=== PATIENT | male | born 1950 | race Caucasian/White ===

== ENCOUNTER → 2017-07-29 06:41 | Outpatient (CLI) | payer MEDICARE, OTHER, SELFPAY ==
[2017-03-04 21:14] VITALS: BMI 35.1
[2017-03-04 23:38] VITALS: BP 151/76
[2017-07-29 08:16] LABS: AST(SGOT) 27 U/L (15-37); Alanine Aminotransfer ALT/SGPT 51 U/L (16-61); Albumin, Serum 3.9 g/dL (3.2-5.0); Alkaline Phosphatase 93 U/L (45-117); Bilirubin, Direct 0.16 mg/dL (0.00-0.30); Cholesterol 169 mg/dL (200); Globulin 3.1 g/dL (2.2-4.2); High Density Lipoprotein 44 mg/dL; Triglycerides 155 mg/dL; Very Low Density Lipoprotein 31 mg/dL (5-40)
== END ==
PROVIDERS: Nurse Practitioner Family; Family Provider Preventive Medicine Occupational Medicine; PCP Preventive Medicine Occupational Medicine; Visit Provider Internal Medicine Cardiovascular Disease
DX: E78.5 Hyperlipidemia, unspecified (principal); Z79.899 Other long term (current) drug therapy
CPT/HCPCS: 36415; 80061; 80076

== ENCOUNTER → 2017-08-13 08:22 | Outpatient (CLI) | payer MEDICARE, OTHER, SELFPAY ==
--- NOTE | 2017-08-13 09:00 | STE_ITS ---
Reason For Study: CAD Stress Results Protocol: Hugo Protocol Maximum Predicted HR: 154 bpm Target HR: 131 bpm% Max imum Predicted HR: 95 % DurationHeart Rate Stage (mm:ss) (bpm) BPCom ment BASELINE 55 140/80 2CC DEFINITY STAGE 1 3:00 11 3 162/70 STAGE2 3:00 13 7 200/60 STAGE 3 1:01 14 6 / 1 C C DEFINITY RECOVERY 64 118/78 1CC DEFINITY Stress Duration: 7:01 mm:ss Maximum Stress HR: 146 bpm Baseline Echocardiogram Findings The estimated ejection fraction is 65 %. Stress Echo Wall motion Data Resting WMIntermediate WMStress WM Resting Wall Motion Wall Motion Stress No regional wall motion No regional wall motion abnormalities noted. abnormalities noted. EKG Data Normal intervals are noted. The patient exercised according to the regular Hugo protocol for a total duration of 7:01. The maximum heart rate attained was 146 beats per minute. This was 94% of maximum predicted heart rate. The patient exercised into stage 3 of the Hugo protocol. During stress, there were no ST or T wave changes noted to suggest ischemia. No arrhythmias noted. No clinical angina was noted. Interpretation Summary The estimated ejection fraction is 65 %. Normal adequate treadmill echocardiogram. Negative for ischemia by EKG and echocardiographic anterior. No anginal symptoms noted. No arrhythmias noted. Hypertensive blood pressure response to exercise. Decreased sensitivity due to poor echo windows requiring Definity agent. Test terminated due to target heart rate achieved. Patient tolerated procedure well. No complications. Ordering Physician: Flaco Lopez Referring Physician: Flaco Lopez Performed By: Kylie Garner, YRIS, RVT
== END ==
PROVIDERS: Family Provider Preventive Medicine Occupational Medicine; PCP Preventive Medicine Occupational Medicine; Visit Provider Internal Medicine Cardiovascular Disease
DX: I25.10 Atherosclerotic heart disease of native coronary artery without angina pectoris (principal)
CPT/HCPCS: 93017; 93350; Q9957; A4216

== ENCOUNTER → 2018-05-18 07:59 | Outpatient (CLI) | payer MEDICARE, OTHER, SELFPAY ==
[2018-05-18 09:24] LABS: Microalbumin,Random Urine 37.4 mg/L (NO RANGE EST.); Microalbumin:Creatinine Ratio 16.5 mg/g CRE (<30 mg/g CRE)
[2018-05-18 09:34] LABS: ALB/GLOB Ratio 1.1 RATIO (0.9-2.4); AST(SGOT) 38 U/L (15-37); Alanine Aminotransfer ALT/SGPT 88 U/L (16-61); Albumin, Serum 3.6 g/dL (3.2-5.0); Alkaline Phosphatase 100 U/L (45-117); Anion Gap 4 (5-15); BUN 15 mg/dL (7-18); BUN/Creat Ratio 16.2 RATIO (10-20); Calcium,Total 8.4 mg/dL (8.5-10.1); Chloride 107 mmol/L (98-107); Creatinine, Serum 0.93 mg/dL (0.70-1.30); EST Glomerular Filtration Rate 87 mL/min (>60); Est Glom Filt Rate - Afr Amer 105 mL/min (>60); Globulin 3.2 g/dL (2.2-4.2); Glucose 232 mg/dL (74-106); PSA,Total - Annual Screen 1.19 ng/mL (0.00-4.00); Protein, Total 6.8 g/dL (6.4-8.2); Sodium Level 141 mmol/L (136-145)
[2018-05-18 10:52] LABS: Cholesterol 181 mg/dL (200); High Density Lipoprotein 35 mg/dL; T4 Total, Thyroxin 8.1 ug/dL (4.5-12.1); Thyroid Stim Hormone (TSH) 2.13 uIU/mL (0.358-3.74); Triglycerides 241 mg/dL; Very Low Density Lipoprotein 48 mg/dL (5-40)
--- OUTSIDE RECORDS SUMMARY | 2018-06-29 20:30 | XMS RPT_ITS ---
:1950 External Reference #:[id number] Author Organization OHIP Care Team Providers Name Role Phone Flaco Lopez Attending Unavailable Flaco Lopez Referring Unavailable Sheldon Talbert Primary Care Unavailable Flaco Lopez Attending Unavailable Flaco Lopez Referring Unavailable Sheldon Talbert Primary Care Unavailable Flaco Lopez Attending Unavailable Flaco Lopez Referring Unavailable Flaco Lopez Attending Unavailable DOCTOR, OUT OF TOWN Referring Unavailable Sheldon Talbert Primary Care Unavailable Sheldon Talbert Attending Unavailable Sheldon Talbert Referring Unavailable Sheldon Talbert Primary Care Unavailable Quita Foster Attending Unavailable Sheldon Talbert Referring Unavailable PROBLEMS PROBLEMS DATE TYPE CONDITION / CODE ATTENDING STATUS SOURCE 05/18/2018 Unknown Z12.5 - Encounter for Sheldon Talbert Nara Hawthorne screening for [facility] malignant neoplasm of Hospital prostate / Repository Z12.5(ICD-10) 05/18/2018 Unknown E11.9 - Type 2 GaliSheldon Active [place] diabetes mellitus [facility] without complications Hospital / E11.9(ICD-10) Repository 05/18/2018 Unknown I10 - Essential Gali Sheldon Active [place] (primary) [facility] hypertension / Hospital I10(ICD-10) Repository 10/22/2017 Unknown E78.5 - Flaco Lopez Active [place] Hyperlipidemia, [facility] unspecified / Hospital E78.5(ICD-10) Repository 10/22/2017 Unknown I25.10 - Flaco Lopez Atherosclerotic heart [facility] disease of [facility] coronary artery Repository without angina pectoris / I25.10(ICD-10) 07/30/2017 Unknown Z79.899 - Other long Flaco Lopez term (current) drug [facility] therapy / Hospital Z79.899(ICD-10) Repository PROCEDURES PROCEDURES No Procedure Records FoundRESULTS RESULTS CARDIOLOGY VISIT Observed: 05/18/2018 Status: F Source: [place] REPORT 3:02 PM [facility] REPOSITORY [facility] [address] [place] [address] OFFICE VISIT Date of Service: 05/18/18 MR#: [id number] Acct: [id number] Name: ALLYSON COLEY Rep #: [id number] : 1950 Provider: Quita Foster Age/Sex: 67/M Location: [facility] [place] Status: Signed HPI HPI Chief Complaint: Routine f/u Details: ALLYSON COLEY, is a 67 M who presents to the office today for a cardiovascular follow-up. He has a history of coronary artery disease with stenting to the proximal portion of the posterior lateral branch. He also has a history of hyperlipidemia and diabetes. From a cardiac standpoint, patient is doing well. He does not have any chest discomfort/heaviness/tightness. His exercise tolerance is stable for his age. He does not have any worsening symptoms of shortness of breath. He denies any PND. He does not have any orthopnea. He does not have any symptoms of congestive heart failure. He does not have any palpitations that he is aware of. He does not have any lightheadedness or dizziness. He does not have any near-syncope or syncope. He does not have any lower extremity edema. He does not have any symptoms of claudication. He does question why he is unable to lose weight. Although his blood sugars are not ideally controlled. He does complain of fatigue. 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 Accompanied by: None Is patient in pain?: No Allergies atorvastatin [From Lipitor] Adverse Reaction (Unknown, Verified 05/18/18 08:55) Myalgia, fatigue, joint pain pravastatin Adverse Reaction (Unknown, Verified 05/18/18 08:55) Myalgia cinnamon Adverse Reaction (Verified 05/18/18 08:55) throat swelling Medications Celecoxib [Celebrex] 200 mg PO DAILY 08/28/15 [History Confirmed 05/18/18] Nitroglycerin [Nitrostat] 0.4 mg SUBLINGUAL Q5M PRN #30 tab 08/30/15 [Rx Confirmed 05/18/18] Multivit-Min/FA/Lycopen/Lutein [Centrum Silver Tablet] 1 ea PO DAILY 04/29/16 [History Confirmed 05/18/18] Aspirin E.C. [Ecotrin] 81 mg PO DAILY@0800 05/01/16 [History Confirmed 05/18/18] acarbose 50 mg tablet 50 mg PO BID tab 05/18/18 [History Confirmed 05/18/18] clopidogrel 75 mg tablet 75 mg PO QDAY #90 tab 05/18/18 [Rx Confirmed 05/18/18] glimepiride 4 mg tablet 8 mg PO QAM tab 05/18/18 [History Confirmed 05/18/18] losartan 50 mg tablet 50 mg PO QDAY #90 tab 05/18/18 [Rx Confirmed 05/18/18] omega 3-pcd-atb-fish oil 1,000 mg (120 mg-180 mg) capsule cap PO BID cap 05/18/18 [History Confirmed 05/18/18] Ejection fraction %: 65 to 70 PFSH Medical History Atherosclerosis of coronary artery of [place] heart without angina pectoris (Chronic) Hyperlipidemia (Chronic) Obesity (Chronic) Type 2 diabetes mellitus without complications (Chronic) Surgical History History of coronary artery stent placement (Chronic 09/11/15) H/O arthroscopy of right knee (Chronic) History of carpal tunnel release (Chronic) History of toe surgery (Resolved) Family History Brother CAD (coronary artery disease) CABG Mother CAD (coronary artery disease) CABG Brother CAD (coronary artery disease) CABG Brother CAD (coronary artery disease) Father CAD (coronary artery disease) CABG Social History Smoking Status: Former smoker pack-years: 40 how long ago did patient quit smokin years alcohol intake: never caffeine: No ROS Const Const: Positive for fatigue; negative for weakness, fever(s) or headache(s) Eyes Eyes: Negative for blind spots, loss of peripheral vision or transient loss of vision ENT ENT: Negative for headache(s), dizziness, tinnitus or Nosebleed/epistaxis Cardio Chest Pain: No Palpitations: No Edema: None Muscle aches with walking: None Resp Respiratory: Negative for SOB with activity, SOB at rest, SOB orthopnea\SOB lying down or Cough GI GI: Negative nausea, vomiting, heartburn or vomiting blood/hematemesis : Negative for hematuria Musc Musc: Negative for muscle aches/ myalgia Neuro Neuro: Negative for weakness, headache(s), dizziness, near syncope, syncope, lightheadedness or orthostatic symptoms Evgeny Hematologic/Lymphatic: Negative for easy bleeding Endo Endo: Positive for fatigue Cardiology Exam Const Appearance: cooperative, no acute distress and well developed Orientation: alert, awake and oriented x3 Head Head: normocephalic and atraumatic Mouth: moist mucous membranes Eyes General: appearance normal, both eyes and all related structures Conjunctivae: conjunctivae normal Pupils: PERRL EOM: EOM intact bilaterally Neck Neck: normal visual inspection, no lymphadenopathy and no JVD Carotids: Negative bruit Neck Mass: Negative Neck mass Chest Chest inspection: normal inspection of the chest and symmetric chest movement Auscultation: Bilateral: Clear to Auscultation Cardio Palpation: normal PMI Rate: regular rate Rhythm: regular rhythm Heart sounds: S1 normal and S2 normal; negative rub, gallop or murmur GI GI: normal to inspection, soft, no hepatosplenomegaly and bowel sounds present; negative tender Neuro General: alert, awake, oriented x3, CN's II-XI intact bilaterally and moves all extremities Extremities Pulses: Normal: Right Posterior Tibial Pulse, Left Posterior Tibial Pulse, Right Radial Pulse, Left Radial Pulse Lower Extremity Edema: None: Bilateral Psych Psychological: normal affect Supplemental Info Stress echocardiogram in 2018 demonstrated The estimated ejection fraction is 65 %. Normal adequate treadmill echocardiogram. Negative for ischemia by EKG and echocardiographic anterior. No anginal symptoms noted. No arrhythmias noted. Hypertensive blood pressure response to exercise. Decreased sensitivity due to poor echo windows requiring Definity agent. Test terminated due to target heart rate achieved. Patient tolerated procedure well. No complications. Assessment AND Plan 1. Atherosclerosis of [place] coronary artery of [place] heart without angina pectoris I25.10 IRENA-PLB of RCA w/ 2.5 x 8 mm Synergy 09/11/2015 QSH-Zbeu-Goc RCA 0.89 Plan Stable, from a cardiac standpoint patient does not have any symptoms of angina. We recommend that they continue with current aggressive medical management and risk factor modification. 2. Pure hypercholesterolemia E78.00; E78.0 Plan Recent lipid profile demonstrates a total cholesterol 181, HDL 35, LDL 98. Patient will continue with current dose of statin therapy. 3. Essential hypertension I10 Plan Well-controlled on current medications. Will not make any adjustments. Orders Orders: Plan Detail Other Medications New: Refilled: Additional Comments Did encourage better control of his diabetes. Thank you for allowing us to participate in the patients plan of care, if you have any questions please do not hesitate to call. This note was generated using a voice recognition system and there may be incorrect words, spelling or punctuation that were not noted when reviewing the office note prior to saving. Follow Up 9 Months (PAULAN) Coding Level of Care Code Off vis,est,level 3 Diagnoses Atherosclerosis of [place] coronary artery of [place] heart without angina pectoris I25.10 Coronary Disease-Associated Artery/Lesion type: [place] artery Pure hypercholesterolemia E78.00; E78.0 Hyperlipidemia type: pure hypercholesterolemia Essential hypertension I10 Hypertension type: essential hypertension Coding Level of Care Code Off vis,est,level 3 Diagnoses Atherosclerosis of [place] coronary artery of [place] heart without angina pectoris I25.10 Coronary Disease-Associated Artery/Lesion type: [place] artery Pure hypercholesterolemia E78.00; E78.0 Hyperlipidemia type: pure hypercholesterolemia Essential hypertension I10 Hypertension type: essential hypertension 05/18/18 1502 <Electronically signed by Quita HADDDA> Date Quita HADDAD Cosigner Signature: Date (if applicable) CC: Sheldon Talbert DO MICROALB:CREAT Collected: 05/18/2018 Status: F Source: [facility] UR 8:05 AM [facility] REPOSITORY TYPE CODE TESTS RESULT OUT OF RANGE REFERENCE UNITS LAB L501.1200 NO RANGE EST. mg/dL Normal UR CREAT 227.00 LAB L502.0500 NO RANGE EST. mg/L Normal 37.4 MICROALBUMIN ,UR LAB L502.0600 <30 mg/g CRE mg/g CRE Normal 16.5 MALB:CREAT Performed By: #### L502.0250 #### [facility] [address] [place] [address]. [place], [place], [id number] COMPREHENSIVE METABOLIC Collected: 05/18/2018 Status: F Source: [facility] PROFIL 8:05 AM [facility] REPOSITORY Order Comment: QUITA FOSTER ADDED LIPID TSH T4 TYPE CODE TESTS RESULT OUT OF RANGE REFERENCE UNITS LAB L501.0100 74-106 mg/dL High GLU 232 Result Comment: Glucose result greater than or equal to 200 mg/dL suggests DIABETES MELLITUS per A.D.A. criteria. Please note revised GLUCOSE reference range effective 2017. LAB L501.1000 7-18 mg/dL Normal BUN 15 LAB L501.1100 0.70-1.30 mg/dL Normal CREAT,SERUM 0.93 Result Comment: The validity of the calculated GFR AND GFRAA in patients over 70 years has not been determined. Clinical correlation is essential. LAB L501.1110 >60 mL/min Normal EST GFR 87 Result Comment: Non- GFR Calc LAB L501.1115 >60 mL/min Normal EST GFR - AA 105 Result Comment: GFR Calc LAB L501.1300 10-20 RATIO Normal BUN/CRE 16.2 LAB L501.1500 6.4-8.2 g/dL T Normal PROT 6.8 LAB L501.1800 3.2-5.0 g/dL Normal ALB 3.6 LAB L501.1950 2.2-4.2 g/dL Normal GLOB 3.2 LAB L501.2000 0.9-2.4 RATIO Normal A/G 1.1 LAB L501.2200 8.5-10.1 mg/dL Low CA 8.4 LAB L501.4100 15-37 U/L High AST 38 LAB L501.4305 45-117 U/L Normal ALK P 100 LAB L501.4405 16-61 U/L High ALT 88 LAB L501.4600 0.20-1.00 mg/dL T Normal BILI 0.40 LAB L501.5300 136-145 mmol/L NA Normal 141 LAB L501.5600 3.5-5.1 mmol/L K Normal 4.0 LAB L501.5900 98-107 mmol/L CL Normal 107 LAB L501.6100 21.0-32.0 mmol/L Normal CO2 30.0 LAB L501.6200 5-15 Low GAP 4 Performed By: #### L500.4050, L501.9910, L500.4100, L501.9310, L501.9520 #### [facility] [address] [place], [address] PSA,TOTAL - ANNUAL Collected: 05/18/2018 Status: F Source: [place] SCREEN 8:05 AM [facility] REPOSITORY Order Comment: QUITA FOSTER ADDED LIPID TSH T4 TYPE CODE TESTS RESULT OUT OF RANGE REFERENCE UNITS LAB L501.9910 0.00-4.00 ng/mL Normal PSA,TOT 1.19 SCREEN Result Comment: This test was performed using the TPSA assay method for the [employer] chemistry system. Values obtained with different assay methods cannot be used interchangably. When changing PSA assays in the course of monitoring a patient, additional sequential testing should be carried out to confirm baseline values. Performed By: #### L500.4050, L501.9910, L500.4100, L501.9310, L501.9520 #### [facility] [address] [place], [address] LIPID PROFILE Collected: 05/18/2018 Status: F Source: [place] 8:05 AM [facility] REPOSITORY Order Comment: QUITA FOSTER ADDED LIPID TSH T4 TYPE CODE TESTS RESULT OUT OF RANGE REFERENCE UNITS LAB L501.4900 200 mg/dL Normal CHOL 181 Result Comment: <200 mg/dL Desirable 200-240 mg/dL Borderline >240 mg/dL High Risk LAB L501.5000 mg/dL High TRIG 241 Result Comment: The drugs N-Acetylcysteine and Metamizole may falsely depress this assay. Serum Triglycerides Reference Interval Normal <150 mg/dL Borderline high 150 - 199 mg/dL High 200 - 499 mg/dL Very High > or = 500 mg/dL LAB L501.6400 mg/dL Low HDL 35 Result Comment: The drugs N-Acetylcysteine and Metamizole may falsely depress this assay. Reference Range HDL <40 mg/dL Low HDL Cholesterol HDL >or= 60 mg/dL High HDL Cholesterol LAB L501.6500 0-130 mg/dL Normal LDL 98 LAB L501.6600 5-40 mg/dL High VLDL 48 Performed By: #### L500.4050, L501.9910, L500.4100, L501.9310, L501.9520 #### [facility] [address] [place], [address] T4 TOTAL, THYROXIN Collected: 05/18/2018 Status: F Source: [place] 8:05 AM [facility] REPOSITORY Order Comment: QUITA FOSTER ADDED LIPID TSH T4 TYPE CODE TESTS RESULT OUT OF RANGE REFERENCE UNITS LAB L501.9310 4.5-12.1 ug/dL T4 Normal THYROXIN 8.1 Performed By: #### L500.4050, L501.9910, L500.4100, L501.9310, L501.9520 #### [facility] [address] [place], [address] THYROID STIM HORMONE Collected: 05/18/2018 Status: F Source: [place] (TSH) 8:05 AM [facility] REPOSITORY Order Comment: QUITA ELIONNELL ADDED LIPID TSH T4 TYPE CODE TESTS RESULT OUT OF RANGE REFERENCE UNITS LAB L501.9520 0.358-3.74 uIU/mL Normal TSH 2.13 Performed By: #### L500.4050, L501.9910, L500.4100, L501.9310, L501.9520 #### [facility] [address] [place], [address] CARDIOLOGY VISIT Observed: 10/22/2017 Status: F Source: [place] REPORT 1:59 PM [facility] REPOSITORY [facility] [address] [place] [address] OFFICE VISIT Date of Service: 10/22/17 MR#: [id number] Acct: [id number] Name: ALLYSON COLEY Rep #: [id number] : 1950 Provider: Flaco Lopez MD Age/Sex: 67/M [place] [facility] Status: Signed HPI HPI Chief Complaint: Routine f/u Details: Mr. Coley is a very pleasant 67-year-old nondiabetic fairly active gentleman who rides his bike on a regular basis. The patient noted atypical nonexertional chest pain while sitting in his computer chair which precipitated an exercise imaging study The patient exercised for 10 minutes had no chest pain but had questionable inferior ischemia on the imaging component. Patient underwent left heart catheterization at [facility] in July 2015 which demonstrated nonobstructive disease of his left circumflex, LAD, and a questionable eccentric stenosis in the proximal portion of the posterior lateral branch. The patient underwent FFR evaluation at [facility] of his RCA which was found to be abnormal. Patient received a 2.5X8 Synergy drug-eluting stent of the proximal portion of the posterior lateral branch. The midportion of the RCA was FloWire and was found to be normal at 0.89. No additional stenting was done of the RCA. No FFR was done of the LAD lesion. Patient underwent a follow-up stress echocardiogram in 08/19/17 for coronary surveillance which was negative for inducible ischemia. Since her last visit the patient is no longer taking statins, and he is tolerating his Fish oil well. He continues to ride his bike without any difficulty whatsoever. He has no chest pain, angina, shortness of breath or dyspnea on exertion. In our office today his blood pressure is 120/62, and pulse is 64 and regular. He is on no beta blockers due to his baseline bradycardia. His physical exam is as below. His lipids as of 09/15/16 showed HDL of 51 and LDL of 30 While on Lipitor, but unfortunately was unable to take statins. 01/16/17 show an LDL of 101 and HDL of 49. His lipids as of 07/29/17 show an LDL of 94 and HDL of 44. Intake Vital Signs10/22/17 Height 5 ft 11 in 10/22/17 Weight: 252 lb 10/22/17 Body Mass Index (BMI) 35.1 10/22/17 Blood Pressure 120/62 10/22/17 Respiratory Rate 16 10/22/17 Pulse Rate 64 Intake Visit Reasons: 6 M FU Allergies atorvastatin [From Lipitor] Adverse Reaction (Unknown, Unverified 10/22/17 13:33) Myalgia, fatigue, joint pain pravastatin Adverse Reaction (Unknown, Unverified 10/22/17 13:33) Myalgia cinnamon Adverse Reaction (Verified 10/22/17 13:41) throat swelling Medications Celecoxib [Celebrex] 200 mg PO DAILY 08/28/15 [History Confirmed 10/21/17] Nitroglycerin [Nitrostat] 0.4 mg SUBLINGUAL Q5M PRN #30 tab 08/30/15 [Rx Confirmed 10/21/17] Multivit-Min/FA/Lycopen/Lutein [Centrum Silver Tablet] 1 ea PO DAILY 04/29/16 [History Confirmed 10/21/17] Aspirin E.C. [Ecotrin] 81 mg PO DAILY@0800 05/01/16 [History Confirmed 10/21/17] clopidogrel 75 mg tablet 75 mg PO QDAY #90 tab 06/10/17 [Rx Confirmed 10/21/17] losartan 50 mg tablet 50 mg PO QDAY 08/14/17 [History Confirmed 10/21/17] metformin 500 mg tablet 500 mg PO .qid tab 10/22/17 [History Confirmed 10/22/17] omega 5-fgq-zit-fish oil 1,000 mg (120 mg-180 mg) capsule cap PO 10/22/17 [History Confirmed 10/22/17] PFS Medical History Atherosclerosis of coronary artery of [place] heart without angina pectoris (Chronic) Hyperlipidemia (Chronic) Obesity (Chronic) Type 2 diabetes mellitus without complications (Chronic) Surgical History History of coronary artery stent placement (Chronic 09/11/15) H/O arthroscopy of right knee (Chronic) History of carpal tunnel release (Chronic) Family History Brother CAD (coronary artery disease) CABG Mother CAD (coronary artery disease) CABG Social History Smoking Status: Former smoker pack-years: 40 ROS Const Const: Positive for fatigue and other (Riding his bike w/o difficulty); negative for weakness, difficulty sleeping, frequent falls, headache(s) or excessive sweating Eyes Eyes: Negative for loss of peripheral vision, transient loss of vision, blurry vision or double vision ENT ENT: Negative for headache(s), dizziness, Nosebleed/epistaxis or balance problems Cardio Chest Pain: No Edema: None Muscle aches with walking: None Resp Respiratory: Negative for SOB with activity, SOB at rest, SOB orthopnea\SOB lying down or paroxysmal nocturnal dyspnea GI GI: Negative nausea or heartburn : Negative for hematuria Musc Musc: Negative for muscle aches/ myalgia, muscle weakness, joint pain or balance problems Skin Skin: Negative non-healing lesions, unusual bruising or rash Neuro Neuro: Negative for weakness, frequent falls, blurry vision, headache(s), dizziness, lightheadedness, orthostatic symptoms or double vision Evgeny Hematologic/Lymphatic: Negative for easy bruising Endo Endo: Positive for fatigue; negative for excessive sweating or increased thirst/drinking Psych Psych: Negative for anxiety or depression Allergy Allergy/Immunology: Negative for hives, Negative for rash Cardiology Exam Const Appearance: cooperative, healthy appearing and no acute distress Nutritional Appearance: well nourished Orientation: alert, oriented x3 and oriented to person Head Head: normal to inspection, atraumatic and normocephalic Nose: external nose normal Face and Sinus: face symmetric Mouth: oral mucosae normal Eyes General: appearance normal, both eyes and all related structures Eyelids: eyelids normal Conjunctivae: conjunctivae normal Pupils: PERRL and normal by confrontation EOM: EOM intact bilaterally Neck Neck: normal visual inspection and full ROM Carotids: normal carotid upstroke Chest Chest inspection: normal inspection of the chest Auscultation: Bilateral: Clear to Auscultation Cardio Palpation: normal PMI Rate: regular rate Rhythm: regular rhythm Heart sounds: S1 normal and S2 normal GI GI: normal to inspection, no hepatosplenomegaly and bowel sounds present Neuro General: alert, oriented x3, awake, CN's II-XI intact bilaterally and moves all extremities Skin Skin: no rashes or lesions noted Extremities Pulses: Normal: Right Femoral Pulse, Left Femoral Pulse, Right Dorsalis Pedis Pulse, Left Dorsalis Pedis Pulse, Right Posterior Tibial Pulse, Left Posterior Tibial Pulse, Right Radial Pulse, Left Radial Pulse Lower Extremity Edema: None: Bilateral Psych Psychological: normal affect Assessment AND Plan 1. Atherosclerosis of coronary artery of [place] heart without angina pectoris I25.10 IRENA-PLB of RCA w/ 2.5 x 8 mm Synergy 09/11/2015 XWD-Iwil-Ymw RCA 0.89 Plan 1. Coronary artery disease: No exertional anginal symptoms at this time. No indication for any additional testing. His blood pressure and heart rate are well-controlled. He continues to ride his bike without difficulty. Recommend for his remaining uncorrected lesions and continuing baby aspirin, Plavix, losartan. His most recent stress test was negative for inducible ischemia at a good workload. 2. Hyperlipidemia E78.5 Plan 2. Hyperlipidemia: Unfortunately the patient is unable to tolerate statins and has tried gemfibrozil in the past as well. He is not willing to proceed with Zetia at this time. His LDL and HDL cholesterol are essentially balance. Continue fish oil. 3. Return office in 6 months. This note was generated using a voice recognition system and there may be incorrect words, spelling or punctuation that were not noted when reviewing the office note prior to saving. Plan Detail Follow Up +6M (Lopez) Coding Level of Care Code Off vis,est,level 3 Diagnoses Atherosclerosis of coronary artery of [place] heart without angina pectoris I25.10 Hyperlipidemia E78.5 Coding Level of Care Code Off vis,est,level 3 Diagnoses Atherosclerosis of coronary artery of [place] heart without angina pectoris I25.10 Hyperlipidemia E78.5 10/22/17 1359 <Electronically signed by Flaco Lopez MD> Date Flaco Lopez MD Cosigner Signature: Date (if applicable) CC: Sheldon Talbert DO STRESS TEST ECHO W/O Observed: 08/13/2017 Status: F Source: [facility] CONTRAST 5:07 PM [facility] REPOSITORY [facility] Cardiovascular Services [address] [place] [id number] Stress Test Echo w/o Contrast MR#: [id number] Acct: [id number] Name: ALLYSON COLEY Rep #: [id number] : 1950 67 From: Flaco Lopez MD Primary Care: Sheldon Talbert DO Status: REG CLI Ordering Dr: Flaco Lopez MD Sex: M C Reason For Study: CAD Stress Results Protocol: Hugo Protocol Maximum Predicted HR: 154 bpm Target HR: 131 bpm% Max imum Predicted HR: 95 % DurationHeart Rate Stage (mm:ss) (bpm) BPCom ment BASELINE 55 140/80 2CC DEFINITY STAGE 1 3:00 11 3 162/70 STAGE2 3:00 13 7 200/60 STAGE 3 1:01 14 6 / 1 C C DEFINITY RECOVERY 64 118/78 1CC DEFINITY Stress Duration: 7:01 mm:ss Maximum Stress HR: 146 bpm Baseline Echocardiogram Findings The estimated ejection fraction is 65 %. Stress Echo Wall motion Data Resting WMIntermediate WMStress WM Resting Wall Motion Wall Motion Stress No regional wall motion No regional wall motion abnormalities noted. abnormalities noted. EKG Data Normal intervals are noted. The patient exercised according to the regular Hugo protocol for a total duration of 7:01. The maximum heart rate attained was 146 beats per minute. This was 94% of maximum predicted heart rate. The patient exercised into stage 3 of the Hugo protocol. During stress, there were no ST or T wave changes noted to suggest ischemia. No arrhythmias noted. No clinical angina was noted. Interpretation Summary The estimated ejection fraction is 65 %. Normal adequate treadmill echocardiogram. Negative for ischemia by EKG and echocardiographic anterior. No anginal symptoms noted. No arrhythmias noted. Hypertensive blood pressure response to exercise. Decreased sensitivity due to poor echo windows requiring Definity agent. Test terminated due to target heart rate achieved. Patient tolerated procedure well. No complications. Ordering Physician: Flaco Lopez Referring Physician: Flaco Lopez Performed By: Kylie Garner, YRIS, RVT 08/13/171706 Date Flaco Lopez MD CC: Flaco Lopez MD; Sheldon Talbert Date Dictated: 08/13/17 0829 Date Transcribed: 08/13/171706 X Ray Consultant: Signed LIVER PROFILE Collected: 07/29/2017 Status: F Source: [place] 6:48 AM [facility] REPOSITORY Order Comment: Order Date: 01/22/17 Order Info: 0788-1 - *Hepatic Function Panel Order Info: 36699-0 - *Lipid Profile CC PCP Comments: 12 hours fasting, may have water. TYPE CODE TESTS RESULT OUT OF RANGE REFERENCE UNITS LAB L501.1500 6.4-8.2 g/dL Normal T PROT 7.0 LAB L501.1800 3.2-5.0 g/dL Normal ALB 3.9 LAB L501.1950 2.2-4.2 g/dL Normal GLOB 3.1 LAB L501.4100 15-37 U/L Normal AST 27 LAB L501.4305 45-117 U/L Normal ALK P 93 LAB L501.4405 16-61 U/L Normal ALT 51 Result Comment: Please note revised ALT reference range effective 2017. LAB L501.4600 0.20-1.00 mg/dL Normal T BILI 0.50 LAB L501.4700 0.00-0.30 mg/dL Normal D BILI 0.16 Performed By: #### L500.3400 #### [facility] [address] [place], [place], [address] LIPID PROFILE Collected: 07/29/2017 Status: F Source: [place] 6:48 AM [facility] REPOSITORY Order Comment: Order Date: 01/22/17 Order Info: 0788-1 - *Hepatic Function Panel Order Info: 72027-7 - *Lipid Profile CC PCP Comments: 12 hours fasting, may have water. TYPE CODE TESTS RESULT OUT OF RANGE REFERENCE UNITS LAB L501.4900 200 mg/dL Normal CHOL 169 Result Comment: <200 mg/dL Desirable 200-240 mg/dL Borderline >240 mg/dL High Risk LAB L501.5000 mg/dL Normal TRIG 155 Result Comment: The drugs N-Acetylcysteine and Metamizole may falsely depress this assay. Serum Triglycerides Reference Interval Normal <150 mg/dL Borderline high 150 - 199 mg/dL High 200 - 499 mg/dL Very High > or = 500 mg/dL LAB L501.6400 mg/dL Normal HDL 44 Result Comment: The drugs N-Acetylcysteine and Metamizole may falsely depress this assay. Reference Range HDL <40 mg/dL Low HDL Cholesterol HDL >or= 60 mg/dL High HDL Cholesterol LAB L501.6500 0-130 mg/dL Normal LDL 94 LAB L501.6600 5-40 mg/dL Normal VLDL 31 Performed By: #### L500.4100 #### [facility] [address] [place], [place], [address] ALLERGIES ALLERGIES DATE TYPE / CODE NAME / CODE REACTION SEVERITY SOURCE 05/18/2018 Drug pravastatin/ myalgia Unknown [facility] Allergy/4160 [id number]( Hospital 99038(SNOMED XNORM) Repository CT) 05/18/2018 Drug atorvastatin Myalgia, Unknown [facility] Allergy/4160 /[id number]( fatigue, joint Hospital 63426(SNOMED RXNORM) pain Repository CT) 05/18/2018 Drug cinnamon/F00 throat swelling Unknown [facility] Allergy/4160 [id number](RX Hospital 91034(SNOMED RM) Repository CT) ENCOUNTERS ENCOUNTERS ADMIT/DISCHARGE ACCOUNT ADMITTING ENCOUNTER LOCATION SOURCE NUMBER CLASS 05/18/2018/ [id number] Ambulatory BMSBuilding:B [place] 8 2 [facility] Repository 05/18/2018 [id number] Ambulatory [facility] ing:LAB Repository 10/22/2017/ [id number] Ambulatory BMSBuilding:B [facility] 8 3 [facility] Repository 08/13/2017 [id number] [place] [facility] ing:[facility] Repository 08/13/2017 [id number] Ambulatory BMSBuilding:W [facility] Repository 07/29/2017 [id number] Ambulatory [place] [facility] ing:LAB Repository PAYERS PAYERS ENCOUNTER GUARANTOR PAYER SUBSCRIBER SOURCE 05/18/2018 ALL[place]ON L Primary ALLYSON L [place] [id number] S Insurance:MEDICARE VIRGILIDOB: [facility] WALNUT PART A [facility] [id number] Repository [id number]: [id number] [phone] () Date:2018-05-06 05/18/2018 Secondary [place] L [place] Insurance:AARPPolicy VIRGILIDOB: [facility] Number: [id number] Hospital [id number] Repository Date:6739-16-98GJ [address], [place] [address]EO: 05/18/2018 Tertiary NOT GIVENUNK [place] Insurance:SELF PAY [facility] Number: Effective Repository Date:2018-05-18 05/18/2018 ALLYSON L Primary ALLYSON L [place] [id number] S Insurance:MEDICARE VIRGILIDOB: [facility] WALNUT PART A [facility] [id number] Number: Repository [id number]: 330 [id number] [phone] (HP) Date:2018-05-18 05/18/2018 Secondary ALLYSON L [place] Insurance:AARPPolicy VIRGILIDOB: Community Number: [id number] Hospital [id number] Repository Date:4849-79-25YS [address], [place] [address]FQ: 05/18/2018 Tertiary NOT GIVENUNK [facility] Insurance:SELF PAY [facility] Effective Repository Date:2018-05-18 10/22/2017 ALLYSON L Primary ALLYSON L [facility] [id number] S Insurance:MEDICARE VIRGILIDOB: Community [employer]AL[place]UT PART A [id number] Number: Repository [place] [address]Jim: [id number] Date:2017-06-02 () 10/22/2017 Secondary ALLYSON L [place] Insurance:AARPPolicy VIRGILIDOB: Community Number: [id number] Hospital [id number] Repository Date:6303-33-16LR [address], [place] [address]GY: 10/22/2017 Tertiary NOT GIVENUNK [place] Insurance:SELF PAY [facility] Hospital Number: Effective Repository Date:2017-06-02 08/13/2017 ALLYSON L Primary ALLYSON L [place] [id number] S Insurance:MEDICARE VIRGILIDOB: Community [place]AL[place]UT PART A [facility] [id number] [place] Number: Repository [id number]: 330 [id number] [phone] () Date:2017-07-20 08/13/2017 Secondary ALLYSON L [place] Insurance:AARPPolicy VIRGILIDOB: Community Number: [id number] Hospital [id number] Repository Date:5511-98-65HG [address], [place] [address]KY: 08/13/2017 Tertiary NOT GIVENUNK [place] Insurance:SELF PAY [facility] Number: Effective Repository Date:2017-07-20 08/13/2017 ALLYSON L Primary ALLYSON L [place] [id number] S Insurance:MEDICARE VIRGILIDOB: Community WAL[place]UT PART A [facility] [id number] [place] Number: Repository [id number]: 330 [id number] [phone] () Date:2017-07-20 08/13/2017 Secondary ALLYSON L [place] Insurance:AARPPolicy VIRGILIDOB: Community Number: [id number] Hospital [id number] Repository Date:8667-38-68BU [facility] [address], [place] [address]BD: 08/13/2017 Tertiary NOT GIVENUNK [place] Insurance:SELF PAY [facility] Hospital Number: Effective Repository Date:2017-08-13 07/29/2017 ALLYSON L Primary ALLYSON L [place] [id number] S Insurance:MEDICARE VIRGILIDOB: Community WALNUT PART A [facility] [id number] [place] Number: Repository [id number]: 330 [id number] [phone] () Date:2017-07-29 07/29/2017 Secondary ALLYSON L [place] Insurance:AARPPolicy VIRGILIDOB: Community Number: [id number] Hospital [id number] Repository Date:0049-85-27IC [facility] [place], [place] [address]QD: 07/29/2017 Tertiary NOT GIVENUNK [place] Insurance:SELF PAY [facility] Hospital Number: Effective Repository Date:2017-07-29
== END ==
PROVIDERS: Family Provider Preventive Medicine Occupational Medicine; PCP Preventive Medicine Occupational Medicine; Referring Provider Preventive Medicine Occupational Medicine; Visit Provider Preventive Medicine Occupational Medicine
DX: I10 Essential (primary) hypertension (principal); Z12.5 Encounter for screening for malignant neoplasm of prostate; E11.9 Type 2 diabetes mellitus without complications
CPT/HCPCS: 36415; 80053; 80061; 82043; 82570; 84153; 84436; 84443; G0103

== ENCOUNTER → 2019-02-23 | Outpatient (CLI) | payer MEDICARE, OTHER, SELFPAY ==
[2019-02-03 13:54] VITALS: BMI 33.9
--- NOTE | 2019-02-23 12:01 | STEWCON_ITS ---
Reason For Study: CAD Stress Results Protocol: Hugo Protocol Maximum Predicted HR: 153 bpm Target HR: 130 bpm % Maximum Predicted HR: 88 % DurationHeart Rate Stage (mm:ss) (bpm) BP Comment Baseline 48 138/70No Chest Pain; Diluted Definity 3 ML Given Hugo Protocol Stage I 3:00 98 174/70No Chest Pain Hugo Protocol Stage II 3:00 117 198/64No Chest Pain Hugo Protocol Stage III 3:00 134 196/72No Chest Pain; Mild Dyspnea; Fatigue Recovery 63 140/68No Chest Pain Stress Duration: 9:00 mm:ss Maximum Stress HR: 134 bpm METS: 10 Baseline Echocardiogram Findings The estimated ejection fraction is 65 %. Stress Echo Wall motion Data Resting WM Intermediate WM Stress WM Resting Wall Motion Wall Motion Stress No regional wall motion No regional wall motion abnormalities noted. abnormalities noted. EKG Data The baseline ECG displays normal sinus rhythm. The patient exercised according to the regular Hugo protocol for a total duration of 9:00. The maximum heart rate attained was 136 beats per minute. This was 88% of maximum predicted heart rate. The patient exercised into stage 4 of the Hugo protocol. During stress, there were no ST or T wave changes noted to suggest ischemia. No clinical angina was noted. No arrhythmias noted. Interpretation Summary The estimated ejection fraction is 65 %. Normal, adequate, treadmill echocardiogram. Negative for ischemia by EKG and echocardiographic criteria. No anginal symptoms noted. No arrhythmias noted. Test terminated due to fatigue. Final LVEF is 75%. Decreased sensitivity due to poor echo windows requiring Definity agent. No complications. The study was technically difficult. Contrast injection was performed. Ordering Physician: Flaco Lopez MD Referring Physician: MD Sheldon Talbert Performed By: Carrie Kyle, YRIS, RVT
== END | disposition home or self-care (01) ==
LOC: CVS 11:59
PROVIDERS: Family Provider Preventive Medicine Occupational Medicine; PCP Preventive Medicine Occupational Medicine; Referring Provider Internal Medicine Cardiovascular Disease; Visit Provider Internal Medicine Cardiovascular Disease
DX: I25.10 Atherosclerotic heart disease of native coronary artery without angina pectoris (principal); Z95.5 Presence of coronary angioplasty implant and graft; E78.5 Hyperlipidemia, unspecified
CPT/HCPCS: 93017; 93350; Q9957; A4216; C8928

== ENCOUNTER → 2019-08-06 07:10 | Outpatient (CLI) | payer MEDICARE, OTHER, SELFPAY ==
[2019-08-01 15:29] VITALS: BMI 34.4
[2019-08-06 09:36] LABS: AST(SGOT) 18 U/L (15-37); Alanine Aminotransfer ALT/SGPT 35 U/L (16-61); Albumin, Serum 3.9 g/dL (3.2-5.0); Alkaline Phosphatase 72 U/L (45-117); Bilirubin, Direct 0.14 mg/dL (0.00-0.30); Cholesterol 188 mg/dL (200); Globulin 3.1 g/dL (2.2-4.2); High Density Lipoprotein 48 mg/dL; Triglycerides 130 mg/dL; Very Low Density Lipoprotein 26 mg/dL (5-40)
== END ==
PROVIDERS: PCP Preventive Medicine Occupational Medicine; Referring Provider Internal Medicine Cardiovascular Disease; Visit Provider Internal Medicine Cardiovascular Disease
DX: I25.10 Atherosclerotic heart disease of native coronary artery without angina pectoris (principal); E78.5 Hyperlipidemia, unspecified
CPT/HCPCS: 36415; 80061; 80076

== ENCOUNTER → 2019-11-26 07:23 | Outpatient (CLI) | payer MEDICARE, OTHER, SELFPAY ==
[2019-08-01 15:29] VITALS: BMI 34.4
[2019-11-26 08:18] LABS: Anion Gap 5 (5-15); BUN 19 mg/dL (7-18); BUN/Creat Ratio 19.4 RATIO (10-20); Calcium,Total 8.7 mg/dL (8.5-10.1); Chloride 106 mmol/L (98-107); Creatinine, Serum 0.98 mg/dL (0.70-1.30); EST Glomerular Filtration Rate 81 mL/min (>60); Est Glom Filt Rate - Afr Amer 98 mL/min (>60); Glucose 176 mg/dL (74-106); PSA,Total - Annual Screen 1.75 ng/mL (0.00-4.00); Potassium 4.1 mmol/L (3.5-5.1); Sodium Level 140 mmol/L (136-145)
[2019-11-26 08:28] LABS: Microalbumin,Random Urine < 5.0 mg/L (NO RANGE EST.)
[2019-11-26 08:29] LABS: Hemoglobin A1c 8.7 % (3.8-5.6)
== END ==
PROVIDERS: PCP Preventive Medicine Occupational Medicine; Referring Provider Preventive Medicine Occupational Medicine; Visit Provider Preventive Medicine Occupational Medicine
DX: E11.9 Type 2 diabetes mellitus without complications (principal); Z12.5 Encounter for screening for malignant neoplasm of prostate
CPT/HCPCS: 36415; 80048; 82043; 83036; 84153; G0103

== ENCOUNTER 2020-08-28 10:32 | Outpatient (RCR) | payer MEDICARE, OTHER, SELFPAY ==
[2020-02-17 09:35] VITALS: BMI 33.9
[2020-08-27 14:14] VITALS: BMI 34.8
[2020-08-28] MEDS: COVID-19 VACC, MRNA(PFIZER)/PF 30 MCG/0.3 ML SYRINGE IM (17:11)
[2020-09-18] MEDS: COVID-19 VACC, MRNA(PFIZER)/PF 30 MCG/0.3 ML SYRINGE IM (16:45)
== END 2020-11-27 23:59 ==
LOC: IMMUN 10:32
PROVIDERS: PCP Preventive Medicine Occupational Medicine; Referring Provider Family Medicine; Visit Provider Family Medicine
DX: Z23 Encounter for immunization (principal)
CPT/HCPCS: 0001A; 0002A; 91300

== ENCOUNTER → 2021-01-14 05:51 | Outpatient (CLI) | payer MEDICARE, OTHER, SELFPAY ==
[2020-08-27 14:14] VITALS: BMI 34.8
--- NOTE | 2021-01-14 19:34 | STRESSREP ---
Stress Test Report Exercise myocardial perfusion stress test. 70-year-old man with a history of previous coronary artery disease. Stress protocol: Resting EKG demonstrates sinus bradycardia with a rate of 44 bpm normal intervals are noted resting blood pressures 144/78 mmHg. The patient exercised according to regular Hugo protocol for a total duration of 6 minutes. The maximum heart rate attained was 127 bpm which was 84% of maximum predicted heart rate the maximum workload was seven metabolic equivalents. At rest there were no ST or T wave changes noted to suggest ischemia and at peak exercise upsloping ST changes were noted with did not meet the criteria for ischemia. No clinical angina was noted the test was terminated due to the target heart rate being achieved. Myocardial perfusion protocol. 14.2 mCi of technetium 99m sestamibi was injected at rest. The patient exercised according to regular Hugo protocol. At peak exercise 44.7 mCi of technetium 99m sestamibi was injected stress images were obtained stress and rest images were reconstructed and compared in the short axis vertical long and horizontal long axis. Gated images were also obtained. Perfusion SPECT analysis: Review of the stress images demonstrate normal uptake of tracer noted in the septum anterior wall and apex. There is a medium size defect noted involving the inferolateral wall noted on the stress images. The resting images demonstrate near complete uptake of tracer in all areas of the myocardium. The above is suggestive of a medium sized inferolateral perfusion defect suggestive of ischemia. Gated SPECT analysis: The gated ejection fraction is 56%. Conclusion: Abnormal exercise myocardial perfusion stress test with evidence of inferolateral ischemia at a moderate workload. Preserved ejection fraction.
== END ==
PROVIDERS: PCP Preventive Medicine Occupational Medicine; Referring Provider Physician Assistant Medical; Visit Provider Physician Assistant Medical
DX: I25.10 Atherosclerotic heart disease of native coronary artery without angina pectoris (principal)
CPT/HCPCS: 78452; 93017; A9500; A4216

== ENCOUNTER → 2021-01-17 15:21 | Outpatient (CLI) | payer MEDICARE, OTHER, SELFPAY ==
[2021-01-17 14:10] VITALS: BMI 47.7
--- NOTE | 2021-01-17 15:25 | RAD_ITS ---
STUDY: X-RAY CHEST REASON FOR EXAM: Male, 70 years old. Chest pain. TECHNIQUE: Single AP portable view of the chest. COMPARISON: 08/28/2015 FINDINGS: The lungs are clear and expanded. There is no demonstrated pleural abnormality. Normal size heart. Normal mediastinum and dylan. Normal visualized pulmonary arteries. Normal visualized aortic arch and descending thoracic aorta. There are diffuse degenerative changes of the visualized thoracic spine. There is degenerative osteoarthritis of the bilateral shoulders. There is no demonstrated abnormality of the visualized soft tissue structures of the upper abdomen. RAD/Chest PA and Lateral IMPRESSION: Degenerative changes, as described above. No demonstrated acute cardiopulmonary process. Electronically Signed: Jere Cabral DO at 21:15 EDT Tel [phone], Service support ,
[2021-01-17 17:11] LABS: Absolute Lymphocyte Count 1.05 X10^3/uL (0.83-4.51); Basophil# 0.02 X10^3/uL; Basophil% 0.3 % (0-1); Eosinophil# 0.15 X10^3/uL; Eosinophils% 2.6 % (0-5); Hematocrit 45.6 % (40-54); Hemoglobin 15.5 g/dL (13.0-16.5); Lymphocyte # 1.05 X10^3/ul (0.83-4.51); Mean Corpuscular Hgb 30.2 pg (27.0-32.0); Mean Corpuscular Volume 88.7 fL (80-94); Mean Platelet Vol. 9.8 fl (6.2-12.0); Monocyte# 0.47 X10^3/uL; Monocyte% 8.1 % (0-10); NRBC Flagged by Analyzer 0 % (0-5); Neutrophil # 4.04 X10^3/uL (2.7-7.7); Neutrophil % 69.5 % (47-70); Platelet Count 188 K/mm3 (150-450); RBC Distribution Width CV 11.8 % (11.6-14.6); RBC Distribution Width SD 37.7 fl (35.1-43.9); Red Blood Count 5.14 M/mm3 (4.6-6.2); White Blood Count 5.8 K/mm3 (4.4-11.0)
[2021-01-17 17:30] LABS: Prothrombin Time (Protime)PT. 12.6 SECONDS (11.7-14.9)
[2021-01-17 17:45] LABS: Anion Gap 9 (5-15); BUN 20 mg/dL (7-18); BUN/Creat Ratio 22.4 RATIO (10-20); Calcium,Total 8.8 mg/dL (8.5-10.1); Chloride 101 mmol/L (98-107); Creatinine, Serum 0.89 mg/dL (0.70-1.30); EST Glomerular Filtration Rate 90 mL/min (>60); Est Glom Filt Rate - Afr Amer 108 mL/min (>60); Glucose 256 mg/dL (74-106); Potassium 4.2 mmol/L (3.5-5.1); Sodium Level 136 mmol/L (136-145)
== END ==
PROVIDERS: PCP Preventive Medicine Occupational Medicine; Referring Provider Physician Assistant Medical; Visit Provider Physician Assistant Medical
DX: I25.10 Atherosclerotic heart disease of native coronary artery without angina pectoris (principal); E78.00 Pure hypercholesterolemia, unspecified; R94.39 Abnormal result of other cardiovascular function study
CPT/HCPCS: 36415; 71046; 80048; 85025; 85610

== ENCOUNTER 2021-02-06 06:13 | Day surgery (SDC) | payer MEDICARE, OTHER, SELFPAY ==
[2021-01-17 14:10] VITALS: BMI 47.7
[2021-02-05 08:42] VITALS: BMI 47.2
[2021-02-06 07:40] VITALS: BMI 35.9
--- NOTE | 2021-02-06 08:36 | CL.D_ITS ---
Patient Name: ALLYSON COLEY Study Date: 02/06/2021 Performing: Cruzito Torres MD Ht: 70 inches 177.8 cm : 1950 Wt: 249.12 lbs 113 kg Age: 70 Gender: male BSA: 2.29 PROCEDURE(S) PERFORMED MP28-TPD/COR/LV CLINICAL PROFILE AND INDICATIONS Indications: Suspected CAD Heart Failure: None Stress/Imaging Date: 01/14/21ress Test with SPECT MPI: Positive Intermediate Risk CAD Presentations: Stable angina. CONCLUSIONS Severe triple-vessel disease with depressed left ventricular systolic function RECOMMENDATIONS Surgery consult for coronary revascularization DESCRIPTION OF PROCEDURE The patient arrived to the procedure lab. The risks and benefits of the procedure as well as a full d escription of our services here and current unavailability of surgical backup were fully explained to the patient and/or their significant other prior to the catheterization. The Timeout was completed, verifying the correct patient and procedure. The patient's procedural site was prepped and draped in the usual fashion. Local anesthetic was given subcutaneously to right radial region with Lidocaine 2% . Using a modified Seldinger technique, arterial access was obtained via the right radial artery, a 6 Fr sheath was inserted. Right Coronary Artery selective angiography was then performed in single vie w using a 5 Fr. 4.0 [place] catheter. Right Coronary Artery selective angiography was then performed in multiple views using a 5 Fr. JR 5 catheter. Left Coronary Artery selective angiography was performed in multiple views using a 5 Fr. JL3.5 catheter. Left Ventriculography was performed in CRAMER projection using a 5 Fr. Pigtail catheter. LV to AO pullback pressures were then recorded.The art erial sheath was pulled and a TR Band was applied for hemostasis - 10CC AIR CORONARY ANGIOGRAPHY DOMINANCE: Right Dominant LEFT HEART ASSESSMENT Left Ventricular Ejection Fraction: by LV Gram 40 % Inferior Mid Hypokinesis - Severe Depressed Left Ventricular systolic function LEFT MAIN: Angiographically normal LEFT ANTERIOR DESCENDING ARTERY: Diffusely diseased vessel with mid LAD demonstrating approximately 8 0% stenosis and diffuse distal disease CIRCUMFLEX ARTERY: PROX CIRC: Proximal circumflex artery with 80% stenosis and first obtuse marginal branch which is dif fusely diseased RIGHT CORONARY ARTERY: Previously stented right coronary artery with mild to moderate diffuse proxima l and mid disease and distal 80% stenosis and left to right collaterals of the posterolateral branch. COLLATERAL FLOW: Collateral flow from Left to Right COMPLICATIONS No Complications PROCEDURE MEDICATIONS Fentanyl 50 mcg IV Versed 1 mg IV Oxygen: 2 L/min via nasal cannula Heparin given IA 02/06/2021 08:09:38 SUMMARY OF HEMODYNAMIC DATA Time AIR REST ECG 07:04:57 AO 132/70 (94) SA 08:11:24 LV 131/16, 20 08:25:09 LV 133/16, 20 08:25:15 LV 120/19, 24 08:25:52 LV 121/17, 21 08:25:58 LVp 128/16, 23 08:26:03 AOp 128/64 (90) 08:26:09 Signed By Cruzito Torres MD On 02/06/2021 08:35:57 Cruzito Torres MD
== END 2021-02-06 10:20 | disposition home or self-care (01) ==
PROVIDERS: PCP Preventive Medicine Occupational Medicine; Referring Provider Internal Medicine Cardiovascular Disease; Visit Provider Internal Medicine Cardiovascular Disease
DX: I25.10 Atherosclerotic heart disease of native coronary artery without angina pectoris (principal); E78.5 Hyperlipidemia, unspecified; E11.9 Type 2 diabetes mellitus without complications; E66.9 Obesity, unspecified; Z68.42 Body mass index [BMI] 45.0-49.9, adult; E78.00 Pure hypercholesterolemia, unspecified; Z95.5 Presence of coronary angioplasty implant and graft; Z79.82 Long term (current) use of aspirin; Z79.84 Long term (current) use of oral hypoglycemic drugs; Z79.899 Other long term (current) drug therapy; Z87.891 Personal history of nicotine dependence
CPT/HCPCS: 93458; 99152; 99153; J7040; Q9967; C1769; C1894

== ENCOUNTER → 2021-02-08 08:47 | Outpatient (CLI) | payer MEDICARE, OTHER, SELFPAY ==
--- NOTE | 2021-02-08 08:48 | ECHOD_ITS ---
Reason For Study: CAD Procedure This was a 2D Doppler, Color Flow transthoracic echocardiogram. Exam performed in department. Left Ventricle Normal LV size. Left ventricular systolic function is normal. The estimated ejection fraction is 60 %. Stage 1 diastolic dysfunction. No regional wall motion abnormalities noted. Right Ventricle Normal RV size. Normal systolic function. Atria Normal left atrium. Normal right atrium. Mitral Valve Normal mitral valve. Tricuspid Valve Normal tricuspid valve. Aortic Valve Normal aortic valve. Pulmonic Valve Normal pulmonic valve. Great Vessels Normal aortic root. The pulmonary artery is normal size. Normal inferior vena cava. Pericardium/Pleural No pericardial effusion. MMode/2D Measurements & Calculations LVIDd: 5.4 cm IVSd: 1.2 cm Ao root diam: 3.1 cm LVIDs: 3.4 cm LVPWd: 1.0 cm RVDd: 3.3 cm FS: 36.7 % LAV(MOD-bp): 60.1 ml LVAd ap4: 35.3 cm2 SV(MOD-sp4): 85.2 ml LAV(MOD-bp) Indexed: 26.4 ml/m2 LVLd ap4: 7.6 cm LAV(MOD-sp2): 53.6 ml EDV(MOD-sp4): 135.4 ml LAV(MOD-sp4): 55.1 ml EDV(sp4-el): 139.9 ml LVAs ap4: 19.5 cm2 LVLs ap4: 6.7 cm ESV(MOD-sp4): 50.1 ml ESV(sp4-el): 48.0 ml EF(MOD-sp4): 63.0 % EF(sp4-el): 65.7 % SV(sp4-el): 91.9 ml LA A4 area: 20.5 cm2 LA dimension(2D): 3.5 cm RA A4 area: 15.7 cm2 Doppler Measurements & Calculations MV E max roque: 83.7 cm/sec Lat Peak E' Roque: 8.0 cm/sec Med Peak E' Roque: 6.3 cm/sec MV A max roque: 90.0 cm/sec E/E' lat: 10.5 E/E' med: 13.2 MV E/A: 0.93 Ao V2 max: 126.6 cm/sec LV V1 max: 113.5 cm/sec PA V2 max: 108.6 cm/sec Ao max P.4 mmHg LV V1 max P.1 mmHg ECHO/Echo Complete Interpretation Summary Normal LV size. Left ventricular systolic function is normal. The estimated ejection fraction is 60 %. Stage 1 diastolic dysfunction. Ordering Physician: Cruzito Torres Referring Physician: Sheldon Talbert Performed By: Linda Gutierrez, YRIS
== END ==
PROVIDERS: PCP Preventive Medicine Occupational Medicine; Referring Provider Internal Medicine Cardiovascular Disease; Visit Provider Internal Medicine Cardiovascular Disease
DX: I25.10 Atherosclerotic heart disease of native coronary artery without angina pectoris (principal); R94.39 Abnormal result of other cardiovascular function study; E66.9 Obesity, unspecified; E78.00 Pure hypercholesterolemia, unspecified; Z95.5 Presence of coronary angioplasty implant and graft
CPT/HCPCS: 93306

== ENCOUNTER → 2021-02-20 09:37 | Outpatient (CLI) | payer MEDICARE, OTHER, SELFPAY ==
--- NOTE | 2021-02-20 09:41 | CDU_ITS ---
Reason For Study: Bruit, Preop for CABG Rt. Velocities/BP Lt. Velocities/BP Prox CCA 141/17 cm/sec. Prox CCA 149/16 cm/sec. Mid CCA 128/15 cm/sec. Mid CCA 113/21 cm/sec. Dist CCA 93/13 cm/sec. Dist CCA 101/19 cm/sec. Prox ICA 82/12 cm/sec. Prox ICA 84/18 cm/sec. Mid ICA 83/17 cm/sec. Mid ICA 94/23 cm/sec. Dist ICA 77/22 cm/sec. Dist ICA 88/23 cm/sec. Rt. ICA/CCA = 0.6. Lt. ICA/CCA = 0.8. Prox ECA 204/9 cm/sec. Prox ECA 136/7 cm/sec. Rt. Vert. 45/11 cm/sec. Lt. Vert. 78/17 cm/sec. Right Extracranial There is homogeneous, smooth atherosclerotic plaque noted in the right common carotid artery. There is heterogeneous, irregular atherosclerotic plaque noted in the right internal carotid artery. There is heterogeneous, irregular atherosclerotic plaque noted in the right external carotid artery. Antegrade flow is noted in the right vertebral artery. Left Extracranial There is intimal thickening but no significant atherosclerotic plaque noted in the left common carotid artery. There is heterogeneous, irregular atherosclerotic plaque noted in the left internal carotid artery. There is intimal thickening but no significant atherosclerotic plaque noted in the left external carotid artery. Antegrade flow is noted in the left vertebral artery. Procedure Carotid Duplex 33945. This is a Carotid Duplex examination using B-mode, color flow and specral Doppler. Exam performed in department. VL/Carotid Duplex Ultrasound Interpretation Summary Mild (<50%) stenosis right extracranial internal carotid. Mild (<50%) stenosis left extracranial internal carotid. Flow within the vertebral arteries is antegrade bilaterally. Elevated velocities in the right external carotid artery suggest stenosis >50%. Ordering Physician: Jair Garner Referring Physician: Sheldon Talbert Performed By: Carrie Kyle, YRIS, RVT
== END ==
PROVIDERS: PCP Preventive Medicine Occupational Medicine
DX: R09.89 Other specified symptoms and signs involving the circulatory and respiratory systems (principal); R42 Dizziness and giddiness
CPT/HCPCS: 93880

== ENCOUNTER → 2021-04-11 08:51 | Outpatient (CLI) | payer MEDICARE, OTHER, SELFPAY ==
--- NOTE | 2021-04-11 08:57 | PCM.CR.ITP ---
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, HTN, HLD, DM Type II Personal Learning Style:: Audio/Visual, Written Barriers to Learning: Vision Impairment Stage of change r/t lifestyle modifications:: Action Gave educational material for:: Treating Heart Disease, Emotions & Heart Disease, Stress Management & Relaxation, Sleep Disorders & Heart Disease, How The Heart Works, What it means to have Heart Disease, How Coronary Artery Disease is Diagnosed, Heart Procedures, What Heart Medications Do, Risk Factors & Modifications, Living an Active Life, Nutrition - Education/Goals Individual Counseling: Initial Assessment: Abnormal Cholesterol Levels, High Blood Pressure, Overweight/Obesity, Diabetes, A. Fasting Blood Sugar >100 - 256, A1c 8.7% 01/17/2021, Hypertension Cardiac Rehabilitation Goals: 1. Maintain the individual as the primary focus of care. 2. To improve the patient's quality of life. 3. Identification of cardiac risk factors and provide cardiac risk factor management. 4. Enhance the psychosocial status of the patient. 5. Reconditioning enough to allow the patient to resume customary activities. 6. Control symptoms of cardiac disease Personal Goals: Initial Assessment: Participate in home exercise program, Get back to work, or to resume activities faster, Improve knowledge of cardiac disease, Improve muscle strength and endurance, Improve diet and eating habits (eat healthier), Control risk factors (learn risk factor modification) Scale for measuring improvement of personal goals: Enter appropriate number in Comments. 2 = Unchanged. 3 = Slightly Better. 4 = Moderate Improvement. 5 = Met my Goal - Diagnosis & Disease Process Outcomes/Goals: Pt IDs own risk factors & lifestyle modifications by Session 10, Verbalizes symptoms of angina & response by session 3., Pt independently manages Plan/Interventions: Assist Pt to ID & engage in lifestyle modification to reduce CVD risk, Instruct on individual risk factors, Review symptoms of angina & emergency actions, Review secondary diagnosis & identify educational needs. - Safety Referral to Physical Therapy: No Referral to [facility] Case Management: No Fall Risk Assessed:: Yes Assistive Devices:: None Exercise - Initial Assessment - Visit Date of Eval: 04/11/21 Session #:: 0 - pre-cardiac rehab evaluation Mets: Pre-: >7 METS for 30 minutes by discharge - Physician Prescribed Exercise Modalities: Treadmill, Rower, Airdyne, NuStep Frequency: 3x/week for 12 weeks [36 sessions] Intensity: 60-80% of age predicted maximum heart rate reserve Current METSs:: 3.0 Target Heart Rate:: 98-128 Resting Blood Pressure: 132/70 EKG Type: Sinus bradycardia Current Physical Activity or Exercising minutes: 30 - Outcomes & Goals Goals:: Verbalizes understanding of THR, RPE & goal METS by session 6, Documents in home exercise log/reports 30 min aerobic 5 day/wk by DC, Demonstrates accurate pulse taking by DC - Intervention & Plan Exercise Program Goals: Instruct on personal THR & RPE, Instruct on MET level & personal MET goal, Show patient to take own pulse /validate performance until accurate, Instruct on home exercise - Physical Activity Home Exercise Physical Activity - Home Exercise: Safe Exercise, Warm-up, Self-monitoring, Cool-Down, Home Exercise > 30 min Daily, Sitting Time <3 hours/daily - Outcomes & Goals Outcomes/Goals: Demonstrates correct Warm-up/exercise Cool-Down (S3) if = 2.5 METs, Verbalizes symptoms of exercise intolerance by Session 3 (S3), Demonstrate safe equipment use (S3) & follows exercise prescrition (6) - Intervention & Plan Plan/Intervention: Instruct warm-up & cool-down if exercising at > 2 METs, Instruct on symptoms of exercise intolerance & actions to take, Instruct & monitor on saf, Assess intial functional capacity & safety risk Nutrition - Initial Assessment - Program Goals Nutrition Program Goals: LDL <100 optimal. 100 - 129 Near optimal. 130 - 159 Borderline High. 160 - 189 High. Total Cholesterol <200 desirable. 200 - 239 Borderline High. >/= 240 High. HDL < 40 Low >/=60 High. Triglycerides <150 desirable. <199 optimal. VlDL 5 - 40. HgbA1C <7%. BMI <25 Patient has diagnosis of Hyperlipidemia (ICD E78)?: Yes - Visit Date of Assessment:: 04/11/21 Session #:: 0 - Pre-cardiac rehab evaluation - Cholesterol/Lipids Triglycerides (mg/dL): 130 Total Cholesterol (mg/dL): 188 LDL Cholesterol (mg/dL): 114 HDL Cholesterol (mg/dL): 48 Determine presence & major risk factors that modify LDL goal: Cigarette smoking, Hypertension or hypertensive medication, Family history of premature CHD in Male < 55 years: female <65 yearsFa, Age men > 45 years; women >/= 55 years Outcomes/Goals: Pt IDs own risk factors & lifestyle modifications by Session 10, Verbalizes symptoms of angina & response by session 3., Pt independently manages Intervention/Plan: Instruct on personal lipid levels & lipid goals/NCEP guidelines, Instruct on cholesterol Referral to dietitian:: Yes - Medical Nutrition THerapy - Diabetes (Other Core Measures) Diabetes Type: Diagnosis Type II ICD-10 E11 Fasting blood glucose:: 256 - 01/17/2021 Hgb A1C (4.2 - 6.3): 8.7 Insulin dependent injection/pump?: Yes Non-Insulin Dependent?: Yes Do you monitor your blood sugar at home?: Yes Referral to Diabetic Clinic:: Yes Outcomes/Goals:: Able to state symptoms of, Able to state, Able to state Intervention/Plan:: Instruct on, Refer to, Instruct on - Weight Mgt (Other Care) Not Applicable: No Height: 5 ft 10 in Weight:: 243 lb BMI: 34.8 Diagnosis Overweight/Obesity BMI> 30% ICD-10 E66: Yes Diagnosis High BMI/Morbid Obesity BMI> 35% ICD-10 Z68: No Outcomes/Goals: Pt sets, maintains & shows weight loss goal & trend during rehab Intervention/Plan: Instruct on ideal BMI & set weight loss goal w/patient, Assist pt to ID & incorporate diet changes for weight loss by S9, Refer to Structured Weight Loss program as appropriate, Encourage goal of using 250-300dcal per session for weight loss - Healthy Eating Habits Will attend diet classes:: Yes Outcomes/Goals:: Consume diet rich in vegs,fruits,whole grain/high fiber,fish,lean meat, Limit sat/trans fats,cholesterol & added salts & sugars Intervention/Plan:: Assess current eating habits - Education Gave educational materials for:: Signs & symptoms of hypoglycemia, Signs & symptoms of hyperglycemia, Relate diabetes to coronary artery disease, Healthy eating Nutrition - 30-Day Assessment Nutrition - 60-Day Assessment Nutrition - 90-Day Assessment Nutrition - Final Assessment Medical - Initial Assessment - Visit Date of Eval: 04/11/21 Session #:: 0 - Pre-cardiac rehab evaluation - Medication Compliance Preventative Medication(s):: Aspirin, Clopidogrel/P2Y12 inhibit, Statin/lipid, Beta mustapha H/O mental health issues: depression, anxiety, or addiction?: No Doesn?t believe in the benefits of treatment?: No Believes medications are unnecessary or harmful?: No Has a concern about medication side effects?: No Expresses concern over the cost of medications?: No Outcomes/Goals: Verbalizes medications,desired effect & common side effects @ DC, Pt self-reports following medication regimen, Keeps card in wallet w/medications listed by DC Interventions/plans: Instruct on medication effects & side effects, Review medication list w/patient every two weeks, Instruct importance of taking meds as ordered & assist problem solving - Tobacco Use Tobacco Use: Non-smoker Do you use smokeless tobacco?: No - Hypertension Hypertension Diagnosis:: Hypertension ICD-10 I10 Resting Blood Pressure:: 132/70 [place] [employer] Hypertension Guidelines: [place] [employer] Hypertension Guidelines. Normal BP Less than 120/80. Elevated BP 120/80. Hypertension Stage 1: BP 130-139/80-89. Hypertesnion Stage 2: BP 140 or higher/90 or higher. Hypertension Crisis: BP higher than 180/120 Outcomes/Goals: Able to verbalize/achieve optimal blood pressure <130/80, Incorporates diet changes & exercise for blood pressure control by DC Interventions/plan: Instruct on optimal blood pressure, hypertension & medications, Instruct on effects of sodium, alcohol, stress, exercise &hypertension - Tobacco Cessation Referral Smoking Cessation Referral:: No Individual Education/Counseling:: No Education Schedule Given:: Yes Medical- 30-Day Assessment Medical- 60-Day Assessment Medical- 90-Day Assessment Medical - Final Assessment Psychosocial - Initial Assess - VIsit Date of Eval: 04/11/21 Session #:: 0 - Pre-cardiac rehab evaluation Not Applicable: Yes History of previous Mental disease:: No - Psychosocial Test Tool Used:: Ferrans Xsilon QOL Cardiac, PHQ-9 Questionnaire phq-9 Severity: Severity. 1-4 Minimal Depression. 5-9 Mild Depression. 10-14 Moderate Depression. 15-19 Moderately Sever Depression. 20-27 Severe Depression. Rule: - Referral to Behavioral Health PS - Interventions: Yes Attend Stress Management Classes, No Referral to Behavioral Health if PHQ-9 score >9:, No Referral to [facility], No Referral to Physician if PHQ-9 if score is 5-9: - Outcomes/Goals: See list Psychosocial Outcomes/Goals:: ID's personal stressors & 2 strategies to manage stress by discharge - Intervention/Plan: See List Interventions/Plan:: Assess stressors,coping strategies & signs of derpression on admission, Instruct/assist pt to develop coping & personal stress Mgt strategies, Instruct patient to recognize signs & symptoms of depression, Instruct patient to recog Psychosocial - 30-Day Assess Psychosocial - 60-Day Assess Psychosocial - 90-Day Assess Psychosocial - Final Assessmen Patient Health Questionnaire Initial Assessment 1. Little interest or pleasure in doing things: Not at all 2. Feeling down, depressed, or hopeless: Not at all 3. Trouble falling or staying asleep, or sleeping too much: Several days 4. Feeling tired or having little energy: Not at all 5. Poor appetite or overeating: Not at all 6. Feeling bad about yourself -- or that you are a failure or have let yourself or your family down: Not at all 8. Moving or speaking so slowly that other people could have noticed. Or the opposite - being so fidgety or restless that you have been moving around a lot more than usual: Not at all 9. Thoughts that you would be better off , or of hurting yourself in some way: Not at all How difficult have these problems made it for you to do your work, take care of things at home, or get along with other people?: Somewhat difficult Total Score: 1 KINDRA-Q SV Test - Statements CAD is a disease of the arteries in the heart: False Examples of risk factors for heart disease: True Angina is chest pain or discomfort: True The benefits of resistance training include: True Eating more meat and dairy products: False Anti-platelet medications such as aspirin are important: True The only effective way to manage stress: False An exercise warm-up slowly increases heart rate: True Prepared, processed foods usually have high sodium: True Depression is common after a heart attack: False The statin medications lower cholesterol: True To control blood pressure, lower the amount of sodium: True If someone gets chest discomfort during walking: False Transfats are partially hydrogenated vegetable oils: False Sleep apnea that is not treated increases the risk: True To control cholesterol, one should become a vegetarian: False Someone knows if he/she is exercising at the right level: True Diabetes cannot be prevented with exercise & health eating: False Stress is a large risk for heart attack: True A diet that can help lower blood pressure is rich in: True - Total Score Total Correct Responses: 17 Self-Efficacy Initial Assessment We would like to know how confident you are in doing certain activities. Please select your confidence level for:: Select your confidence level for the following using the scale 1-10 where 1 is not at all confident and 10 is totally confident. Your score is the average of all 6 responses. Fatigue: How confident are you that you can keep the fatigue caused by your disease from interfering with the things you want to do? Select Number: 10 Physical Discomfort or Pain: How confident are you that you can keep the physical discomfort or pain of your disease from interfering with the things you want to do? Select Number: 10 Emotional Distress: How confident are you that you can keep the emotional distress caused by your disease from interfering with the things you want to do? Select Number: 10 Other Symptoms or Health Problems: How confident are you that you can keep other symptoms or health problems from interfering with the things you want to do? Select Number: 10 Different Tasks and Activities: How confident are you that you can do the different tasks and activities needed to manage your health condition so as to reduce your need to see a doctor? Select Number: 10 Medication: How confident are you that you can do things other than just taking medication to reduce how much your illness affects your everyday life? Select Number: 10 Total Score:: 10 Nutrition Survey - Nutrition Survey Initial Have you lost >10 lbs over the past 2 months without trying?: Yes Are you following a special diet at home for diabetes, low fat, or low salt?: Yes Are you interested in meeting with a dietitian for help understanding your diet?: Yes Do you eat less than 3 meals a day?: No Do you eat fatty meats (rosa, sausage, ribs, etc), fried foods, desserts, large amounts of salad dressings, margarine, butter, or cheese most days?: No Do you have food allergies? [Enter types in comment field]: No Do you eat in restaurants more than 3 times a week?: No Do you season food with salt, seasoning salt, or garlic salt?: No Do you used canned, boxed, frozen meals, or soups, seasoning packets?: Yes Total Score:: 4
--- NOTE | 2021-04-11 08:58 | CR.HP_ITS ---
CR - History & Physical - General Arrival date:: 04/11/21 Arrival time:: 08:58 Date of Referral:: 03/28/21 Date of CR Evaluation:: 04/11/21 Referring Physician: DR. CRUZITO PAZ Primary Diagnosis: S/P CABG - History of Present Cardiac Event Onset Date: Enter Onset Date of cardiac illnesses in Comment field below Coronary Artery Bypass Graft:: Yes - 03/05/2021 PTCA or coronary stenting:: Yes - 09/11/2015 Type of Symptoms:: Routine testing due tp previous cardiac history caught the problem. Interventions with present event:: Sent ot [facility] for recommended CABG Were there any complications?: none - Sleep Disorder Evaluation Hx of Sleep Apnea: Yes Do you snore loudly (louder than talking or can be heard through closed doors)?: Yes - Wears CPAP at night Do you often feel tired/ fatigued/ sleepy during daytime?: No Has anyone observed you stop breathing during sleep?: Yes History of Hypertension (for STOP score): Yes STOP Results: Positive - Medications Home Medications: Ambulatory Orders Medication Instructions Recorded nitroglycerin 0.4 mg SUBLINGUAL Q5M PRN #30 tab 08/30/15 djtwmnom-hlm-SA-lycopen-lutein 1 ea PO DAILY 04/29/16 aspirin 81 mg PO DAILY@0800 05/01/16 omega 6-ume-sso-fish oil 1,000 mg 1 cap PO BID cap 05/18/18 (120 mg-180 mg) capsule clopidogrel 75 mg tablet 75 mg PO DAILY 03/27/21 insulin glargine 100 unit/mL (3 20 unit SUBCUT QAM 03/27/21 mL) subcutaneous pen insulin lispro 100 unit/mL 5 unit SUBCUT TID 03/27/21 subcutaneous pen metoprolol succinate 25 mg 25 mg PO DAILY 03/27/21 tablet,extended release 24 hr atorvastatin 10 mg tablet 10 mg PO DAILY #90 tab 03/28/21 celecoxib 200 mg capsule 200 mg PO DAILY 03/28/21 losartan 25 mg tablet 25 mg PO DAILY #90 tab 03/28/21 - Allergies Allergies/Adverse Reactions: Allergies atorvastatin [From Lipitor] Adverse Reaction (Unknown, Verified 03/28/21 13:33) Myalgia, fatigue, joint pain pravastatin Adverse Reaction (Unknown, Verified 03/28/21 13:33) Myalgia cinnamon Adverse Reaction (Verified 03/28/21 13:33) throat swelling Advanced Directives - Advanced Directives Power of Frame Sample And Pattern Supervisor: No Living Will: No Advance Directives Information Provided: Yes Advance Directives on File: No DNR Order?:: No - MOLST See MOLST form: No Past Medical History - Covid-19 Screening Fever: No Unexplained muscle aches: No Current respiratory symptoms: No Upper respiratory infections symptoms: No Gastro-intestinal symptoms: No Ajo-Znni-Pehaqe symptoms: No Has tested positive for COVID-19 in last 30 days: No Date of testin08/28/20 - Had both Pfizer Covid-10 vaccines Had contact w/person w/symptoms or Covid-19 (+) last 14 days: No Has High Risk Exposures ID'd by Health dept/Inf Control team: No 65 years or older:: Yes Lives in Assisted Living facility:: No Has a chronic lung disease or moderate to severe asthma:: No Has a serious heart condition:: Yes Immunocompromised:: No Severely obese (Body Mass Index of 40 or higher):: No Diabetic:: Yes Has chronic kidney disease undergoing dialysis:: No Has liver disease:: No - Past Medical Illness Medical History: Past Medical History (Last Updated 04/11/21 @ 09:21 by Vj Atwood, GLASS MAKER, DOPER, BS) Atherosclerosis of coronary artery of lummi heart without angina pectoris I25.10 Hyperlipidemia E78.5 Obesity E66.9 Obstructive sleep apnea of adult G47.33 Type 2 diabetes mellitus without complications E11.9 - Past Surgical History Surgical History: Past Surgical History (Last Reviewed 03/28/21 @ 14:[address] Cruzito Paz MD) H/O arthroscopy of right knee Z98.890 H/O coronary artery bypass surgery Onset Date: 03/05/21 Z95.1 CABG x 3: KIM-LAD, Sequential SVG-Ramus and OM1 03/05/21 History of carpal tunnel release Z98.890 bilateral x 2 History of coronary artery stent placement Onset Date: 09/11/15 Z95.5 [id number] w/ 2.5 x 8 mm Synergy 09/11/2015 History of left heart catheterization Onset Date: 02/06/21 Z98.890 History of toe surgery Z98.890 fusion of right great toe Surgical History: no surgical history, - - Bilateral knees, carpal tunnel release, great toe right foot fused, - Family History Summary Family History: Family History (Last Reviewed 03/28/21 @ 14:[address] Cruzito Paz MD) Brother CAD (coronary artery disease) CABG Mother CAD (coronary artery disease) CABG Brother CAD (coronary artery disease) CABG Brother CAD (coronary artery disease) Father CAD (coronary artery disease) CABG Social History - Smoking History Smoking Status: Former smoker Years Smokin Packs Smoked per Day: 2 Hx Smoking Cessation Date: 12/06/88 Hx Tobacco Use: Yes Hx Smoking Exposure: Yes - Alcohol Use Alcohol Usage: No - Substance Abuse Hx Substance Use: No - Occupation Occupation (List type of work in comments):: Employed - retired but went back to work, Retired Hours worked per day:: 8 - Hobbies, Recreation, Social Activities Hobbies: Walking, Exercise - riding bicylce, Other - clmbing steps of 2-story house regularly throughout the day Recreational Activities: I am able to engage in a few activities Social Environment - Status Marital Status: - Current Living Arrangements Living Environment:: Spouse - Children How many children do you have?: 2 Do any of your children live nearby?: Yes - Safety Do you feel safe in your surroundings?: Yes - Assistance Do you need any assistance at home?: No Review of Systems - Review of Systems Hints: Right click = Denies (Slash). Left click = Reports ([place]) Review of Present Symptoms: Reports: Shortness of Breath with Exertion - depends on the activity, Appetite - Normal, Appetite - Special Diet - Diabetic, cardiac diet. and I would like to see a dietitian ., Sleep - Normal. Denies: Shortness of Breath at Rest, Operative Discomfort, Angina, Dizziness/Lightheadedness, Fatigue, Heart Arrhythmia/Irregularities, Sexual Changes - Pain Is Patient Pain Free?: Yes Pain Location: none Pain Level: 0/10 Risk Factor Assessment - Chief Complaint Chief Complaint: Patient is a 70 yr old male who previously did our CR program in 2016 following his stent placement. The patient is now referred to cardiac rehab following a recent CABG done at [facility] on 03/05/2021. 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 - Vital Signs Temperature: 97.8 F Respiratory Rate: 16 Pulse Ox: 96 Blood Pressure: 132/70 - Pulse Pulse Rate: 56 Pulse Rhythm: Regular - Hypertension Blood Pressure Sitting - Left Arm: 132/70 - Blood Cholesterol/Lipids Total Cholesterol (mg/dL) Goal = less than 200 mg/dL: 188 HDL Cholesterol (mg/dL) Goal = less than 40 mg/dL: 48 LDL Cholesterol (mg/dL) Goal = less than 70 mg/dL: 114 Triglycerides (mg/dL) Goal = less than 150 mg/dL: 130 - Diabetes Diabetic History: Type II, Medication Dependent, Insulin Dependent - Obesity Height: 5 ft 10 in Weight:: 243 lb Weight in Pounds: 243.0 lbs Weight Source: Standing Scale Body Mass Index (BMI): 34.8 Nutritional Referral for Obesity: Yes - Family History Family History: Family History (Last Reviewed 03/28/21 @ 14:[address] Cruzito Paz MD) Brother CAD (coronary artery disease) Mother CAD (coronary artery disease) Brother CAD (coronary artery disease) Brother CAD (coronary artery disease) Father CAD (coronary artery disease) Motivation - Motivation to Participate On a scale of 1 to 10, how prepared are you to commit to attending program?: 10 What do you see as barriers to successfully being able to complete the program?: not at this time What do you see as the benefits of succesfully completing the program? In other words, what do you hope to get out of participating in the program?: stronger, healthier, get back to work Are there issues you are dealing with that will interfere with completing the program?: not at this time Do you have a spouse or signficant other, family or friends who will help support you to complete the program?: Yes
[2021-04-11 09:14] VITALS: BP 132/70; PULSE 56; RESP 16; TEMP 36.6; O2SAT 96; BMI 34.8
[2021-04-11 09:29] VITALS: BP 132/70; BMI 34.8
== END ==
PROVIDERS: PCP Preventive Medicine Occupational Medicine; Referring Provider Internal Medicine Cardiovascular Disease; Visit Provider Internal Medicine Cardiovascular Disease
DX: I25.10 Atherosclerotic heart disease of native coronary artery without angina pectoris (principal); E11.9 Type 2 diabetes mellitus without complications; E78.5 Hyperlipidemia, unspecified; E66.9 Obesity, unspecified; Z68.34 Body mass index [BMI] 34.0-34.9, adult; E78.00 Pure hypercholesterolemia, unspecified; G47.33 Obstructive sleep apnea (adult) (pediatric); Z95.1 Presence of aortocoronary bypass graft; Z95.5 Presence of coronary angioplasty implant and graft; Z79.4 Long term (current) use of insulin; Z79.82 Long term (current) use of aspirin; Z79.02 Long term (current) use of antithrombotics/antiplatelets; Z79.899 Other long term (current) drug therapy; Z87.891 Personal history of nicotine dependence

== ENCOUNTER 2021-04-19 08:00 | Outpatient (RCR) | payer MEDICARE, OTHER, SELFPAY ==
[2021-04-11 09:29] VITALS: BMI 34.8
== END 2021-04-21 23:59 ==
LOC: CR 08:00
PROVIDERS: PCP Preventive Medicine Occupational Medicine; Referring Provider Internal Medicine Cardiovascular Disease; Visit Provider Internal Medicine Cardiovascular Disease
DX: I25.10 Atherosclerotic heart disease of native coronary artery without angina pectoris (principal); E78.00 Pure hypercholesterolemia, unspecified; E66.9 Obesity, unspecified; Z95.1 Presence of aortocoronary bypass graft; Z95.5 Presence of coronary angioplasty implant and graft
CPT/HCPCS: 93798

== ENCOUNTER 2021-05-01 09:00 | Outpatient (RCR) | payer MEDICARE, OTHER, SELFPAY ==
[2021-04-11 09:29] VITALS: BMI 34.8
== END 2021-05-21 23:59 ==
LOC: DC 09:00
PROVIDERS: PCP Preventive Medicine Occupational Medicine; Visit Provider Internal Medicine Cardiovascular Disease
DX: E11.9 Type 2 diabetes mellitus without complications (principal); E78.5 Hyperlipidemia, unspecified; I25.10 Atherosclerotic heart disease of native coronary artery without angina pectoris; E66.9 Obesity, unspecified
CPT/HCPCS: 97802; G0108

== ENCOUNTER 2021-05-20 08:00 | Outpatient (RCR) | payer MEDICARE, OTHER, SELFPAY ==
[2021-04-11 09:29] VITALS: BMI 34.8
--- NOTE | 2021-05-10 07:02 | PCM.CR.ITP ---
Diagnosis Nutrition - Initial Assessment Nutrition - 30-Day Assessment Nutrition - 60-Day Assessment Nutrition - 90-Day Assessment Nutrition - Final Assessment Medical - Initial Assessment Medical- 30-Day Assessment Medical- 60-Day Assessment Medical- 90-Day Assessment Medical - Final Assessment Psychosocial - Initial Assess Psychosocial - 30-Day Assess Psychosocial - 60-Day Assess Psychosocial - 90-Day Assess Psychosocial - Final Assessmen Nutrition Survey
--- NOTE | 2021-05-10 14:31 | PCM.CR.ITP ---
Diagnosis Exercise - 30-day Assessment - Visit Date of Eval: 05/10/21 Session #:: 12 - Physician Prescribed Exercise Modalities: Treadmill, Airdyne, NuStep Frequency: 3x/week for 12 weeks [36 sessions] Intensity: 60-80% of age predicted maximum heart rate reserve Current METSs:: 6.0 increase from 3.0 Target Heart Rate:: 98-128 Current RPE:: 13 Maximum Excercise HR:: 131 Resting Blood Pressure: 114/52 Maximum Exercise Blood Pressure: 152/74 EKG Type: Sinus rhythm to sinus tach with rare PVC - Outcomes & Goals Goals:: Verbalizes understanding of THR, RPE & goal METS by session 6, Documents in home exercise log/reports 30 min aerobic 5 day/wk by DC, Demonstrates accurate pulse taking by DC - Intervention & Plan Exercise Program Goals: Instruct on personal THR & RPE, Instruct on MET level & personal MET goal, Show patient to take own pulse /validate performance until accurate, Instruct on home exercise - 30-day Reassessments 30 day Reassessments:: Progressing - Physical Activity Home Exercise Physical Activity - Home Exercise: Safe Exercise, Warm-up, Self-monitoring, Cool-Down, Home Exercise > 30 min Daily, Sitting Time <3 hours/daily - Outcomes & Goals Outcomes/Goals: Demonstrates correct Warm-up/exercise Cool-Down (S3) if = 2.5 METs, Verbalizes symptoms of exercise intolerance by Session 3 (S3), Demonstrate safe equipment use (S3) & follows exercise prescrition (6) - Intervention & Plan Plan/Intervention: Instruct warm-up & cool-down if exercising at > 2 METs, Instruct on symptoms of exercise intolerance & actions to take, Instruct & monitor on saf, Assess intial functional capacity & safety risk - 30-day Reassessments 30 day Reassessments:: Progressing Nutrition - Initial Assessment Nutrition - 30-Day Assessment - Program Goals Nutrition Program Goals: LDL <100 optimal. 100 - 129 Near optimal. 130 - 159 Borderline High. 160 - 189 High. Total Cholesterol <200 desirable. 200 - 239 Borderline High. >/= 240 High. HDL < 40 Low >/=60 High. Triglycerides <150 desirable. <199 optimal. VlDL 5 - 40. HgbA1C <7%. BMI <25 Patient has diagnosis of Hyperlipidemia (ICD E78)?: Yes - Visit Date of Assessment:: 11/19/21 Session #:: 12 - Cholesterol/Lipids Triglycerides (mg/dL): 130 Total Cholesterol (mg/dL): 188 LDL Cholesterol (mg/dL): 114 HDL Cholesterol (mg/dL): 48 Determine presence & major risk factors that modify LDL goal: Hypertension or hypertensive medication, Family history of premature CHD in Male < 55 years: female <65 yearsFa, Age men > 45 years; women >/= 55 years Outcomes/Goals: Pt IDs own risk factors & lifestyle modifications by Session 10, Verbalizes symptoms of angina & response by session 3., Pt independently manages Intervention/Plan: Instruct on personal lipid levels & lipid goals/NCEP guidelines, Instruct on cholesterol Referral to dietitian:: Yes - Medical Nutrition Therapy 30-day Reassessments:: Progressing - Diabetes (Other Core Measures) Diabetes Type: Diagnosis Type II ICD-10 E11 Fasting blood glucose:: 92 - Ranges 92-123 Hgb A1C (4.2 -6.3): 8.7 Insulin dependent injection/pump?: Yes Non-Insulin Dependent?: Yes Do you monitor your blood sugar at home?: Yes Referral to Diabetic Clinic:: Yes - [facility] Outcomes/Goals:: Able to state symptoms of, Able to state, Able to state Intervention/Plan:: Instruct on, Refer to, Instruct on 30-day Reassessments:: Progressing - Weight Mgt (Other Care) Not Applicable: Yes Height: 5 ft 10 in Weight:: 246 lb 8 oz BMI: 35.4 Diagnosis Overweight/Obesity BMI> 30% ICD-10 E66: Yes Diagnosis High BMI/Morbid Obesity BMI> 35% ICD-10 Z68: Yes Outcomes/Goals: Pt sets, maintains & shows weight loss goal & trend during rehab Intervention/Plan: Instruct on ideal BMI & set weight loss goal w/patient, Assist pt to ID & incorporate diet changes for weight loss by S9, Refer to Structured Weight Loss program as appropriate, Encourage goal of using 250-300dcal per session for weight loss 30 day Reassessments:: Progressing - Healthy Eating Habits Will attend diet classes:: Yes Outcomes/Goals:: Consume diet rich in vegs,fruits,whole grain/high fiber,fish,lean meat, Limit sat/trans fats,cholesterol & added salts & sugars Intervention/Plan:: Assess current eating habits 30-day Reassessments:: Progressing - Education Gave educational materials for:: Signs & symptoms of hypoglycemia, Signs & symptoms of hyperglycemia, Relate diabetes to coronary artery disease, Healthy eating Nutrition - 60-Day Assessment Nutrition - 90-Day Assessment Nutrition - Final Assessment Medical - Initial Assessment Medical- 30-Day Assessment - Visit Date of Eval: 05/10/21 Session #:: 12 - Medication Compliance Preventative Medication(s):: Aspirin, Clopidogrel/P2Y12 inhibit, Statin/lipid, Beta mustapha H/O mental health issues: depression, anxiety, or addiction?: No Doesn?t believe in the benefits of treatment?: No Believes medications are unnecessary or harmful?: No Has a concern about medication side effects?: No Expresses concern over the cost of medications?: No Outcomes/Goals: Verbalizes medications,desired effect & common side effects @ DC, Pt self-reports following medication regimen, Keeps card in wallet w/medications listed by DC Interventions/plans: Instruct on medication effects & side effects, Review medication list w/patient every two weeks, Instruct importance of taking meds as ordered & assist problem solving 30-day Reassessments:: Progressing - Tobacco Use Tobacco Use: Non-smoker - Hypertension Hypertension Diagnosis:: Hypertension ICD-10 I10 Resting Blood Pressure:: 114/52 [place] [employer] Hypertension Guidelines: [place] [employer] Hypertension Guidelines. Normal BP Less than 120/80. Elevated BP 120/80. Hypertension Stage 1: BP 130-139/80-89. Hypertesnion Stage 2: BP 140 or higher/90 or higher. Hypertension Crisis: BP higher than 180/120 Peak Exercise Blood Pressure:: 152/74 Outcomes/Goals: Able to verbalize/achieve optimal blood pressure <130/80, Incorporates diet changes & exercise for blood pressure control by DC Interventions/plan: Instruct on optimal blood pressure, hypertension & medications, Instruct on effects of sodium, alcohol, stress, exercise &hypertension 30 day Reassessments:: Progressing - Tobacco Cessation Referral Smoking Cessation Referral:: No Individual Education/Counseling:: No Education Schedule Given:: Yes Medical- 60-Day Assessment Medical- 90-Day Assessment Medical - Final Assessment Psychosocial - Initial Assess Psychosocial - 30-Day Assess - VIsit Date of Eval: 05/10/21 Session #:: 12 Not Applicable: Yes History of previous Mental disease:: No - Psychosocial Test Tool Used:: PHQ-9 Questionnaire phq-9 Severity: Severity. 1-4 Minimal Depression. 5-9 Mild Depression. 10-14 Moderate Depression. 15-19 Moderately Sever Depression. 20-27 Severe Depression. Rule: - Referral to Behavioral Health PS - Interventions: Yes Attend Stress Management Classes, No Referral to Behavioral Health if PHQ-9 score >9:, No Referral to [facility], No Referral to Physician if PHQ-9 if score is 5-9: - Outcomes/Goals: See list Psychosocial Outcomes/Goals:: ID's personal stressors & 2 strategies to manage stress by discharge - Intervention/Plan: See List Interventions/Plan:: Assess stressors,coping strategies & signs of derpression on admission, Instruct/assist pt to develop coping & personal stress Mgt strategies, Instruct patient to recognize signs & symptoms of depression, Instruct patient to recog - 30-day Reassessments: 30 day Reassessments:: Progressing Psychosocial - 60-Day Assess Psychosocial - 90-Day Assess Psychosocial - Final Assessmen Patient Health Questionnaire 30-Day Re-eval Assessment 1. Little interest or pleasure in doing things: Not at all 2. Feeling down, depressed, or hopeless: Not at all 3. Trouble falling or staying asleep, or sleeping too much: Not at all 4. Feeling tired or having little energy: Not at all 5. Poor appetite or overeating: Not at all 6. Feeling bad about yourself -- or that you are a failure or have let yourself or your family down: Not at all 7. Trouble concentrating on things, such as reading the newspaper or watching television: Not at all 8. Moving or speaking so slowly that other people could have noticed. Or the opposite - being so fidgety or restless that you have been moving around a lot more than usual: Not at all 9. Thoughts that you would be better off , or of hurting yourself in some way: Not at all How difficult have these problems made it for you to do your work, take care of things at home, or get along with other people?: Not difficult at all Total Score: 0 Self-Efficacy 30-Day Re-eval Assessment We would like to know how confident you are in doing certain activities. Please select your confidence level for:: Select your confidence level for the following using the scale 1-10 where 1 is not at all confident and 10 is totally confident. Your score is the average of all 6 responses. Fatigue: How confident are you that you can keep the fatigue caused by your disease from interfering with the things you want to do? Select Number: 10 Physical Discomfort or Pain: How confident are you that you can keep the physical discomfort or pain of your disease from interfering with the things you want to do? Select Number: 10 Emotional Distress: How confident are you that you can keep the emotional distress caused by your disease from interfering with the things you want to do? Select Number: 10 Other Symptoms or Health Problems: How confident are you that you can keep other symptoms or health problems from interfering with the things you want to do? Select Number: 10 Different Tasks and Activities: How confident are you that you can do the different tasks and activities needed to manage your health condition so as to reduce your need to see a doctor? Select Number: 10 Medication: How confident are you that you can do things other than just taking medication to reduce how much your illness affects your everyday life? Select Number: 10 Total Score:: 10 Nutrition Survey
[2021-05-10 14:39] VITALS: BP 114/52; BP 152/74; BMI 35.4
== END 2021-05-21 23:59 ==
LOC: CR 08:00
PROVIDERS: PCP Preventive Medicine Occupational Medicine; Referring Provider Internal Medicine Cardiovascular Disease; Visit Provider Internal Medicine Cardiovascular Disease
DX: I25.10 Atherosclerotic heart disease of native coronary artery without angina pectoris (principal); E78.00 Pure hypercholesterolemia, unspecified; E66.9 Obesity, unspecified; Z95.1 Presence of aortocoronary bypass graft; Z95.5 Presence of coronary angioplasty implant and graft; E11.9 Type 2 diabetes mellitus without complications; E78.5 Hyperlipidemia, unspecified
CPT/HCPCS: 93798; 97802; G0108

== ENCOUNTER 2021-05-30 09:00 | Outpatient (RCR) | payer MEDICARE, OTHER, SELFPAY ==
[2021-05-10 14:39] VITALS: BMI 35.4
== END 2021-06-21 23:59 ==
LOC: DC 09:00
PROVIDERS: PCP Preventive Medicine Occupational Medicine; Visit Provider Internal Medicine Cardiovascular Disease
DX: E11.9 Type 2 diabetes mellitus without complications (principal); E78.5 Hyperlipidemia, unspecified; I25.10 Atherosclerotic heart disease of native coronary artery without angina pectoris; E66.9 Obesity, unspecified
CPT/HCPCS: 93798; 97803; G0108

== ENCOUNTER 2021-06-17 08:00 | Outpatient (RCR) | payer MEDICARE, OTHER, SELFPAY ==
[2021-05-10 14:39] VITALS: BMI 35.4
[2021-05-22 00:36] VITALS: BP 114/52; BP 152/74
--- NOTE | 2021-06-07 06:51 | PCM.CR.ITP ---
Diagnosis Exercise - 60-day Assessment - Visit Date of Eval: 06/07/21 Session #:: 23 Comments:: Patient has been released to return to work but has not been given a date of return by his employer. - Physician Prescribed Exercise Modalities: Treadmill, Rower, Airdyne, NuStep Frequency: 3x/week for 12 weeks [36 sessions] Intensity: 60-80% of age predicted maximum heart rate reserve Current METSs:: 6.5 Target Heart Rate:: 98-128 Current RPE:: 13 Maximum Excercise HR:: 119 Resting Blood Pressure: 118/52 Maximum Exercise Blood Pressure: 150/62 EKG Type: NSR to sinus tach w/slight T wave inversion, rare PAC and PVC Current Physical Activity or Exercising minutes: 39:28 - Outcomes & Goals Goals:: Verbalizes understanding of THR, RPE & goal METS by session 6, Documents in home exercise log/reports 30 min aerobic 5 day/wk by DC, Demonstrates accurate pulse taking by DC - Intervention & Plan Exercise Program Goals: Instruct on personal THR & RPE, Instruct on MET level & personal MET goal, Show patient to take own pulse /validate performance until accurate, Instruct on home exercise - 30-day Reassessments 30 day Reassessments:: Progressing - Physical Activity Home Exercise Physical Activity - Home Exercise: Safe Exercise, Warm-up, Self-monitoring, Cool-Down, Home Exercise > 30 min Daily, Sitting Time <3 hours/daily - Outcomes & Goals Outcomes/Goals: Demonstrates correct Warm-up/exercise Cool-Down (S3) if = 2.5 METs, Verbalizes symptoms of exercise intolerance by Session 3 (S3), Demonstrate safe equipment use (S3) & follows exercise prescrition (6) - Intervention & Plan Plan/Intervention: Instruct warm-up & cool-down if exercising at > 2 METs, Instruct on symptoms of exercise intolerance & actions to take, Instruct & monitor on saf, Assess intial functional capacity & safety risk - 30-day Reassessments 30 day Reassessments:: Progressing Nutrition - Initial Assessment Nutrition - 30-Day Assessment Nutrition - 60-Day Assessment - Program Goals Nutrition Program Goals: LDL <100 optimal. 100 - 129 Near optimal. 130 - 159 Borderline High. 160 - 189 High. Total Cholesterol <200 desirable. 200 - 239 Borderline High. >/= 240 High. HDL < 40 Low >/=60 High. Triglycerides <150 desirable. <199 optimal. VlDL 5 - 40. HgbA1C <7%. BMI <25 Patient has diagnosis of Hyperlipidemia (ICD E78)?: Yes - Visit Date of Assessment:: 06/07/21 Session #:: 23 - Cholesterol/Lipids Triglycerides (mg/dL): 130 Total Cholesterol (mg/dL): 188 LDL Cholesterol (mg/dL): 114 HDL Cholesterol (mg/dL): 48 Determine presence & major risk factors that modify LDL goal: Hypertension or hypertensive medication, Family history of premature CHD in Male < 55 years: female <65 yearsFa, Age men > 45 years; women >/= 55 years Outcomes/Goals: Pt IDs own risk factors & lifestyle modifications by Session 10, Verbalizes symptoms of angina & response by session 3., Pt independently manages Intervention/Plan: Instruct on personal lipid levels & lipid goals/NCEP guidelines, Instruct on cholesterol Referral to dietitian:: Yes 30-day Reassessments:: Met - Diabetes (Other Core Measures) Diabetes Type: Diagnosis Type II ICD-10 E11 Fasting blood glucose:: 124 - FSBS Range 74-131 Insulin dependent injection/pump?: Yes Non-Insulin Dependent?: Yes Do you monitor your blood sugar at home?: Yes Referral to Diabetic Clinic:: Yes Outcomes/Goals:: Able to state symptoms of, Able to state, Able to state Intervention/Plan:: Instruct on, Instruct on 30-day Reassessments:: Met - Patient manages his BS well. - Weight Mgt (Other Care) Not Applicable: No Height: 5 ft 10 in Weight:: 253 lb BMI: 36.3 Diagnosis Overweight/Obesity BMI> 30% ICD-10 E66: Yes Diagnosis High BMI/Morbid Obesity BMI> 35% ICD-10 Z68: Yes Outcomes/Goals: Pt sets, maintains & shows weight loss goal & trend during rehab Intervention/Plan: Instruct on ideal BMI & set weight loss goal w/patient, Assist pt to ID & incorporate diet changes for weight loss by S9, Encourage goal of using 250-300dcal per session for weight loss 30 day Reassessments:: Not Met - Patient's weight has remained unchanged - Healthy Eating Habits Will attend diet classes:: Yes Outcomes/Goals:: Consume diet rich in vegs,fruits,whole grain/high fiber,fish,lean meat, Limit sat/trans fats,cholesterol & added salts & sugars Intervention/Plan:: Assess current eating habits 30-day Reassessments:: Progressing - Education Gave educational materials for:: Signs & symptoms of hypoglycemia, Signs & symptoms of hyperglycemia, Relate diabetes to coronary artery disease, Healthy eating Nutrition - 90-Day Assessment Nutrition - Final Assessment Medical - Initial Assessment Medical- 30-Day Assessment Medical- 60-Day Assessment - Visit Date of Eval: 06/07/21 Session #:: 23 - Medication Compliance Preventative Medication(s):: Aspirin, Clopidogrel/P2Y12 inhibit, Statin/lipid, Beta mustapha H/O mental health issues: depression, anxiety, or addiction?: No Doesn?t believe in the benefits of treatment?: No Believes medications are unnecessary or harmful?: No Has a concern about medication side effects?: No Expresses concern over the cost of medications?: No Outcomes/Goals: Verbalizes medications,desired effect & common side effects @ DC, Pt self-reports following medication regimen, Keeps card in wallet w/medications listed by DC Interventions/plans: Instruct on medication effects & side effects, Review medication list w/patient every two weeks, Instruct importance of taking meds as ordered & assist problem solving 30-day Reassessments:: Met - Tobacco Use Tobacco Use: Non-smoker - Hypertension Hypertension Diagnosis:: Hypertension ICD-10 I10 Resting Blood Pressure:: 118/52 [place] [employer] Hypertension Guidelines: [place] [employer] Hypertension Guidelines. Normal BP Less than 120/80. Elevated BP 120/80. Hypertension Stage 1: BP 130-139/80-89. Hypertesnion Stage 2: BP 140 or higher/90 or higher. Hypertension Crisis: BP higher than 180/120 Peak Exercise Blood Pressure:: 150/62 Outcomes/Goals: Able to verbalize/achieve optimal blood pressure <130/80, Incorporates diet changes & exercise for blood pressure control by DC Interventions/plan: Instruct on optimal blood pressure, hypertension & medications, Instruct on effects of sodium, alcohol, stress, exercise &hypertension 30 day Reassessments:: Progressing - Tobacco Cessation Referral Smoking Cessation Referral:: No Individual Education/Counseling:: No Education Schedule Given:: No Medical- 90-Day Assessment Medical - Final Assessment Psychosocial - Initial Assess Psychosocial - 30-Day Assess Psychosocial - 60-Day Assess - VIsit Date of Eval: 06/07/21 Session #:: 23 Not Applicable: Yes History of previous Mental disease:: No - Psychosocial Test Tool Used:: PHQ-9 Questionnaire phq-9 Severity: Severity. 1-4 Minimal Depression. 5-9 Mild Depression. 10-14 Moderate Depression. 15-19 Moderately Sever Depression. 20-27 Severe Depression. Rule: - Referral to Behavioral Health PS - Interventions: Yes Attend Stress Management Classes, No Referral to Behavioral Health if PHQ-9 score >9:, No Referral to [facility], No Referral to Physician if PHQ-9 if score is 5-9: - Outcomes/Goals: See list Psychosocial Outcomes/Goals:: ID's personal stressors & 2 strategies to manage stress by discharge - Intervention/Plan: See List Interventions/Plan:: Assess stressors,coping strategies & signs of derpression on admission, Instruct/assist pt to develop coping & personal stress Mgt strategies, Instruct patient to recognize signs & symptoms of depression, Instruct patient to recog - 30-day Reassessments: 30 day Reassessments:: Progressing Psychosocial - 90-Day Assess Psychosocial - Final Assessmen Patient Health Questionnaire 60-Day Re-eval Assessment 1. Little interest or pleasure in doing things: Not at all 2. Feeling down, depressed, or hopeless: Not at all 3. Trouble falling or staying asleep, or sleeping too much: Not at all 4. Feeling tired or having little energy: Not at all 5. Poor appetite or overeating: Not at all 6. Feeling bad about yourself -- or that you are a failure or have let yourself or your family down: Not at all 7. Trouble concentrating on things, such as reading the newspaper or watching television: Not at all 8. Moving or speaking so slowly that other people could have noticed. Or the opposite - being so fidgety or restless that you have been moving around a lot more than usual: Not at all 9. Thoughts that you would be better off , or of hurting yourself in some way: Not at all Total Score: 0 Self-Efficacy 60-Day Re-eval Assessment We would like to know how confident you are in doing certain activities. Please select your confidence level for:: Select your confidence level for the following using the scale 1-10 where 1 is not at all confident and 10 is totally confident. Your score is the average of all 6 responses. Fatigue: How confident are you that you can keep the fatigue caused by your disease from interfering with the things you want to do? Select Number: 10 Physical Discomfort or Pain: How confident are you that you can keep the physical discomfort or pain of your disease from interfering with the things you want to do? Select Number: 10 Emotional Distress: How confident are you that you can keep the emotional distress caused by your disease from interfering with the things you want to do? Select Number: 10 Other Symptoms or Health Problems: How confident are you that you can keep other symptoms or health problems from interfering with the things you want to do? Select Number: 10 Different Tasks and Activities: How confident are you that you can do the different tasks and activities needed to manage your health condition so as to reduce your need to see a doctor? Select Number: 10 Medication: How confident are you that you can do things other than just taking medication to reduce how much your illness affects your everyday life? Select Number: 10 Total Score:: 10 Nutrition Survey
[2021-06-07 07:00] VITALS: BP 118/52; BP 150/62; BMI 36.3
== END 2021-06-21 23:59 ==
LOC: CR 08:00
PROVIDERS: PCP Preventive Medicine Occupational Medicine; Referring Provider Internal Medicine Cardiovascular Disease; Visit Provider Internal Medicine Cardiovascular Disease
DX: I25.10 Atherosclerotic heart disease of native coronary artery without angina pectoris (principal); E78.00 Pure hypercholesterolemia, unspecified; E66.9 Obesity, unspecified; Z95.1 Presence of aortocoronary bypass graft; Z95.5 Presence of coronary angioplasty implant and graft; E11.9 Type 2 diabetes mellitus without complications; E78.5 Hyperlipidemia, unspecified
CPT/HCPCS: 93798; 97803; G0108

== ENCOUNTER 2021-06-29 06:57 | Outpatient (CLI) | payer MEDICARE, OTHER, SELFPAY ==
[2021-06-07 07:00] VITALS: BMI 36.3
[2021-06-29 07:34] LABS: AST(SGOT) 32 U/L (15-37); Alanine Aminotransfer ALT/SGPT 53 U/L (16-61); Albumin, Serum 3.6 g/dL (3.2-5.0); Alkaline Phosphatase 68 U/L (45-117); Anion Gap 4 (5-15); BUN 24 mg/dL (7-18); BUN/Creat Ratio 27.1 RATIO (10-20); Bilirubin, Direct 0.15 mg/dL (0.00-0.30); Calcium,Total 8.5 mg/dL (8.5-10.1); Chloride 106 mmol/L (98-107); Cholesterol 114 mg/dL (200); Creatinine, Serum 0.88 mg/dL (0.70-1.30); EST Glomerular Filtration Rate 91 mL/min (>60); Est Glom Filt Rate - Afr Amer 110 mL/min (>60); Globulin 3.2 g/dL (2.2-4.2); Glucose 137 mg/dL (74-106); High Density Lipoprotein 45 mg/dL; Potassium 3.9 mmol/L (3.5-5.1); Protein, Total 6.8 g/dL (6.4-8.2); Sodium Level 140 mmol/L (136-145); Triglycerides 105 mg/dL; Very Low Density Lipoprotein 21 mg/dL (5-40)
[2021-06-29 08:28] LABS: Hemoglobin A1c 6.6 % (3.8-5.6)
== END 2021-06-29 23:59 | disposition short-term general hospital (02) ==
LOC: LAB 06:59
PROVIDERS: PCP Preventive Medicine Occupational Medicine; Referring Provider Internal Medicine Cardiovascular Disease; Visit Provider Internal Medicine Cardiovascular Disease
DX: E11.65 Type 2 diabetes mellitus with hyperglycemia (principal); Z79.4 Long term (current) use of insulin
CPT/HCPCS: 36415; 80048; 80061; 80076; 83036

== ENCOUNTER → 2022-01-08 | Outpatient (CLI) | payer MEDICARE, OTHER, SELFPAY ==
[2021-06-07 07:00] VITALS: BMI 36.3
[2022-01-08 07:56] LABS: AST(SGOT) 35 U/L (15-37); Alanine Aminotransfer ALT/SGPT 53 U/L (16-61); Albumin, Serum 3.6 g/dL (3.2-5.0); Alkaline Phosphatase 67 U/L (45-117); Bilirubin, Direct 0.18 mg/dL (0.00-0.30); Cholesterol 126 mg/dL (200); Globulin 3.1 g/dL (2.2-4.2); High Density Lipoprotein 44 mg/dL; Protein, Total 6.7 g/dL (6.4-8.2); Triglycerides 111 mg/dL; Very Low Density Lipoprotein 22 mg/dL (5-40)
== END | disposition home or self-care (01) ==
PROVIDERS: PCP Preventive Medicine Occupational Medicine; Referring Provider Physician Assistant Medical; Visit Provider Physician Assistant Medical
DX: E78.00 Pure hypercholesterolemia, unspecified (principal)
CPT/HCPCS: 36415; 80061; 80076

== ENCOUNTER → 2022-07-12 | Outpatient (CLI) | payer MEDICARE, OTHER, SELFPAY ==
[2021-06-07 07:00] VITALS: BMI 36.3
[2022-07-12 08:02] LABS: AST(SGOT) 25 U/L (15-37); Alanine Aminotransfer ALT/SGPT 44 U/L (16-61); Albumin, Serum 3.5 g/dL (3.2-5.0); Alkaline Phosphatase 64 U/L (45-117); Bilirubin, Direct 0.15 mg/dL (0.00-0.30); Cholesterol 135 mg/dL (200); Globulin 3.4 g/dL (2.2-4.2); High Density Lipoprotein 42 mg/dL; Protein, Total 6.9 g/dL (6.4-8.2); Triglycerides 115 mg/dL; Very Low Density Lipoprotein 23 mg/dL (5-40)
== END | disposition home or self-care (01) ==
LOC: LAB 06:57
PROVIDERS: PCP Preventive Medicine Occupational Medicine; Referring Provider Physician Assistant Medical; Visit Provider Physician Assistant Medical
DX: E78.00 Pure hypercholesterolemia, unspecified (principal)
CPT/HCPCS: 36415; 80061; 80076

== ENCOUNTER → 2022-08-14 | Outpatient (CLI) | payer MEDICARE, OTHER, SELFPAY ==
[2021-06-07 07:00] VITALS: BMI 36.3
[2022-08-14 13:35] LABS: Microalbumin:Creatinine Ratio 8.6 mg/g CRE (<30 mg/g CRE)
[2022-08-14 13:56] LABS: Vitamin D,25 Hydroxy 40.9 ng/mL
[2022-08-14 14:08] LABS: ALB/GLOB Ratio 1.1 RATIO (0.9-2.4); AST(SGOT) 21 U/L (15-37); Alanine Aminotransfer ALT/SGPT 37 U/L (16-61); Albumin, Serum 3.7 g/dL (3.2-5.0); Alkaline Phosphatase 76 U/L (45-117); Anion Gap 4 (5-15); BUN 24 mg/dL (7-18); BUN/Creat Ratio 21.4 RATIO (10-20); Chloride 106 mmol/L (98-107); Creatinine, Serum 1.12 mg/dL (0.70-1.30); EST Glomerular Filtration Rate 69 mL/min (>60); Est Glom Filt Rate - Afr Amer 83 mL/min (>60); Globulin 3.3 g/dL (2.2-4.2); Glucose 166 mg/dL (74-106); Potassium 4.5 mmol/L (3.5-5.1); Sodium Level 140 mmol/L (136-145); Thyroid Stim Hormone (TSH) 1.19 uIU/mL (0.358-3.74)
== END | disposition home or self-care (01) ==
LOC: LAB 12:33
PROVIDERS: PCP Preventive Medicine Occupational Medicine; Referring Provider Nurse Practitioner Family; Visit Provider Nurse Practitioner Family
DX: E11.9 Type 2 diabetes mellitus without complications (principal); E55.9 Vitamin D deficiency, unspecified
CPT/HCPCS: 36415; 80053; 82043; 82306; 82570; 84443

== ENCOUNTER → 2023-08-13 | Outpatient (CLI) | payer MEDICARE, OTHER, SELFPAY ==
[2021-06-07 07:00] VITALS: BMI 36.3
[2023-08-13 10:18] LABS: Vitamin D,25 Hydroxy 48.4 ng/mL
[2023-08-13 10:23] LABS: ALB/GLOB Ratio 1.1 RATIO (0.9-2.4); AST(SGOT) 33 U/L (15-37); Alanine Aminotransfer ALT/SGPT 47 U/L (16-61); Albumin, Serum 3.6 g/dL (3.2-5.0); Alkaline Phosphatase 70 U/L (45-117); Anion Gap 3 (5-15); BUN 23 mg/dL (7-18); Chloride 109 mmol/L (98-107); Creatinine, Serum 0.96 mg/dL (0.70-1.30); EST Glomerular Filtration Rate 82 mL/min (>60); Est Glom Filt Rate - Afr Amer 99 mL/min (>60); Globulin 3.3 g/dL (2.2-4.2); Glucose 146 mg/dL (74-106); Potassium 4.2 mmol/L (3.5-5.1); Protein, Total 6.9 g/dL (6.4-8.2); Sodium Level 140 mmol/L (136-145); Thyroid Stim Hormone (TSH) 1.68 uIU/mL (0.358-3.74)
[2023-08-13 10:41] LABS: AST(SGOT) 35 U/L (15-37); Alanine Aminotransfer ALT/SGPT 46 U/L (16-61); Albumin, Serum 3.7 g/dL (3.2-5.0); Alkaline Phosphatase 68 U/L (45-117); Bilirubin, Direct 0.15 mg/dL (0.00-0.30); Cholesterol 169 mg/dL (200); Globulin 3.2 g/dL (2.2-4.2); High Density Lipoprotein 42 mg/dL; Protein, Total 6.9 g/dL (6.4-8.2); Triglycerides 78 mg/dL; Very Low Density Lipoprotein 16 mg/dL (5-40)
[2023-08-13 11:44] LABS: Microalbumin,Random Urine 6.9 mg/L (NO RANGE EST.); Microalbumin:Creatinine Ratio 4.8 mg/g CRE (<30 mg/g CRE)
== END | disposition home or self-care (01) ==
LOC: LAB 08:37
PROVIDERS: PCP Preventive Medicine Occupational Medicine; Referring Provider Physician Assistant Medical; Visit Provider Nurse Practitioner Family
DX: E11.9 Type 2 diabetes mellitus without complications (principal); Z79.4 Long term (current) use of insulin; E55.9 Vitamin D deficiency, unspecified; E78.00 Pure hypercholesterolemia, unspecified
CPT/HCPCS: 36415; 80053; 80061; 80076; 82043; 82306; 82570; 84443

== ENCOUNTER 2023-10-18 19:35 | Emergency (ER) | payer MEDICARE, OTHER, SELFPAY ==
[2021-06-07 07:00] VITALS: BMI 36.3
[2023-10-18 19:36] VITALS: BP 161/68; PULSE 73; RESP 18; TEMP 36.6; O2SAT 95; BMI 38.2
--- NOTE | 2023-10-18 19:47 | EKG12_ITS ---
Test Reason : DIZZY Blood Pressure : / mmHG Vent. Rate : 064 BPM Atrial Rate : 064 BPM P-R Int : 148 ms QRS Dur : 096 ms QT Int : 418 ms P-R-T Axes : 040 000 060 degrees QTc Int : 431 ms Normal sinus rhythm Inferior infarct , age undetermined Abnormal ECG Confirmed by BRANDI BLACK, YARIEL ([id number]), scientific publications editor IRMA FERNÁNDEZ ([id number]) on 10/19/2023 9:46:13 AM Referred By: Confirmed By:YARIEL PAZ MD
--- NOTE | 2023-10-18 19:47 | CT_ITS ---
STUDY: CT BRAIN WITHOUT CONTRAST REASON FOR EXAM: Male, 73 years old. DIZZY Individualized dose optimization techniques were used for this CT. TECHNIQUE: Transaxial CT imaging of the brain was performed without administration of intravenous contrast material. COMPARISON: None FINDINGS: There are calcifications noted in the distal vertebral arteries. There are calcifications noted in the cavernous carotid arteries. This is consistent for atherosclerotic disease. Normal calvarium. Normal soft tissues. Normal size ventricles and extra-axial spaces for the patient''s age. Normal white matter tracts of the cerebral hemispheres. Normal basal ganglia and thalami. Normal brainstem. There is mild cerebellar atrophy. There is no intracranial hemorrhage. There are no findings of an acute ischemic infarction. Normal visualized paranasal sinuses. ASPECTS Score for Acute Strokes: 03/31 CT/Brain/Head without Contrast IMPRESSION: There are no acute findings. Electronically Signed: Amadeo Temple MD at 21:02 EDT ,
--- NOTE | 2023-10-18 19:52 | EDS_ITS ---
HPI History of Present Illness Chief Complaint: Dizziness Detail of Chief Complaint: Patient complaint of digit Informant: patient and spouse/S.O. Onset/Context/Timing Onset: Today and Hours (3 to 4 hours prior to presentation) Context: Sudden Onset Timing: Continuous Quality: Describes a woozy sensation in the middle of his forehead lightheadedness Location: Middle of forehead Current Severity: Mild Maximum Severity: Mild Worsened by: Nothing Relieved by: Nothing Associated Symptoms Associated Symptoms: No other symptoms and detailed in the HPI Narrative Narrative: Patient is a 73-year-old male with history of hypertension, type 2 diabetes, coronary disease status post triple bypass surgery and stent placement as well as hyperlipidemia and obesity. He had recent eyelid surgery due to ptosis. This affected his vision. Patient states he was lying when he felt lightheaded/woozy. He describes it as a swirling sensation woozy sensation in his forehead. He denied double vision, blurred vision change in vision. He denies linn ears decreased hearing. He denies trouble with speech or swallowing. Denies slurring of his words or pro blems saying why he thinks. He denies chest pain, dyspnea or dyspnea on exertion. He denies nausea, vomiting or diarrhea. He denies abdominal pain. He denies headache. He denies neck pain or neck stiffness. He denies paresthesia, anesthesia or motor weakness upper or lower extremity. He denies decreased or increased urine output. Prior similar symptoms: No Recent Illness/Hospitalization: No [facility] Medical History Atherosclerosis of coronary artery of [place] without angina pectoris Hyperlipidemia Obesity Obstructive sleep apnea of adult Type 2 diabetes mellitus without complications Home Medications mfymflii-mon-zceiu acid 0.4 mg-lycopene 300 mcg-lutein 250 mcg tablet 1 ea PO DAILY 04/29/16 [History Last Taken Unknown] aspirin 81 mg tablet,delayed release 81 mg PO DAILY@0800 05/01/16 [History Last Taken 02/06/21] celecoxib 200 mg capsule 200 mg PO DAILY 03/28/21 [History Last Taken Unknown] 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 meter,continuous (Dexcom G6 Director Of Conservation) #1 ea 02/13/22 [Rx Last Taken Unknown] 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 sensor (Dexcom G6 Sensor device) #9 ea 08/25/22 [Rx Last Taken Unknown] 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 transmitter (Dexcom G6 Transmitter device) #1 ea 02/13/22 [Rx Last Taken Unknown] losartan 25 mg tablet 25 mg PO DAILY #90 tabs 01/26/23 [Rx Last Taken Unknown] clopidogrel 75 mg tablet (Plavix) 75 mg PO DAILY #90 tabs 04/13/23 [Rx Last Taken Unknown] insulin glargine 100 unit-lixisenatide 33 mcg/mL subcutaneous pen (Soliqua 100/33) 20 unit (0.2 mL) subcut QAM #6 mL 04/16/23 [Rx Last Taken Unknown] ezetimibe 10 mg tablet 10 mg PO DAILY #90 tabs 05/25/23 [Rx Last Taken Unknown] metoprolol succinate 25 mg tablet,extended release 24 hr See Rx Instructions .Route .COMPLEX #90 tabs 06/29/23 [Rx Last Taken Unknown] insulin lispro 100 unit/mL subcutaneous pen (Humalog KwikPen (U-100) Insulin) 18 unit (0.18 mL) subcut TID #48.6 mL 08/13/23 [Rx Last Taken Unknown] Allergy/AdvReac Type Severity Reaction Status Date / Time pravastatin AdvReac Unknown Myalgia Verified 10/18/23 19:38 cinnamon AdvReac throat Verified 10/18/23 19:38 swelling Family History Brother CAD (coronary artery disease) CABG Mother CAD (coronary artery disease) CABG Brother CAD (coronary artery disease) CABG Brother CAD (coronary artery disease) Father CAD (coronary artery disease) CABG Surgical History H/O arthroscopy of right knee H/O coronary artery bypass surgery (03/05/21) History of carpal tunnel release History of coronary artery stent placement (09/11/15) History of left heart catheterization (02/06/21) History of toe surgery Social History (Updated 10/18/23 @ 19:[address] Abel Murillo MD) household members: spouse Smoking Status: Former smoker pack-years: 40 Tobacco: How many years used: 20 how long ago did patient quit smokin years alcohol intake: never caffeine: No ROS ROS ED Constitutional Constitutional ED: Denies chills, fever(s) or subjective Eyes Eyes: Denies blurry vision, change in vision or diplopia ENT ENT ED: Denies ear pain or sore throat Cardiovascular Cardiovascular: Denies chest pain or palpitations Respiratory/Chest Respiratory/Chest: Denies cough, dyspnea or dyspnea on exertion Gastrointestinal Gastrointestinal: Denies abdominal pain, diarrhea, nausea or vomiting Musculoskeletal Musculoskeletal: Denies arthralgias or myalgias Integumentary Denies rash Neurologic Neurologic: Denies headache(s), paresthesias or weakness Endocrine Endocrinology: Denies polydipsia or polyuria Hematologic/Lymphatic Hematologic/Lymphatic: Reports systems reviewed and no addt'l complaints, except as documented EXAM Physical Exam Const Vital Signs: 10/18/23 19:36 10/18/23 20:00 10/18/23 20:00 Temperature 97.9 F Temperature Source Temporal Pulse Rate 73 Pulse Rate [Lying] 69 Pulse Rate [Sitting (for 1 minute prior to obtaining)] 67 Pulse Rate [Standing (for 1 minute prior to obtaining)] 71 Respiratory Rate 18 Respiratory Effort Normal Non-Labored Respiratory Pattern Normal Blood Pressure 161/68 H Blood Pressure [Lying] 133/57 H Blood Pressure [Sitting (for 1 minute prior to obtaining)] 145/67 H Blood Pressure [Standing (for 1 minute prior to obtaining)] 151/76 H Blood Pressure Mean 99 Blood Pressure Mean [Lying] 82 Blood Pressure Mean [Sitting (for 1 minute prior to obtaining)] 93 Blood Pressure Mean [Standing (for 1 minute prior to obtaining)] 101 Pulse Ox 95 Oxygen Delivery Method Room Air Positive well nourished, well developed and obese Constitutional Narrative: Vital signs remarkable for mild elevation of blood pressure. This is insignificant. General Appearance ED: well developed and NAD; Negative for cyanotic, diaphoretic or pallor Nutritional Appearance: obese HEENT Reports moist mucous membranes HEENT Narrative: Uvula is midline. There is no deviation tongue with protrusion. Eyes PERRL and EOMs intact bilaterally Eyes Narrative: There is no nystagmus. There is no visual field cut. General Eye ED: Negative for pale conjunctiva or scleral icterus Neck no lymphadenopathy, supple and no JVD Resp normal respiratory effort and clear to auscultation bilaterally Cardio regular rate, regular rhythm, S1 normal heart sound, S2 normal heart sound and no murmurs GI normal to inspection, nondistended, normoactive bowel sounds, non-tender and non-distended; Negative for hepatosplenomegaly Back/Spine no CVA tenderness Extremity Extremity Narrative: Patient has thickened toenails which she attributes to prior injury. He states he has broken every toe in his right and left foot. He denies symptoms of claudication. Does have stigmata of peripheral arterial disease with thickened toenails and absence of hair on his toes DP pulses 1+ and symmetric. Neuro oriented x3, CN's II-XII intact bilaterally and no sensory deficits noted Neuro Narrative: There is no dysmetria. Romberg with eyes open and close is normal. The eye askew test is negative. The head test was negative. Ejyu-wn-blre was performed adequately. Sensorium / Orientation: alert Motor Exam: strength 5/5 throughout Psych mental status grossly normal Skin no rashes or lesions noted, no wounds and skin turgor normal General Skin Exam: Negative for jaundice or pallor MDM MDM MDM Narrative Medical decision making narrative: Since patient describes orthostatic symptoms will obtain orthostatic vitals. This may represent autonomic dysfunction due to his diabetes. This may represent an inner ear process. This could represent an atypical neurologic event. To evaluate patient orthostatic vitals were obtained. Appropriate blood work to assess white count, rule out anemia, determine renal function, glucose anion gap and electrolytes. CAT scan to assess for any intracranial process. EKG and monitor to detect dysrhythmia. Lab Data Attestation: I reviewed the patient's lab results. Lab results narrative: CBC is normal. Comprehensive metabolic panel reveals elevated BUN/creatinine of 26 and 1.5. This is an acute abnormality. Most recent BUN/creatinine was F ebruary 2023. Labs: Laboratory Results - last 24 hr 10/18/23 19:55 WBC 6.7 RBC 4.95 Hgb 14.9 Hct 43.3 MCV 87.5 MCH 30.1 MCHC 34.4 RDW Std Deviation 39.1 RDW Coeff of Donna 12.3 Plt Count 190 MPV 8.8 Immature Gran % (Auto) 0.400 Neut % (Auto) 64.1 Lymph % (Auto) 23.6 Garfield % (Auto) 8.8 Eos % (Auto) 2.8 Baso % (Auto) 0.3 Absolute Neuts (auto) 4.3 Absolute Lymphs (auto) 1.58 Nucleated RBC % 0 Sodium 140 Potassium 3.7 Chloride 109 H Carbon Dioxide 25.0 Anion Gap 6 BUN 26 H Creatinine 1.50 H Estim Creat Clear Calc 59.78 Est GFR (MDRD) Af Amer 59 L Est GFR (MDRD) Non-Af 49 L BUN/Creatinine Ratio 17.3 Glucose 76 Calcium 9.0 Total Bilirubin 0.50 AST 49 H ALT 54 Alkaline Phosphatase 68 Total Protein 6.8 Albumin 3.7 Globulin 3.1 Albumin/Globulin Ratio 1.2 Radiography Diagnostic Testing: Clinical Impression(s) from Imaging Studies Brain CT 10/18/23 19:47 IMPRESSION: There are no acute findings. Electronically Signed: Amadeo Temple MD at 21:02 EDT , CT of the head without contrast reveals no intracranial bleed. There is a hypodense lesion right frontal region. There is atrophy noted. There is no evidence of mass effect or vasogenic edema. Awaiting formal read by radiologist. EKG Initial EKG: Attestation: I personally reviewed and interpreted this EKG as follows: Interpretation: Sinus Rhythm (Rate is 64. ME interval is 148 ms. Cures duration 96 ms. QT duration 118 ms. [place] is normal. There is no evidence of acute ischemic changes.) Treatment and Re-Evaluation :: Awaiting read from radiologist, 2104. Patient gait was observed. He does not have a foot drop. It is not broad-based. Patient able to walk on heels and toes. Tandem gait is normal as well. Patient presently has no symptoms. Discharge Plan Triage Chief Complaint: Dizziness ED Provider: Abel Murillo Dx/Rx/DC Orders Clinical Impression: Dizziness, nonspecific, Type 2 diabetes mellitus without complications, Hypertension, Obesity, Hyperlipidemia, Atherosclerosis of coronary artery of [place] without angina pectoris Instructions: ED Dizziness, Uncertain Cause Prescriptions: No Action (DME) Dexcom G6 Director Of Conservation Misc See Rx Instructions .Route Qty: 1 0RF Rx Instructions: As directed (DME) Dexcom G6 Sensor Device See Rx Instructions .Route Qty: 9 1RF Rx Instructions: 1 sensor q 10 days (DME) Dexcom G6 Transmitter Device See Rx Instructions .Route Qty: 1 1RF Rx Instructions: 1 q 90 days Soliqua 100/33 100 unit-33 mcg/mL insulin pen 20 unit subcut QAM Qty: 6 5RF insulin lispro [Humalog KwikPen Insulin] 100 unit/mL insulin pen 18 unit subcut TID Qty: 48.6 1RF celecoxib 200 mg capsule 200 mg PO DAILY Patient Comments: ARTHRITIS WAS TOLD TO STOP FOR SURGERY hwukfsum-och-GD-lycopen-lutein 1 EACH tablet 1 ea PO DAILY aspirin 81 MG tablet 81 mg PO DAILY@0800 Patient Comments: DR CARSON WANTS TO CONTINUE, DR PEREZ AWARE losartan 25 mg tablet 25 mg PO DAILY Qty: 90 3RF clopidogrel [Plavix] 75 mg tablet 75 mg PO DAILY Qty: 90 3RF ezetimibe 10 mg tablet 10 mg PO DAILY Qty: 90 3RF metoprolol succinate 25 mg tablet extended release 24 hr See Rx Instructions .ROUTE .COMPLEX Qty: 90 3RF Dose Instruction: TAKE 1 TABLET BY MOUTH DAILY Rx Instructions: TAKE 1 TABLET BY MOUTH DAILY Primary Care Provider: Sheldon Talbert Referrals: Sheldon Talbert DO [Primary Care Provider] - 3-5 Days Disposition Disposition: Home, Self Care
[2023-10-18 19:58] LABS: Absolute Lymphocyte Count 1.58 X10^3/uL (0.83-4.51); Absolute Neutrophil Count 4.3 X10^3/uL (2.0-7.7); Basophil# 0.02 X10^3/uL; Basophil% 0.3 % (0-1); Eosinophil# 0.19 X10^3/uL; Eosinophils% 2.8 % (0-5); Hematocrit 43.3 % (40-54); Hemoglobin 14.9 g/dL (13.0-16.5); Lymphocyte # 1.58 X10^3/ul (0.83-4.51); Lymphocyte % 23.6 % (19-41); Mean Corp Hgb Conc 34.4 g/dL (32-36); Mean Corpuscular Hgb 30.1 pg (27.0-32.0); Mean Corpuscular Volume 87.5 fL (80-94); Mean Platelet Vol. 8.8 fl (6.2-12.0); Monocyte# 0.59 X10^3/uL; Monocyte% 8.8 % (0-10); NRBC Flagged by Analyzer 0 % (0-5); Neutrophil # 4.29 X10^3/uL (2.7-7.7); Neutrophil % 64.1 % (47-70); Platelet Count 190 K/mm3 (150-450); RBC Distribution Width CV 12.3 % (11.6-14.6); RBC Distribution Width SD 39.1 fl (35.1-43.9); Red Blood Count 4.95 M/mm3 (4.6-6.2); White Blood Count 6.7 K/mm3 (4.4-11.0)
[2023-10-18 20:00] VITALS: BP 133/57; BP 145/67; BP 151/76; PULSE 67; PULSE 69; PULSE 71
[2023-10-18 20:28] LABS: ALB/GLOB Ratio 1.2 RATIO (0.9-2.4); AST(SGOT) 49 U/L (15-37); Alanine Aminotransfer ALT/SGPT 54 U/L (16-61); Albumin, Serum 3.7 g/dL (3.2-5.0); Alkaline Phosphatase 68 U/L (45-117); Anion Gap 6 (5-15); BUN 26 mg/dL (7-18); BUN/Creat Ratio 17.3 RATIO (10-20); Chloride 109 mmol/L (98-107); EST Glomerular Filtration Rate 49 mL/min (>60); Est Glom Filt Rate - Afr Amer 59 mL/min (>60); Estimated Creatinine Clearance 59.78 ml/min; Globulin 3.1 g/dL (2.2-4.2); Glucose 76 mg/dL (74-106); Potassium 3.7 mmol/L (3.5-5.1); Protein, Total 6.8 g/dL (6.4-8.2); Sodium Level 140 mmol/L (136-145)
[2023-10-18 21:11] VITALS: BP 125/58; PULSE 68; RESP 16; TEMP 36.4; O2SAT 98
== END 2023-10-18 21:20 | disposition home or self-care (01) ==
PROVIDERS: Emergency Provider Emergency Medicine; PCP Preventive Medicine Occupational Medicine; Visit Provider Emergency Medicine
DX: R42 Dizziness and giddiness (principal); E11.9 Type 2 diabetes mellitus without complications; Z79.4 Long term (current) use of insulin; E78.5 Hyperlipidemia, unspecified; I10 Essential (primary) hypertension; I25.10 Atherosclerotic heart disease of native coronary artery without angina pectoris; E66.9 Obesity, unspecified; Z87.891 Personal history of nicotine dependence; Z79.82 Long term (current) use of aspirin; Z79.899 Other long term (current) drug therapy; Z79.02 Long term (current) use of antithrombotics/antiplatelets; Z95.5 Presence of coronary angioplasty implant and graft
CPT/HCPCS: 70450; 80053; 85025; 93005; 99284; A4216

== ENCOUNTER → 2023-12-17 | Outpatient (CLI) | payer MEDICARE, OTHER, SELFPAY ==
[2021-06-07 07:00] VITALS: BMI 36.3
--- NOTE | 2023-12-17 17:04 | STRESSREP_ITS ---
Stress Test Report Exercise myocardial perfusion stress test. 73-year-old male with a history of coronary disease Stress protocol: Resting EKG demonstrates normal sinus rhythm with a rate of 60 bpm resting blood pressure is 122/78 mmHg. The patient exercised according to the regular Hugo protocol for a total duration of 6 minutes attaining a maximum heart rate of 121 bpm which was 81% of maximum predicted heart rate; the maximum workload was 7 metabolic equivalents. At rest there were no ST or T wave changes noted to suggest ischemia and at peak exercise upsloping ST changes only were noted which did not meet the criteria for ischemia. No clinical angina was noted the test was terminated due to the target heart rate being achieved/fatigue. The peak blood pressure was 174/64 mmHg. Rate-pressure product was 19,900. Myocardial perfusion protocol. 14.6 mCi of technetium 99m sestamibi was injected at rest. The patient exercised according to regular Hugo protocol for total duration of 6 minutes and at peak exercise 44.8 mCi of technetium 99m sestamibi was injected stress images were obtained stress and rest images were reconstructed in comparing the short axis vertical long and horizontal long axis. Gated images were also obtained. Perfusion SPECT analysis: Review of the stress images demonstrate normal uptake of tracer noted in all a reas of the myocardium. There is however a medium size zone noted in the basal to mid inferior wall with reduced perfusion on the stress images with improvement on the resting images suggesting a mild amount of basal to mid inferior ischemia. The rest of the plaza appear to be well-perfused. Gated SPECT analysis: The gated ejection fraction is 61%. Conclusion: Abnormal exercise myocardial perfusion stress test at a moderate workload with basal to mid inferior ischemia Preserved ejection fraction.
== END | disposition home or self-care (01) ==
LOC: CVS 06:02
PROVIDERS: PCP Preventive Medicine Occupational Medicine; Referring Provider Physician Assistant Medical; Visit Provider Physician Assistant Medical
DX: I25.10 Atherosclerotic heart disease of native coronary artery without angina pectoris (principal); Z95.5 Presence of coronary angioplasty implant and graft; Z95.1 Presence of aortocoronary bypass graft
CPT/HCPCS: 78452; 93017; A9500

== ENCOUNTER 2023-12-25 06:28 | Day surgery (SDC) | payer MEDICARE, OTHER, SELFPAY ==
[2021-06-07 07:00] VITALS: BMI 36.3
--- NOTE | 2023-12-22 13:13 | RAD_ITS ---
STUDY: X-RAY CHEST REASON FOR EXAM: Male, 73 years old. Abnormal stress test. TECHNIQUE: Frontal and lateral views of the chest. COMPARISON: January 17, 2021 FINDINGS: Stable hyperinflation with scattered healed parenchymal granulomatous calcifications. There is no demonstrated pleural abnormality. Cardiomegaly with sternotomy wires unchanged. Normal mediastinum and dylan. Normal visualized pulmonary arteries. Aortic tortuosity unchanged. Thoracic osteopenia with mild diffuse thoracic spondylosis unchanged. Normal visualized ribs, clavicles, and shoulders. No abnormality of the visualized soft tissue structures of the upper abdomen. RAD/Chest PA and Lateral IMPRESSION: Stable chest with no acute or emergent finding. Electronically Signed: Brendon Durant MD at 13:33 EDT ,
[2023-12-22 13:51] LABS: Absolute Lymphocyte Count 1.78 X10^3/uL (0.83-4.51); Absolute Neutrophil Count 4.4 X10^3/uL (2.0-7.7); Basophil# 0.05 X10^3/uL; Basophil% 0.7 % (0-1); Eosinophils% 2.8 % (0-5); Hematocrit 45.4 % (40-54); Hemoglobin 15.2 g/dL (13.0-16.5); Lymphocyte # 1.78 X10^3/ul (0.83-4.51); Lymphocyte % 24.9 % (19-41); Mean Corp Hgb Conc 33.5 g/dL (32-36); Mean Corpuscular Hgb 29.7 pg (27.0-32.0); Mean Corpuscular Volume 88.8 fL (80-94); Mean Platelet Vol. 9.3 fl (6.2-12.0); Monocyte# 0.65 X10^3/uL; Monocyte% 9.1 % (0-10); NRBC Flagged by Analyzer 0 % (0-5); Neutrophil # 4.42 X10^3/uL (2.7-7.7); Neutrophil % 61.9 % (47-70); Platelet Count 195 K/mm3 (150-450); RBC Distribution Width CV 12.5 % (11.6-14.6); RBC Distribution Width SD 41.1 fl (35.1-43.9); Red Blood Count 5.11 M/mm3 (4.6-6.2); White Blood Count 7.1 K/mm3 (4.4-11.0)
[2023-12-22 14:02] LABS: Prothrombin Time (Protime)PT. 13.4 SECONDS (11.7-14.9)
[2023-12-22 14:03] LABS: Partial Thromboplast Time 35.2 Seconds (24.1-36.2)
[2023-12-22 14:23] LABS: AST(SGOT) 33 U/L (15-37); Alanine Aminotransfer ALT/SGPT 50 U/L (16-61); Albumin, Serum 3.5 g/dL (3.2-5.0); Alkaline Phosphatase 79 U/L (45-117); Anion Gap 5 (5-15); BUN 23 mg/dL (7-18); BUN/Creat Ratio 23.3 RATIO (10-20); Bilirubin, Direct 0.13 mg/dL (0.00-0.30); Chloride 106 mmol/L (98-107); Cholesterol 148 mg/dL (200); Creatinine, Serum 0.99 mg/dL (0.70-1.30); EST Glomerular Filtration Rate 79 mL/min (>60); Est Glom Filt Rate - Afr Amer 96 mL/min (>60); Globulin 3.3 g/dL (2.2-4.2); Glucose 62 mg/dL (74-106); High Density Lipoprotein 42 mg/dL; Potassium 4.2 mmol/L (3.5-5.1); Protein, Total 6.8 g/dL (6.4-8.2); Sodium Level 141 mmol/L (136-145); Triglycerides 187 mg/dL; Very Low Density Lipoprotein 37 mg/dL (5-40)
[2023-12-23 08:51] VITALS: BMI 38.6
--- NOTE | 2023-12-23 15:35 | HP.PCM_ITS ---
History and Physical Date of Admission: 12/25/23 Fantasma Harrington is a 73 year old gentleman that presents here today for a diagnostic heart catheterization. 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 Heart cath demonstrated Severe triple-vessel disease with depressed left ventricular systolic function. He underwent coronary bypass graft surgery with a left internal mammary artery to the left anterior descending artery and a sequential saphenous vein graft to the ramus intermedius and obtuse marginal vessel. 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 Stress test was done and 12/17/2023, this demonstrated abnormal exercise myocardial perfusion stress test at a moderate workload with basal to mid inferior ischemia. Because of this he is undergoing his diagnostic heart catheterization. From a cardiac standpoint, patient is doing well. He does not have any chest discomfort/heaviness/tightness. His exercise tolerance is stable for his age. He does not have any worsening symptoms of shortness of breath. He denies any PND. He does not have any orthopnea. He does not have any symptoms of congestive heart failure. He does not have any palpitations that he is aware of. He does not have any lightheadedness or dizziness. He does not have any near-syncope or syncope. He does not have any lower extremity edema. He does not have any symptoms of claudication. Allergies pravastatin Adverse Reaction (Unknown, Verified 08/06/23 15:21) Myalgia cinnamon Adverse Reaction (Verified 08/06/23 15:21) throat swelling [facility] Medical History Atherosclerosis of coronary artery of [place] heart without angina pectoris Hyperlipidemia Obesity Obstructive sleep apnea of adult Type 2 diabetes mellitus without complications Surgical History H/O arthroscopy of right knee H/O coronary artery bypass surgery (03/05/21) History of carpal tunnel release History of coronary artery stent placement (09/11/15) History of left heart catheterization (02/06/21) History of toe surgery Family History Brother CAD (coronary artery disease) CABG Mother CAD (coronary artery disease) CABG Brother CAD (coronary artery disease) CABG Brother CAD (coronary artery disease) Father CAD (coronary artery disease) CABG Social History Smoking Status: Former smoker pack-years: 40 Tobacco: How many years used: 20 how long ago did patient quit smokin years alcohol intake: never caffeine: No ROS Const Const: Negative for fatigue, weakness, headache(s), frequent falls, difficulty sleeping or excessive sweating Eyes Eyes: Negative for loss of peripheral vision, transient loss of vision, blurry vision, double vision or tunnel vision ENT ENT: Negative for headache(s), dizziness, Nosebleed/epistaxis or balance problems Cardio Chest Pain: No Palpitations: No Edema: None Muscle aches with walking: None Resp Respiratory: Negative for SOB with activity, SOB at rest, SOB orthopnea\SOB lying down, Cough or paroxysmal nocturnal dyspnea GI GI: Negative nausea, vomiting or heartburn : Negative for hematuria Musc Musc: Negative for muscle aches/ myalgia, muscle weakness, joint pain or balance problems Skin Skin: Negative non-healing lesions, rash or unusual bruising Neuro Neuro: Negative for dizziness, lightheadedness, near syncope, syncope, orthostatic symptoms, frequent falls, headache(s), weakness, confusion, memory loss, blurry vision, double vision, vertigo or lack of coordination Evgeny Hematologic/Lymphatic: Negative for easy bleeding or easy bruising Endo Endo: Negative for fatigue, excessive sweating, flushing or increased thirst/drinking Psych Psych: Negative for anxiety or depression Allergy Allergy/Immunology: Negative for hives and Negative for rash Cardiology Exam Const Appearance: cooperative, healthy appearing, comfortable, no acute distress and well developed Orientation: alert, awake and oriented x3 Head Head: normal to inspection Ears: hearing grossly normal bilaterally Nose: external nose normal Face and Sinus: face symmetric Mouth: oral mucosae normal, lip normal and moist mucous membranes Eyes General: appearance normal, both eyes and all related structures Eyelids: eyelids normal Conjunctivae: conjunctivae normal Pupils: PERRL EOM: EOM intact bilaterally Neck Neck: normal visual inspection and trachea midline; Negative no JVD Carotids: Negative bruit Chest Chest inspection: normal inspection of the chest Auscultation: Bilateral: Clear to Auscultation Cardio Palpation: normal PMI Rate: regular rate Rhythm: regular rhythm Heart sounds: S1 normal and S2 normal; Negative rub, gallop or murmur GI GI: soft, no hepatosplenomegaly and bowel sounds present Neuro General: patient alert, patient awake, patient oriented x3 and CN's II-XI intact bilaterally Extremities Pulses: Normal: Right Posterior Tibial Pulse, Left Posterior Tibial Pulse, Right Radial Pulse and Left Radial Pulse Lower Extremity Edema: None: Bilateral Psych Psychological: normal affect Supplemental Info Supplemental Information Cardiac cath 2020: Severe triple-vessel disease with depressed left ventricular systolic function RECOMMENDATIONS Surgery consult for coronary revascularization CORONARY ANGIOGRAPHY DOMINANCE: Right Dominant LEFT HEART ASSESSMENT Left Ventricular Ejection Fraction: by LV Gram 40 % Inferior Mid Hypokinesis - Severe Depressed Left Ventricular systolic function LEFT MAIN: Angiographically normal LEFT ANTERIOR DESCENDING ARTERY: Diffusely diseased vessel with mid LAD demonstrating approximately 80% stenosis and diffuse distal disease CIRCUMFLEX ARTERY: PROX CIRC: Proximal circumflex artery with 80% stenosis and first obtuse marginal branch which is diffusely diseased RIGHT CORONARY ARTERY: Previously stented right coronary artery with mild to moderate diffuse proximal and mid disease and distal 80% stenosis and left to right collaterals of the posterolateral branch. COLLATERAL FLOW: Collateral flow from Left to Right Assessment & Plan Assessment/Plan (1) Abnormal stress test: (2) H/O coronary artery bypass surgery: (3) History of coronary artery stent placement: (4) Hypertension: QUALIFIERS: Hypertension type: unspecified Qualified Code(s): I10 - Essential (primary) hypertension (5) Hyperlipidemia: QUALIFIERS: Hyperlipidemia type: pure hypercholesterolemia Qualified Code(s): E78.00 - Pure hypercholesterolemia, unspecified; E78.0 - Pure hypercholesterolemia PLAN: Plan Patient will undergo a diagnostic heart catheterization for his abnormal stress test. Follow-up will be based upon findings.
--- NOTE | 2023-12-25 10:55 | CL.D_ITS ---
Patient Name: ALLYSON COLEY Study Date: 12/25/2023 Performing: Cruzito Torres MD Ht: 70.86 inches 180 cm : 1950 Wt: 276 lbs 125.19 kg Age: 73 Gender: male BSA: 2.41 PROCEDURE(S) PERFORMED [id number])LHC/COR/CABG CLINICAL PROFILE AND INDICATIONS Indications: Suspected CAD Heart Failure: None Stress/Imaging Date: 12/17/23Stress Test with SPECT MPI: Positive Low Risk CAD Presentations: Symptom unlikely to be ischemic. CONCLUSIONS Coronary artery disease with [place] vessels with significant occlusion and bypass vessels with KIM to LAD patent and sequential saphenous vein graft to ramus intermedius as well as obtuse marginal branch patent. [place] disease noted of the proximal circumflex and diffuse right coronary arteries present. RECOMMENDATIONS Medical therapy DESCRIPTION OF PROCEDURE The patient arrived to the procedure lab. The risks and benefits of the procedure as well as a full description of our services here and current unavailability of surgical backup were fully explained to the patient and/or their significant other prior to the catheterization. The Timeout was completed, verifying the correct patient and procedure. The patient's procedural site was prepped and draped in the usual fashion. Local anesthetic was given subcutaneously to left radial region with Lidocaine 2%. Using a modified Seldinger technique, arterial access was obtained via the left radial artery, a 6Fr sheath was inserted. Left internal mammary artery graft to the LAD selective angiography was performed in multiple views using a 5 Fr. IM catheter. Left Coronary Artery selective angiography was performed in multiple views using a 5 Fr. JL4 catheter. Right Coronary Artery selective angiography was then performed in multiple views using a 5 Fr. 3DRC ([place]) catheter. Ascending (root) aorta selective angiography was then performed in single view with 5fr pigtail. Ascending (root) aorta selective angiography was then performed in single view with 5fr pigtail. Saphenous Vein graft sequentil to the OM 1 and Ramus selective angiography was performed in multiple views using a 5 Fr. AR MOD catheter.The arterial sheath was pulled and a TR Band was applied for hemostasis w/ 11ml air CORONARY ANGIOGRAPHY DOMINANCE: Co- Dominant LEFT HEART ASSESSMENT Left Ventricular Ejection Fraction: by Echo 55 % Normal LV wall motion Normal Left Ventricular systolic function LEFT MAIN: Angiographically normal LEFT ANTERIOR DESCENDING ARTERY: Left anterior descending artery is medium size vessel which is totally occluded in the midportion. It gives off a first diagonal branch which further branch with 70% long stenosis. CIRCUMFLEX ARTERY: Medium size codominant vessel with a proximal 80% stenotic lesion and a first obtuse marginal branch which appears to be occluded proximally. Left to right distal collaterals were seen of the right coronary artery RAMUS: High-grade proximal disease RIGHT CORONARY ARTERY: Codominant vessel. It gave off and prominent acute marginal branch the rest of the vessel appears to be moderately diseased the posterior descending artery appeared to be totally occluded. GRAFTS: KIM graft to the Mid LAD is patent Sequential graft to the Obtuse marginal branch as well as the ramus intermedius is noted to be patent with good flow. COMPLICATIONS No Complications PROCEDURE MEDICATIONS Versed 1 mg IV Fentanyl 50 mcg IV Oxygen: 2 L/min via nasal cannula Oxygen: 4 L/min via nasal cannula Heparin given IA 12/25/2023 09:30:08 Verapamil 2.5mg, Ntg 100mcgs, 3000 units of Heparin given IA 12/25/2023 09:30:08 SUMMARY OF HEMODYNAMIC DATA Time AIR REST ECG 07:07:36 AO 122/65 (86) SA 09:33:33 AIR REST 10:54:37 Signed By Cruzito Torres MD On 12/25/2023 10:55:00 Cruzito Torres MD
== END 2023-12-25 12:00 | disposition home or self-care (01) ==
PROVIDERS: Physician Assistant Medical; PCP Preventive Medicine Occupational Medicine; Referring Provider Internal Medicine Cardiovascular Disease; Visit Provider Internal Medicine Cardiovascular Disease
DX: I25.10 Atherosclerotic heart disease of native coronary artery without angina pectoris (principal); E11.9 Type 2 diabetes mellitus without complications; R94.39 Abnormal result of other cardiovascular function study; I10 Essential (primary) hypertension; Z87.891 Personal history of nicotine dependence; E78.00 Pure hypercholesterolemia, unspecified; Z95.5 Presence of coronary angioplasty implant and graft; Z79.02 Long term (current) use of antithrombotics/antiplatelets; Z79.82 Long term (current) use of aspirin
CPT/HCPCS: 36415; 71046; 80048; 80061; 80076; 85025; 85610; 85730; 93455; 99152; 99153; C1894; J7040; Q9967; C1769

== ENCOUNTER → 2024-02-16 | Outpatient (CLI) | payer MEDICARE, OTHER, SELFPAY ==
[2021-06-07 07:00] VITALS: BMI 36.3
[2024-02-16 16:19] LABS: Microalbumin,Random Urine 5.4 mg/L (NO RANGE EST.); Microalbumin:Creatinine Ratio 4.1 mg/g CRE (<30 mg/g CRE)
== END | disposition home or self-care (01) ==
LOC: LAB 14:48
PROVIDERS: PCP Preventive Medicine Occupational Medicine; Referring Provider Preventive Medicine Occupational Medicine; Visit Provider Preventive Medicine Occupational Medicine
DX: E11.9 Type 2 diabetes mellitus without complications (principal); Z12.5 Encounter for screening for malignant neoplasm of prostate
CPT/HCPCS: 36415; 82043; 82570; 84153; G0103

== ENCOUNTER → 2024-10-08 | Outpatient (CLI) | payer MEDICARE, OTHER, SELFPAY ==
[2021-06-07 07:00] VITALS: BMI 36.3
[2024-10-08 12:25] LABS: Cholesterol 128 mg/dL (<=200); High Density Lipoprotein 32 mg/dL; Low Density Lipoprotein Calc. 71 mg/dL; Triglycerides 126 mg/dL; Very Low Density Lipoprotein 25 mg/dL (5-40); cholesterol:hdl ratio screen 3.98
[2024-10-08 13:23] LABS: AST(SGOT) 36 U/L (<=37); Alanine Aminotransfer ALT/SGPT 37 U/L (<=46); Albumin, Serum 4.2 g/dL (3.4-4.8); Alkaline Phosphatase 73 U/L (40-129); Bilirubin, Direct 0.14 mg/dL (0.00-0.30); Globulin 2.5 g/dL (2.2-4.2); Protein, Total 6.7 g/dL (5.9-8.4); Total Bilirubin 0.44 mg/dL (0.00-1.30)
== END | disposition home or self-care (01) ==
LOC: LAB 07:54
PROVIDERS: PCP Preventive Medicine Occupational Medicine; Referring Provider Student in an Organized Health Care Education/Training Program; Visit Provider Student in an Organized Health Care Education/Training Program
DX: E78.00 Pure hypercholesterolemia, unspecified (principal)
CPT/HCPCS: 36415; 80061; 80076

== ENCOUNTER → 2025-01-16 | Outpatient (CLI) | payer MEDICARE, OTHER, SELFPAY ==
[2021-06-07 07:00] VITALS: BMI 36.3
[2025-01-16 15:20] LABS: Hematocrit 43.5 % (40-54); Hemoglobin 15.4 g/dL (13.0-16.5); Immature Granulocytes Count 0.020 X10^3/uL (0.0-0.0); Mean Corp Hgb Conc 35.4 g/dL (32-36); Mean Corpuscular Volume 90.4 fL (80-94); Mean Platelet Vol. 9.6 fl (6.2-12.0); NRBC Flagged by Analyzer 0 % (0-5); Platelet Count 182 K/mm3 (150-450); RBC Distribution Width CV 12.5 % (11.6-14.6); RBC Distribution Width SD 41.2 fl (35.1-43.9); Red Blood Count 4.81 M/mm3 (4.6-6.2); White Blood Count 6.7 K/mm3 (4.4-11.0)
[2025-01-16 15:45] LABS: AST(SGOT) 32 U/L (<=37); Alanine Aminotransfer ALT/SGPT 32 U/L (<=46); Albumin, Serum 4.3 g/dL (3.4-4.8); Alkaline Phosphatase 74 U/L (40-129); Anion Gap 10 (5-15); BUN 23 mg/dL (4-19); BUN/Creat Ratio 25.9 RATIO (10-20); Calcium,Total 9.2 mg/dL (7.6-11.0); Carbon Dioxide 27.5 mmol/L (21.0-32.0); Chloride 104 mmol/L (98-108); Globulin 2.4 g/dL (2.2-4.2); Glucose 98 mg/dL (70-99); Potassium 4.3 mmol/L (3.3-5.1)
== END | disposition home or self-care (01) ==
LOC: BIMLAB 13:18
PROVIDERS: PCP Internal Medicine; Referring Provider Internal Medicine; Visit Provider Internal Medicine
DX: E78.00 Pure hypercholesterolemia, unspecified (principal); E11.9 Type 2 diabetes mellitus without complications; Z79.4 Long term (current) use of insulin; I10 Essential (primary) hypertension
CPT/HCPCS: 36415; 80053; 85025

== ENCOUNTER → 2025-03-11 | Outpatient (CLI) | payer MEDICARE, OTHER, SELFPAY ==
[2021-06-07 07:00] VITALS: BMI 36.3
--- OUTSIDE RECORDS SUMMARY | 2025-03-11 06:59 | XMS RPT_ITS | CCD ---
Author Organization [facility] Care Team Providers Care Hand Straightener Name Role Phone Alexander Rollins DO Primary Care Provider [phone] Dr. Alexander Rollins Primary Care Provider Dr. Alexander Rollins Referring Provider [phone] CATIE Moran Attending Provider AILIN Mai Attending Provider Dr. Alexander Rollins Primary Care Provider Dr. Alexander Rollins Referring Provider [phone] AILIN Mai Attending Provider Dr. Cruzito Torres Attending Provider Dr. Alexander Rollins Primary Care Provider Dr. Alexander Rollins Referring Provider [phone] CATIE Moran Attending Provider AILIN Mai Attending Provider Dr. Alexander Rollins DO Primary Care Provider [phone] Dr. Alexander Rollins DO Referring Provider Fawad Whittington Attending Provider [phone] Fawad Whittington Referring Provider [phone] Marcelina Bennett Attending Provider Rory BLACK, Dr. Valentine Attending Provider [phone] Dr. Meme Valadez MD Primary Care Provider Dr. Meme Valadez MD Referring Provider [phone] Dr. Alexander Rollins DO Primary Care Provider [phone] Fawad Whittington Attending Provider [phone] Dr. Alexander Rollins DO Referring Provider Alexander Rollins Primary Care Unavailable Alexander Rollins Attending Unavailable Alexander Rollins Referring Unavailable Fawad Gallardo Attending Unavailable Alexander Rollins Primary Care Unavailable Fawad Gallardo Referring Unavailable Alexander Rollins Referring Unavailable Alexander Rollins Primary Care Unavailable Marcelina Mai Attending Unavailable Oledarryl, Efewongbe Attending Unavailable Alexander Rollins Referring Unavailable Alexander Rollins Primary Care Unavailable Marcelina Mai Attending Unavailable Alexander Rollins Primary Care Unavailable Alexander Rollins Referring Unavailable Alexandre Rollins Primary Care Unavailable Alexander Rollins Referring Unavailable Marcelina Mai Attending Unavailable Fawad Gallardo Attending Unavailable Alexander Rollins Primary Care Unavailable Alexander Rollins Referring Unavailable Oleghe, Efewongbe Primary Care Unavailable Oleghe Efewongbe Attending Unavailable Oleshylae, Efewongbe Referring Unavailable Allergies Allergy Classification Reported Allergen(s) Allergy Type Date of Onset Reaction(s) Facility (1 source) atorvastatin Drug Allergy 1 [facility] (7 sources) Cinnamon Preparation Drug Allergy 1 throat swelling [facility] (7 sources) Pravastatin Drug Allergy 1 Myalgia [facility] (1 source) Cinnamon Preparation Drug Allergy 5 [facility] (1 source) Pravastatin Drug Allergy 5 [facility] Medications Current Medications Medication Drug Class(es) Dates Sig (Normalized) Sig (Original) acetaminophen 500 mg oral tablet (1 source) Start: 03-05-2021 take 1000 mg by mouth every eight hours, then take 4000 mg by mouth every twenty-four hours 1,000 mg, Oral, EVERY 8 HOURS, First dose on Thu03/05/21 at 1200 Maximum dose of acetaminophen is 4000 mg from all sources in 24 hours. Post-op aspirin 81 mg delayed release oral tablet (9 sources) Platelet Aggregation Inhibitor, Nonsteroidal Anti-inflammatory Drug Start: 03-06-2021 End: 03-07-2021 aspirin EC tablet 325 mg Start: 05-01-2016 take 1 tablet by thom th once daily Aspirin 81 MG tablet Active 81 mg PO DAILY@0800 May 01, 2016 1:00am blood glucose monitor kit an d supplies (2 sources) Start: 03-09-2021 blood glucose monitor kit and supplies Indications: Type 2 diabetes mellitus with hyperglycemia, with long-term current use of insulin (HCC) 1 kit by Other route daily Per Patients insurance 1 kit 0 03/09/2021 Active Start: 03-09-2021 End: 03-09-2021 blood glucose monitor kit an d supplies 1 kit by Other route daily Per Patients insurance 1 kit 0 03/09/2021 03/09/2021 Discontinued (REORDER) Blood-Glucose Meter,Continuo us (Dexcom G6 Chairlift Operator) misc (3 sources) Start: 02-13-2022 Blood-Glucose Meter,Continuous (Dexcom G6 Chairlift Operator) misc Active 0 .Route February 13, 2022 12:00am As directed Start: 02-13-2022 Blood-Glucose Meter,Continuous (Dexcom G6 Chairlift Operator) misc Active 0 .Route February 12, 2022 11:00pm As directed Blood-Glucose Sensor (Dexcom G7 Sensor) device (2 sources) Start: 12-17-2023 Blood-Glucose Sensor (Dexcom G7 Sensor) device Active 0 .Route December 17, 2023 12:00am As directed Blood-Glucose,Recei leda,Cont (D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) misc (2 sources) Start: 12-17-2023 Blood-Glucose,Recei leda,Cont (D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) misc Active 0 .Route December 17, 2023 12:00am As directed calcium gluconate 2,000 mg in dextrose 5 % 100 mL IVPB (1 source) Start: 03-05-2021 2,000 mg, IntraVENous, at 50 mL/hr, Administer over 120 Minutes, PRN, iCa less than 4.3, Starting on Thu03/05/21 at 1143 [address] central line. Infuse over 2 hours, Repeat serum ionized calcium 2 hours [address] infusion completed. Place order for recheck under surgeon Post-op celecoxib 200 mg oral capsule (14 sources) Nonsteroidal Anti-inflammatory Drug Start: 08-28-2015 End: 01-16-2025 take 1 capsule by mouth at bedtime as needed for pain Celecoxib 200 mg capsule Active 200 mg PO AT BEDTIME as needed for pain 90 January 16, 2025 1:33pm take 1 capsule by mouth twice da blanche celecoxib (CELEBREX) 200 MG capsule Take 200 mg by mouth 2 times daily 0 Active docosahexaenoic acid 120 mg / eicosapentaenoic acid 180 mg oral capsule (1 source) [place] 3 1000 MG CAPS Take by mouth daily 0 Active docusate sodium 50 mg / sennosides, intermediate 8.6 mg oral tablet (1 source) Start: 1 take 2 tablets by mouth once daily 2 tablet, Oral, NIGHTLY, First dose on Thu03/05/21 at 2100, Post-op 0.4 ml enoxaparin sodium 100 mg/ml prefilled syringe (1 source) Low Molecular Weight Heparin Start: enoxaparin (LOVENOX) injection 40 mg furosemide 40 mg oral tablet (4 sources) Loop Diuretic Start: End: take 1 tablet by mouth once daily furosemide (LASIX) 40 MG tablet Take 1 tablet by mouth daily for 5 days 5 tablet 0 03/09/2021 03/14/2021 Active Start: 03-08-2021 furosemide (LA SIX) tablet 80 mg Start: 03-07-2021 End: 03-08-2021 furosemide (LASIX) injection 20 mg Start: 03-06-2021 End: 03-07-2021 furosemide (LASIX) injection 40 mg glucagon (rdna) 1 mg injection (1 source) Antihypoglycemic Agent Start: 03-05-2021 take 1 mL intravenously every hour 1 mg, IntraMUSCular, PRN, Low blood sugar, Blood glucose less than 70 mg/dL and patient NOT ALERT or NPO and does not have IV access., Starting on Thu03/05/21 at 1143 After administration, attempt intravenous access and start D5W at 100 mL/hr. Repeat blood glucose in 15 minutes x2 and notify provider. 150 ml glucose 50 mg/ml injection (3 sources) Start: 03-05-2021 15 g, Oral, PRN, Low blood sugar, Starting on Thu03/05/21 at 1143 If blood glucose less than 50 mg/dL and patient ALERT and TOLERATING PO, give 2 tubes glucose gel. If blood glucose less than 70 mg/dL and patient ALERT and TOLERATING PO, give 1 tube glucose gel. Repeat blood glucose in 15 minutes. If blood glucose is less than 70 mg/dL, repeat treatment and recheck blood glucose in 15 minutes x2 and notify provider. Post-op Start: 03-05-2021 12.5 g, IntraV ENous, PRN, Low blood sugar, Blood glucose less than 70 mg/dL and patient NOT ALERT or NPO., Starting on Thu03/05/21 at 1143 If patient does not respond within 5 minutes, (5 sources) Start: 02-13-2022 End: 12-17-2023 Blood-Glucose Sensor (Dexcom G6 Sensor) device Discontinued 0 .Route 9 February 13, 2022 12:00am December 17, 2023 9:42am Type 2 diabetes mellitus without complication Type 2 diabetes mellitus without complications 1 sensor q 10 days Start: 02-13-2022 Blood-Glucose Sensor (Dexcom G6 Sensor) device Active 0 .Route February 13, 2022 12:00am 1 sensor q 10 days Start: 02-13-2022 Blood-Glucose Sensor (Dexcom G6 Sensor) device Active 0 .Route 9 February 12, 2022 11:00pm 1 sensor q 10 days Blood-Glucose Transmitter (Dexcom G6 Transmitter) device (5 sources) Start: 02-13-2022 End: 12-17-2023 Blood-Glucose Transmitter (Dexcom G6 Transmitter) device Discontinued 0 .Route 1 February 13, 2022 12:00am December 17, 2023 9:42am Type 2 diabetes mellitus without complication Type 2 diabetes mellitus without complications 1 q 90 days Start: 02-13-2022 Blood-Glucose Transmitter (Dexcom G6 Transmitter) device Active 0 .Route February 13, 2022 12:00am 1 q 90 days Start: 02-13-2022 Blood-Glucose Transmitter (Dexcom G6 Transmitter) device Active 0 .Route February 12, 2022 11:00pm 1 q 90 days Blood-Glucose,Chairlift Operator,Cont (Dexcom G6 Chairlift Operator) misc (2 sources) Start: 02-13-2022 End: 12-17-2023 Blood-Glucose,Chairlift Operator,Cont (Dexcom G6 Chairlift Operator) misc Discontinued 0 .Route 1 February 13, 2022 12:00am December 17, 2023 9:42am Type 2 diabetes mellitus without complication Type 2 diabetes mellitus without complications As directed calcium chloride 0.0014 meq/ml / potassium chloride 0.004 meq/ml / sodium chloride 0.103 meq/ml / sodium lactate 0.028 meq/ml injectable solution (1 source) Start: 03-05-2021 End: 03-05-2021 lactated ringers bolus ceFAZolin 2000 mg injection (1 source) Cephalospori n Antibacteria l Start: 03-05-2021 End: 03-07-2021 2,000 mg, IntraVENous, EVERY 8 HOURS, 5 doses, First dose on Thu03/05/21 at 1600, Last dose on Thu03/07/21 at 0000, Post-op chlorhexidine gluconate 1.2 mg/ml mouthwash (2 sources) Start: 03-05-2021 End: 03-06-2021 take 15 mL by mouth twice daily 15 mL, Mouth/Throat, 2 TIMES DAILY, First dose on Thu03/05/21 at 1200, For 7 days Rinse and spit. Do not swallow. Post-op Start: 03-05-2021 End: 03-05-2021 chlorhexidine (PERIDEX) 0.12 % solution 15 mL Cinnamon Preparation (12 sources) Non-Standardized Food Allergenic Extract Start: 04-29-2016 End: 10-21-2017 take 1000 mg by mouth once daily Cinnamon Discontinued 1000 mg PO DAILY April 29, 2016 1:00am October 21, 2017 7:33pm Start: 04-29-2016 End: 10-21-2017 take 1000 mg by mouth once daily Cinnamon Discontinued 1000 MG PO DAILY April 29, 2016 12:00am October 21, 2017 6:33pm Start: 04-29-2016 End: 10-21-2017 take 1000 mg by mouth once daily Cinnamon Discontinued 1000 MG PO DAILY April 29, 2016 1:00am October 21, 2017 7:33pm Start: 08-28-2015 End: 08-30-2015 take 1000 mg by mouth once daily Cinnamon 1000 MG Discontinued 1000 mg PO DAILY August 28, 2015 1:00am August 30, 2015 11:05am Start: 08-28-2015 End: 08-30-2015 take 1000 mg by mouth once daily Cinnamon Discontinued 1000 MG PO DAILY August 28, 2015 12:00am August 30, 2015 10:05am Start: 08-28-2015 End: 08-30-2015 take 1000 mg by mouth once daily Cinnamon Discontinued 1000 MG PO DAILY August 28, 2015 1:00am August 30, 2015 11:05am clopidogrel 75 mg oral tablet (20 sources) P2Y12 Platelet Inhibitor Start: 03-27-2021 End: 01-04-2025 take 1 tablet by mouth once daily Clopidogrel (Plavix) 75 mg tablet Discontinued 75 mg PO DAILY 90 March 01, 2024 8:10am January 04, 2025 9:11am Start: 03-07-2021 clopidogrel (P LAVIX) tablet 75 mg Start: 08-30-2015 End: 02-06-2021 take 1 tablet by mouth once daily Clopidogrel (Plavix) 75 mg tablet Discontinued 75 mg PO daily 90 April 12, 2020 9:01am February 06, 2021 1:44pm take [id number] tablet by mouth once daily clopidogrel (PLAVIX) 75 MG tablet Take 75 mg by mouth daily Pt last dose of plavix 02/06 0 Active empagliflozin 10 mg oral tablet (1 source) Sodium-Glucose Cotransporter 2 Inhibitor End: 03-09-2021 take 1 tablet by mouth once daily empagliflozin (JARDIANCE) 10 MG tablet Take 10 mg by mouth daily 0 03/09/2021 Discontinued (Stop Taking at Discharge) ezetimibe 10 mg oral tablet (15 sources) Dietary Cholesterol Absorption Inhibitor Start: 05-06-2022 End: 04-11-2024 take 1 tablet by mouth once daily Ezetimibe 10 mg tablet Discontinued 10 mg PO DAILY 90 May 25, 2023 8:55am April 11, 2024 3:03pm glimepiride 4 mg oral tablet (6 sources) Sulfonylurea Start: 05-18-2018 End: 02-03-2019 take 2 tablets by mouth once daily in the morning Glimepiride 4 mg tablet Discontinued 8 mg PO EVERY MORNING May 18, 2018 1:00am February 03, 2019 2:05pm Start: 05-18-2018 End: 02-03-2019 take 8 mg by mouth once daily in the morning Glimepiride Discontinued 8 MG PO EVERY MORNING May 18, 2018 1:00am February 03, 2019 2:05pm 1 ml hydrALAZINE hydrochloride 20 mg/ml injection (1 source) Arteriolar Vasodilator Start: 03-05-2021 End: 03-09-2021 hydrALAZINE (APRESOLINE) injection 10 mg 3 ml insulin glargine 100 unt/ml / lixisenatide 0.033 mg/ml pen injector (5 sources) Insulin Analog Start: 04-16-2023 End: 09-01-2024 Insulin Glargine-Lixisenatide (Soliqua 100/33) 100 unit-33 mcg/mL insulin pen Discontinued 20 U SC EVERY MORNING 18 3 December 17, 2023 10:22am September 01, 2024 7:28am Type 2 diabetes mellitus without complication Type 2 diabetes mellitus without complications 100 ml insulin, regular, human 1 unt/ml injection (2 sources) Insulin Start: 03-05-2021 End: 03-07-2021 1 Units/hr (1 mL/hr), IntraVENous, at 1 mL/hr, CONTINUOUS, Starting on Thu03/05/21 at 1200 Target glucose 90-120mg/dl; if glucose <40 or >500 draw confirmation and send to lab; While on insulin drip follow hypoglycemic orders as outlined below. o Blood Glucose Initial Administration Rate/Additional IV Insulin Bolus protocol " > 90-120mg/dl - 1 unit/hr " 121-150mg/dl - 2 units/hr " 150-180mg/dl - 2.5 units/hr " 181- 240mg/dl - 3.5 units/hr + 4 unit bolus " 241-300mg/dl - 5 units/hr + 6 unit bolus " 301-360mg/dl - 6.5 units/hr + 8 unit bolus " > 360mg/dl - 8 units/hr + 10 unit bolus o Glucose by finger stick 30 minutes after infusion has started, then per Floor Blood Glucose guidelines below o When BGT is between 90-120mg/dl with < 15mg/dl change and insulin rate remains unchanged x 3 hours, then may test every 2 hours. o Adjust insulin infusion rate in response to blood glucose levels as follows: o < 60mg/dl: BGT check in 30 minutes: 1. Stop infusion. 2. Give 25ml dextrose 50% IVP, recheck BG in 30 mins " When BG is > 80 and < 120mg/dl, restart drip at 50% of the previous rate, recheck in 30 minutes. " If BG > 120, restart drip at 75% of the previous rate, recheck in 30 minutes o 60-69mg/dl: BGT check in 30 minutes: 1. Stop infusion. " If previous BG > 100mg/dl give 25ml dextrose 50% IVP, recheck BG in 30 minutes. " When BG > 80 and < 120mg/dl, restart drip at 50% of previous rate, recheck BG in 30 minutes. " If BG > 120mg/dl or more restart drip at 75% of the previous rate, recheck BG in 30 minutes. o 70-89mg/dl: BGT check every 1 hour. " Has BG dropped > 10mg/dl from the last BG? Yes: Decrease rate by 50% " Has BG dropped from the last BG < 10mg/dl or = to 10mg/dl? Yes: decrease the rate by 0.5units/hr. " If BG greater than or equal to the last test, maintain same rate. o 90-120mg/dl: BGT check in 1 hour. TITRATE DRIP RATE TO MAINTAIN THIS RANGE " Has BG increased > 10mg/dl from the last BG? Yes: increase rate by 0.5units/hr. " Has BG dropped from the last BG by more than 10mg/dl? Yes: decrease the rate by 0.5 units/hr: No: Same rate. o 121-150mg/dl: BGT check in 1 hour " Has BG dropped 20-50mg/dl from last BG? Yes: Same rate. " Has BG increased from last BG by > 20mg/dl? Yes: increase rate by 1.5 units/hr. " Has BG dropped by more than 50mg/dl? Yes: decrease rate by 50%. " Is BG within 20mg/dl of the last test? Yes: increase rate by 1 unit/hr. o 151-180mg/dl: BGT check every 1 hour " Has BG dropped > 30mg/dl? Yes: same rate " Has BG dropped from last BG by < 30 mg/dl OR is BG higher than the last test? Yes: increase rate by 1.5 units/hr. o 181-240mg/dl: BGT check in 1 hour " Is BG 50-100mg/dl lower from the last BG? Yes: continue at the same rate. " Is BG lower than the last BG by >100mg/dl? Yes: decrease rate by 25%. " Is BG lower than the last BG by < 50mg/dl OR higher than the last test? Yes: bolus with 4 units insulin IV and increase rate by 2 units/hr. " Note: If BG 181-240mg/dl and has not dropped after 3 consecutive increases in insulin, then bolus with 4 units and double the insulin rate. o > 240mg/dl: BGT check in 30 minutes " Has BG dropped > 100mg/dl from last BG? Yes: same rate " Is BG lower than the last test by < 100mg/dl OR higher than the last test? Yes: IV Bolus with regular insulin as per "IV infusion Bolus" dosage scale and double insulin drip rate. o > 300mg/dl: Continue to follow the appropriate interventions based on BGT and call the [employer]. o Maximum insulin infusion drip rate may not exceed 30 units/hr; Insulin drip may NOT be discontinued unless approved by [employer]. Discontinue all subcutaneous Insulin orders (if patient is on subcutaneous insulin). Post-op Start: 03-05-2021 End: 03-09-2021 take 2 [IU] intravenously once as needed 4 Units, IntraVENous, PRN, High Blood Martínez gar, Insulin Bolus per Post op Open Heart Insulin drip, Starting on Thu03/05/21 at 1143 Post Open Heart Insulin Drip To be used as outlined in protocol for Blood Sugar Range between 181-240: If patient's blood sugar is 50-100 mg/dl lower from previous blood sugar then continue same rate. If blood sugar is lower than last blood sugar by greater than 100 then decrease rate by 25%; if blood sugar is lower than previous blood sugar by less than 50 mg/dl or higher than last blood sugar then initiate PRN bolus and bolus with 4 units IV and increase rate by 2 units/hr. Intervention to be used only when patient is on insulin drip for post op open heart surgery. When insulin drip discontinued, order no longer valid. 1 ml ketorolac tromethamine 15 mg/ml cartridge (3 sources) Nonsteroidal Anti-inflammatory Drug, Cyclooxygenase Inhibitor Start: 03-06-2021 End: 03-09-2021 ketorolac (TORADOL) injection 15 mg lisinopril 5 mg oral tablet (12 sources) Angiotensin Converting Enzyme Inhibitor Start: 09-06-2018 End: 02-03-2019 take 1 tablet by mouth once daily Lisinopril 5 mg tablet Discontinued 5 mg PO DAILY 30 September 06, 2018 10:41am February 03, 2019 2:04pm losartan potassium 25 mg oral tablet (20 sources) Angiotensin 2 Receptor Sharda Start: 03-28-2021 End: 10-13-2024 take 1 tablet by mouth once daily Losartan 25 mg tablet Discontinued 25 mg PO DAILY 90 3 December 07, 2023 9:31am October 13, 2024 7:56am Start: 03-06-2021 End: 03-09-2021 losartan (COZAAR) tablet 25 mg Start: 08-14-2017 End: 03-27-2021 take 1 tablet by mouth once daily Losartan 50 mg tablet Discontinued 50 mg PO DAILY 90 3 April 12, 2020 9:01am March 27, 2021 8:33pm Start: 08-30-2015 End: 08-14-2017 take 1 tablet by mouth once daily Losartan 25 MG tablet Discontinued 25 mg PO DAILY 30 0 August 30, 2015 1:00am August 14, 2017 10:31am magnesium citrate 58.2 mg/ml oral solution (1 source) Start: 03-09-2021 End: 03-09-2021 magnesium citrate solution 1 48 mL Start: 03-09-2021 End: 09-18-2021 magnesium citrate solution 1 48 mL metFORMIN hydrochloride 500 mg oral tablet (19 sources) Biguanide Start: 02-05-2021 End: 03-27-2021 take 2 tablets by mouth at breakfast Metformin 500 mg Tablet Discontinued 1000 mg PO WITH BREAKFAST February 05, 2021 12:00am March 27, 2021 8:31pm Start: 02-05-2021 End: 03-27-2021 take 1000 mg by mouth at breakfast Metformin Discontinued 1000 MG PO WITH BREAKFAST February 05, 2021 12:00am March 27, 2021 8:31pm Start: 10-22-2017 End: 05-18-2018 take 1 tablet by mouth four times daily Metformin 500 mg tablet Discontinued 500 mg PO .qid October 22, 2017 12:00am May 18, 2018 10:01am End: 03-09-2021 take 2 tablets by mouth twice daily at breakfast metFORMIN (GLUCOPHAGE-XR) 500 MG extended release tablet Take 500 mg by mouth daily (with breakfast) 2 tab BID 0 03/09/2021 Discontinued (Stop Taking at Discharge) 24 hr metoprolol succinate 25 mg extended release oral tablet (18 sources) beta-Adrenergic Sharda Start: 03-27-2021 End: 04-20-2024 take 1 tablet by mouth once daily Metoprolol Succinate 25 mg tablet extended release 24 hr Discontinued 0 .ROUTE .COMPLEX 90 3 June 29, 2023 9:08am December 25, 2023 6:55am TAKE 1 TABLET BY MOUTH DAILY Start: 03-06-2021 take 1 tablet by thom th twice daily metoprolol tartrate (LOPRESSOR) 25 MG tablet Take 1 tablet by mouth 2 times daily 60 tablet 3 03/09/2021 Active mupirocin 0.02 mg/mg topical ointment (3 sources) RNA Synthetase Inhibitor Antibacterial Start: 03-05-2021 End: 03-09-2021 Nasal, 2 TIMES DAILY, First dose on Thu03/05/21 at 1200, For 4 days, Post-op Start: 02-15-2021 End: 03-09-2021 mupirocin (BACTROBAN NASAL) 2 % nasal ointment Apply liberal amount on a q-tip and place in each nostril the night before surgery and then again the morning of surgery 1 Tube 0 02/15/2021 03/09/2021 Discontinued (Stop Taking at Discharge) niCARdipine (CARDENE) 25 mg in sodium chloride 0.9 % 250 mL infusion (1 source) Start: 03-05-2021 End: 03-07-2021 niCARdipine (CARDENE) 25 mg in sodium chloride 0.9 % 250 mL infusion 250 ml nitroglycerin 0.2 mg/ml injection (8 sources) Nitrate Vasodilator Start: 03-05-2021 End: 03-07-2021 nitroGLYCERIN 50 mg in dextrose 5% 250 mL infusion Start: 08-30-2015 End: 12-19-2021 Nitroglycerin 0.4 MG tablet Discontinued 0.4 mg SL Q5M as needed for Chest Pain 30 August 30, 2015 1:00am December 19, 2021 8:22am Start: 08-30-2015 End: 12-19-2021 Nitroglycerin Discontinued 0 .4 MG SL Q5M August 30, 2015 1:00am December 19, 2021 8:22am omega-3 acid ethyl esters (intermediate) 1000 mg oral capsule (12 sources) Start: 05-18-2018 End: 05-28-2021 [place] 9-Hdw-Xjj-Fish Oil (Fi sh Oil) 1,000 mg (120 mg-180 mg) capsule Discontinued 1 NMA PO TWICE A DAY 0 May 18, 2018 10:03am May 28, 2021 4:31pm Start: 10-22-2017 End: 05-18-2018 [place] 2-Gfg-Unu-Fish Oil (Fi sh Oil) 1,000 mg (120 mg-180 mg) capsule Discontinued NMA PO 0 October 22, 2017 12:00am May 18, 2018 10:03am 100 ml propofol 10 mg/ml injection (1 source) General Anesthetic Start: 03-05-2021 End: 03-06-2021 10 mcg/kg/min 111.9 kg (6.71 4 mL/hr, rounded to 6.7 mL/hr), IntraVENous, at 6.7 mL/hr, CONTINUOUS, Starting on Thu03/05/21 at 1200 For sedation, titrate to RASS +1 to -1 Dose Range: 5 to 50 mcg/kg/min Max dose: 50 mcg/kg/min Contact physician if max dose does not achieve desired response If RASS 1 point below goal - decrease rate by 5mcg/kg/min no faster than every 5 min If RASS 2 points below goal- decrease rate by 10mcg/kg/min no faster than every 5 min If RASS at goal, continue current rate If RASS 2 or more points above goal - increase rate by 10mcg/kg/min no faster than every 5 min If RASS 1 point above goal - increase rate by 5mcg/kg/min no faster than every 5 min If after titration rate change patient exhibits adverse hemodynamic response, next titration rate change may be adjusted by one-half of the previous rate change If patient fails sedation interruption, resume propofol titration at 50% of previous rate Do not administer through the same I.V. catheter with blood or plasma. Tubing and any unused portions of propofol vials should be discarded after 12 hours. Post-op 0.25 mg, 0.5 mg dose 1.5 ml semaglutide 1.34 mg/ml pen injector (6 sources) Start: 08-27-2020 End: 08-27-2020 Semaglutide (Ozempic) 0.25 m g or 0.5 mg(2 mg/1.5 mL) pen injector Discontinued 0.25 mg SC EVERY WEEK August 27, 2020 1:00am August 27, 2020 3:46pm Semaglutide-Weight Management (WEGOVY) 0.5 MG/0.5ML SOAJ SC injection (1 source) End: 03-09-2021 Semaglutide-Weight Managemen t (WEGOVY) 0.5 MG/0.5ML SOAJ SC injection Inject 0.5 mg into the skin every 7 days 0 03/09/2021 Discontinued (Stop Taking at Discharge) Problems Active Problems Problem Classification Problem Date Documented Da te Episodic/Chronic Acute and unspecified renal failure (2 sources) Acute renal failure syndrome; Translations: [Acute kidney failure, unspecified] 03-21-2024 Episodic Blindness and vision defects (9 sources) Bilateral hyperopia of eyes; Translations: [Hypermetropia, bilateral] 06-12-2023 Episodic Conditions associated with dizziness or vertigo (3 sources) Dizziness; Translations: [Dizziness and giddiness] 10-18-2023 Episodic Coronary atherosclerosis and other heart disease (10 sources) Coronary arteriosclerosis; Translations: [Atherosclerotic heart disease of [place] coronary artery without angina pectoris] Onset: 03-05-2021 Chronic Diabetes mellitus with complications (7 sources) Type 2 diabetes mellitus; Translations: [Type 2 diabetes mellitus with hyperglycemia] Chronic Diabetes mellitus without complication (8 sources) Type 2 diabetes mellitus without complication; Translations: [Type 2 diabetes mellitus without complications] Onset: 01-16-2025 Chronic Disorders of lipid metabolism (16 sources) Hyperlipidemia; Translations: [Hyperlipidemia, unspecified] Onset: 09-19-2024 Chronic Essential hypertension (10 sources) Hypertensive disorder; Translations: [Essential (primary) hypertension] Onset: 01-16-2025 10-18-2023 Chronic Nutritional deficiencies (6 sources) Vitamin D deficiency; Translations: [Vitamin D deficiency, unspecified] Onset: 08-15-2024 08-14-2022 Chronic Osteoarthritis (3 sources) Osteoarthritis; Translations: [Unspecified osteoarthritis, unspecified site] 01-16-2025 Chronic Other aftercare (1 source) 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; Translations: [detention (current) use of insulin] Onset: 01-16-2025 Episodic Other nutritional; endocrine; and metabolic disorders (8 sources) Obesity; Translations: [Obesity, unspecified] 10-21-2017 Chronic Other nutritional; endocrine; and metabolic disorders (3 sources) Obesity, unspecified; Translations: [Obesity, unspecified] Chronic Other screening for suspected conditions (not mental disorders or infectious disease) (4 sources) Patient encounter status; Translations: [Encounter for screening for malignant neoplasm of prostate] 01-16-2025 Episodic Residual codes; unclassified (3 sources) Obstructive sleep apnea of adult; Translations: [Obstructive sleep apnea (adult) (pediatric)] 01-16-2025 Chronic Residual codes; unclassified (3 sources) Edema of lower extremity; Translations: [Localized edema] 09-19-2024 Episodic Past or Other Problems Problem Classification Problem Date Documented Da te Episodic/Chronic Coronary atherosclerosis and other heart disease (3 sources) Presence of aortocoronary bypass graft; Translations: [Aortocoronary bypass status] Onset: 03-05-2021 Episodic Results Test Name Value Interpretation Reference Range Facility Absolute lymphocyte countOrd ered By: Hanymaxdalymary Valadez on 01-16-2025 Lymphocytes Auto (Unsp spec) [#/Vol] 1.44 10*3/uL 0.83-4.51 [facility] Absolute neutrophil countOrd ered By: Hanyconner Meiershylanatanael on 01-16-2025 Neutrophils (Bld) [#/Vol] 4.5 10*3/uL 2.0-7.7 [facility] Anion gap in Serum or Plasma Ordered By: conner Valadez on 01-16-2025 Anion gap [Moles/Vol] 10 mmol/L 5-15 [facility] Automated lymphocyte count a s percentage of total leukocytesOrdered By: Meme Valadez on 01-16-2025 Lymphocytes/100 WBC Auto (Unsp spec) 21.5 % 19-41 [facility] BUN/creatinine ratioOrdered By: conner Valadez on 01-16-2025 Urea nitrogen/Creatinine [Mass ratio] 25.9 mg/mg High 10-20 [facility] Basophil percentageOrdered B y: Hanymaxdalymary Meiershylanatanael on 01-16-2025 Basophils/100 WBC (Bld) 0.1 % 0-1 [facility] Bilirubin, totalOrdered By: conner Valadez on 01-16-2025 Bilirubin [Mass/Vol] 0.43 mg/dL 0.00-1.30 [facility] CBC W/Diff, Automatedon 12-21 Absolute Lymph 1.44 X10 3/uL Normal 0.83-4.51 [facility] Comment on above: Performed By: #### L 100.0100, L500.4050 #### [facility] [address] [place], [place], [id number] Absolute Neut 4.5 X10 3/uL Normal 2.0-7.7 [facility] Comment on above: Performed By: #### L 100.0100, L500.4050 #### [facility] [address] [place], [address] Basophils/100 WBC (Bld) 0.1 % Normal 0-1 [facility] Comment on above: Performed By: #### L 100.0100, L500.4050 #### [facility] [address] [place], [address] Eosinophils/100 WBC (Bld) 3.1 % Normal 0-5 [facility] Comment on above: Performed By: #### L 100.0100, L500.4050 #### [facility] [address] [place], [address] Erythrocyte distribution width (RBC) [Ratio] 12.5 % Normal 11.6-14.6 [facility] Comment on above: Performed By: #### L 100.0100, L500.4050 #### [facility] [address] [place], [address] Hematocrit (Bld) [Volume fraction] 43.5 % Normal 40-54 [facility] Comment on above: Performed By: #### L 100.0100, L500.4050 #### [facility] [address] [place], [address] Hemoglobin (Bld) [Mass/Vol] 15.4 g/dL Normal 13.0-16.5 [facility] Comment on above: Performed By: #### L 100.0100, L500.4050 #### [facility] [address] [place], [address] IG% 0.300 Normal 0.0-0.9 [facility] Comment on above: Result Comment: IG% - Immature Granulocytes (promyelocytes, myelocytes and metamyelocytes) > 1% indicates that a LEFT SHIFT is Present. Performed By: #### L 100.0100, L500.4050 #### [facility] [address] [place], [address] Lymphocytes/100 WBC (Bld) 21.5 % Normal 19-41 [facility] Comment on above: Performed By: #### L 100.0100, L500.4050 #### [facility] [address] [place], [address] MCH (RBC) [Entitic mass] 32.0 pg Normal 27.0-32.0 [facility] Comment on above: Performed By: #### L 100.0100, L500.4050 #### [facility] [address] [place], [address] MCHC (RBC) [Mass/Vol] 35.4 g/dL Normal 32-36 [facility] Comment on above: Performed By: #### L 100.0100, L500.4050 #### [facility] [address] [place], [address] MCV (RBC) [Entitic vol] 90.4 fL Normal 80-94 [facility] Comment on above: Performed By: #### L 100.0100, L500.4050 #### [facility] [address] [place], [address] Monocytes/100 WBC (Bld) 8.5 % Normal 0-10 [facility] Comment on above: Performed By: #### L 100.0100, L500.4050 #### [facility] [address] [place], [address] Neutrophils/100 WBC (Bld) 66.5 % Normal 47-70 [facility] Comment on above: Performed By: #### L 100.0100, L500.4050 #### [facility] [address] [place], [address] Nucleated RBC (Bld) [#/Vol] 0 10*3/uL Normal 0-5 [facility] Comment on above: Performed By: #### L 100.0100, L500.4050 #### [facility] [address] [place], [address] Platelet mean volume (Bld) [Entitic vol] 9.6 fL Normal 6.2-12.0 [facility] Comment on above: Performed By: #### L 100.0100, L500.4050 #### [facility] [address] [place], [address] Platelets (Bld) [#/Vol] 182 10*3/uL Normal 150-450 [facility] Comment on above: Performed By: #### L 100.0100, L500.4050 #### [facility] [address] [place], [address] RBC (Bld) [#/Vol] 4.81 10*6/uL Normal 4.6-6.2 [facility] Comment on above: Performed By: #### L 100.0100, L500.4050 #### [facility] [address] [place], [address] RDW SD 41.2 fl Normal 35.1-43.9 [facility] Comment on above: Performed By: #### L 100.0100, L500.4050 #### [facility] [address] [place], [address] WBC (Bld) [#/Vol] 6.7 10*3/uL Normal 4.4-11.0 [facility] Comment on above: Performed By: #### L 100.0100, L500.4050 #### [facility] [address] [place], [address] Carbon dioxide, total [Moles /volume] in Central venous bloodOrdered By: Meme Valadez on 01-16-2025 CO2 [Moles/Vol] 27.5 mmol/L 21.0-32.0 [facility] Chloride assayOrdered By: Hany Valadez on 01-16-2025 Chloride [Moles/Vol] 104 mmol/L 98-108 [facility] Comprehensive Metabolic Prof ilon 01-16-2025 Albumin [Mass/Vol] 4.3 g/dL Normal 3.4-4.8 [facility] Comment on above: Performed By: #### L 100.0100, L500.4050 #### [facility] [address] [place], [address] Albumin/Globulin [Mass ratio] 1.8 {ratio} Normal 0.9-2.4 [facility] Comment on above: Performed By: #### L 100.0100, L500.4050 #### [facility] [address] [place], [address] ALK PHOS 74 U/L Normal 40-129 [facility] Comment on above: Performed By: #### L 100.0100, L500.4050 #### [facility] [address] [place], [address] ALT [Catalytic activity/Vol] 32 U/L Normal <=46 [facility] Comment on above: Performed By: #### L 100.0100, L500.4050 #### [facility] [address] [place], [address] AST [Catalytic activity/Vol] 32 U/L Normal <=37 [facility] Comment on above: Performed By: #### L 100.0100, L500.4050 #### [facility] [address] [place], [address] Bilirubin [Mass/Vol] 0.43 mg/dL Normal 0.00-1.30 [facility] Comment on above: Performed By: #### L 100.0100, L500.4050 #### [facility] [address] [place], [address] BUN/CRE 25.9 RATIO High 10-20 [facility] Comment on above: Performed By: #### L 100.0100, L500.4050 #### [facility] [address] [place], [address] Calcium [Mass/Vol] 9.2 mg/dL Normal 7.6-11.0 [facility] Comment on above: Performed By: #### L 100.0100, L500.4050 #### [facility] [address] [place], [address] Chloride [Moles/Vol] 104 mmol/L Normal 98-108 [facility] Comment on above: Performed By: #### L 100.0100, L500.4050 #### [facility] [address] [place], [address] CO2 [Moles/Vol] 27.5 mmol/L Normal 21.0-32.0 [facility] Comment on above: Performed By: #### L 100.0100, L500.4050 #### [facility] [address] [place], [address] Creatinine [Mass/Vol] 0.90 mg/dL Normal 0.70-1.20 [facility] Comment on above: Performed By: #### L 100.0100, L500.4050 #### [facility] [address] [place], [address] GAP 10 Normal 5-15 [facility] Comment on above: Performed By: #### L 100.0100, L500.4050 #### [facility] [address] [place], [address] GFR/1.73 sq M.predicted among non-blacks MDRD (S/P/Bld) [Vol rate/Area] 90 mL/min/{1.73_m2} Normal >60 [facility] Comment on above: Result Comment: mL/m in/1.73m2 CKD-EPI Creatinine Equation (2020) Performed By: #### L 100.0100, L500.4050 #### [facility] [address] [place], [address] Globulin (S) [Mass/Vol] 2.4 g/dL Normal 2.2-4.2 [facility] Comment on above: Performed By: #### L 100.0100, L500.4050 #### [facility] [address] [place], [address] Glucose [Mass/Vol] 98 mg/dL Normal 70-99 [facility] Comment on above: Performed By: #### L 100.0100, L500.4050 #### [facility] [address] [place], [address] Potassium [Moles/Vol] 4.3 mmol/L Normal 3.3-5.1 [facility] Comment on above: Performed By: #### L 100.0100, L500.4050 #### [facility] [address] [place], [address] Sodium [Moles/Vol] 141 mmol/L Normal 133-145 [facility] Comment on above: Performed By: #### L 100.0100, L500.4050 #### [facility] [address] [place], [address] T PROT 6.6 g/dL Normal 5.9-8.4 [facility] Comment on above: Performed By: #### L 100.0100, L500.4050 #### [facility] [address] [place], [address] Urea nitrogen [Mass/Vol] 23 mg/dL High 4-19 [facility] Comment on above: Performed By: #### L 100.0100, L500.4050 #### [facility] [address] [place], [address] Eosinophil percentageOrdered By: Meme Valadez on 01-16-2025 Eosinophils/100 WBC (Bld) 3.1 % 0-5 [facility] Erythrocyte distribution wid th ratioOrdered By: Meme Valadez on 01-16-2025 Erythrocyte distribution width (RBC) [Ratio] 12.5 % 11.6-14.6 [facility] Erythrocyte distribution wid th standard deviationOrdered By: Meme Valadez on 01-16-2025 Erythrocyte distribution width (RBC) [Ratio] 41.2 fl 35.1-43.9 [facility] Glomerular filtration rate ( GFR) estimation/1.73 sq m using serum, plasma, or whole bOrdered By: Meme Valadez on 01-16-2025 GFR/1.73 sq M.predicted among non-blacks MDRD (S/P/Bld) [Vol rate/Area] 90 mL/min/{1.73_m2} >60 [facility] Comment on above: mL/min/1.73m2 CKD-EP I Creatinine Equation (2020) Hematocrit Auto (Bld) [Volum e fraction]Ordered By: Meme Valadez on 01-16-2025 Hematocrit (Bld) [Volume fraction] 43.5 % 40-54 [facility] Hemoglobin measurementOrdere d By: Meme Valadez on 01-16-2025 Hemoglobin (Bld) [Mass/Vol] 15.4 g/dL 13.0-16.5 [facility] Immature granulocytes/100 WB C Auto (Bld)Ordered By: Meme Valadez on 01-16-2025 Immature granulocytes/100 WBC (Bld) 0.300 % 0.0-0.9 [facility] Comment on above: IG% - Immature Granu locytes (promyelocytes, myelocytes and metamyelocytes) > 1% indicates that a LEFT SHIFT is Present. Internal Medicine Office Vis lorna 01-16-2025 Internal Medicine Office Visit [facility] [place] [address] OFFICE VISIT Date of Service: 01/16/25 MR#: [id number] Acct: [id number] Name: FANTASMA COLEY Rep #: [id number] : 1950 Provider: Dr. 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 Is patient in pain?: No Allergies pravastatin Adverse Reaction (Unknown, Verified 01/16/25 12:52) Myalgia cinnamon Adverse Reaction (Verified 01/16/25 12:52) throat swelling Medications ???Medication ???Instructions ???Recorded ???Confirmed ???Type mwbspscl-izu-guykk acid 0.4 1 ea PO DAILY 04/29/16 01/16/25 Hi story mg-lycopene 300 mcg-lutein 250 mcg tablet aspirin 81 mg tablet,delayed 81 mg PO DAILY@0800 05/01/1601/16 History release 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 sensor (Dexcom G7 12/17/23 01/16/25 History Sensor device) 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,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,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 12/17/23 01/16/25 History ([employer]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) 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 10 mg tablet 10 mg PO DAILY #90 tabs 04/11/24 0 01/16/25 Rx metoprolol succinate 25 mg 25 mg PO DAILY #90 TABLETS 4 01/16/25 Rx tablet,extended release 24 hr losartan 25 mg tablet 25 mg PO DAILY #90 tabs 10/13/24 0 01/16/25 Rx insulin lispro 100 unit/mL 20 unit (0.2 mL) subcut TID #54 mL 10/27/24 01/16/25 Rx subcutaneous pen (Humalog KwikPen (U-100) Insulin) tirzepatide 5 mg/0.5 mL 5 mg (0.5 mL) subcut QWEEK #6 mL 0 11/24/24 01/16/25 Rx subcutaneous pen injector (Franck) insulin glargine 100 unit/mL (3 20 unit (0.2 mL) subcut DAILY #18 12/02/24 01/16/25 Rx mL) subcutaneous pen (Lantus mL Solostar U-100 Insulin) clopidogrel 75 mg tablet (Plavix) 75 mg PO DAILY #90 tabs 01/04/25 01/16/25 Rx celecoxib 200 mg capsule 200 mg PO QHS PRN pain #90 caps 01/16/25 Rx Have you fallen in the past year?: No PFSH Medical History (Updated 01/16/25 @ 13:[address] Meme Valadez MD) Health care maintenance Osteoarthritis Screening for prostate cancer Obstructive sleep apnea of adult Type 2 diabetes mellitus without complications Atherosclerosis of coronary artery of [place] heart without angina pectoris Hyperlipidemia Obesity Surgical History (Updated 01/16/25 @ 12:54 by Rubi Yun LPN) History of eyelid surgery H/O coronary artery bypass surgery (03/05/21) History of left heart catheterization (02/06/21) History of toe surgery History of carpal tunnel release H/O arthroscopy of right knee History of coronary artery stent placement (09/11/15) Family History Brother CAD (coronary artery disease) CABG Mother CAD (coronary artery disease) CABG Brother CAD (coronary artery disease) CABG Brother CAD (coronary artery disease) Father CAD (coronary artery disease) CABG Social History household members: spouse Smoking Status: Former smoker pack-years: 40 Tobacco: How many years used: 20 how long ago did patient quit smokin years alcohol intake: never caffeine: No HPI HPI 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 No acute concerns at this time. Had previously followed up with Dr. Parada, recently retired. Chronic history of arthritis/pain. He states that he has been on Celebrex for many years without any significant concerns. No concerns with GI bleed. He is also on Plavix and aspirin. He states that he is aware of the risk and would like to continue taking medication as he has been stable. Last renal function check within normal range. He also reports a history of sleep apnea. Has been using and benefiting from his CPAP. No concerns with daytime somnolence or significant fatigue. History of hypertension, blood pressure today at 120/62 mmHg. Currently on losartan and metoprolol. Reports compliance with his medication. Also history of diabetes mellitus type 2. Currently on insulin and Mounjaro. On Mounjaro he has noted weight loss. Has been making changes and is motivated to lose some more weight. Other chronic medical conditions are stable. Never had a colonoscopy and is not open to. Denies any significant urinary concerns, last PSA was (more content not included)... Normal [facility] - Chemistry and C hemistry - challengeOrdered By: Meme Valadez on 01-16-2025 AST [Catalytic activity/Vol] 32 U/L <38 [facility] MCV (mean corpuscular volume ) determinationOrdered By: Meme Valadez on 01-16-2025 MCV (RBC) [Entitic vol] 90.4 fL 80-94 [facility] Mean corpuscular hemoglobin (MCH) determinationOrdered By: Meme Valadez on 01-16-2025 MCH (RBC) [Entitic mass] 32.0 pg 27.0-32.0 [facility] Mean corpuscular hemoglobin concentration (MCHC) determinationOrdered By: Meme Valadez on 01-16-2025 MCHC (RBC) [Mass/Vol] 35.4 g/dL 32-36 [facility] Mean platelet volume determi nationOrdered By: Meme Valadez on 01-16-2025 Platelet mean volume (Bld) [Entitic vol] 9.6 fL 6.2-12.0 [facility] Monocyte percentageOrdered B y: Meme Valadez on 01-16-2025 Monocytes/100 WBC (Bld) 8.5 % 0-10 [facility] Neutrophil percentageOrdered By: maxnashvillemary Valadez on 01-16-2025 Neutrophils/100 WBC (Bld) 66.5 % 47-70 [facility] Nucleated red blood cell per centageOrdered By: Meme Valadez on 01-16-2025 Nucleated RBC/100 WBC (Bld) [Ratio] 0 % 0-5 [facility] Platelet countOrdered By: Hany Valadez on 01-16-2025 Platelets (Bld) [#/Vol] 182 10*3/uL 150-450 [facility] Potassium measurement (mass/ volume)Ordered By: Meme Valadez on 01-16-2025 Potassium (Unsp spec) [Mass/Vol] 4.3 mmol/L 3.3-5.1 [facility] RBC Auto (Bld) [#/Vol]Ordere d By: Meme Valadez on 01-16-2025 RBC (Bld) [#/Vol] 4.81 10*6/uL 4.6-6.2 [facility] Serum creatinine measurement (mass/volume)Ordered By: Meme Valadez on 01-16-2025 Creatinine [Mass/Vol] 0.90 mg/dL 0.70-1.20 [facility] Serum globulin measurementOr dered By: Meme Valadez on 01-16-2025 Globulin (S) [Mass/Vol] 2.4 g/dL 2.2-4.2 [facility] Serum glucose measurement (m ass/volume)Ordered By: Meme Valadez on 01-16-2025 Glucose [Mass/Vol] 98 mg/dL 70-99 [facility] Serum or plasma alanine velasquez otransferase (ALT) measurementOrdered By: Meme Valadez on 01-16-2025 ALT [Catalytic activity/Vol] 32 U/L <47 [facility] Serum or plasma albumin maty urement (mass/volume)Ordered By: Meme Valadez 01-16-2025 Albumin [Mass/Vol] 4.3 g/dL 3.4-4.8 [facility] Serum or plasma albumin/glob ulin mass ratioOrdered By: Meme Valadez on 01-16-2025 Albumin/Globulin [Mass ratio] 1.8 {ratio} 0.9-2.4 [facility] Serum or plasma alkaline aaron sphatase measurementOrdered By: Meme Valadez on 01-16-2025 ALP [Catalytic activity/Vol] 74 U/L 40-129 [facility] Serum or plasma calcium maty urement (mass/volume)Ordered By: Meme Valadez on 01-16-2025 Calcium [Mass/Vol] 9.2 mg/dL 7.6-11.0 [facility] Serum or plasma urea nitroge n measurement (mass/volume)Ordered By: Meme Hardeepdarryl on 01-16-2025 Urea nitrogen [Mass/Vol] 23 mg/dL High 4-19 [facility] Sodium levelOrdered By: Sakina Valadez on 01-16-2025 Sodium [Moles/Vol] 141 mmol/L 133-145 [facility] Total proteinOrdered By: Michael Valadez on 01-16-2025 Protein [Mass/Vol] 6.6 g/dL 5.9-8.4 [facility] White blood cell (WBC) count Ordered By: Meme Valadez on 01-16-2025 WBC (Bld) [#/Vol] 6.7 10*3/uL 4.4-11.0 [facility] Endocrinology Visit Reporton 10-27-2024 Endocrinology Visit Report [facility] [address] [place] [address] [address] [place] [address] OFFICE VISIT Date of Service: 10/27/24 MR#: [id number] Acct: [id number] Name: FANTASMA COLEY BARBARA Rep #: [id number] : 1950 Provider: AILIN bosch Age/Sex: 74/M Location: [facility] Status: Signed Intake Vital Signs 08/15/24 08:04 09/19/24 10:35 10/27/24 08:03 Height 5 ft 10 in 5 ft 10 in 5 ft 10 in Weight: 294 lb 284 lb 278 lb BMI 42.2 40.7 39.9 BP 151/71 H 144/69 H 131/70 H Blood Pressure Location Lt brachial Lt brachial Lt brachial Position Sitting Sitting Sitting Respiration 18 Pulse 62 65 57 L Pulse Source Monitor Monitor Monitor Pulse Oximetry (%) 94 98 94 Oxygen Delivery Method room air room air Intake Visit Reasons: 3 M FU 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: Self Is patient in pain?: No Allergies pravastatin Adverse Reaction (Unknown, Verified 10/27/24 08:08) Myalgia cinnamon Adverse Reaction (Verified 10/27/24 08:08) throat swelling Medications ???Medication ???Instructions ???Recorded ???Confirmed ???Type qcmkhflj-cnr-dtmbn acid 0.4 1 ea PO DAILY 04/29/16 10/27/24 Hi story mg-lycopene 300 mcg-lutein 250 mcg tablet aspirin 81 mg tablet,delayed 81 mg PO DAILY@0800 05/01/1610/27 History release celecoxib 200 mg capsule 200 mg PO QHS 03/28/21 10/27/24 Hi story 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 meter,continuous 12/17/23 10/27/24 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 ([employer] G7 12/17/23 10/27/24 History Sensor device) clopidogrel 75 mg tablet (Plavix) 75 mg PO DAILY #90 tabs 03/01/24 10/27/24 Rx ezetimibe 10 mg tablet 10 mg PO DAILY #90 tabs 04/11/24 0 10/27/24 Rx metoprolol succinate 25 mg 25 mg PO DAILY #90 TABLETS 4 10/27/24 Rx tablet,extended release 24 hr insulin glargine 100 unit/mL (3 20 unit (0.2 mL) subcut DAILY #18 09/01/24 10/27/24 Rx mL) subcutaneous pen (Lantus mL Solostar U-100 Insulin) tirzepatide 5 mg/0.5 mL 5 mg (0.5 mL) subcut QWEEK #6 mL 0 09/01/24 10/27/24 Rx subcutaneous pen injector (Mounjaro) losartan 25 mg tablet 25 mg PO DAILY #90 tabs 10/13/24 0 10/27/24 Rx insulin lispro 100 unit/mL 20 unit (0.2 mL) subcut TID #54 mL 10/27/24 Rx subcutaneous pen (Humalog KwikPen (U-100) Insulin) Have you fallen in the past year?: Yes (No breaks or fractures) PENDING SALE TO [facility] Medical History Obstructive sleep apnea of adult Type 2 diabetes mellitus without complications Atherosclerosis of coronary artery of [place] heart without angina pectoris Hyperlipidemia Obesity Surgical History H/O coronary artery bypass surgery (03/05/21) History of left heart catheterization (02/06/21) History of toe surgery History of carpal tunnel release H/O arthroscopy of right knee History of coronary artery stent placement (09/11/15) Family History Brother CAD (coronary artery disease) CABG Mother CAD (coronary artery disease) CABG Brother CAD (coronary artery disease) CABG Brother CAD (coronary artery disease) Father CAD (coronary artery disease) CABG Social History household members: spouse Smoking Status: Former smoker pack-years: 40 Tobacco: How many years used: 20 how long ago did patient quit smokin years alcohol intake: never caffeine: No HPI HPI Chief Complaint: f/u diabetes Details: FANTASMA COLEY, is a 74 M who presents to the office today for evaluation and management of diabetes. A1C today is 6.0%, improved from 08/15/24 at 6.8%. He has lost 16 lbs since that time. Currently taking Mounjaro 5 mg qweek- tolerating well, Lantus 13 u once daily, and Humalog 20 u TIDCM. CGM tracings reviewed- he is having post meal elevations following breakfast. He is having occasional lows during sleeping hours. He denies any significant episode of hypoglycemia that has required assistance from others. BP improved. Currently taking losartan 25 mg once daily, and metoprolol 25 mg once daily. He takes ezetimibe 10 mg once daily. Cholesterol tightly controlled. Labs are up to date. Denies any acute concerns. ROS Const Constitutional: Positive for weight change; No fatigue ENT ENT: No dizziness/vertigo Cardio Cardiology: No chest pain at rest, chest pain with exertion, shortness of breath or palpitations Skin Skin: No wounds Endo Endocrine: Positive for weight change; No fatigue Exam Const General: cooperative, healthy appearing, comfortable and no acute distress Nutritional Appearance: obese Orientation: alert, awake and oriented x (more content not included)... Normal [facility] - Hematology and Cell countsOrdered By: Marcelina Mai on 10-27-2024 HbA1c (Bld) [Mass fraction] 6.0 % 4.2-6.3 [facility] Bilirubin directOrdered By: Fawad Gallardo on 10-08-2024 Bilirubin.direct [Mass/Vol] 0.14 mg/dL 0.00-0.30 [facility] Comment on above: Hemolysis present, R esults could be affected. Bilirubin, totalOrdered By: Fawad Gallardo on 10-08-2024 Bilirubin [Mass/Vol] 0.44 mg/dL 0.00-1.30 [facility] Calculated very low density lipoprotein (VLDL) cholesterol measurementOrdered By: Fawadpiotr Gallardo on 10-08-2024 Calculated very low density lipoprotein (VLDL) cholesterol measurement 25 mg/dL 5-40 [facility] LDL calc ser/plasOrdered By: [facility] Paulina on 10-08-2024 Cholesterol in LDL [Mass/Vol] 71 mg/dL [facility] Comment on above: Datshrmytk=463-790 m g/dL & Higher Buru=987 mg/dL or greater Laboratory - Chemistry and C hemistry - challengeOrdered By: Fawad Gallardo on 10-08-2024 AST [Catalytic activity/Vol] 36 U/L <38 [facility] Comment on above: Hemolysis present, R esults could be affected. Lipid Profileon 10-08-2024 CHOL:HDL 3.98 Normal [facility] Comment on above: Performed By: #### L 500.3400, L500.4100 #### [facility] [address] [place], [address] Cholesterol [Mass/Vol] 128 mg/dL Normal <=200 [facility] Comment on above: Result Comment: Chol esterol level, Desirable <200 mg/dL Borderline high cholesterol 200-239 mg/dL High cholesterol >=240 mg/dL Recommendations of the NCEP Adult Treatment Panel for the following risk-cutoff thresholds for the [place] population. Performed By: #### L 500.3400, L500.4100 #### [facility] [address] [place], [address] Cholesterol in HDL [Mass/Vol] 32 mg/dL Low [facility] Comment on above: Result Comment: Madie onal Cholesterol Education Program (NCEP) guidelines: <40 mg/dL: Low HDL-cholesterol (major risk factor for CHD) >= 60 mg/dL: High HDL-cholesterol (negative risk factor for CHD) HDL-cholesterol is affected by a number of factors, e.g. smoking, exercise, hormones, sex and age. Performed By: #### L 500.3400, L500.4100 #### [facility] [address] [place], [address] Cholesterol in LDL [Mass/Vol] 71 mg/dL Normal [facility] Comment on above: Result Comment: Bord rgvjfb=947-872 mg/dL Higher Ecwb=176 mg/dL or greater Performed By: #### L 500.3400, L500.4100 #### [facility] [address] [place], [address] Cholesterol in VLDL [Mass/Vol] 25 mg/dL Normal 5-40 [facility] Comment on above: Performed By: #### L 500.3400, L500.4100 #### [facility] [address] [place], [address] Triglyceride [Mass/Vol] 126 mg/dL Normal [facility] Comment on above: Result Comment: The drugs N-Acetylcysteine and Metamizole may falsely depress this assay. Normal range: <150 mg/dL Borderline High: 150-199 mg/dL High: 200-499 mg/dL Very High: >500 mg/dL Performed By: #### L 500.3400, L500.4100 #### [facility] [address] [place], [address] Liver Profileon 10-08-2024 Albumin [Mass/Vol] 4.2 g/dL Normal 3.4-4.8 [facility] Comment on above: Performed By: #### L 500.3400, L500.4100 ####[facility] [address] [place], [address] ALK PHOS 73 U/L Normal 40-129 [facility] Comment on above: Performed By: #### L 500.3400, L500.4100 ####[facility] [address] [place], [address] ALT [Catalytic activity/Vol] 37 U/L Normal <=46 [facility] Comment on above: Performed By: #### L 500.3400, L500.4100 ####[facility] [address] [place], [address] AST [Catalytic activity/Vol] 36 U/L Normal <=37 [facility] Comment on above: Result Comment: Hemo lysis present, Results??could be affected. ?? Performed By: #### L 500.3400, L500.4100 ####[facility] [address] [place], [address] Bilirubin [Mass/Vol] 0.44 mg/dL Normal 0.00-1.30 [facility] Comment on above: Performed By: #### L 500.3400, L500.4100 ####[facility] [address] [place], [address] Bilirubin.direct [Mass/Vol] 0.14 mg/dL Normal 0.00-0.30 [facility] Comment on above: Result Comment: Hemo lysis present, Results??could be affected. ?? Performed By: #### L 500.3400, L500.4100 ####[facility] [address] [place], [address] Globulin (S) [Mass/Vol] 2.5 g/dL Normal 2.2-4.2 [facility] Comment on above: Performed By: #### L 500.3400, L500.4100 ####[facility] [address] [place], [place], [id number] T PROT 6.7 g/dL Normal 5.9-8.4 [facility] Comment on above: Performed By: #### L 500.3400, L500.4100 ####[facility] [address] [place], [place], [address] Screening total cholesterol/ high density lipoprotein (HDL) cholesterol ratioOrdered By: Fawad Gallardo on 10-08-2024 Cholesterol.total/Chol esterol in HDL [Mass ratio] 3.98 {ratio} [facility] Serum globulin measurementOr dered By: Fawad Gallardo on 10-08-2024 Globulin (S) [Mass/Vol] 2.5 g/dL 2.2-4.2 [facility] Serum or plasma alanine velasquez otransferase (ALT) measurementOrdered By: Fawad Gallardo on 10-08-2024 ALT [Catalytic activity/Vol] 37 U/L <47 [facility] Serum or plasma albumin maty urement (mass/volume)Ordered By: Fawad Gallardo on 10-08-2024 Albumin [Mass/Vol] 4.2 g/dL 3.4-4.8 [facility] Serum or plasma alkaline aaron sphatase measurementOrdered By: Fawadcarmine Gallardo on 10-08-2024 ALP [Catalytic activity/Vol] 73 U/L 40-129 [facility] Serum or plasma cholesterol in HDL measurement (mass/volume)Ordered By: Fawad Gallardo on 10-08-2024 Cholesterol in HDL [Mass/Vol] 32 mg/dL Low >40 [facility] Comment on above: National Cholesterol Education Program (NCEP) guidelines:<40 mg/dL: Low HDL-cholesterol (major risk factor for CHD)>= 60 mg/dL: High HDL-cholesterol (negative risk factor for CHD)HDL-cholesterol is affected by a number of factors, e.g. smoking, exercise, hormones, sex and age. Serum or plasma cholesterol measurement (mass/volume)Ordered By: Fawad Gallardo on 10-08-2024 Cholesterol [Mass/Vol] 128 mg/dL <201 [facility] Comment on above: Cholesterol level, D esirable <200 mg/dLBorderline high cholesterol 200-239 mg/dLHigh cholesterol >=240 mg/dLRecommendations of the NCEP Adult Treatment Panel for the following risk-cutoff thresholds for the [place] population. Total proteinOrdered By: Zay Gallardo on 10-08-2024 Protein [Mass/Vol] 6.7 g/dL 5.9-8.4 [facility] Triglycerides measurementOrd ered By: Fawad Gallardo on 10-08-2024 Triglyceride [Mass/Vol] 126 mg/dL <199 [facility] Comment on above: The drugs N-Acetylcy steine and Metamizole may falsely depress this assay. Normal range: <150 mg/dLBorderline High: 150-199 mg/dLHigh: 200-499 mg/dLVery High: >500 mg/dL Cardiology Visit Reporton Cardiology Visit Report [facility] [place] [id number] [facility]. [address] [place] [address] OFFICE VISIT Date of Service: 09/19/24 MR#: [id number] Acct: [id number] Name: FANTASMA COLEY Rep #: [id number] : 1950 Provider: CATIE Mendieta Age/Sex: 74/M Location: [facility] Status: Signed HPI HPI History of Present Illness Details: Fantasma Coley is a 74-year-old male who presents to the office today for follow-up and monitoring of his cardiovascular disease. Patient has a history of coronary artery disease with stenting to his RCA in 2015. Patient underwent heart catheterization in December 2020 preceding an abnormal stress test in which it was demonstrated patient had severe triple-vessel disease with depressed left ventricular systolic function. Patient underwent CABG with left internal mammary artery to the LAD artery and a sequential saphenous vein graft to the ramus intermedius and obtuse [facility] vessel [facility]. Patient has a history of hypertension and hyperlipidemia. Since last seen, approximately 1 year ago, patient reports doing well. Prior to initial stenting, patient experienced generally not feeling well. Patient denies any recurrence of the symptoms. Patient denies any anginal or anginal equivalent symptoms. Further ROS below. 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 Most recent stress test 12/17/2023 in which patient then underwent left heart catheterization 12/25/2023 without intervention. Patient reports BP systolic is usually under 120 and diastolic in the 60s at home. Patient tries to routinely exercise every week by riding bike. Patient denies any anginal or concerning symptoms with this exercise. 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 Is patient in pain?: No Allergies pravastatin Adverse Reaction (Unknown, Verified 08/15/24 08:07) Myalgia cinnamon Adverse Reaction (Verified 08/15/24 08:07) throat swelling Medications ???Medication ???Instructions ???Recorded ???Confirmed ???Type qfhrwluh-gny-oykcq acid 0.4 1 ea PO DAILY 04/29/16 09/19/24 Hi story mg-lycopene 300 mcg-lutein 250 mcg tablet aspirin 81 mg tablet,delayed 81 mg PO DAILY@0800 05/01/1609/19 History release celecoxib 200 mg capsule 200 mg PO QHS 03/28/21 09/19/24 Hi story losartan 25 mg tablet 25 mg PO DAILY #90 tabs 12/07/23 0 09/19/24 Rx 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 meter,continuous 12/17/23 08/15/24 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 (Dexcom G7 12/17/23 08/15/24 History Sensor device) clopidogrel 75 mg tablet (Plavix) 75 mg PO DAILY #90 tabs 03/01/24 09/19/24 Rx ezetimibe 10 mg tablet 10 mg PO DAILY #90 tabs 04/11/24 0 09/19/24 Rx metoprolol succinate 25 mg 25 mg PO DAILY #90 TABLETS 4 09/19/24 Rx tablet,extended release 24 hr insulin lispro 100 unit/mL 30 unit (0.3 mL) subcut TID #81 mL 05/09/24 09/19/24 Rx subcutaneous pen (Humalog KwikPen (U-100) Insulin) insulin glargine 100 unit/mL (3 20 unit (0.2 mL) subcut DAILY #18 09/01/24 09/19/24 Rx mL) subcutaneous pen (Lantus mL Solostar U-100 Insulin) tirzepatide 5 mg/0.5 mL 5 mg (0.5 mL) subcut QWEEK #6 mL 0 09/01/24 09/19/24 Rx subcutaneous pen injector (Mounjaro) Have you fallen in the past year?: No PENDING SALE TO [facility] Medical History Obstructive sleep apnea of adult Type 2 diabetes mellitus without complications Atherosclerosis of coronary artery of [place] heart without angina pectoris Hyperlipidemia Obesity Surgical History H/O coronary artery bypass surgery (03/05/21) History of left heart catheterization (02/06/21) History of toe surgery History of carpal tunnel release H/O arthroscopy of right knee History of coronary artery stent placement (09/11/15) Family History Brother CAD (coronary artery disease) CABG Mother CAD (coronary artery disease) CABG Brother CAD (coronary artery disease) CABG Brother CAD (coronary artery disease) Father CAD (coronary artery disease) CABG Social History household members: spouse Smoking Status: Former smoker pack-years: 40 Tobacco: How many years used: 20 how long ago did patient quit smokin years alcohol intake: never caffeine: No ROS (more content not included)... Normal [facility] Endocrinology Visit Reporton 08-15-2024 Endocrinology Visit Report [facility] [address] [place] [address]. [address] [place] [address] OFFICE VISIT Date of Service: 08/15/24 MR#: [id number] Acct: [id number] Name: FANTASMA COLEY Rep #: [id number] : 1950 Provider: AILIN bosch Age/Sex: 74/M Location: [facility] Status: Signed Intake Vital Signs 03/21/24 08:05 08/15/24 08:04 Height 5 ft 10 in 5 ft 10 in Weight: 287 lb 2 oz 294 lb BMI 41.1 42.2 BP 152/70 H 151/71 H Blood Pressure Location Rt brachial Lt brachial Position Sitting Sitting Pulse 58 L 62 Pulse Source Monitor Monitor Pulse Oximetry (%) 95 94 Oxygen Delivery Method room air room air Intake Visit Reasons: 5 M FU Chief Complaint: f/u diabetes Is patient in pain?: No Allergies pravastatin Adverse Reaction (Unknown, Verified 08/15/24 08:07) Myalgia cinnamon Adverse Reaction (Verified 08/15/24 08:07) throat swelling Medications ???Medication ???Instructions ???Recorded ???Confirmed ???Type xqevcwce-dnq-bjcla acid 0.4 1 ea PO DAILY 04/29/16 08/15/24 Hi story mg-lycopene 300 mcg-lutein 250 mcg tablet aspirin 81 mg tablet,delayed 81 mg PO DAILY@0800 05/01/1608/15 History release celecoxib 200 mg capsule 200 mg PO QHS 03/28/21 08/15/24 Hi story losartan 25 mg tablet 25 mg PO DAILY #90 tabs 12/07/23 0 08/15/24 Rx 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 meter,continuous 12/17/23 08/15/24 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 (Dexcom G7 12/17/23 08/15/24 History Sensor device) insulin glargine 100 20 unit (0.2 mL) subcut QAM #18 mL 12/17/23 08/15/24 Rx unit-lixisenatide 33 mcg/mL subcutaneous pen (Soliqua 100/33) clopidogrel 75 mg tablet (Plavix) 75 mg PO DAILY #90 tabs 03/01/24 08/15/24 Rx ezetimibe 10 mg tablet 10 mg PO DAILY #90 tabs 04/11/24 0 08/15/24 Rx metoprolol succinate 25 mg 25 mg PO DAILY #90 TABLETS 4 08/15/24 Rx tablet,extended release 24 hr insulin lispro 100 unit/mL 30 unit (0.3 mL) subcut TID #81 mL 05/09/24 08/15/24 Rx subcutaneous pen (Humalog KwikPen (U-100) Insulin) Have you fallen in the past year?: No PFSH Medical History Obstructive sleep apnea of adult Type 2 diabetes mellitus without complications Atherosclerosis of coronary artery of [place] heart without angina pectoris Hyperlipidemia Obesity Surgical History H/O coronary artery bypass surgery (03/05/21) History of left heart catheterization (02/06/21) History of toe surgery History of carpal tunnel release H/O arthroscopy of right knee History of coronary artery stent placement (09/11/15) Family History Brother CAD (coronary artery disease) CABG Mother CAD (coronary artery disease) CABG Brother CAD (coronary artery disease) CABG Brother CAD (coronary artery disease) Father CAD (coronary artery disease) CABG Social History household members: spouse Smoking Status: Former smoker pack-years: 40 Tobacco: How many years used: 20 how long ago did patient quit smokin years alcohol intake: never caffeine: No HPI HPI Chief Complaint: f/u diabetes Details: FANTASMA COLEY, is a 74 M who presents to the office today for evaluation and management of diabetes. A1C today is 6.8%, increased from 03/21/24 at 6.5%. He has gained 7 lbs since that time. Currently taking Soliqua 13 u once daily and Humalog 30-36 u TIDCM. Dexcom tracings reviewed- he is having post meal elevations, he is going to bed elevated, likely from bedtime snack. He denies any significant episodes of hypoglycemia that have required assistance from others. He was on Ozempic in the remote past and was unable to tolerate d/t diarrhea. His diet contains a significant amount of processed carbohydrates. BP today is stable. Currently taking losartan 25 mg once daily and metoprolol succ 25 mg once daily. Currently taking ezetimibe 10 mg once daily. Labs are up to date. He denies any acute concerns. ROS Const Constitutional: Positive for weight change; No fatigue ENT ENT: No dizziness/vertigo Cardio Cardiology: No chest pain at rest, chest pain with exertion, shortness of breath or palpitations Skin Skin: No wounds Endo Endocrine: Positive for weight change; No fatigue Exam Const General: cooperative, healthy appearing, comfortable and no acute distress Nutritional Appearance: obese Orientation: alert, awake and oriented x3 HENMT Head: normal to inspection Ears: hearing grossly normal bilaterally Nose: external nose normal Face and sinus: normal facial exam Eyes General: appearance normal, both eyes an (more content not included)... Normal [facility] Endocrinology Visit Reporton 03-21-2024 Endocrinology Visit Report [facility] [address] [place] [address]. [address] [place] [address] OFFICE VISIT Date of Service: 03/21/24 MR#: [id number] Acct: [id number] Name: FANTASMA COLEY Rep #: [id number] : 1950 Provider: AILIN bosch Age/Sex: 73/M Location: [facility] Status: Signed Intake Vital Signs 12/17/23 09:43 12/25/23 07:02 03/21/24 08:05 Height 5 ft 11 in 5 ft 10.87 in 5 ft 10 in Weight: 287 lb 2 oz BMI 41.1 BP 152/70 H Blood Pressure Location Rt brachial Position Sitting Pulse 58 L Pulse Source Monitor Pulse Oximetry (%) 95 Oxygen Delivery Method room air Intake Visit Reasons: 4 M FU Chief Complaint: f/u diabetes Is patient in pain?: No Allergies pravastatin Adverse Reaction (Unknown, Verified 12/17/23 09:41) Myalgia cinnamon Adverse Reaction (Verified 12/17/23 09:41) throat swelling Medications ???Medication ???Instructions ???Recorded ???Confirmed ???Type kezmcxew-jrf-txvxa acid 0.4 1 ea PO DAILY 04/29/16 03/21/24 History mg-lycopene 300 mcg-lutein 250 mcg tablet aspirin 81 mg tablet,delayed 81 mg PO DAILY@0800 05/01/16 03/21/24 History release celecoxib 200 mg capsule 200 mg PO QHS 03/28/21 03/21/24 History ezetimibe 10 mg tablet 10 mg PO DAILY #90 tabs 05/25/23 03/21/24 Rx losartan 25 mg tablet 25 mg PO DAILY #90 tabs 12/07/23 03/21/24 Rx 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 meter,continuous 12/17/23 03/21/24 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 (Dexcom G7 12/17/23 03/21/24 History Sensor device) insulin glargine 100 20 unit (0.2 mL) subcut QAM #18 mL 12/17/23 03/21/24 Rx unit-lixisenatide 33 mcg/mL subcutaneous pen (Soliqua 100/33) metoprolol succinate 25 mg 25 mg PO QHS 12/25/23 03/21/24 History tablet,extended release 24 hr insulin lispro 100 unit/mL 18 unit (0.18 mL) subcut TID #48.6 02/19/24 03/21/24 Rx subcutaneous pen (Humalog KwikPen mL (U-100) Insulin) clopidogrel 75 mg tablet (Plavix) 75 mg PO DAILY #90 tabs 03/01/24 03/21/24 Rx Have you fallen in the past year?: No PFSH Medical History Obstructive sleep apnea of adult Type 2 diabetes mellitus without complications Atherosclerosis of coronary artery of [place] heart without angina pectoris Hyperlipidemia Obesity Surgical History H/O coronary artery bypass surgery (03/05/21) History of left heart catheterization (02/06/21) History of toe surgery History of carpal tunnel release H/O arthroscopy of right knee History of coronary artery stent placement (09/11/15) Family History Brother CAD (coronary artery disease) CABG Mother CAD (coronary artery disease) CABG Brother CAD (coronary artery disease) CABG Brother CAD (coronary artery disease) Father CAD (coronary artery disease) CABG Social History household members: spouse Smoking Status: Former smoker pack-years: 40 Tobacco: How many years used: 20 how long ago did patient quit smokin years alcohol intake: never caffeine: No HPI HPI Chief Complaint: f/u diabetes Details: FANTASMA COLEY, is a 73 M who presents to the office today for evaluation and management of diabetes. A1C today is 6.5%, increased from 12/17/23 at 6.0%, he has gained 7 lbs since that time. Currently taking Humalog 24 u TIDCM and Soliqua 14-15 u QHS, if bgl is >140, he will take 15 u. CGM tracings reviewed- he is having occasional lows during sleeping hours and mid day. He is having post meal elevations. Denies any significant episodes of hypoglycemia that have required assistance from others. At 12/17/23 labs were reviewed and he was noted to have GFR of 49 on 10/18/23 following an ER visit. He was instructed during that appointment to have repeat labs, GFR improved to his baseline at 79 on 12/22/23. Initial BP 152/70, repeat manual BP 142/72. Currently taking losartan 25 mg once daily and metoprolol succ 25 mg QHS. He had cardiac cath over the summer that was unremarkable. Labs are up to date. Denies any acute concerns. ROS Const Constitutional: Positive for weight change Endo Endocrine: Positive for weight change Exam Const General: cooperative, healthy appearing, comfortable and no acute distress Nutritional Appearance: obese Orientation: alert, awake and oriented x3 HENMT Head: normal to inspection Ears: hearing grossly normal bilaterally Nose: external nose normal Face and sinus: normal facial exam Eyes General: appearance normal, both eyes and all related structures Alignment and Position: alignment normal Sclera: sclerae normal Neck Neck: normal visual inspectio (more content not included)... Normal [facility] Microalb:Creat Ratio,Random URon 02-16-2024 Creatinine [Mass/Vol] 130.00 mg/dL Normal NO RAN GE EST. [facility] Comment on above: Performed By: #### L 501.9910, L502.0250 #### [facility] [address] [place], [address] MALB:CRE 4.1 mg/g CRE Normal <30 mg/g CRE [facility] Comment on above: Performed By: #### L 501.9910, L502.0250 #### [facility] [address] [place], [place], [id number] MICROALBUMIN,UR 5.4 mg/L Normal NO RANGE EST. [facility] Comment on above: Performed By: #### L 501.9910, L502.0250 #### [facility] [address] [place], [address] PSA,Total - Annual Screenon 02-16-2024 PSA,TOT SCREEN 1.80 ng/mL Normal 0.00-4.00 [facility] Comment on above: Result Comment: This test was performed using the TPSA assay method for the [employer] chemistry system. Values obtained with different assay methods cannot be used interchangably. When changing PSA assays in the course of monitoring a patient, additional sequential testing should be carried out to confirm baseline values. Performed By: #### L 501.9910, L502.0250 #### [facility] [address] [place], [place], [id number] Absolute lymphocyte countOrd ered By: Abel Murillo on 10-18-2023 Lymphocytes Auto (Unsp spec) [#/Vol] 1.58 10*3/uL 0.83-4.51 [facility] [facility] Autom[facility] lymphocyte count a s percentage of total leukocytesOrdered By: Abel Murillo on 10-18-2023 Lymphocytes/100 WBC Auto (Unsp spec) 23.6 % 19-41 [facility] Basophil percentageOrdered B y: Abel Murillo on 10-18-2023 Basophils/100 WBC (Bld) 0.3 % 0-1 [facility] Bilirubin [Mass/Vol] 0.50 mg/dL 0.20-1.00 [facility] Comment on above: For patients on eltr ombopag therapy, use of Dimension Strunk TBIL is not recommended. Chloride [Moles/Vol] 109 mmol/L 98-107 [facility] Eosinophils/100 WBC (Bld) 2.8 % 0-5 [facility] Glucose [Mass/Vol] 76 mg/dL 74-106 [facility] Hemoglobin (Bld) [Mass/Vol] 14.9 g/dL 13.0-16.5 [facility] Monocytes/100 WBC (Bld) 8.8 % 0-10 [facility] Neutrophils (Bld) [#/Vol] 4.3 10*3/uL 2.0-7.7 [facility] Neutrophils/100 WBC (Bld) 64.1 % 47-70 [facility] Potassium [Moles/Vol] 3.7 mmol/L 3.5-5.1 [facility] Protein [Mass/Vol] 6.8 g/dL 6.4-8.2 [facility] Sodium [Moles/Vol] 140 mmol/L 136-145 [facility] WBC (Bld) [#/Vol] 6.7 10*3/uL 4.4-11.0 [facility] Determination of erythrocyte mean corpuscular volume (MCV)Ordered By: Abel Murillo on 10-18-2023 MCV (RBC) [Entitic vol] 87.5 fL 80-94 [facility] Erythrocyte distribution wid th ratioOrdered By: Abelaye Murillo on 10-18-2023 Erythrocyte distribution width (RBC) [Ratio] 12.3 % 11.6-14.6 [facility] Erythrocyte distribution wid th standard deviationOrdered By: Abelaye Murillo on 10-18-2023 Erythrocyte distribution width (RBC) [Entitic vol] 39.1 fL 35.1-43.9 [facility] Hematocrit Auto (Bld) [Volum e fraction]Ordered By: Abel Murillo on 10-18-2023 Hematocrit (Bld) [Volume fraction] 43.3 % 40-54 [facility] Immature granulocytes/100 WB C Auto (Bld)Ordered By: Abel Murillo on 10-18-2023 Immature granulocytes/100 WBC (Bld) 0.400 % 0.0-0.9 [facility] Comment on above: IG% - Immature Granu locytes (promyelocytes, myelocytes and metamyelocytes) > 1% indicates that a LEFT SHIFT is Present. Laboratory - Chemistry and C hemistry - challengeOrdered By: Abel Murillo on 10-18-2023 Albumin/Globulin [Mass ratio] 1.2 {ratio} 0.9-2.4 [facility] ALP [Catalytic activity/Vol] 68 U/L 45-117 [facility] ALT [Catalytic activity/Vol] 54 U/L 16-61 [facility] CO2 [Moles/Vol] 25.0 mmol/L 21.0-32.0 [facility] Globulin (S) [Mass/Vol] 3.1 g/dL 2.2-4.2 [facility] Urea nitrogen/Creatinine [Mass ratio] 17.3 mg/mg 10-20 [facility] Laboratory - Hematology and Cell countsOrdered By: Abelaye Murillo on 10-18-2023 MCH (RBC) [Entitic mass] 30.1 pg 27.0-32.0 [facility] MCHC (RBC) [Mass/Vol] 34.4 g/dL 32-36 [facility] Nucleated RBC/100 WBC (Bld) [Ratio] 0 % 0-5 [facility] Platelet mean volume (Bld) [Entitic vol] 8.8 fL 6.2-12.0 [facility] Platelets (Bld) [#/Vol] 190 10*3/uL 150-450 [facility] No Panel InformationOrdered By: Abel Murillo on 10-18-2023 Estimated Creatinine Clearance Calc 59.78 ml/min [facility] Estimated GFR (MDRD) Amer 59 mL/min >60 [facility] Comment on above: GFR Calc Estimated GFR (MDRD) Non-Af Amer 49 mL/min >60 [facility] Comment on above: Non- GFR Calc RBC Auto (Bld) [#/Vol]Ordere d By: Abel Murillo on 10-18-2023 RBC (Bld) [#/Vol] 4.95 10*6/uL 4.6-6.2 [facility] Serum or plasma calcium maty urement (mass/volume)Ordered By: Abel Murillo on 10-18-2023 Calcium [Mass/Vol] 9.0 mg/dL 8.5-10.1 [facility] Serum or plasma creatinine m easurement (mass/volume)Ordered By: Abel Murillo on 10-18-2023 Creatinine [Mass/Vol] 1.50 mg/dL 0.70-1.30 [facility] Comment on above: The validity of the calculated GFR & GFRAA in patients over 70 years has not been determined. Clinical correlation is essential. Serum or plasma urea nitroge n measurement (mass/volume)Ordered By: Abel Murillo on 10-18-2023 Urea nitrogen [Mass/Vol] 26 mg/dL 7-18 [facility] Thin prep Papanicolaou smear with manual screeningOrdered By: Abel Murillo on 10-18-2023 Thin prep Papanicolaou smear with manual screening 3.7 g/dL 3.2-5.0 [facility] Thin prep Papanicolaou smear with manual screening 49 U/L 15-37 [facility] Thin prep Papanicolaou smear with manual screening 6 5-15 [facility] Basophil percentageOrdered B y: Quita Foster on 08-13-2023 Bilirubin [Mass/Vol] 0.60 mg/dL 0.20-1.00 [facility] Comment on above: For patients on eltr ombopag therapy, use of Dimension Strunk TBIL is not recommended. Cholesterol [Mass/Vol] 169 mg/dL <200 [facility] Comment on above: <200 mg/dL Desirable 200-240 mg/dL Borderline >240 mg/dL High Risk Protein [Mass/Vol] 6.9 g/dL 6.4-8.2 [facility] Triglyceride [Mass/Vol] 78 mg/dL <199 [facility] Comment on above: The drugs N-Acetylcy steine and Metamizole may falsely depress this assay.Serum Triglycerides Reference Interval Normal <150 mg/dL Borderline high 150 - 199 mg/dL High 200 - 499 mg/dL Very High > or = 500 mg/dL Basophil percentageOrdered B y: Marcelina Mai on 08-13-2023 Chloride [Moles/Vol] 109 mmol/L 98-107 [facility] Glucose [Mass/Vol] 146 mg/dL 74-106 [facility] Comment on above: Fasting Glucose resu lt greater than or equal to 126 mg/dL suggests DIABETES MELLITUS per A.D.A. criteria. Potassium [Moles/Vol] 4.2 mmol/L 3.5-5.1 [facility] Sodium [Moles/Vol] 140 mmol/L 136-145 [facility] Direct bilirubinOrdered By: Quita Foster on 08-13-2023 Bilirubin.direct [Mass/Vol] 0.15 mg/dL 0.00-0.30 [facility] Laboratory - Chemistry and C hemistry - challengeOrdered By: Marcelina Mai on 08-13-2023 Albumin/Globulin [Mass ratio] 1.1 {ratio} 0.9-2.4 [facility] CO2 [Moles/Vol] 28.0 mmol/L 21.0-32.0 [facility] Urea nitrogen/Creatinine [Mass ratio] 24.0 mg/mg 10-20 [facility] Laboratory - Chemistry and C hemistry - challengeOrdered By: Quita Foster on 08-13-2023 ALP [Catalytic activity/Vol] 68 U/L 45-117 [facility] ALT [Catalytic activity/Vol] 46 U/L 16-61 [facility] Cholesterol in HDL [Mass/Vol] 42 mg/dL >40 [facility] Comment on above: The drugs N-Acetylcy steine and Metamizole may falsely depress this assay. Reference Range HDL <40 mg/dL Low HDL Cholesterol HDL >or= 60 mg/dL High HDL Cholesterol Cholesterol in LDL [Mass/Vol] 111 mg/dL 0-130 [facility] Globulin (S) [Mass/Vol] 3.2 g/dL 2.2-4.2 [facility] Laboratory - Hematology and Cell countson 08-13-2023 HbA1c (Bld) [Mass fraction] 6.3 % 4.2-6.3 [facility] No Panel InformationOrdered By: Marcelina Mai on 08-13-2023 Estimated GFR (MDRD) Amer 99 mL/min >60 [facility] Comment on above: GFR Calc Estimated GFR (MDRD) Non-Af Amer 82 mL/min >60 [facility] Comment on above: Non- GFR Calc Urine Microalbumin/Creatinin e Ratio 4.8 mg/g CRE <30 [facility] Vitamin D 25-Hydroxy 48.4 ng/mL [facility] Comment on above: Vitamin D 25(OH) Sta tus Range Deficiency <20 ng/mL (50nmol/L) Insufficiency 20 - 30 ng/mL (50 - 75 nmol/L) Sufficiency 30 - 100 ng/mL (75 - 250 nmol/L) Toxicity >100 ng/mL (>250 nmol/L) No Panel InformationOrdered By: Quita Foster on 08-13-2023 VLDL Cholesterol 16 mg/dL 5-40 [facility] Serum or plasma calcium maty urement (mass/volume)Ordered By: Marcelina Mai on 08-13-2023 Calcium [Mass/Vol] 9.0 mg/dL 8.5-10.1 [facility] Serum or plasma creatinine m easurement (mass/volume)Ordered By: Marcelina Mai on 08-13-2023 Creatinine [Mass/Vol] 0.96 mg/dL 0.70-1.30 [facility] Comment on above: The validity of the calculated GFR & GFRAA in patients over 70 years has not been determined. Clinical correlation is essential. Serum or plasma thyroid stim ulating hormone (TSH) measurement (units/volume)Ordered By: Marcelina Mai on 08-13-2023 TSH Qn 1.68 uIU/mL 0.358-3.74 [facility] Serum or plasma urea nitroge n measurement (mass/volume)Ordered By: Marcelina Mai on 08-13-2023 Urea nitrogen [Mass/Vol] 23 mg/dL 7-18 [facility] Thin prep Papanicolaou smear with manual screeningOrdered By: Quita Foster on 08-13-2023 Thin prep Papanicolaou smear with manual screening 3.7 g/dL 3.2-5.0 [facility] Thin prep Papanicolaou smear with manual screening 35 U/L 15-37 [facility] Thin prep Papanicolaou smear with manual screeningOrdered By: Marcelina Mai on 08-13-2023 Thin prep Papanicolaou smear with manual screening 3 5-15 [facility] Thin prep Papanicolaou smear with manual screening 6.9 mg/L NO RANGE EST. [facility] Urine creatinine measurement (mass/volume)Ordered By: Marcelina Mai on 08-13-2023 Creatinine (U) [Mass/Vol] 143.00 mg/dL NO RANGE EST. [facility] Basophil percentageOrdered B y: Marcelina Mai on 08-14-2022 Bilirubin [Mass/Vol] 0.50 mg/dL 0.20-1.00 [facility] Comment on above: For patients on eltr ombopag therapy, use of Dimension Strunk TBIL is not recommended. Chloride [Moles/Vol] 106 mmol/L 98-107 [facility] Glucose [Mass/Vol] 166 mg/dL 74-106 [facility] Comment on above: Fasting Glucose resu lt greater than or equal to 126 mg/dL suggests DIABETES MELLITUS per A.D.A. criteria. Potassium [Moles/Vol] 4.5 mmol/L 3.5-5.1 [facility] Protein [Mass/Vol] 7.0 g/dL 6.4-8.2 [facility] Sodium [Moles/Vol] 140 mmol/L 136-145 [facility] Laboratory - Chemistry and C hemistry - challengeOrdered By: Marcelina Mai on 08-14-2022 ALP [Catalytic activity/Vol] 76 U/L 45-117 [facility] ALT [Catalytic activity/Vol] 37 U/L 16-61 [facility] CO2 [Moles/Vol] 30.0 mmol/L 21.0-32.0 [facility] Globulin (S) [Mass/Vol] 3.3 g/dL 2.2-4.2 [facility] Urea nitrogen/Creatinine [Mass ratio] 21.4 mg/mg 10-20 [facility] Laboratory - Hematology and Cell countson 08-14-2022 HbA1c (Bld) [Mass fraction] 7.3 % [facility] No Panel InformationOrdered By: Marcelina Mai on 08-14-2022 Estimated GFR (MDRD) Amer 83 mL/min >60 [facility] Comment on above: GFR Calc Estimated GFR (MDRD) Non-Af Amer 69 mL/min >60 [facility] Comment on above: Non- GFR Calc Thyroid Stimulating Hormone (TSH) 1.19 uIU/mL 0.358-3.74 [facility] Urine Microalbumin/Creatinin e Ratio 8.6 mg/g CRE <30 [facility] Vitamin D 25-Hydroxy 40.9 ng/mL [facility] Comment on above: Vitamin D 25(OH) Sta tus Range Deficiency <20 ng/mL (50nmol/L) Insufficiency 20 - 30 ng/mL (50 - 75 nmol/L) Sufficiency 30 - 100 ng/mL (75 - 250 nmol/L) Toxicity >100 ng/mL (>250 nmol/L) Serum or plasma albumin maty urement (mass/volume)Ordered By: Marcelina Mai on 08-14-2022 Albumin [Mass/Vol] 3.7 g/dL 3.2-5.0 [facility] Serum or plasma albumin/glob ulin mass ratioOrdered By: Marcelina Mai on 08-14-2022 Albumin/Globulin [Mass ratio] 1.1 {ratio} 0.9-2.4 [facility] Serum or plasma calcium maty urement (mass/volume)Ordered By: Marcelina Mai on 08-14-2022 Calcium [Mass/Vol] 9.0 mg/dL 8.5-10.1 [facility] Serum or plasma creatinine m easurement (mass/volume)Ordered By: Marcelina Mai on 08-14-2022 Creatinine [Mass/Vol] 1.12 mg/dL 0.70-1.30 [facility] Comment on above: The validity of the calculated GFR & GFRAA in patients over 70 years has not been determined. Clinical correlation is essential. Serum or plasma urea nitroge n measurement (mass/volume)Ordered By: Marcelina Mai on 08-14-2022 Urea nitrogen [Mass/Vol] 24 mg/dL 7-18 [facility] Thin prep Papanicolaou smear with manual screeningOrdered By: Marcelina Mai on 08-14-2022 Thin prep Papanicolaou smear with manual screening 21 U/L 15-37 [facility] Thin prep Papanicolaou smear with manual screening 4 5-15 [facility] Thin prep Papanicolaou smear with manual screening 6.0 mg/L NO RANGE EST. [facility] Urine creatinine measurement (mass/volume)Ordered By: Marcelina Mai on 08-14-2022 Creatinine (U) [Mass/Vol] 69.30 mg/dL NO RANGE EST. [facility] Basophil percentageOrdered B y: Quita Foster on 07-12-2022 Bilirubin [Mass/Vol] 0.50 mg/dL 0.20-1.00 [facility] Comment on above: For patients on eltr ombopag therapy, use of Dimension Strunk TBIL is not recommended. Cholesterol [Mass/Vol] 135 mg/dL <200 [facility] Comment on above: <200 mg/dL Desirable 200-240 mg/dL Borderline >240 mg/dL High Risk Protein [Mass/Vol] 6.9 g/dL 6.4-8.2 [facility] Triglyceride [Mass/Vol] 115 mg/dL <199 [facility] Comment on above: The drugs N-Acetylcy steine and Metamizole may falsely depress this assay.Serum Triglycerides Reference Interval Normal <150 mg/dL Borderline high 150 - 199 mg/dL High 200 - 499 mg/dL Very High > or = 500 mg/dL Direct bilirubinOrdered By: Quita Foster on 07-12-2022 Bilirubin.direct [Mass/Vol] 0.15 mg/dL 0.00-0.30 [facility] Laboratory - Chemistry and C hemistry - challengeOrdered By: Quita Foster on 07-12-2022 ALP [Catalytic activity/Vol] 64 U/L 45-117 [facility] ALT [Catalytic activity/Vol] 44 U/L 16-61 [facility] Globulin (S) [Mass/Vol] 3.4 g/dL 2.2-4.2 [facility] Serum or plasma albumin maty urement (mass/volume)Ordered By: Quita Foster on 07-12-2022 Albumin [Mass/Vol] 3.5 g/dL 3.2-5.0 [facility] Serum or plasma cholesterol in HDL measurement (mass/volume)Ordered By: Quita Foster on 07-12-2022 Cholesterol in HDL [Mass/Vol] 42 mg/dL >40 [facility] Comment on above: The drugs N-Acetylcy steine and Metamizole may falsely depress this assay. Reference Range HDL <40 mg/dL Low HDL Cholesterol HDL >or= 60 mg/dL High HDL Cholesterol Serum or plasma cholesterol in VLDL measurement (mass/volume)Ordered By: Quita Foster on 07-12-2022 Cholesterol in VLDL [Mass/Vol] 23 mg/dL 5-40 [facility] Serum or plasma low density lipoprotein (LDL) cholesterol measurement (mass/volume)Ordered By: Quita Foster on 07-12-2022 Cholesterol in LDL [Mass/Vol] 70 mg/dL 0-130 [facility] Thin prep Papanicolaou smear with manual screeningOrdered By: Quita Foster on 07-12-2022 Thin prep Papanicolaou smear with manual screening 25 U/L 15-37 [facility] Basophil percentageon 2021 Bilirubin [Mass/Vol] 0.60 mg/dL 0.20-1.00 [facility] Work Phone: Comment on above: For patients on eltr ombopag therapy, use of Dimension Strunk TBIL is not recommended. Cholesterol [Mass/Vol] 126 mg/dL <200 [facility] Work Phone: Comment on above: <200 mg/dL Desirable 200-240 mg/dL Borderline >240 mg/dL High Risk Protein [Mass/Vol] 6.7 g/dL 6.4-8.2 [facility] Work Phone: Triglyceride [Mass/Vol] 111 mg/dL <199 [facility] Work Phone: Comment on above: The drugs N-Acetylcy steine and Metamizole may falsely depress this assay.Serum Triglycerides Reference Interval Normal <150 mg/dL Borderline high 150 - 199 mg/dL High 200 - 499 mg/dL Very High > or = 500 mg/dL Direct bilirubinon 2 Bilirubin.direct [Mass/Vol] 0.18 mg/dL 0.00-0.30 [facility] Work Phone: Laboratory - Chemistry and C hemistry - challengeon 01-08-2022 ALP [Catalytic activity/Vol] 67 U/L 45-117 [facility] Work Phone: ALT [Catalytic activity/Vol] 53 U/L 16-61 [facility] Work Phone: Globulin (S) [Mass/Vol] 3.1 g/dL 2.2-4.2 [facility] Work Phone: Serum or plasma albumin maty urement (mass/volume)on 01-08-2022 Albumin [Mass/Vol] 3.6 g/dL 3.2-5.0 [facility] Work Phone: Serum or plasma cholesterol in HDL measurement (mass/volume)on 01-08-2022 Cholesterol in HDL [Mass/Vol] 44 mg/dL >40 [facility] Work Phone: Comment on above: The drugs N-Acetylcy steine and Metamizole may falsely depress this assay. Reference Range HDL <40 mg/dL Low HDL Cholesterol HDL >or= 60 mg/dL High HDL Cholesterol Serum or plasma cholesterol in VLDL measurement (mass/volume)on 01-08-2022 Cholesterol in VLDL [Mass/Vol] 22 mg/dL 5-40 [facility] Work Phone: Serum or plasma low density lipoprotein (LDL) cholesterol measurement (mass/volume)on 01-08-2022 Cholesterol in LDL [Mass/Vol] 60 mg/dL 0-130 [facility] Work Phone: Thin prep Papanicolaou smear with manual screeningon 01-08-2022 Thin prep Papanicolaou smear with manual screening 35 U/L 15-37 [facility] Work Phone: Laboratory - Hematology and Cell countson 12-19-2021 HbA1c (Bld) [Mass fraction] 7.5 % [facility] Work Phone: Basic Metabolic Panelon 02-20 Anion gap [Moles/Vol] 2 mmol/L Low 3-13 [facility] Comment on above: Performed By: #### B MP3, MG3, PHOS3, ABG, HEMOG, PT/AP, ICA #### [facility] [address] [place] [address] Calcium [Mass/Vol] 8.0 mg/dL Low 8.4-10.4 [facility] Comment on above: Performed By: #### B MP3, MG3, PHOS3, ABG, HEMOG, PT/AP, ICA #### [facility] [address] [place] [address] CO2 [Moles/Vol] 30 mmol/L Normal 22-30 [facility] Comment on above: Performed By: #### B MP3, MG3, PHOS3, ABG, HEMOG, PT/AP, ICA #### [place] [address] [place], [place] Glucose [Mass/Vol] 162 mg/dL High 70-100 [facility] Comment on above: Performed By: #### B MP3, MG3, PHOS3, ABG, HEMOG, PT/AP, ICA #### [place] [address] [place], [place] Urea nitrogen [Mass/Vol] 24 mg/dL High 7-17 [facility] Comment on above: Performed By: #### B MP3, MG3, PHOS3, ABG, HEMOG, PT/AP, ICA #### [place] [address] [place], [place] Creatinine [Mass/Vol] 0.73 mg/dL Normal 0.52-1.25 [facility] Comment on above: Performed By: #### B MP3, MG3, PHOS3, ABG, HEMOG, PT/AP, ICA #### [place] [address] [place], [place] eGFR OTHER > 90.0 Normal >60 [facility] Comment on above: Result Comment: KDIG O guidelines provide the following GFR categories: Stage GFR(ml/min/1.73 m2) Terms G1 >=90 Normal or high G2 60-89 Mildly decreased* G3a 45-59 Mildly to moderately decreased G3b 30-44 Moderately to severely decreased G4 15-29 Severely decreased G5 <15 Kidney failure *Relative to young adult level. In the absence of evidence of kidney damage, neither GFR category G1 nor G2 fulfill the criteria for CKD. The CKD-EPI equation is validated in individuals 18 years of age and older. Currently the best equation for estimating glomerular filtration rate (GFR) from serum creatinine in children is the Bedside Doyle equation. It is less accurate in patients with extremes of muscle mass, restriction of dietary protein, ingestion of creatine, extra-renal metabolism of creatinine, or treatment with medications that affect renal tubular creatinine secretion. Performed By: #### B MP3, MG3, PHOS3, ABG, HEMOG, PT/AP, ICA #### [place] [address] [place], [place] GFR/1.73 sq M.predicted among blacks MDRD (S/P/Bld) [Vol rate/Area] mL/min/{1.73_m2} Normal >60 [facility] Comment on above: Performed By: #### B MP3, MG3, PHOS3, ABG, HEMOG, PT/AP, ICA #### [place] [address] [place], [place] Chloride [Moles/Vol] 106 mmol/L Normal 98-107 [facility] Comment on above: Performed By: #### B MP3, MG3, PHOS3, ABG, HEMOG, PT/AP, ICA #### [address] Potassium [Moles/Vol] 3.5 mmol/L Normal 3.5-5.1 [facility] Comment on above: Performed By: #### B MP3, MG3, PHOS3, ABG, HEMOG, PT/AP, ICA #### [place] [address] [place], [place] Sodium [Moles/Vol] 137 mmol/L Normal 135-145 [facility] Comment on above: Performed By: #### B MP3, MG3, PHOS3, ABG, HEMOG, PT/AP, ICA #### [place] [address] [place], [place] Basic Metabolic PanelOrdered By: Jair Lawler on 03-09-2021 Anion gap [Moles/Vol] 2 mmol/L Low 3 - 13 mmol/L [facility] Work Phone: Calcium [Mass/Vol] 8.0 mg/dL Low 8.4 - 10. 4 mg/dL [facility] Work Phone: [phone] Chloride [Moles/Vol] 106 mmol/L 98 - 10 7 mmol/L [facility] Work Phone: [phone] CO2 [Moles/Vol] 30 mmol/L 22 - 30 mmol/L [facility] Work Phone: [phone] Creatinine [Mass/Vol] 0.73 mg/dL 0.52 - 1.25 mg/dL [facility] Work Phone: [phone] IF NonAfrican Lao >90.0 >60 mL/min [facility] Work Phone: [phone] Comment on above: KDIGO guidelines pro vide the following GFR categories: Stage GFR(ml/min/1.73 m2) Terms G1 >=90 Normal or high G2 60-89 Mildly decreased* G3a 45-59 Mildly to moderately decreased G3b 30-44 Moderately to severely decreased G4 15-29 Severely decreased G5 <15 Kidney failure *Relative to young adult level. In the absence of evidence of kidney damage, neither GFR category G1 nor G2 fulfill the criteria for CKD. The CKD-EPI equation is validated in individuals 18 years of age and older. Currently the best equation for estimating glomerular filtration rate (GFR) from serum creatinine in children is the Bedside Doyle equation. It is less accurate in patients with extremes of muscle mass, restriction of dietary protein, ingestion of creatine, extra-renal metabolism of creatinine, or treatment with medications that affect renal tubular creatinine secretion. GFR/1.73 sq M.predicted among blacks MDRD (S/P/Bld) [Vol rate/Area] mL/min/{1.73_m2} >60 mL/min [facility] Work Phone: [phone] Glucose [Mass/Vol] 162 mg/dL High 70 - 100 mg/dL [facility] Work Phone: [phone] Interpretation and review of laboratory results Abnormal [facility] Work Phone: [phone] Potassium [Moles/Vol] 3.5 mmol/L 3.5 - 5.1 mmol/L [facility] Work Phone: [phone] Sodium [Moles/Vol] 137 mmol/L 135 - 145 mmol/L [facility] Work Phone: [phone] Urea nitrogen (BldV) [Mass/Vol] 24 mg/dL High 7 - 17 mg/dL [facility] Work Phone: [phone] CBCOrdered By: Jair baum 03-09-2021 Hematocrit (Bld) [Volume fraction] 28.9 % Low 40.0 - 52.0 % [facility] Work Phone: [phone] Hemoglobin.gastrointes tinal spec 1 Ql (Stl) 9.9 g/dL Low 13.0 - 18.0 g/dL [facility] Work Phone: [phone] Interpretation and review of laboratory results Abnormal [facility] Work Phone: [phone] MCH (RBC) [Entitic mass] 30.4 pg 26.0 - 34.0 pg [facility] Work Phone: [phone] MCHC (RBC) [Mass/Vol] 34.3 % 32.0 - 36.0 % [facility] Work Phone: [phone] MCV (RBC) [Entitic vol] 88.8 fL 80.0 - 98.0 fL [facility] Work Phone: [phone] Platelet distribution width (Bld) [Ratio] 12.7 % 11.5 - 14.5 % [facility] Work Phone: [phone] Platelet mean volume (Bld) [Entitic vol] 7.3 fL Low 7.4 - 10.4 fL [facility] Work Phone: [phone] Platelets (Bld) [#/Vol] 141 10*3/uL 140 - 440 10*3/uL [facility] Work Phone: [phone] RBC (Bld) [#/Vol] 3.25 10*6/uL Low 4.40 - 5.9 0 10*6/uL [facility] Work Phone: [phone] WBC (Bld) [#/Vol] 5.8 10*3/uL 3.6 - 10.7 10*3/uL [facility] Work Phone: [phone] Test Performed by [address] [address] [facility] Work Phone: [phone] [facility] Work Phone: [phone] CR Chest Portableon 03-09-20 21 CR Chest Portable Patient Name: FANTASMA WATSON Diagnostic Radiology ACCESSION EXAM DATE/TIME PROCEDURE ORDERING PROVIDER [id number] 03/09/2021 07:51 EDT CR Chest Portable KTAERIN COLINDRES MATTHEW R. CPT code 89588 Reason For Exam (CR Chest Portable) Shortness of breath Report PORTABLE CHEST: INDICATION: Shortness of breath COMPARISON: No previous studies are available for comparison. Obtained at 0535 hours. A single portable AP radiograph of the chest was obtained. The heart is normal in size. The mediastinal silhouette is normal. There is pulmonary congestion with bibasal atelectasis. Small bilateral effusions are present. A left basal chest tube is again noted. There is no pleural thickening. Arthritic changes of the spine and shoulders are present. IMPRESSION: Pulmonary congestion with bilateral infiltrates and effusions. No significant interval change. Report Dictated on Final Dictated: 03/09/2021 5:48 am Dictating Physician: DO NGUYEN ALFRED Signed Date and Time: 03/09/2021 5:50 am Signed by: DO NGUYEN ALFRED Transcribed Date and Time: 03/09/2021 5:48 Normal [facility] Glucose,Bedsideon 03-09-2021 Glucose [Mass/Vol] 195 mg/dL High 70-100 [facility] Comment on above: Result Comment: Test performed by glucose meter. Results may be 10%-15% lower than serum/plasma values. (CLIA ID [id number]) Performed By: #### B MP3, MG3, PHOS3, ABG, HEMOG, PT/AP, ICA #### [place] [id number] Glucose [Mass/Vol] 162 mg/dL High 70-100 [facility] Comment on above: Result Comment: Test performed by glucose meter. Results may be 10%-15% lower than serum/plasma values. (CLIA ID [id number]) Performed By: #### B MP3, MG3, PHOS3, ABG, HEMOG, PT/AP, ICA #### [address] [id number] Hemogramon 03-09-2021 Erythrocyte distribution width (RBC) [Ratio] 12.7 % Normal 11.5-14.5 [facility] Comment on above: Performed By: #### B MP3, MG3, PHOS3, ABG, HEMOG, PT/AP, ICA #### [address] Hematocrit (Bld) [Volume fraction] 28.9 % Low 40.0-52.0 [facility] Comment on above: Performed By: #### B MP3, MG3, PHOS3, ABG, HEMOG, PT/AP, ICA #### [facility] [address], [place] Hemoglobin (Bld) [Mass/Vol] 9.9 g/dL Low 13.0-18.0 [facility] Comment on above: Performed By: #### B MP3, MG3, PHOS3, ABG, HEMOG, PT/AP, ICA #### [facility] [address], [place] MCH (RBC) [Entitic mass] 30.4 pg Normal 26.0-34.0 [facility] Comment on above: Performed By: #### B MP3, MG3, PHOS3, ABG, HEMOG, PT/AP, ICA #### [place] [address], [place] MCHC 34.3 % Normal 32.0-36.0 [facility] Comment on above: Performed By: #### B MP3, MG3, PHOS3, ABG, HEMOG, PT/AP, ICA #### [place] [address], [place] MCV (RBC) [Entitic vol] 88.8 fL Normal 80.0-98.0 [facility] Comment on above: Performed By: #### B MP3, MG3, PHOS3, ABG, HEMOG, PT/AP, ICA #### [place] [address], [place] Platelet mean volume (Bld) [Entitic vol] 7.3 fL Low 7.4-10.4 [facility] Comment on above: Performed By: #### B MP3, MG3, PHOS3, ABG, HEMOG, PT/AP, ICA #### [place] [address], [place] Platelets (Bld) [#/Vol] 141 10*3/uL Normal 140-440 [facility] Comment on above: Performed By: #### B MP3, MG3, PHOS3, ABG, HEMOG, PT/AP, ICA #### [address] RBC (Bld) [#/Vol] 3.25 10*6/uL Low 4.40-5.90 [facility] Comment on above: Performed By: #### B MP3, MG3, PHOS3, ABG, HEMOG, PT/AP, ICA #### [place] [address] [place], [place] WBC (Bld) [#/Vol] 5.8 10*3/uL Normal 3.6-10.7 [facility] Comment on above: Performed By: #### B MP3, MG3, PHOS3, ABG, HEMOG, PT/AP, ICA #### [address] Magnesiumon 03-09-2021 Magnesium [Mass/Vol] 1.8 mg/dL Normal 1.6-2.3 [facility] Comment on above: Performed By: #### B MP3, MG3, PHOS3, ABG, HEMOG, PT/AP, ICA #### [place] [address] [place], [place] MagnesiumOrdered By: Jair morfin on 03-09-2021 Magnesium [Mass/Vol] 1.8 mg/dL 1.6 - 2 .3 mg/dL [facility] Work Phone: No Panel InformationOrdered By: Jair Lawler on 03-09-2021 Test Performed by [facility], [address] [place] [address] [facility] Work Phone: [facility] Work Phone: POCT GlucoseOrdered By: Alexandria Lawler on 03-09-2021 Glucose [Mass/Vol] 195 mg/dL High 70 - 100 mg/dL [facility] Work Phone: Comment on above: Test performed by gl ucose meter. Results may be 10%-15% lower than serum/plasma values. (CLIA ID [id number]) Interpretation and review of laboratory results Abnormal [facility] Work Phone: Test Performed by [facility], [facility] [place] [address] [facility] Work Phone: [phone] [facility] Work Phone: [phone] Glucose [Mass/Vol] 162 mg/dL High 70 - 100 mg/dL [facility] Work Phone: [phone] Comment on above: Test performed by gl ucose meter. Results may be 10%-15% lower than serum/plasma values. (CLIA ID [id number]) Interpretation and review of laboratory results Abnormal [facility] Work Phone: [phone] Test Performed by [employer], [address] [place] [address] [facility] Work Phone: [phone] [facility] Work Phone: [phone] XR CHEST PORTABLEOrdered By: Avery Colindres on 03-09-2021 Patient Name: FANTASMA WATSON Diagnostic Radiology ACCESSION EXAM DATE/TIME PROCEDURE ORDERING PROVIDER [id number] 03/09/2021 07:51 EDT CR Chest Portable KATERIN COLINDRES MATTHEW R. CPT code 68842 Reason For Exam (CR Chest Portable) Shortness of breath Report PORTABLE CHEST: INDICATION: Shortness of breath COMPARISON: No previous studies are available for comparison. Obtained at 0535 hours. A single portable AP radiograph of the chest was obtained. The heart is normal in size. The mediastinal silhouette is normal. There is pulmonary congestion with bibasal atelectasis. Small bilateral effusions are present. A left basal chest tube is again noted. There is no pleural thickening. Arthritic changes of the spine and shoulders are present. IMPRESSION: Pulmonary congestion with bilateral infiltrates and effusions. No significant interval change. Report Dictated on --- Final --- Dictated: 03/09/2021 5:48 am Dictating Physician: DO NGUYEN ALFRED Signed Date and Time: 03/09/2021 5:50 am Signed by: DO NGUYEN ALFRED Transcribed Date and Time: 03/09/2021 5:48 [facility] Work Phone: [facility] From [facility] - 03/09/2021 7:51 AM EDT Patient Name: FANTASMA COLEY Diagnostic Radiology ACCESSION EXAM DATE/TIME PROCEDURE ORDERING PROVIDER [id number] 03/09/2021 07:51 EDT CR Chest Portable KATERIN COLINDRES MATTHEW R. CPT code 70920 Reason For Exam (CR Chest Portable) Shortness of breath Report PORTABLE CHEST: INDICATION: Shortness of breath COMPARISON: No previous studies are available for comparison. Obtained at 0535 hours. A single portable AP radiograph of the chest was obtained. The heart is normal in size. The mediastinal silhouette is normal. There is pulmonary congestion with bibasal atelectasis. Small bilateral effusions are present. A left basal chest tube is again noted. There is no pleural thickening. Arthritic changes of the spine and shoulders are present. IMPRESSION: Pulmonary congestion with bilateral infiltrates and effusions. No significant interval change. Report Dictated on --- Final --- Dictated: 03/09/2021 5:48 am Dictating Physician: DO NGUYEN ALFRED Signed Date and Time: 03/09/2021 5:50 am Signed by: DO NGUYEN ALFRED Transcribed Date and Time: 03/09/2021 5:48 [facility] Work Phone: [facility] Work Phone: Basic Metabolic Panel 02-20 Anion gap [Moles/Vol] 4 mmol/L Normal 3-13 [facility] Comment on above: Performed By: #### B MP3, MG3, PHOS3, ABG, HEMOG, PT/AP, ICA #### [facility] [address] [place] [address] Calcium [Mass/Vol] 7.9 mg/dL Low 8.4-10.4 [facility] Comment on above: Performed By: #### B MP3, MG3, PHOS3, ABG, HEMOG, PT/AP, ICA #### [facility] [address], [place] CO2 [Moles/Vol] 25 mmol/L Normal 22-30 [facility] Comment on above: Performed By: #### B MP3, MG3, PHOS3, ABG, HEMOG, PT/AP, ICA #### [facility] [address], [place] Glucose [Mass/Vol] 179 mg/dL High 70-100 [facility] Comment on above: Performed By: #### B MP3, MG3, PHOS3, ABG, HEMOG, PT/AP, ICA #### [place] [address], [place] Urea nitrogen [Mass/Vol] 26 mg/dL High 7-17 [facility] Comment on above: Performed By: #### B MP3, MG3, PHOS3, ABG, HEMOG, PT/AP, ICA #### [place] [address], [place] Creatinine [Mass/Vol] 0.79 mg/dL Normal 0.52-1.25 [facility] Comment on above: Performed By: #### B MP3, MG3, PHOS3, ABG, HEMOG, PT/AP, ICA #### [place] [address], [place] eGFR OTHER > 90.0 Normal >60 [facility] Comment on above: Result Comment: KDIG O guidelines provide the following GFR categories: Stage GFR(ml/min/1.73 m2) Terms G1 >=90 Normal or high G2 60-89 Mildly decreased* G3a 45-59 Mildly to moderately decreased G3b 30-44 Moderately to severely decreased G4 15-29 Severely decreased G5 <15 Kidney failure *Relative to young adult level. In the absence of evidence of kidney damage, neither GFR category G1 nor G2 fulfill the criteria for CKD. The CKD-EPI equation is validated in individuals 18 years of age and older. Currently the best equation for estimating glomerular filtration rate (GFR) from serum creatinine in children is the Bedside Doyle equation. It is less accurate in patients with extremes of muscle mass, restriction of dietary protein, ingestion of creatine, extra-renal metabolism of creatinine, or treatment with medications that affect renal tubular creatinine secretion. Performed By: #### B MP3, MG3, PHOS3, ABG, HEMOG, PT/AP, ICA #### [place] [address], [place] GFR/1.73 sq M.predicted among blacks MDRD (S/P/Bld) [Vol rate/Area] mL/min/{1.73_m2} Normal >60 [facility] Comment on above: Performed By: #### B MP3, MG3, PHOS3, ABG, HEMOG, PT/AP, ICA #### [place] [address], [place] Potassium [Moles/Vol] 3.9 mmol/L Normal 3.5-5.1 [facility] Comment on above: Performed By: #### B MP3, MG3, PHOS3, ABG, HEMOG, PT/AP, ICA #### [place] [address], [place] Sodium [Moles/Vol] 136 mmol/L Normal 135-145 [facility] Comment on above: Performed By: #### B MP3, MG3, PHOS3, ABG, HEMOG, PT/AP, ICA #### [place] [address] [place], [place] Chloride [Moles/Vol] 106 mmol/L Normal 98-107 [facility] Comment on above: Performed By: #### B MP3, MG3, PHOS3, ABG, HEMOG, PT/AP, ICA #### [place] [address], [place] Basic Metabolic PanelOrdered By: Jair Lawler on 03-08-2021 Anion gap [Moles/Vol] 4 mmol/L 3 - 13 mmol/L [facility] Work Phone: Calcium [Mass/Vol] 7.9 mg/dL Low 8.4 - 10. 4 mg/dL [facility] Work Phone: Chloride [Moles/Vol] 106 mmol/L 98 - 10 7 mmol/L [facility] Work Phone: [phone] CO2 [Moles/Vol] 25 mmol/L 22 - 30 mmol/L [facility] Work Phone: Creatinine [Mass/Vol] 0.79 mg/dL 0.52 - 1.25 mg/dL [employer] Work Phone: EGFR IF NonAfrican Lao >90.0 >60 mL/min [facility] Work Phone: [phone] Comment on above: KDIGO guidelines pro vide the following GFR categories: Stage GFR(ml/min/1.73 m2) Terms G1 >=90 Normal or high G2 60-89 Mildly decreased* G3a 45-59 Mildly to moderately decreased G3b 30-44 Moderately to severely decreased G4 15-29 Severely decreased G5 <15 Kidney failure *Relative to young adult level. In the absence of evidence of kidney damage, neither GFR category G1 nor G2 fulfill the criteria for CKD. The CKD-EPI equation is validated in individuals 18 years of age and older. Currently the best equation for estimating glomerular filtration rate (GFR) from serum creatinine in children is the Bedside Doyle equation. It is less accurate in patients with extremes of muscle mass, restriction of dietary protein, ingestion of creatine, extra-renal metabolism of creatinine, or treatment with medications that affect renal tubular creatinine secretion. GFR/1.73 sq M.predicted among blacks MDRD (S/P/Bld) [Vol rate/Area] mL/min/{1.73_m2} >60 mL/min [facility] Work Phone: [phone] Glucose [Mass/Vol] 179 mg/dL High 70 - 100 mg/dL [facility] Work Phone: [phone] Interpretation and review of laboratory results Abnormal [employer] Work Phone: [phone] Potassium [Moles/Vol] 3.9 mmol/L 3.5 - 5.1 mmol/L [facility] Work Phone: [phone] Sodium [Moles/Vol] 136 mmol/L 135 - 145 mmol/L [facility] Work Phone: [phone] Urea nitrogen (BldV) [Mass/Vol] 26 mg/dL High 7 - 17 mg/dL [facility] Work Phone: [phone] CBCOrdered By: Jair baum 03-08-2021 Hematocrit (Bld) [Volume fraction] 30.9 % Low 40.0 - 52.0 % [facility] Work Phone: [phone] Hemoglobin.gastrointes tinal spec 1 Ql (Stl) 10.4 g/dL Low 13.0 - 18.0 g/dL [facility] Work Phone: [phone] Interpretation and review of laboratory results Abnormal [facility] Work Phone: ) MCH (RBC) [Entitic mass] 30.9 pg 26.0 - 34.0 pg [facility] Work Phone: () MCHC (RBC) [Mass/Vol] 33.8 % 32.0 - 36.0 % [facility] Work Phone: MCV (RBC) [Entitic vol] 91.5 fL 80.0 - 98.0 fL [facility] Work Phone: ) Platelet distribution width (Bld) [Ratio] 12.7 % 11.5 - 14.5 % [facility] Work Phone: () Platelet mean volume (Bld) [Entitic vol] 7.5 fL 7.4 - 10.4 fL [facility] Work Phone: () [phone] Platelets (Bld) [#/Vol] 139 10*3/uL Low 140 - 440 10*3/uL [facility] Work Phone: () 222 RBC (Bld) [#/Vol] 3.38 10*6/uL Low 4.40 - 5.9 0 10*6/uL [facility] Work Phone: ) [phone] WBC (Bld) [#/Vol] 8.8 10*3/uL 3.6 - 10.7 10*3/uL [facility] Work Phone: ) Test Performed by [facility], [address] [place] [address] [facility] Work Phone: () [facility] Work Phone: [phone] CR Chest Portableon 03-08-20 21 CR Chest Portable Patient Name: FANTASMA WATSON Diagnostic Radiology ACCESSION EXAM DATE/TIME PROCEDURE ORDERING PROVIDER [id number] 03/08/2021 06:27 EDT CR Chest Portable RUTH GLASGOW, OLGA Ochoa CPT code 56684 Reason For Exam (CR Chest Portable) shortness of breath Report Indication: Shortness of breath. A frontal view of the chest timed 05 is compared to the study dated 03/07/2021. The patient is mildly rotated. Again identified are sternotomy wires, a right-sided central sternotomy wires and mediastinal vascular clips. A right-sided central line, mediastinal drains and left-sided chest tube remain in place. No sizable pneumothorax is seen. The heart is unchanged in size. The mediastinum is unchanged in appearance. There is no pulmonary vascular congestion. There are streaky bibasilar atelectatic changes, more prominent on the left. There may be tiny bilateral pleural effusions well. These findings are similar to the prior study. Report Dictated on Final Dictated: 03/08/2021 7:29 am Dictating Physician: DO CABRAL ANTHONY Signed Date and Time: 03/08/2021 7:30 am Signed by: DO CABRAL ANTHONY Transcribed Date and Time: 03/08/2021 7:29 Normal [facility] Calcium, IonizedOrdered By: Tricia Grubbs on 03-08-2021 Interpretation and review of laboratory results Abnormal [facility] Work Phone: Ionized Ca 4.20 mg/dL Low 4.30 - 5.20 mg/dL [facility] Work Phone: pH (Bld) 7.43 [pH] [facility] Work Phone: Test Performed by [facility], [address] [place] [address] [facility] Work Phone: [facility] Work Phone: Calcium,Ionizedon 03-08-2021 Ionized Ca,Measured 4.20 mg/dL Low 4.30-5.20 [facility] Comment on above: Performed By: #### B MP3, MG3, PHOS3, ABG, HEMOG, PT/AP, ICA #### [address] [place], [place] pH, Ionized Calcium 7.43 Normal 7.31-7.46 [facility] Comment on above: Performed By: #### B MP3, MG3, PHOS3, ABG, HEMOG, PT/AP, ICA #### [place] [address] [place] [address] Glucose,Bedsideon 03-08-2021 Glucose [Mass/Vol] 223 mg/dL High 70-100 [facility] Comment on above: Result Comment: Test performed by glucose meter. Results may be 10%-15% lower than serum/plasma values. (CLIA ID [id number]) Performed By: #### C UA2 #### [place] [address], [place] Glucose [Mass/Vol] 191 mg/dL High 70-100 [facility] Comment on above: Result Comment: Test performed by glucose meter. Results may be 10%-15% lower than serum/plasma values. (CLIA ID [id number]) Performed By: #### B MP3, MG3, PHOS3, ABG, HEMOG, PT/AP, ICA #### [place] [address], [place] Glucose [Mass/Vol] 186 mg/dL High 70-100 [facility] Comment on above: Result Comment: Test performed by glucose meter. Results may be 10%-15% lower than serum/plasma values. (CLIA ID [id number]) Performed By: #### B MP3, MG3, PHOS3, ABG, HEMOG, PT/AP, ICA #### [place] [address], [place] Glucose [Mass/Vol] 221 mg/dL High 70-100 [facility] Comment on above: Result Comment: Test performed by glucose meter. Results may be 10%-15% lower than serum/plasma values. (CLIA ID [id number]) Performed By: #### B MP3, MG3, PHOS3, ABG, HEMOG, PT/AP, ICA #### [place] [address], [place] Glucose [Mass/Vol] 191 mg/dL High 70-100 [facility] Comment on above: Result Comment: Test performed by glucose meter. Results may be 10%-15% lower than serum/plasma values. (CLIA ID [id number]) Performed By: #### B MP3, MG3, PHOS3, ABG, HEMOG, PT/AP, ICA #### [place] [address] [address], [place] Hemogramon 03-08-2021 Erythrocyte distribution width (RBC) [Ratio] 12.7 % Normal 11.5-14.5 [facility] Comment on above: Performed By: #### B MP3, MG3, PHOS3, ABG, HEMOG, PT/AP, ICA #### [place] [address], [place] Hematocrit (Bld) [Volume fraction] 30.9 % Low 40.0-52.0 [facility] Comment on above: Performed By: #### B MP3, MG3, PHOS3, ABG, HEMOG, PT/AP, ICA #### [place] [address], [place] Hemoglobin (Bld) [Mass/Vol] 10.4 g/dL Low 13.0-18.0 [facility] Comment on above: Performed By: #### B MP3, MG3, PHOS3, ABG, HEMOG, PT/AP, ICA #### [place] [address], [place] MCH (RBC) [Entitic mass] 30.9 pg Normal 26.0-34.0 [facility] Comment on above: Performed By: #### B MP3, MG3, PHOS3, ABG, HEMOG, PT/AP, ICA #### [place] [address] [place], [place] MCHC 33.8 % Normal 32.0-36.0 [facility] Comment on above: Performed By: #### B MP3, MG3, PHOS3, ABG, HEMOG, PT/AP, ICA #### [place] [address], [place] MCV (RBC) [Entitic vol] 91.5 fL Normal 80.0-98.0 [facility] Comment on above: Performed By: #### B MP3, MG3, PHOS3, ABG, HEMOG, PT/AP, ICA #### [place] [address] [place], [place] Platelet mean volume (Bld) [Entitic vol] 7.5 fL Normal 7.4-10.4 [facility] Comment on above: Performed By: #### B MP3, MG3, PHOS3, ABG, HEMOG, PT/AP, ICA #### [address] Platelets (Bld) [#/Vol] 139 10*3/uL Low 140-440 [facility] Comment on above: Performed By: #### B MP3, MG3, PHOS3, ABG, HEMOG, PT/AP, ICA #### [place] [address], [place] RBC (Bld) [#/Vol] 3.38 10*6/uL Low 4.40-5.90 [facility] Comment on above: Performed By: #### B MP3, MG3, PHOS3, ABG, HEMOG, PT/AP, ICA #### [place] [address] [place], [place] WBC (Bld) [#/Vol] 8.8 10*3/uL Normal 3.6-10.7 [facility] Comment on above: Performed By: #### B MP3, MG3, PHOS3, ABG, HEMOG, PT/AP, ICA #### [address] Magnesiumon 03-08-2021 Magnesium [Mass/Vol] 1.9 mg/dL Normal 1.6-2.3 [facility] Comment on above: Performed By: #### B MP3, MG3, PHOS3, ABG, HEMOG, PT/AP, ICA #### [address] [address] MagnesiumOrdered By: Jair morfin on 03-08-2021 Magnesium [Mass/Vol] 1.9 mg/dL 1.6 - 2 .3 mg/dL [facility] Work Phone: [phone] No Panel InformationOrdered By: Jair Lawler on 03-08-2021 Test Performed by [employer], [address] [place] [address] [facility] Work Phone: [phone] [facility] Work Phone: [phone] POCT GlucoseOrdered By: Alexandria Lawler on 03-08-2021 Glucose [Mass/Vol] 223 mg/dL High 70 - 100 mg/dL [facility] Work Phone: [phone] Comment on above: Test performed by gl ucose meter. Results may be 10%-15% lower than serum/plasma values. (CLIA ID [id number]) Interpretation and review of laboratory results Abnormal [facility] Work Phone: [phone] Test Performed by [facility] [employer], [address] [place] [address] [facility] Work Phone: [phone] [facility] Work Phone: [phone] Glucose [Mass/Vol] 191 mg/dL High 70 - 100 mg/dL [facility] Work Phone: [phone] Comment on above: Test performed by gl ucose meter. Results may be 10%-15% lower than serum/plasma values. (CLIA ID [id number]) Interpretation and review of laboratory results Abnormal [facility] Work Phone: [phone] Test Performed by [facility] [employer], [address] [place] [address] [facility] Work Phone: [phone] [facility] Work Phone: [phone] Glucose [Mass/Vol] 186 mg/dL High 70 - 100 mg/dL [facility] Work Phone: [phone] Comment on above: Test performed by gl ucose meter. Results may be 10%-15% lower than serum/plasma values. (CLIA ID [id number]) Interpretation and review of laboratory results Abnormal [facility] Work Phone: [phone] Test Performed by [employer], [facility] [place] [address] [facility] Work Phone: [phone] [facility] Work Phone: [phone] Glucose [Mass/Vol] 221 mg/dL High 70 - 100 mg/dL [facility] Work Phone: [phone] Comment on above: Test performed by gl ucose meter. Results may be 10%-15% lower than serum/plasma values. (CLIA ID [id number]) Interpretation and review of laboratory results Abnormal [facility] Work Phone: [phone] Test Performed by [employer], [facility] [place] [address] [facility] Work Phone: [phone] [facility] Work Phone: [phone] Glucose [Mass/Vol] 191 mg/dL High 70 - 100 mg/dL [facility] Work Phone: [phone] Comment on above: Test performed by gl ucose meter. Results may be 10%-15% lower than serum/plasma values. (CLIA ID [id number]) Interpretation and review of laboratory results Abnormal [facility] Work Phone: [phone] Test Performed by [employer], [facility] [place] [address] [facility] Work Phone: [phone] [facility] Work Phone: [phone] XR CHEST PORTABLEOrdered By: Olga Glasgow on 03-08-2021 Patient Name: FANTASMA WATSON Diagnostic Radiology ACCESSION EXAM DATE/TIME PROCEDURE ORDERING PROVIDER [id number] 03/08/2021 06:27 EDT CR Chest Portable RUTH GLASGOW ANDREW G CPT code 87653 Reason For Exam (CR Chest Portable) shortness of breath Report Indication: Shortness of breath. A frontal view of the chest timed 0512 is compared to the study dated 03/07/2021. The patient is mildly rotated. Again identified are sternotomy wires, a right-sided central sternotomy wires and mediastinal vascular clips. A right-sided central line, mediastinal drains and left-sided chest tube remain in place. No sizable pneumothorax is seen. The heart is unchanged in size. The mediastinum is unchanged in appearance. There is no pulmonary vascular congestion. There are streaky bibasilar atelectatic changes, more prominent on the left. There may be tiny bilateral pleural effusions well. These findings are similar to the prior study. Report Dictated on --- Final --- Dictated: 03/08/2021 7:29 am Dictating Physician: DO CABRAL ANTHONY Signed Date and Time: 03/08/2021 7:30 am Signed by: DO CABRAL ANTHONY Transcribed Date and Time: 03/08/2021 7:29 [facility] Work Phone: Jw, [facility] Incoming Rad[facility] Results From [facility] - 03/08/2021 7:31 AM EDT Patient Name: FANTASMA COLEY Diagnostic Radiology ACCESSION EXAM DATE/TIME PROCEDURE ORDERING PROVIDER [id number] 03/08/2021 06:27 EDT CR Chest Portable RUTH GLASGOW, OLGA Ochoa CPT code 28635 Reason For Exam (CR Chest Portable) shortness of breath Report Indication: Shortness of breath. A frontal view of the chest timed 0512 is compared to the study dated 03/07/2021. The patient is mildly rotated. Again identified are sternotomy wires, a right-sided central sternotomy wires and mediastinal vascular clips. A right-sided central line, mediastinal drains and left-sided chest tube remain in place. No sizable pneumothorax is seen. The heart is unchanged in size. The mediastinum is unchanged in appearance. There is no pulmonary vascular congestion. There are streaky bibasilar atelectatic changes, more prominent on the left. There may be tiny bilateral pleural effusions well. These findings are similar to the prior study. Report Dictated on --- Final --- Dictated: 03/08/2021 7:29 am Dictating Physician: DO CABRAL ANTHONY Signed Date and Time: 03/08/2021 7:30 am Signed by: DO CABRAL ANTHONY Transcribed Date and Time: 03/08/2021 7:29 [facility] Work Phone: [facility] Work Phone: Basic Metabolic PanelOrdered By: Jair Lawler on 03-07-2021 Anion gap [Moles/Vol] 5 mmol/L Normal 3-13 [facility] Work Phone: Comment on above: Performed By: #### B GLU #### [employer] [address] [place] [address] Calcium [Mass/Vol] 7.7 mg/dL Low 8.4-10.4 [facility] Work Phone: Comment on above: Performed By: #### B GLU #### [place] [address] CO2 [Moles/Vol] 25 mmol/L Normal 22-30 [facility] Work Phone: Comment on above: Performed By: #### B GLU #### [place] [address] GFR/1.73 sq M.predicted among blacks MDRD (S/P/Bld) [Vol rate/Area] mL/min/{1.73_m2} Normal >60 [facility] Work Phone: Comment on above: Performed By: #### B GLU #### [address] [place] [address] Chloride [Moles/Vol] 107 mmol/L Normal 98-107 [facility] Work Phone: Comment on above: Performed By: #### B GLU #### [address] [address] [place] [address] Potassium [Moles/Vol] 3.6 mmol/L Normal 3.5-5.1 [facility] Work Phone: Comment on above: Performed By: #### B GLU #### [place] [address] Sodium [Moles/Vol] 137 mmol/L Normal 135-145 [facility] Work Phone: Comment on above: Performed By: #### B GLU #### [facility] [employer] [facility] [address] [place] [address] Creatinine [Mass/Vol] 0.8 mg/dL 0.52 - 1.25 mg/dL [facility] Work Phone: EGFR IF NonAfrican Lao >90.0 >60 mL/min [facility] Work Phone: Comment on above: KDIGO guidelines pro vide the following GFR categories: Stage GFR(ml/min/1.73 m2) Terms G1 >=90 Normal or high G2 60-89 Mildly decreased* G3a 45-59 Mildly to moderately decreased G3b 30-44 Moderately to severely decreased G4 15-29 Severely decreased G5 <15 Kidney failure *Relative to young adult level. In the absence of evidence of kidney damage, neither GFR category G1 nor G2 fulfill the criteria for CKD. The CKD-EPI equation is validated in individuals 18 years of age and older. Currently the best equation for estimating glomerular filtration rate (GFR) from serum creatinine in children is the Bedside Doyle equation. It is less accurate in patients with extremes of muscle mass, restriction of dietary protein, ingestion of creatine, extra-renal metabolism of creatinine, or treatment with medications that affect renal tubular creatinine secretion. Urea nitrogen (BldV) [Mass/Vol] 29 mg/dL High 7 - 17 mg/dL [facility] Work Phone: Basic Metabolic Panelon 02-20 Glucose [Mass/Vol] 73 mg/dL Normal 70-100 [facility] Comment on above: Performed By: #### B GLU #### [facility] [employer] [facility] [address] [place], [place] Urea nitrogen [Mass/Vol] 29 mg/dL High 7-17 [facility] Comment on above: Performed By: #### B GLU #### [facility] [address] [place], [place] Creatinine [Mass/Vol] 0.80 mg/dL Normal 0.52-1.25 [facility] Comment on above: Performed By: #### B GLU #### [facility] [address] [place], [place] eGFR OTHER > 90.0 Normal >60 [facility] Comment on above: Result Comment: KDIG O guidelines provide the following GFR categories: Stage GFR(ml/min/1.73 m2) Terms G1 >=90 Normal or high G2 60-89 Mildly decreased* G3a 45-59 Mildly to moderately decreased G3b 30-44 Moderately to severely decreased G4 15-29 Severely decreased G5 <15 Kidney failure *Relative to young adult level. In the absence of evidence of kidney damage, neither GFR category G1 nor G2 fulfill the criteria for CKD. The CKD-EPI equation is validated in individuals 18 years of age and older. Currently the best equation for estimating glomerular filtration rate (GFR) from serum creatinine in children is the Bedside Doyle equation. It is less accurate in patients with extremes of muscle mass, restriction of dietary protein, ingestion of creatine, extra-renal metabolism of creatinine, or treatment with medications that affect renal tubular creatinine secretion. Performed By: #### B GLU #### [employer] [address] [place] [phone] CBCOrdered By: Jair baum 03-07-2021 Hematocrit (Bld) [Volume fraction] 30.7 % Low 40.0 - 52.0 % [facility] Work Phone: Hemoglobin.gastrointes tinal spec 1 Ql (Stl) 10.3 g/dL Low 13.0 - 18.0 g/dL [facility] Phone: [phone] Interpretation and review of laboratory results Abnormal [facility] Phone: [phone] MCH (RBC) [Entitic mass] 30.0 pg 26.0 - 34.0 pg [facility] Work Phone: MCHC (RBC) [Mass/Vol] 33.5 % 32.0 - 36.0 % [facility] Phone: [phone] MCV (RBC) [Entitic vol] 89.7 fL 80.0 - 98.0 fL [facility] Phone: Platelet distribution width (Bld) [Ratio] 12.8 % 11.5 - 14.5 % [facility] Phone: Platelet mean volume (Bld) [Entitic vol] 7.8 fL 7.4 - 10.4 fL [facility] Phone: Platelets (Bld) [#/Vol] 115 10*3/uL Low 140 - 440 10*3/uL [facility] Work Phone: RBC (Bld) [#/Vol] 3.42 10*6/uL Low 4.40 - 5.9 0 10*6/uL [facility] Work Phone: WBC (Bld) [#/Vol] 10.6 10*3/uL 3.6 - 10.7 10*3/uL [facility] Work Phone: Test Performed by [facility], [address] [place] [address] [facility] Work Phone: [phone] [facility] Work Phone: [phone] CR Chest Portableon 03-07-20 21 CR Chest Portable Patient Name: FANTASMA WATSON Diagnostic Radiology ACCESSION EXAM DATE/TIME PROCEDURE ORDERING PROVIDER [id number] 03/07/2021 06:00 EDT CR Chest Portable KATERIN COLINDRES MATTHEW R. CPT code 83988 Reason For Exam (CR Chest Portable) Shortness of breath Report Indication: Shortness of breath. A frontal view of the chest timed 0514 is compared to the study dated 03/06/2021. Again identified are sternotomy wires and mediastinal vascular clips. There is a mediastinal drain, right-sided central line and left-sided chest tube which remain in place. No sizable pneumothorax is seen. The heart is unchanged in size. The mediastinum is unchanged in appearance. There is no gross pulmonary vascular congestion. There are mild bibasilar atelectatic changes. There may be tiny bilateral pleural effusions as well. There has been no significant change. Report Dictated on Final Dictated: 03/07/2021 7:48 am Dictating Physician: DO CABRAL ANTHONY Signed Date and Time: 03/07/2021 7:49 am Signed by: DO CABRAL ANTHONY Transcribed Date and Time: 03/07/2021 7:48 Normal [facility] Calcium, IonizedOrdered By: Jair Lawler on 03-07-2021 Ionized Ca 4.30 mg/dL 4.30 - 5.20 mg/dL [facility] Work Phone: pH (Bld) 7.38 [pH] [facility] Work Phone: Test Performed by [facility], [address] [place] [address] [facility] Work Phone: [facility] Work Phone: Calcium,Ionizedon 03-07-2021 Ionized Ca,Measured 4.30 mg/dL Normal 4.30-5.20 [facility] Comment on above: Performed By: #### B MP3, MG3, PHOS3, ABG, HEMOG, PT/AP, ICA #### [address] [address] pH, Ionized Calcium 7.38 Normal 7.31-7.46 [facility] Comment on above: Performed By: #### B MP3, MG3, PHOS3, ABG, HEMOG, PT/AP, ICA #### [address] [address] Glucose,Bedsideon 03-07-2021 Glucose [Mass/Vol] 289 mg/dL High 70-100 [facility] Comment on above: Result Comment: Test performed by glucose meter. Results may be 10%-15% lower than serum/plasma values. (CLIA ID [id number]) Performed By: #### B MP3, MG3, PHOS3, ABG, HEMOG, PT/AP, ICA #### [address] [address] [place] [address] Glucose [Mass/Vol] 121 mg/dL High 70-100 [facility] Comment on above: Result Comment: Test performed by glucose meter. Results may be 10%-15% lower than serum/plasma values. (CLIA ID [id number]) Performed By: #### B MP3, MG3, PHOS3, ABG, HEMOG, PT/AP, ICA #### [address] [address] [place] [address] Glucose [Mass/Vol] 101 mg/dL High 70-100 [facility] Comment on above: Result Comment: Test performed by glucose meter. Results may be 10%-15% lower than serum/plasma values. (CLIA ID [id number]) Performed By: #### B MP3, MG3, PHOS3, ABG, HEMOG, PT/AP, ICA #### [facility] [address] [place] [address] Glucose [Mass/Vol] 115 mg/dL High [address] [place] [address] Comment on above: Result Comment: Test performed by glucose meter. Results may be 10%-15% lower than serum/plasma values. (CLIA ID [id number]) Performed By: #### B MP3, MG3, PHOS3, ABG, HEMOG, PT/AP, ICA #### [address] [place] [address] Glucose [Mass/Vol] 128 mg/dL High [address] [place] [address] Comment on above: Result Comment: Test performed by glucose meter. Results may be 10%-15% lower than serum/plasma values. (CLIA ID [id number]) Performed By: #### B MP3, MG3, PHOS3, ABG, HEMOG, PT/AP, ICA #### [address] [place] [address] Glucose [Mass/Vol] 115 mg/dL High [address] [place] [address] Comment on above: Result Comment: Test performed by glucose meter. Results may be 10%-15% lower than serum/plasma values. (CLIA ID [id number]) Performed By: #### B MP3, MG3, PHOS3, ABG, HEMOG, PT/AP, ICA #### [facility] [employer] [address] [place] [address] Glucose [Mass/Vol] 163 mg/dL High [address] [place] [address] Comment on above: Result Comment: Test performed by glucose meter. Results may be 10%-15% lower than serum/plasma values. (CLIA ID [id number]) Performed By: #### B MP3, MG3, PHOS3, ABG, HEMOG, PT/AP, ICA #### [facility] [address] [place] [address] Glucose [Mass/Vol] 188 mg/dL High 70-100 [facility] Comment on above: Result Comment: Test performed by glucose meter. Results may be 10%-15% lower than serum/plasma values. (CLIA ID [id number]) Performed By: #### B MP3, MG3, PHOS3, ABG, HEMOG, PT/AP, ICA #### [facility] [address] [place] [address] Glucose [Mass/Vol] 151 mg/dL High 70-100 [facility] Comment on above: Result Comment: Test performed by glucose meter. Results may be 10%-15% lower than serum/plasma values. (CLIA ID [id number]) Performed By: #### B MP3, MG3, PHOS3, ABG, HEMOG, PT/AP, ICA #### [address] [place] [address] Glucose [Mass/Vol] 112 mg/dL High 70-100 [facility] Comment on above: Result Comment: Test performed by glucose meter. Results may be 10%-15% lower than serum/plasma values. (CLIA ID [id number]) Performed By: #### B MP3, MG3, PHOS3, ABG, HEMOG, PT/AP, ICA #### [facility] [address] [place] [address] Glucose [Mass/Vol] 88 mg/dL Normal 70-100 [facility] Comment on above: Result Comment: Test performed by glucose meter. Results may be 10%-15% lower than serum/plasma values. (CLIA ID [id number]) Performed By: #### B MP3, MG3, PHOS3, ABG, HEMOG, PT/AP, ICA #### [facility] [address] [place] [address] Glucose [Mass/Vol] 73 mg/dL Normal 70-100 [facility] Comment on above: Result Comment: Test performed by glucose meter. Results may be 10%-15% lower than serum/plasma values. (CLIA ID [id number]) Performed By: #### B MP3, MG3, PHOS3, ABG, HEMOG, PT/AP, ICA #### [facility] [address] [place] [address] Glucose [Mass/Vol] 85 mg/dL Normal 70-100 [facility] Comment on above: Result Comment: Test performed by glucose meter. Results may be 10%-15% lower than serum/plasma values. (CLIA ID [id number]) Performed By: #### B MP3, MG3, PHOS3, ABG, HEMOG, PT/AP, ICA #### [facility] [address] [place] [address] Glucose [Mass/Vol] 86 mg/dL Normal 70-100 [facility] Comment on above: Result Comment: Test performed by glucose meter. Results may be 10%-15% lower than serum/plasma values. (CLIA ID [id number]) Performed By: #### B MP3, MG3, PHOS3, ABG, HEMOG, PT/AP, ICA #### [facility] [address] [place] [address] Glucose [Mass/Vol] 82 mg/dL Normal 70-100 [facility] Comment on above: Result Comment: Test performed by glucose meter. Results may be 10%-15% lower than serum/plasma values. (CLIA ID [id number]) Performed By: #### B MP3, MG3, PHOS3, ABG, HEMOG, PT/AP, ICA #### [address] [place] [address] Glucose,BedsideOrdered By: Mohamud Lawler on 03-07-2021 Glucose [Mass/Vol] 87 mg/dL Normal 70-100 [facility] Work Phone: Comment on above: Test performed by gl ucose meter. Results may be 10%-15% lower than serum/plasma values. (CLIA ID [id number]) Result Comment: Test performed by glucose meter. Results may be 10%-15% lower than serum/plasma values. (CLIA ID [id number]) Performed By: #### B GLU #### [facility] [employer] [address] [place], [place] Glucose [Mass/Vol] 86 mg/dL Normal 70-100 [facility] Work Phone: Comment on above: Test performed by gl ucose meter. Results may be 10%-15% lower than serum/plasma values. (CLIA ID [id number]) Result Comment: Test performed by glucose meter. Results may be 10%-15% lower than serum/plasma values. (CLIA ID [id number]) Performed By: #### B MP3, MG3, PHOS3, ABG, HEMOG, PT/AP, ICA #### [address] [place], [place] Hemogramon 03-07-2021 Erythrocyte distribution width (RBC) [Ratio] 12.8 % Normal 11.5-14.5 [facility] Comment on above: Performed By: #### B GLU #### [address] [place], [place] Hematocrit (Bld) [Volume fraction] 30.7 % Low 40.0-52.0 [facility] Comment on above: Performed By: #### B GLU #### [address] [place], [place] Hemoglobin (Bld) [Mass/Vol] 10.3 g/dL Low 13.0-18.0 [facility] Comment on above: Performed By: #### B GLU #### [address] [place], [place] MCH (RBC) [Entitic mass] 30.0 pg Normal 26.0-34.0 [facility] Comment on above: Performed By: #### B GLU #### [facility] [employer] [address] [address] [place], [place] MCHC 33.5 % Normal 32.0-36.0 [facility] Comment on above: Performed By: #### B GLU #### [address] [address] [place], [place] MCV (RBC) [Entitic vol] 89.7 fL Normal 80.0-98.0 [facility] Comment on above: Performed By: #### B GLU #### [facility] [address] [place], [place] Platelet mean volume (Bld) [Entitic vol] 7.8 fL Normal 7.4-10.4 [facility] Comment on above: Performed By: #### B GLU #### [facility] [address] [place], [place] Platelets (Bld) [#/Vol] 115 10*3/uL Low 140-440 [facility] Comment on above: Performed By: #### B GLU #### [facility] [address] [place], [place] RBC (Bld) [#/Vol] 3.42 10*6/uL Low 4.40-5.90 [facility] Comment on above: Performed By: #### B GLU #### [address] [place], [place] WBC (Bld) [#/Vol] 10.6 10*3/uL Normal 3.6-10.7 [facility] Comment on above: Performed By: #### B GLU #### [facility] [address] [place], [place] Laboratory - Chemistry and C hemistry - challengeOrdered By: Jair Lawler on 03-07-2021 Glucose [Mass/Vol] 73 mg/dL 70 - 100 mg/dL [facility] Work Phone: Comment on above: Test performed by gl ucose meter. Results may be 10%-15% lower than serum/plasma values. (CLIA ID [id number]) MagnesiumOrdered By: Jair morfin on 03-07-2021 Magnesium [Mass/Vol] 2.0 mg/dL Normal 1.6-2.3 [facility] Work Phone: Comment on above: Performed By: #### B GLU #### [facility] [address] [place], [place] No Panel InformationOrdered By: Jair Lawler on 03-07-2021 Interpretation and review of laboratory results Abnormal [facility] Work Phone: Test Performed by [employer], [facility] [place] [address] [facility] Work Phone: [phone] [facility] Work Phone: [phone] POCT GlucoseOrdered By: Alexandria Lawler on 03-07-2021 Glucose [Mass/Vol] 289 mg/dL High 70 - 100 mg/dL [facility] Work Phone: [phone] Comment on above: Test performed by gl ucose meter. Results may be 10%-15% lower than serum/plasma values. (CLIA ID [id number]) Interpretation and review of laboratory results Abnormal [facility] Work Phone: [phone] Test Performed by [employer], [facility] [place] [address] [facility] Work Phone: [phone] [facility] Work Phone: [phone] Glucose [Mass/Vol] 121 mg/dL High 70 - 100 mg/dL [facility] Work Phone: [phone] Comment on above: Test performed by gl ucose meter. Results may be 10%-15% lower than serum/plasma values. (CLIA ID [id number]) Interpretation and review of laboratory results Abnormal [facility] Work Phone: [phone] Test Performed by [employer], [facility] [place] [address] [facility] Work Phone: [phone] [facility] Work Phone: [phone] Glucose [Mass/Vol] 101 mg/dL High 70 - 100 mg/dL [facility] Work Phone: [phone] Comment on above: Test performed by gl ucose meter. Results may be 10%-15% lower than serum/plasma values. (CLIA ID [id number]) Interpretation and review of laboratory results Abnormal [facility] Work Phone: [phone] Test Performed by [employer], [facility] [place] [address] [facility] Work Phone: [phone] [facility] Work Phone: [phone] Glucose [Mass/Vol] 115 mg/dL High 70 - 100 mg/dL [facility] Work Phone: [phone] Comment on above: Test performed by gl ucose meter. Results may be 10%-15% lower than serum/plasma values. (CLIA ID [id number]) Interpretation and review of laboratory results Abnormal [facility] Work Phone: [phone] Test Performed by [employer], [facility] [place] [address] [facility] Work Phone: [phone] [facility] Work Phone: [phone] Glucose [Mass/Vol] 128 mg/dL High 70 - 100 mg/dL [facility] Work Phone: [phone] Comment on above: Test performed by gl ucose meter. Results may be 10%-15% lower than serum/plasma values. (CLIA ID [id number]) Interpretation and review of laboratory results Abnormal [facility] Work Phone: [phone] Test Performed by [employer], [facility] [place] [address] [facility] Work Phone: [phone] [facility] Work Phone: [phone] Glucose [Mass/Vol] 115 mg/dL High 70 - 100 mg/dL [facility] Work Phone: [phone] Comment on above: Test performed by gl ucose meter. Results may be 10%-15% lower than serum/plasma values. (CLIA ID [id number]) Interpretation and review of laboratory results Abnormal [facility] Work Phone: [phone] Test Performed by [employer], [facility] [place] [address] [facility] Work Phone: [phone] [facility] Work Phone: [phone] Glucose [Mass/Vol] 163 mg/dL High 70 - 100 mg/dL [facility] Work Phone: [phone] Comment on above: Test performed by gl ucose meter. Results may be 10%-15% lower than serum/plasma values. (CLIA ID [id number]) Interpretation and review of laboratory results Abnormal [facility] Work Phone: [phone] Test Performed by [employer], [facility] [place] [address] [facility] Work Phone: [phone] [facility] Work Phone: [phone] Glucose [Mass/Vol] 188 mg/dL High 70 - 100 mg/dL [facility] Work Phone: [phone] Comment on above: Test performed by gl ucose meter. Results may be 10%-15% lower than serum/plasma values. (CLIA ID [id number]) Interpretation and review of laboratory results Abnormal [facility] Work Phone: [phone] Test Performed by [employer], [facility] [place] [address] [facility] Work Phone: [phone] [facility] Work Phone: [phone] Glucose [Mass/Vol] 151 mg/dL High 70 - 100 mg/dL [facility] Work Phone: [phone] Comment on above: Test performed by gl ucose meter. Results may be 10%-15% lower than serum/plasma values. (CLIA ID [id number]) Interpretation and review of laboratory results Abnormal [facility] Work Phone: [phone] Test Performed by [employer], [facility] [place] [address] [facility] Work Phone: [phone] [facility] Work Phone: [phone] Glucose [Mass/Vol] 112 mg/dL High 70 - 100 mg/dL [facility] Work Phone: [phone] Comment on above: Test performed by gl ucose meter. Results may be 10%-15% lower than serum/plasma values. (CLIA ID [id number]) Test Performed by [employer], [place] [address] [facility] Work Phone: [phone] [facility] Work Phone: [phone] Glucose [Mass/Vol] 88 mg/dL 70 - 100 mg/dL [facility] Work Phone: [phone] Comment on above: Test performed by gl ucose meter. Results may be 10%-15% lower than serum/plasma values. (CLIA ID [id number]) Test Performed by [employer], [facility] [place] [address] [facility] Work Phone: [phone] [facility] Work Phone: [phone] Glucose [Mass/Vol] 85 mg/dL 70 - 100 mg/dL [facility] Work Phone: [phone] Comment on above: Test performed by gl ucose meter. Results may be 10%-15% lower than serum/plasma values. (CLIA ID [id number]) Test Performed by [employer] [facility], [address] [place] [address] [facility] Work Phone: [phone] [facility] Work Phone: [phone] Test Performed by [place] [facility], [address] [place] [address] [facility] Work Phone: [phone] [facility] Work Phone: [phone] Glucose [Mass/Vol] 86 mg/dL 70 - 100 mg/dL [facility] Work Phone: [phone] Comment on above: Test performed by gl ucose meter. Results may be 10%-15% lower than serum/plasma values. (CLIA ID [id number]) Test Performed by [employer] [facility], [address] [place] [address] [facility] Work Phone: [phone] [facility] Work Phone: [phone] XR CHEST PORTABLEOrdered By: Avery Colindres on 03-07-2021 Patient Name: FANTASMA WATSON Diagnostic Radiology ACCESSION EXAM DATE/TIME PROCEDURE ORDERING PROVIDER [id number] 03/07/2021 06:00 EDT CR Chest Portable KATERIN COLINDRES MATTHEW R. CPT code 20975 Reason For Exam (CR Chest Portable) Shortness of breath Report Indication: Shortness of breath. A frontal view of the chest timed 0514 is compared to the study dated 03/06/2021. Again identified are sternotomy wires and mediastinal vascular clips. There is a mediastinal drain, right-sided central line and left-sided chest tube which remain in place. No sizable pneumothorax is seen. The heart is unchanged in size. The mediastinum is unchanged in appearance. There is no gross pulmonary vascular congestion. There are mild bibasilar atelectatic changes. There may be tiny bilateral pleural effusions as well. There has been no significant change. Report Dictated on --- Final --- Dictated: 03/07/2021 7:48 am Dictating Physician: DO CABRAL ANTHONY Signed Date and Time: 03/07/2021 7:49 am Signed by: DO CABRAL ANTHONY Transcribed Date and Time: 03/07/2021 7:48 [facility] Work Phone[facility] From [facility] - 03/07/2021 7:50 AM EDT Patient Name: FANTASMA COLEY Diagnostic Radiology ACCESSION EXAM DATE/TIME PROCEDURE ORDERING PROVIDER [id number] 03/07/2021 06:00 EDT CR Chest Portable KATERIN COLINDRES MATTHEW R. CPT code 09049 Reason For Exam (CR Chest Portable) Shortness of breath Report Indication: Shortness of breath. A frontal view of the chest timed 0514 is compared to the study dated 03/06/2021. Again identified are sternotomy wires and mediastinal vascular clips. There is a mediastinal drain, right-sided central line and left-sided chest tube which remain in place. No sizable pneumothorax is seen. The heart is unchanged in size. The mediastinum is unchanged in appearance. There is no gross pulmonary vascular congestion. There are mild bibasilar atelectatic changes. There may be tiny bilateral pleural effusions as well. There has been no significant change. Report Dictated on --- Final --- Dictated: 03/07/2021 7:48 am Dictating Physician: DO CABRAL ANTHONY Signed Date and Time: 03/07/2021 7:49 am Signed by: DO CABRAL ANTHONY Transcribed Date and Time: 03/07/2021 7:48 [facility] Work Phone: [facility] Work Phone: Basic Metabolic Panelon 02-20 Calcium [Mass/Vol] 7.8 mg/dL Low 8.4-10.4 [facility] Comment on above: Performed By: #### B MP3, MG3, PHOS3, ABG, HEMOG, PT/AP, ICA #### [address] [place], [place] Glucose [Mass/Vol] 89 mg/dL Normal 70-100 [facility] Comment on above: Performed By: #### B MP3, MG3, PHOS3, ABG, HEMOG, PT/AP, ICA #### [address] [place], [place] Urea nitrogen [Mass/Vol] 20 mg/dL High 7-17 [facility] Comment on above: Performed By: #### B MP3, MG3, PHOS3, ABG, HEMOG, PT/AP, ICA #### [address] [place], [place] Anion gap [Moles/Vol] 7 mmol/L Normal 3-13 [facility] Comment on above: Performed By: #### B MP3, MG3, PHOS3, ABG, HEMOG, PT/AP, ICA #### [address], [place] CO2 [Moles/Vol] 23 mmol/L Normal 22-30 [facility] Comment on above: Performed By: #### B MP3, MG3, PHOS3, ABG, HEMOG, PT/AP, ICA #### [address], [place] Creatinine [Mass/Vol] 0.69 mg/dL Normal 0.52-1.25 [facility] Comment on above: Performed By: #### B MP3, MG3, PHOS3, ABG, HEMOG, PT/AP, ICA #### [address], [place] eGFR OTHER > 90.0 Normal >60 [facility] Comment on above: Result Comment: KDIG O guidelines provide the following GFR categories: Stage GFR(ml/min/1.73 m2) Terms G1 >=90 Normal or high G2 60-89 Mildly decreased* G3a 45-59 Mildly to moderately decreased G3b 30-44 Moderately to severely decreased G4 15-29 Severely decreased G5 <15 Kidney failure *Relative to young adult level. In the absence of evidence of kidney damage, neither GFR category G1 nor G2 fulfill the criteria for CKD. The CKD-EPI equation is validated in individuals 18 years of age and older. Currently the best equation for estimating glomerular filtration rate (GFR) from serum creatinine in children is the Bedside Doyle equation. It is less accurate in patients with extremes of muscle mass, restriction of dietary protein, ingestion of creatine, extra-renal metabolism of creatinine, or treatment with medications that affect renal tubular creatinine secretion. Performed By: #### B MP3, MG3, PHOS3, ABG, HEMOG, PT/AP, ICA #### [address] GFR/1.73 sq M.predicted among blacks MDRD (S/P/Bld) [Vol rate/Area] mL/min/{1.73_m2} Normal >60 [facility] Comment on above: Performed By: #### B MP3, MG3, PHOS3, ABG, HEMOG, PT/AP, ICA #### [address] [address] [place], [place] Chloride [Moles/Vol] 108 mmol/L High 98-107 [facility] Comment on above: Performed By: #### B MP3, MG3, PHOS3, ABG, HEMOG, PT/AP, ICA #### [address] Potassium [Moles/Vol] 4.1 mmol/L Normal 3.5-5.1 [facility] Comment on above: Performed By: #### B MP3, MG3, PHOS3, ABG, HEMOG, PT/AP, ICA #### [address] Sodium [Moles/Vol] 138 mmol/L Normal 135-145 [facility] Comment on above: Performed By: #### B MP3, MG3, PHOS3, ABG, HEMOG, PT/AP, ICA #### [address] Basic Metabolic PanelOrdered By: Jair Lawler on 03-06-2021 Anion gap [Moles/Vol] 7 mmol/L 3 - 13 mmol/L [facility] Work Phone: Calcium [Mass/Vol] 7.8 mg/dL Low 8.4 - 10. 4 mg/dL [facility] Work Phone: Chloride [Moles/Vol] 108 mmol/L High 98 - 10 7 mmol/L [facility] Work Phone: CO2 [Moles/Vol] 23 mmol/L 22 - 30 mmol/L [facility] Work Phone: Creatinine [Mass/Vol] 0.69 mg/dL 0.52 - 1.25 mg/dL [facility] Work Phone: EGFR IF NonAfrican Lao >90.0 >60 mL/min [facility] Work Phone: Comment on above: KDIGO guidelines pro vide the following GFR categories: Stage GFR(ml/min/1.73 m2) Terms G1 >=90 Normal or high G2 60-89 Mildly decreased* G3a 45-59 Mildly to moderately decreased G3b 30-44 Moderately to severely decreased G4 15-29 Severely decreased G5 <15 Kidney failure *Relative to young adult level. In the absence of evidence of kidney damage, neither GFR category G1 nor G2 fulfill the criteria for CKD. The CKD-EPI equation is validated in individuals 18 years of age and older. Currently the best equation for estimating glomerular filtration rate (GFR) from serum creatinine in children is the Bedside Doyle equation. It is less accurate in patients with extremes of muscle mass, restriction of dietary protein, ingestion of creatine, extra-renal metabolism of creatinine, or treatment with medications that affect renal tubular creatinine secretion. GFR/1.73 sq M.predicted among blacks MDRD (S/P/Bld) [Vol rate/Area] mL/min/{1.73_m2} >60 mL/min [facility] Work Phone: Glucose [Mass/Vol] 89 mg/dL 70 - 100 mg/dL [facility] Work Phone: Interpretation and review of laboratory results Abnormal [facility] Work Phone: Potassium [Moles/Vol] 4.1 mmol/L 3.5 - 5.1 mmol/L [facility] Work Phone: [phone] Sodium [Moles/Vol] 138 mmol/L 135 - 145 mmol/L [facility] Work Phone: ) [phone] Urea nitrogen (BldV) [Mass/Vol] 20 mg/dL High 7 - 17 mg/dL [facility] Work Phone: 1 CBCOrdered By: Jair baum 03-06-2021 Hematocrit (Bld) [Volume fraction] 33.9 % Low 40.0 - 52.0 % [facility] Work Phone: [phone]) Hemoglobin.gastrointes tinal spec 1 Ql (Stl) 11.6 g/dL Low 13.0 - 18.0 g/dL [facility] Work Phone: [phone] Interpretation and review of laboratory results Abnormal [facility] Work Phone: ) MCH (RBC) [Entitic mass] 30.1 pg 26.0 - 34.0 pg [facility] Work Phone: MCHC (RBC) [Mass/Vol] 34.2 % 32.0 - 36.0 % [facility] Work Phone: ) 222 MCV (RBC) [Entitic vol] 88.0 fL 80.0 - 98.0 fL [facility] Work Phone: ) Platelet distribution width (Bld) [Ratio] 12.5 % 11.5 - 14.5 % [facility] Work Phone: ) Platelet mean volume (Bld) [Entitic vol] 7.2 fL Low 7.4 - 10.4 fL [facility] Work Phone: ) 222 Platelets (Bld) [#/Vol] 128 10*3/uL Low 140 - 440 10*3/uL [facility] Work Phone: ) 222 RBC (Bld) [#/Vol] 3.85 10*6/uL Low 4.40 - 5.9 0 10*6/uL [facility] Work Phone: [phone] WBC (Bld) [#/Vol] 12.7 10*3/uL High 3.6 - 10.7 10*3/uL [facility] Work Phone: [phone] Test Performed by [facility], [facility] [place] [address] [facility] Work Phone: [phone] [facility] Work Phone: CR Chest Portableon 03-06-20 CR Chest Portable Patient Name: FANTASMA WATSON Diagnostic Radiology ACCESSION EXAM DATE/TIME PROCEDURE ORDERING PROVIDER [id number] 03/06/2021 08:57 EDT CR Chest Portable RUTH GLASGOW, OLGA Ochoa CPT code 71208 Reason For Exam (CR Chest Portable) shortness of breath Report Portable chest 03/06/2021: Clinical Information: Shortness of breath. Findings: A single AP portable view of the chest was obtained at 749 hours. Comparison was made to the prior study prior day. The endotracheal tube and nasogastric tube have been removed. The Athol-Mukul catheter has been removed as well. A right jugular introducer sheath is in place. No pneumothorax is identified. The basal chest tubes are unchanged. There is minimal atelectasis in both lung bases and small bilateral pleural effusions. No pulmonary vascular congestion or consolidation is otherwise identified. Report Dictated on Final Dictated: 03/06/2021 8:57 am Dictating Physician: MD CHANDLER RISA Signed Date and Time: 03/06/2021 8:58 am Signed by: MD CHANDLER RISA Transcribed Date and Time: 03/06/2021 8:57 Normal [facility] Calcium, IonizedOrdered By: Jair Lawler on 03-06-2021 Interpretation and review of laboratory results Abnormal [facility] Work Phone: Ionized Ca 3.80 mg/dL Low 4.30 - 5.20 mg/dL [facility] Work Phone: [phone] pH (Bld) 7.41 [pH] [facility] Work Phone: Test Performed by [facility], [facility] [place] [address] [facility] Work Phone: [phone] [facility] Work Phone: Calcium,Ionizedon 03-06-2021 Ionized Ca,Measured 3.80 mg/dL Low 4.30-5.20 [facility] Comment on above: Performed By: #### B MP3, MG3, PHOS3, ABG, HEMOG, PT/AP, ICA #### [facility] [address] [place] [address] pH, Ionized Calcium 7.41 Normal 7.31-7.46 [facility] Comment on above: Performed By: #### B MP3, MG3, PHOS3, ABG, HEMOG, PT/AP, ICA #### [facility] [address] 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1950 Requested By: JAIR LAWLER Order Number: [id number] Timo MD: April Dunham Measurements Intervals [place] Rate: 75 P: 48 GA: 151 QRS: 12 QRSD: 93 T: 20 QT: 403 QTc: 449 Interpretive Statements Sinus rhythm ST elevation, consider early repolarization Electronically Signed On 03-06-2021 15:04:44 EDT by April Dunham [facility] Work Phone: Jw, [facility] Incoming Cardiology Results From [facility] - 03/06/2021 3:05 PM EDT [facility] Test Date: 2021-03-06 Pat Name: [facility] Department: [facility] Room: [facility] 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1950 Requested By: JAIR LAWLER Order Number: [id number] Timo MD: April Dunham Measurements Intervals [place] Rate: 75 P: 48 GA: 151 QRS: 12 QRSD: 93 T: 20 QT: 403 QTc: 449 Interpretive Statements Sinus rhythm ST elevation, consider early repolarization Electronically Signed On 03-06-2021 15:04:44 EDT by Monitor Work Phone: [facility] Work Phone: [facility] Test Date: 2021-03-05 Pat Name: [facility] Department: 1[facility] Room: [id number] Gender: M 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 : 1950 Requested By: JAIR LAWLER Order Number: [id number] Reading MD: April Dunham Measurements Intervals [place] Rate: 67 P: 76 GA: 157 QRS: 2 QRSD: 102 T: 40 QT: 435 QTc: 460 Interpretive Statements Sinus rhythm Probable inferior infarct, recent Electronically Signed On 03-06-2021 9:11:41 EDT by [employer] Work Phone: Jw, [facility] Incoming Cardiology Results From [facility] - 03/06/2021 9:12 AM EDT [facility] Test Date: 2021-03-05 Pat Name: [facility] Department: 1[facility] Room: 1H03 Gender: M 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 Results may be 10%-15% lower than serum/plasma values. (CLIA ID [id number]) Performed By: #### B MP3, MG3, PHOS3, ABG, HEMOG, PT/AP, ICA #### [facility] [address] [place] [id number] Glucose [Mass/Vol] 78 mg/dL Normal 70-100 [facility] Comment on above: Result Comment: Test performed by glucose meter. Results may be 10%-15% lower than serum/plasma values. (CLIA ID [id number]) Performed By: #### C UA2 #### [facility] [address] [facility] [place] [address] Glucose [Mass/Vol] 94 mg/dL Normal 70-100 [facility] Comment on above: Result Comment: Test performed by glucose meter. Results may be 10%-15% lower than serum/plasma values. (CLIA ID [id number]) Performed By: #### B MP3, MG3, PHOS3, ABG, HEMOG, PT/AP, ICA #### [facility] [address] [place] [address] Glucose [Mass/Vol] 115 mg/dL High 70-100 [facility] Comment on above: Result Comment: Test performed by glucose meter. Results may be 10%-15% lower than serum/plasma values. (CLIA ID [id number]) Performed By: #### B MP3, MG3, PHOS3, ABG, HEMOG, PT/AP, ICA #### [facility] [address] [facility] [place] [address] Glucose [Mass/Vol] 191 mg/dL High 70-100 [facility] Comment on above: Result Comment: Test performed by glucose meter. Results may be 10%-15% lower than serum/plasma values. (CLIA ID [id number]) Performed By: #### B MP3, MG3, PHOS3, ABG, HEMOG, PT/AP, ICA #### [facility] [address] [facility] [place] [address] Glucose [Mass/Vol] 130 mg/dL High 70-100 [facility] Comment on above: Result Comment: Test performed by glucose meter. Results may be 10%-15% lower than serum/plasma values. (CLIA ID [id number]) Performed By: #### B MP3, MG3, PHOS3, ABG, HEMOG, PT/AP, ICA #### [facility] [address] [place] [address] Glucose [Mass/Vol] 144 mg/dL High 70-100 [facility] Comment on above: Result Comment: Test performed by glucose meter. Results may be 10%-15% lower than serum/plasma values. (CLIA ID [id number]) Performed By: #### B GLU #### [facility] [address] [place] [address] Glucose [Mass/Vol] 162 mg/dL High 70-100 [facility] Comment on above: Result Comment: Test performed by glucose meter. Results may be 10%-15% lower than serum/plasma values. (CLIA ID [id number]) Performed By: #### B GLU #### [address] [place] [address] Glucose [Mass/Vol] 151 mg/dL High 70-100 [facility] Comment on above: Result Comment: Test performed by glucose meter. Results may be 10%-15% lower than serum/plasma values. (CLIA ID [id number]) Performed By: #### B MP3, MG3, PHOS3, ABG, HEMOG, PT/AP, ICA #### [facility] [address] [place] [address] Glucose [Mass/Vol] 151 mg/dL High 70-100 [facility] Comment on above: Result Comment: Test performed by glucose meter. Results may be 10%-15% lower than serum/plasma values. (CLIA ID [id number]) Performed By: #### B MP3, MG3, PHOS3, ABG, HEMOG, PT/AP, ICA #### [facility] [address] [place] [address] Glucose [Mass/Vol] 89 mg/dL Normal 70-100 [facility] Comment on above: Result Comment: Test performed by glucose meter. Results may be 10%-15% lower than serum/plasma values. (CLIA ID [id number]) Performed By: #### B MP3, MG3, PHOS3, ABG, HEMOG, PT/AP, ICA #### [facility] [address] [place] [address] Glucose [Mass/Vol] 106 mg/dL High 70-100 [facility] Comment on above: Result Comment: Test performed by glucose meter. Results may be 10%-15% lower than serum/plasma values. (CLIA ID [id number]) Performed By: #### C UA2 #### [address] [place] [address] Glucose [Mass/Vol] 136 mg/dL High 70-100 [facility] Comment on above: Result Comment: Test performed by glucose meter. Results may be 10%-15% lower than serum/plasma values. (CLIA ID [id number]) Performed By: #### C UA2 #### [address] [place] [address] Glucose [Mass/Vol] 139 mg/dL High 70-100 [facility] Comment on above: Result Comment: Test performed by glucose meter. Results may be 10%-15% lower than serum/plasma values. (CLIA ID [id number]) Performed By: #### B MP3, MG3, PHOS3, ABG, HEMOG, PT/AP, ICA #### [address] [place] [address] Glucose [Mass/Vol] 128 mg/dL High 70-100 [facility] Comment on above: Result Comment: Test performed by glucose meter. Results may be 10%-15% lower than serum/plasma values. (CLIA ID [id number]) Performed By: #### B MP3, MG3, PHOS3, ABG, HEMOG, PT/AP, ICA #### [address] [place] [address] Glucose [Mass/Vol] 102 mg/dL High 70-100 [facility] Comment on above: Result Comment: Test performed by glucose meter. Results may be 10%-15% lower than serum/plasma values. (CLIA ID [id number]) Performed By: #### B MP3, MG3, PHOS3, ABG, HEMOG, PT/AP, ICA #### [address] [place], [place] Glucose [Mass/Vol] 97 mg/dL Normal 70-100 [facility] Comment on above: Result Comment: Test performed by glucose meter. Results may be 10%-15% lower than serum/plasma values. (CLIA ID [id number]) Performed By: #### B MP3, MG3, PHOS3, ABG, HEMOG, PT/AP, ICA #### [address] [place], [place] Glucose [Mass/Vol] 83 mg/dL Normal 70-100 [facility] Comment on above: Result Comment: Test performed by glucose meter. Results may be 10%-15% lower than serum/plasma values. (CLIA ID [id number]) Performed By: #### B MP3, MG3, PHOS3, ABG, HEMOG, PT/AP, ICA #### [address] [place], [place] Glucose [Mass/Vol] 71 mg/dL Normal 70-100 [facility] Comment on above: Result Comment: Test performed by glucose meter. Results may be 10%-15% lower than serum/plasma values. (CLIA ID [id number]) Performed By: #### B MP3, MG3, PHOS3, ABG, HEMOG, PT/AP, ICA #### [address] [place], [place] Glucose [Mass/Vol] 91 mg/dL Normal 70-100 [facility] Comment on above: Result Comment: Test performed by glucose meter. Results may be 10%-15% lower than serum/plasma values. (CLIA ID [id number]) Performed By: #### B MP3, MG3, PHOS3, ABG, HEMOG, PT/AP, ICA #### [address] [place], [place] Performed By: #### C UA2 #### [address] [place], [place] Glucose [Mass/Vol] 77 mg/dL Normal 70-100 [facility] Comment on above: Result Comment: Test performed by glucose meter. Results may be 10%-15% lower than serum/plasma values. (CLIA ID [id number]) Performed By: #### C UA2 #### [address] [place], [place] Glucose,BedsideOrdered By: Mohamud Lawler on 03-06-2021 Glucose [Mass/Vol] 98 mg/dL Normal 70-100 [facility] Work Phone: Comment on above: Test performed by gl ucose meter. Results may be 10%-15% lower than serum/plasma values. (CLIA ID [id number]) Result Comment: Test performed by glucose meter. Results may be 10%-15% lower than serum/plasma values. (CLIA ID [id number]) Performed By: #### B MP3, MG3, PHOS3, ABG, HEMOG, PT/AP, ICA #### [address] [place], [place] Hemogramon 03-06-2021 Erythrocyte distribution width (RBC) [Ratio] 12.5 % Normal 11.5-14.5 [facility] Comment on above: Performed By: #### B MP3, MG3, PHOS3, ABG, HEMOG, PT/AP, ICA #### [address] [place], [place] Hematocrit (Bld) [Volume fraction] 33.9 % Low 40.0-52.0 [facility] Comment on above: Performed By: #### B MP3, MG3, PHOS3, ABG, HEMOG, PT/AP, ICA #### [address] [address] [place], [place] Hemoglobin (Bld) [Mass/Vol] 11.6 g/dL Low 13.0-18.0 [facility] Comment on above: Performed By: #### B MP3, MG3, PHOS3, ABG, HEMOG, PT/AP, ICA #### [address] [address] [place], [place] MCH (RBC) [Entitic mass] 30.1 pg Normal 26.0-34.0 [facility] Comment on above: Performed By: #### B MP3, MG3, PHOS3, ABG, HEMOG, PT/AP, ICA #### [address] [place], [place] MCHC 34.2 % Normal 32.0-36.0 [facility] Comment on above: Performed By: #### B MP3, MG3, PHOS3, ABG, HEMOG, PT/AP, ICA #### [address] [place], [place] MCV (RBC) [Entitic vol] 88.0 fL Normal 80.0-98.0 [facility] Comment on above: Performed By: #### B MP3, MG3, PHOS3, ABG, HEMOG, PT/AP, ICA #### [address] [place], [place] Platelet mean volume (Bld) [Entitic vol] 7.2 fL Low 7.4-10.4 [facility] Comment on above: Performed By: #### B MP3, MG3, PHOS3, ABG, HEMOG, PT/AP, ICA #### [address] [place], [place] Platelets (Bld) [#/Vol] 128 10*3/uL Low 140-440 [facility] Comment on above: Performed By: #### B MP3, MG3, PHOS3, ABG, HEMOG, PT/AP, ICA #### [address] RBC (Bld) [#/Vol] 3.85 10*6/uL Low 4.40-5.90 [facility] Comment on above: Performed By: #### B MP3, MG3, PHOS3, ABG, HEMOG, PT/AP, ICA #### [address] WBC (Bld) [#/Vol] 12.7 10*3/uL High 3.6-10.7 [facility] Comment on above: Performed By: #### B MP3, MG3, PHOS3, ABG, HEMOG, PT/AP, ICA #### [address] Leukodepleted Red Cellson Leukodepleted Red Cells Leukodepleted Red Cells: [id number] released 03/06/21 02:37 [facility] Unit Blood Type: O Unit Blood Rh: POS Blood Product Code: AS1 Unit Number: [id number] Unit Status: released Barcoded Unit Number: =[id number] Barcoded Product Code: = Barcoded ABO/Rh: =%5100 Unit Expiration: [id number] Leukodepleted Red Cells: [id number] released 03/06/21 02:37 [facility] Unit Blood Type: O Unit Blood Rh: POS Blood Product Code: AS1 Unit Number: [id number] Unit Status: released Barcoded Unit Number: =[id number] Barcoded Product Code: = Barcoded ABO/Rh: =%5100 Unit Expiration: [id number] Normal [facility] Comment on above: Performed By: #### C UA2 #### [address] Magnesiumon 03-06-2021 Magnesium [Mass/Vol] 1.9 mg/dL Normal 1.6-2.3 [facility] Comment on above: Performed By: #### B MP3, MG3, PHOS3, ABG, HEMOG, PT/AP, ICA #### [address] MagnesiumOrdered By: Jair morfin on 03-06-2021 Magnesium [Mass/Vol] 1.9 mg/dL 1.6 - 2 .3 mg/dL [facility] Work Phone: No Panel InformationOrdered By: Jair Lawler on 03-06-2021 Test Performed by [facility], [address] [place] [id number] [place] [address] Work Phone: [facility] Work Phone: Test Performed by [address] [place] [address] [facility] Work Phone: [phone] [facility] Work Phone: [phone] POCT GlucoseOrdered By: Alexandria Lawler on 03-06-2021 Glucose [Mass/Vol] 82 mg/dL 70 - 100 mg/dL [facility] Work Phone: [phone] Comment on above: Test performed by gl ucose meter. Results may be 10%-15% lower than serum/plasma values. (CLIA ID [id number]) Test Performed by [employer], [facility] [place] [address] [facility] Work Phone: [phone] [facility] Work Phone: [phone] Glucose [Mass/Vol] 73 mg/dL 70 - 100 mg/dL [facility] Work Phone: [phone] Comment on above: Test performed by gl ucose meter. Results may be 10%-15% lower than serum/plasma values. (CLIA ID [id number]) Test Performed by [employer], [facility] [place] [address] [facility] Work Phone: [phone] [facility] Work Phone: [phone] Glucose [Mass/Vol] 78 mg/dL 70 - 100 mg/dL [facility] Work Phone: [phone] Comment on above: Test performed by gl ucose meter. Results may be 10%-15% lower than serum/plasma values. (CLIA ID [id number]) Test Performed by [employer], [facility] [place] [address] [facility] Work Phone: [phone] [facility] Work Phone: [phone] Glucose [Mass/Vol] 94 mg/dL 70 - 100 mg/dL [facility] Work Phone: [phone] Comment on above: Test performed by gl ucose meter. Results may be 10%-15% lower than serum/plasma values. (CLIA ID [id number]) Glucose [Mass/Vol] 115 mg/dL High 70 - 100 mg/dL [facility] Work Phone: Comment on above: Test performed by gl ucose meter. Results may be 10%-15% lower than serum/plasma values. (CLIA ID [id number]) Interpretation and review of laboratory results Abnormal [facility] Work Phone: [phone] Test Performed by [employer], [facility] [place] [address] [facility] Work Phone: [phone] [facility] Work Phone: [phone] Glucose [Mass/Vol] 191 mg/dL High 70 - 100 mg/dL [facility] Work Phone: [phone] Comment on above: Test performed by gl ucose meter. Results may be 10%-15% lower than serum/plasma values. (CLIA ID [id number]) Interpretation and review of laboratory results Abnormal [facility] Work Phone: [phone] Test Performed by [employer], [facility] [place] [address] [facility] Work Phone: [phone] [facility] Work Phone: [phone] Glucose [Mass/Vol] 130 mg/dL High 70 - 100 mg/dL [facility] Work Phone: [phone] Comment on above: Test performed by gl ucose meter. Results may be 10%-15% lower than serum/plasma values. (CLIA ID [id number]) Interpretation and review of laboratory results Abnormal [facility] Work Phone: [phone] Test Performed by [employer], [facility] [email or web address] [address] [facility] Work Phone: [phone] [facility] Work Phone: [phone] Glucose [Mass/Vol] 144 mg/dL High 70 - 100 mg/dL [facility] Work Phone: [phone] Comment on above: Test performed by gl ucose meter. Results may be 10%-15% lower than serum/plasma values. (CLIA ID [id number]) Interpretation and review of laboratory results Abnormal [facility] Work Phone: [phone] Test Performed by [employer], [facility] [place] [address] [facility] Work Phone: [phone] [facility] Work Phone: [phone] Glucose [Mass/Vol] 162 mg/dL High 70 - 100 mg/dL [facility] Work Phone: [phone] Comment on above: Test performed by gl ucose meter. Results may be 10%-15% lower than serum/plasma values. (CLIA ID [id number]) Interpretation and review of laboratory results Abnormal [facility] Work Phone: [phone] Test Performed by [employer], [place] [address] [facility] Work Phone: [phone] [facility] Work Phone: [phone] Glucose [Mass/Vol] 151 mg/dL High 70 - 100 mg/dL [facility] Work Phone: [phone] Comment on above: Test performed by gl ucose meter. Results may be 10%-15% lower than serum/plasma values. (CLIA ID [id number]) Interpretation and review of laboratory results Abnormal [facility] Work Phone: [phone] Test Performed by [employer], [place] [address] [facility] Work Phone: [phone] [facility] Work Phone: [phone] Glucose [Mass/Vol] 151 mg/dL High 70 - 100 mg/dL [facility] Work Phone: [phone] Comment on above: Test performed by gl ucose meter. Results may be 10%-15% lower than serum/plasma values. (CLIA ID [id number]) Interpretation and review of laboratory results Abnormal [facility] Work Phone: [phone] Test Performed by [employer], [place] [address] [facility] Work Phone: [phone] [facility] Work Phone: [phone] Glucose [Mass/Vol] 89 mg/dL 70 - 100 mg/dL [facility] Work Phone: [phone] Comment on above: Test performed by gl ucose meter. Results may be 10%-15% lower than serum/plasma values. (CLIA ID [id number]) Test Performed by [employer], [place] [address] [facility] Work Phone: [phone] [facility] Work Phone: [phone] Glucose [Mass/Vol] 106 mg/dL High 70 - 100 mg/dL [facility] Work Phone: [phone] Comment on above: Test performed by gl ucose meter. Results may be 10%-15% lower than serum/plasma values. (CLIA ID [id number]) Interpretation and review of laboratory results Abnormal [facility] Work Phone: [phone] Test Performed by [employer], [place] [address] [facility] Work Phone: [phone] [facility] Work Phone: [phone] Glucose [Mass/Vol] 136 mg/dL High 70 - 100 mg/dL [facility] Work Phone: [phone] Comment on above: Test performed by gl ucose meter. Results may be 10%-15% lower than serum/plasma values. (CLIA ID [id number]) Interpretation and review of laboratory results Abnormal [facility] Work Phone: [phone] Test Performed by [employer], [place] [address] [facility] Work Phone: [phone] [facility] Work Phone: [phone] Glucose [Mass/Vol] 139 mg/dL High 70 - 100 mg/dL [facility] Work Phone: [phone] Comment on above: Test performed by gl ucose meter. Results may be 10%-15% lower than serum/plasma values. (CLIA ID [id number]) Interpretation and review of laboratory results Abnormal [facility] Work Phone: [phone] Test Performed by [employer], [place] [address] [facility] Work Phone: [phone] [facility] Work Phone: [phone] Glucose [Mass/Vol] 128 mg/dL High 70 - 100 mg/dL [facility] Work Phone: [phone] Comment on above: Test performed by gl ucose meter. Results may be 10%-15% lower than serum/plasma values. (CLIA ID [id number]) Interpretation and review of laboratory results Abnormal [facility] Work Phone: [phone] Test Performed by [employer], [facility] [place] [address] [facility] Work Phone: [phone] [facility] Work Phone: [phone] Glucose [Mass/Vol] 102 mg/dL High 70 - 100 mg/dL [facility] Work Phone: [phone] Comment on above: Test performed by gl ucose meter. Results may be 10%-15% lower than serum/plasma values. (CLIA ID [id number]) Interpretation and review of laboratory results Abnormal [facility] Work Phone: [phone] Test Performed by [employer], [facility] [place] [address] [facility] Work Phone: [phone] [facility] Work Phone: [phone] Glucose [Mass/Vol] 97 mg/dL 70 - 100 mg/dL [facility] Work Phone: [phone] Comment on above: Test performed by gl ucose meter. Results may be 10%-15% lower than serum/plasma values. (CLIA ID [id number]) Test Performed by [employer], [facility] [place] [address] [facility] Work Phone: [phone] [facility] Work Phone: [phone] Glucose [Mass/Vol] 83 mg/dL 70 - 100 mg/dL [facility] Work Phone: [phone] Comment on above: Test performed by gl ucose meter. Results may be 10%-15% lower than serum/plasma values. (CLIA ID [id number]) Test Performed by [employer], [facility] [place] [address] [facility] Work Phone: [phone] [facility] Work Phone: [phone] Glucose [Mass/Vol] 71 mg/dL 70 - 100 mg/dL [facility] Work Phone: [phone] Comment on above: Test performed by gl ucose meter. Results may be 10%-15% lower than serum/plasma values. (CLIA ID [id number]) Test Performed by [employer], [address] [place] [address] [facility] Work Phone: [facility] Work Phone: Glucose [Mass/Vol] 91 mg/dL 70 - 100 mg/dL [facility] Work Phone: Comment on above: Test performed by gl ucose meter. Results may be 10%-15% lower than serum/plasma values. (CLIA ID [id number]) Test Performed by [facility], [address] [place] [address] [facility] Work Phone: [phone] [facility] Work Phone: [phone] Glucose [Mass/Vol] 91 mg/dL 70 - 100 mg/dL [facility] Work Phone: [phone] Comment on above: Test performed by gl ucose meter. Results may be 10%-15% lower than serum/plasma values. (CLIA ID [id number]) Test Performed by [facility], [address] [place] [address] [facility] Work Phone: [phone] [facility] Work Phone: XR CHEST PORTABLEOrdered By: Olga Glasgow on 03-06-2021 Patient Name: FANTASMA WATSON Diagnostic Radiology ACCESSION EXAM DATE/TIME PROCEDURE ORDERING PROVIDER [id number] 03/06/2021 08:57 EDT CR Chest Portable RUTH GLASGOW, OLGA Ochoa CPT code 92843 Reason For Exam (CR Chest Portable) shortness of breath Report Portable chest 03/06/2021: Clinical Information: Shortness of breath. Findings: A single AP portable view of the chest was obtained at 749 hours. Comparison was made to the prior study prior day. The endotracheal tube and nasogastric tube have been removed. The Athol-Mukul catheter has been removed as well. A right jugular introducer sheath is in place. No pneumothorax is identified. The basal chest tubes are unchanged. There is minimal atelectasis in both lung bases and small bilateral pleural effusions. No pulmonary vascular congestion or consolidation is otherwise identified. Report Dictated on --- Final --- Dictated: 03/06/2021 8:57 am Dictating Physician: MD CHANDLER RISA Signed Date and Time: 03/06/2021 8:58 am Signed by: MD CHANDLER RISA Transcribed Date and Time: 03/06/2021 8:57 [facility] - 03/06/2021 8:59 AM EDT Patient Name: FANATSMA COLEY Diagnostic Radiology ACCESSION EXAM DATE/TIME PROCEDURE ORDERING PROVIDER [id number] 03/06/2021 08:57 EDT CR Chest Portable RUTH GLASGOW, OLGA Ochoa CPT code 66467 Reason For Exam (CR Chest Portable) shortness of breath Report Portable chest 03/06/2021: Clinical Information: Shortness of breath. Findings: A single AP portable view of the chest was obtained at 749 hours. Comparison was made to the prior study prior day. The endotracheal tube and nasogastric tube have been removed. The Athol-Mukul catheter has been removed as well. A right jugular introducer sheath is in place. No pneumothorax is identified. The basal chest tubes are unchanged. There is minimal atelectasis in both lung bases and small bilateral pleural effusions. No pulmonary vascular congestion or consolidation is otherwise identified. Report Dictated on --- Final --- Dictated: 03/06/2021 8:57 am Dictating Physician: MD CHANDLER RISA Signed Date and Time: 03/06/2021 8:58 am Signed by: MD CHANDLER RISA Transcribed Date and Time: 03/06/2021 8:57 [facility] Work Phone: [facility] Work Phone: Arterial Blood Gaseson 03-05 CO2 [Moles/Vol] 25.8 mmol/L Normal 23.0-27.0 [facility] [employer] [facility] Comment on above: Performed By: #### B MP3, MG3, PHOS3, ABG, HEMOG, PT/AP, ICA #### [facility] [employer] [place] [phone] HCO3 (Bld) [Moles/Vol] 24.5 mmol/L Normal 21.0-25.0 S [facility] Comment on above: Performed By: #### B MP3, MG3, PHOS3, ABG, HEMOG, PT/AP, ICA #### [facility] [address], [place] Hemoglobin (Bld) [Mass/Vol] 13.0 g/dL Normal ScreenOnly [facility] Comment on above: Performed By: #### B MP3, MG3, PHOS3, ABG, HEMOG, PT/AP, ICA #### [place] [address], [place] Oxygen (Bld) [Partial pressure] 296.0 mm[Hg] High 80.0-100.0 [facility] Comment on above: Performed By: #### B MP3, MG3, PHOS3, ABG, HEMOG, PT/AP, ICA #### [place] [address], [place] Oxygen saturation in Blood 99.0 % Normal 95.0-100.0 [facility] Comment on above: Performed By: #### B MP3, MG3, PHOS3, ABG, HEMOG, PT/AP, ICA #### [place] [address] [address], [place] pCO2 44.1 mm[Hg] Normal 35.0-45.0 [facility] Comment on above: Performed By: #### B MP3, MG3, PHOS3, ABG, HEMOG, PT/AP, ICA #### [place] [address] [place], [place] pH 7.362 Normal 7.350-7.450 [facility] Comment on above: Performed By: #### B MP3, MG3, PHOS3, ABG, HEMOG, PT/AP, ICA #### [place] [address], [place] Std Base Excess -1.1 mmol/L Normal -3.0-3.0 [facility] Comment on above: Performed By: #### B MP3, MG3, PHOS3, ABG, HEMOG, PT/AP, ICA #### [facility] [address], [place] FIO2 No data Normal [facility] Comment on above: Performed By: #### B MP3, MG3, PHOS3, ABG, HEMOG, PT/AP, ICA #### [facility] [address], [place] Basic Metabolic Panelon 02-20 Anion gap [Moles/Vol] 6 mmol/L Normal 3-13 [facility] Comment on above: Performed By: #### B MP3, MG3, PHOS3, ABG, HEMOG, PT/AP, ICA #### [place] [address] [address] [place], [place] Calcium [Mass/Vol] 8.4 mg/dL Normal 8.4-10.4 [facility] Comment on above: Performed By: #### B MP3, MG3, PHOS3, ABG, HEMOG, PT/AP, ICA #### [place] [address] [place], [place] CO2 [Moles/Vol] 23 mmol/L Normal 22-30 [facility] Comment on above: Performed By: #### B MP3, MG3, PHOS3, ABG, HEMOG, PT/AP, ICA #### [place] [address] [place], [place] Glucose [Mass/Vol] 144 mg/dL High 70-100 [facility] Comment on above: Performed By: #### B MP3, MG3, PHOS3, ABG, HEMOG, PT/AP, ICA #### [place] [address] [place], [place] Urea nitrogen [Mass/Vol] 15 mg/dL Normal 7-17 [facility] Comment on above: Performed By: #### B MP3, MG3, PHOS3, ABG, HEMOG, PT/AP, ICA #### [place] [address], [place] Creatinine [Mass/Vol] 0.60 mg/dL Normal 0.52-1.25 [facility] Comment on above: Performed By: #### B MP3, MG3, PHOS3, ABG, HEMOG, PT/AP, ICA #### [facility] [address], [place] eGFR OTHER > 90.0 Normal >60 [facility] Comment on above: Result Comment: KDIG O guidelines provide the following GFR categories: Stage GFR(ml/min/1.73 m2) Terms G1 >=90 Normal or high G2 60-89 Mildly decreased* G3a 45-59 Mildly to moderately decreased G3b 30-44 Moderately to severely decreased G4 15-29 Severely decreased G5 <15 Kidney failure *Relative to young adult level. In the absence of evidence of kidney damage, neither GFR category G1 nor G2 fulfill the criteria for CKD. The CKD-EPI equation is validated in individuals 18 years of age and older. Currently the best equation for estimating glomerular filtration rate (GFR) from serum creatinine in children is the Bedside Doyle equation. It is less accurate in patients with extremes of muscle mass, restriction of dietary protein, ingestion of creatine, extra-renal metabolism of creatinine, or treatment with medications that affect renal tubular creatinine secretion. Performed By: #### B MP3, MG3, PHOS3, ABG, HEMOG, PT/AP, ICA #### [place] [address], [place] GFR/1.73 sq M.predicted among blacks MDRD (S/P/Bld) [Vol rate/Area] mL/min/{1.73_m2} Normal >60 [facility] Comment on above: Performed By: #### B MP3, MG3, PHOS3, ABG, HEMOG, PT/AP, ICA #### [facility] [address], [place] Potassium [Moles/Vol] 4.6 mmol/L Normal 3.5-5.1 [facility] Comment on above: Performed By: #### B MP3, MG3, PHOS3, ABG, HEMOG, PT/AP, ICA #### [place] [address] [place], [place] Chloride [Moles/Vol] 108 mmol/L High 98-107 [facility] Comment on above: Performed By: #### B MP3, MG3, PHOS3, ABG, HEMOG, PT/AP, ICA #### [address] [address] Sodium [Moles/Vol] 137 mmol/L Normal 135-145 [facility] Comment on above: Performed By: #### B MP3, MG3, PHOS3, ABG, HEMOG, PT/AP, ICA #### [facility] [address] [place] [address] Basic Metabolic PanelOrdered By: Jair Lawler on 03-05-2021 Anion gap [Moles/Vol] 6 mmol/L 3 - 13 mmol/L [facility] Work Phone: Calcium [Mass/Vol] 8.4 mg/dL 8.4 - 10. 4 mg/dL [facility] Work Phone: Chloride [Moles/Vol] 108 mmol/L High 98 - 10 7 mmol/L [facility] Work Phone: CO2 [Moles/Vol] 23 mmol/L 22 - 30 mmol/L [facility] Work Phone: Creatinine [Mass/Vol] 0.6 mg/dL 0.52 - 1.25 mg/dL [facility] Work Phone: EGFR IF NonAfrican Lao >90.0 >60 mL/min [facility] Work Phone: Comment on above: KDIGO guidelines pro vide the following GFR categories: Stage GFR(ml/min/1.73 m2) Terms G1 >=90 Normal or high G2 60-89 Mildly decreased* G3a 45-59 Mildly to moderately decreased G3b 30-44 Moderately to severely decreased G4 15-29 Severely decreased G5 <15 Kidney failure *Relative to young adult level. In the absence of evidence of kidney damage, neither GFR category G1 nor G2 fulfill the criteria for CKD. The CKD-EPI equation is validated in individuals 18 years of age and older. Currently the best equation for estimating glomerular filtration rate (GFR) from serum creatinine in children is the Bedside Doyle equation. It is less accurate in patients with extremes of muscle mass, restriction of dietary protein, ingestion of creatine, extra-renal metabolism of creatinine, or treatment with medications that affect renal tubular creatinine secretion. GFR/1.73 sq M.predicted among blacks MDRD (S/P/Bld) [Vol rate/Area] mL/min/{1.73_m2} >60 mL/min [facility] Work Phone: [phone] Glucose [Mass/Vol] 144 mg/dL High 70 - 100 mg/dL [facility] Work Phone: ) 222 Potassium [Moles/Vol] 4.6 mmol/L 3.5 - 5.1 mmol/L [facility] Work Phone: 222 Sodium [Moles/Vol] 137 mmol/L 135 - 145 mmol/L [facility] Work Phone: 222 Urea nitrogen (BldV) [Mass/Vol] 15 mg/dL 7 - 17 mg/dL [facility] Work Phone: [phone] Blood Gas, ArterialOrdered B y: Jair Lawler on 03-05-2021 Base Excess, Arterial -1.1 mmol/L -3.0 - 3.0 mmol/L [facility] Work Phone: 222 CO2 [Moles/Vol] 25.8 mmol/L 23.0 - 27.0 mmol/L [facility] Work Phone: ) 222 FIO2 Arterial No data [facility] Work Phone: ) 222 HCO3 (Bld) [Moles/Vol] 24.5 mmol/L 21.0 - 25.0 mmol/L [facility] Work Phone: ) 222 Hemoglobin (Bld) [Mass/Vol] 13 g/dL ScreenOnly [facility] Work Phone: [phone] Interpretation and review of laboratory results Abnormal [facility] Work Phone: [phone] Oxygen saturation in Blood 99.0 % 95.0 - 100.0 % [facility] Work Phone: 222 pCO2, Arterial 44.1 mm[Hg] 35.0 - 45.0 mm[Hg] [facility] Work Phone: [phone] pH, Arterial 7.362 [facility] Work Phone: [phone] pO2, Arterial 296.0 mm[Hg] High 80.0 - 100.0 mm[Hg] [facility] Work Phone: 1 Test Performed by [facility], [address] [place] [address] [facility] Work Phone: [facility] Work Phone: CBCOrdered By: Jair baum 03-05-2021 Hematocrit (Bld) [Volume fraction] 36.7 % Low 40.0 - 52.0 % [facility] Work Phone: Hemoglobin.gastrointes tinal spec 1 Ql (Stl) 12.6 g/dL Low 13.0 - 18.0 g/dL [facility] Work Phone: 1) Interpretation and review of laboratory results Abnormal [facility] Work Phone: MCH (RBC) [Entitic mass] 30.7 pg 26.0 - 34.0 pg [facility] Work Phone: MCHC (RBC) [Mass/Vol] 34.5 % 32.0 - 36.0 % [facility] Work Phone: MCV (RBC) [Entitic vol] 89.0 fL 80.0 - 98.0 fL [facility] Work Phone: Platelet distribution width (Bld) [Ratio] 12.5 % 11.5 - 14.5 % [facility] Work Phone: Platelet mean volume (Bld) [Entitic vol] 7.2 fL Low 7.4 - 10.4 fL [facility] Work Phone: 222 Platelets (Bld) [#/Vol] 141 10*3/uL 140 - 440 10*3/uL [facility] Work Phone: ) 222 RBC (Bld) [#/Vol] 4.12 10*6/uL Low 4.40 - 5.9 0 10*6/uL [facility] Work Phone: [phone]) 222 WBC (Bld) [#/Vol] 12.9 10*3/uL High 3.6 - 10.7 10*3/uL [facility] Work Phone: [phone] CR Chest Portableon 03-05-20 21 CR Chest Portable Patient Name: FANTASMA WATSON Diagnostic Radiology ACCESSION EXAM DATE/TIME PROCEDURE ORDERING PROVIDER [id number] 03/05/2021 12:15 EDT CR Chest Portable MD BUCKY, JAIR Dumont CPT code 81571 Reason For Exam (CR Chest Portable) ETT placement Report EXAMINATION: PORTABLE CHEST RADIOGRAPH CLINICAL INDICATION: ET tube placement TECHNIQUE: Portable AP COMPARISON: Chest radiograph from yesterday FINDINGS/IMPRESSION: Support lines and tubes: ET tube terminates 3.9 cm proximal to the tc. Right IJ Athol-Mukul terminates in the main pulmonary artery. Enteric tube courses below the diaphragm and outside the [id number]. Heart/Mediastinum: Normal Lungs/Pleura: Left basilar opacity may represent pneumonia versus atelectasis. There is moderate pulmonary vascular congestion. Possible small left pleural effusion. No pneumothorax. Bones: No acute osseous abnormality. Report Dictated on Final Dictated: 03/05/2021 1:45 pm Dictating Physician: MD CRISTOFER, FERNY PATEL Signed Date and Time: 03/05/2021 1:47 pm Signed by: MD CRISTOFER, FERNY PATEL Transcribed Date and Time: 03/05/2021 1:45 Normal [facility] Calcium, IonizedOrdered By: Jair Lawler on 03-05-2021 Ionized Ca 4.60 mg/dL 4.30 - 5.20 mg/dL [facility] Work Phone: pH (Bld) 7.36 [pH] [facility] Work Phone: Calcium,Ionizedon 03-05-2021 Ionized Ca,Measured 4.60 mg/dL Normal 4.30-5.20 [facility] Comment on above: Performed By: #### B MP3, MG3, PHOS3, ABG, HEMOG, PT/AP, ICA #### [facility] [address] [place] [phone] pH, Ionized Calcium 7.36 Normal 7.31-7.46 [facility] Comment on above: Performed By: #### B MP3, MG3, PHOS3, ABG, HEMOG, PT/AP, ICA #### [address] [address] Echo 2D/3D LEDY w/wo Contrast on 03-05-2021 Echo 2D/3D LEDY w/wo Contrast Patient Name: FANTASMA COLEY Ultrasound ACCESSION EXAM DATE/TIME PROCEDURE ORDERING PROVIDER [id number] 03/05/2021 09:49 EDT Echo 2D/3D LEDY w/wo MD BUCKY, JAIR Dumont Contrast Reason For Exam (Echo 2D/3D LEDY w/wo Contrast) CABG Report TRANSESOPHAGEAL ECHOCARDIOGRAM PATIENT: Fantasma Coley STUDY DATE: 03/05/2021 : 1950 AGE: 70 HT/WT: 157.5 cm (62 111.8 kg (246 in) lb) GENDER: M BP: 145 / 71 LOCATION: [facility] PATIENT Inpatient main STATUS: *ORDERING PHYSICIAN: * Jair Lawler *READING PHYSICIAN: * Jignesh Weaver *SHADOWGRAPH OPERATOR: * Sheila Park RDCS, MD AE INDICATIONS: CABG. CONCLUSIONS SUMMARY: Pre: PrePump CABG findings as belwo disscussed with surgical team./ STUDY DATA: Transesophageal echocardiography was performed. Procedure: Initial setup. Surface ECG leads, blood pressure measurements, and pulse oximetric signals were monitored. A transesophageal probe was inserted by the anesthesiologistwithout difficulty. Image quality was good. Complete 2D, complete spectral Doppler, and color flow Doppler images were acquired and archived for permanent storage and are available for subsequent review. Study status: Routine. Patient status: Inpatient. Location: Procedure room. Consent: The risks, benefits, and alternatives to the procedure were explained to the patient and informed consent was obtained. Administered medications: General anesthesia given with Isoflurane. FINDINGS LEFT VENTRICLE: Systolic function is at the lower limits of normal. RIGHT VENTRICLE: Systolic function is normal by visual assessment. VENTRICULAR SEPTUM: There is no evidence of a ventricular septal defect. LEFT ATRIUM: The appendage is poorly visualized. Emptying velocity is mildly reduced. RIGHT ATRIUM: The Eustachian valve appeared prominant. Ultrasound Report ATRIAL SEPTUM: No evidence of patent foramen ovale or atrial septal defect. MITRAL VALVE: Structurally normal valve. Doppler: There is trivial, less than 1+ regurgitation. AORTIC VALVE: Structurally normal valve. Trileaflet. Doppler: There is no stenosis. There is no regurgitation. TRICUSPID VALVE: Structurally normal valve. Doppler: There is trivial, less than 1+ regurgitation. PULMONIC VALVE: Structurally normal valve. Doppler: There is trivial, less than 1+ regurgitation. AORTA: There is atheromatous plaque. PERICARDIUM: There is no pericardial effusion. PULMONARY VEINS: Pulmonary venous flow during systole is blunted. Electronically signed by Jignesh Weaver MD 03/12/2021 22:18 Prior Signatures: Final Dictated: 03/12/2021 10:18 pm Dictating Physician: MD WEAVER BRIAN Signed Date and Time: 03/12/2021 10:18 pm Signed by: MD WEAVER BRIAN [facility] Glucose,Bedsideon 03-05-2021 Glucose [Mass/Vol] 82 mg/dL Normal 70-100 [facility] Comment on above: Result Comment: Test performed by glucose meter. Results may be 10%-15% lower than serum/plasma values. (CLIA ID [id number]) Performed By: #### C UA2 #### [place] [address] [place] [address] Glucose [Mass/Vol] 95 mg/dL Normal 70-100 [facility] Comment on above: Result Comment: Test performed by glucose meter. Results may be 10%-15% lower than serum/plasma values. (CLIA ID [id number]) Performed By: #### B MP3, MG3, PHOS3, ABG, HEMOG, PT/AP, ICA #### [place] [address] [place] [address] Glucose [Mass/Vol] 104 mg/dL High 70-100 [facility] Comment on above: Result Comment: Test performed by glucose meter. Results may be 10%-15% lower than serum/plasma values. (CLIA ID [id number]) Performed By: #### B MP3, MG3, PHOS3, ABG, HEMOG, PT/AP, ICA #### [place] [address] [place], [place] Glucose [Mass/Vol] 125 mg/dL High 70-[address] [place] [address] Comment on above: Result Comment: Test performed by glucose meter. Results may be 10%-15% lower than serum/plasma values. (CLIA ID [id number]) Performed By: #### B MP3, MG3, PHOS3, ABG, HEMOG, PT/AP, ICA #### [place] [address] [place] [address] Glucose [Mass/Vol] 151 mg/dL High 70-100 [facility] Comment on above: Result Comment: Test performed by glucose meter. Results may be 10%-15% lower than serum/plasma values. (CLIA ID [id number]) Performed By: #### B MP3, MG3, PHOS3, ABG, HEMOG, PT/AP, ICA #### [place] [address] [place] [address] Glucose [Mass/Vol] 140 mg/dL High 70-[address] [place] [address] Comment on above: Result Comment: Test performed by glucose meter. Results may be 10%-15% lower than serum/plasma values. (CLIA ID [id number]) Performed By: #### B MP3, MG3, PHOS3, ABG, HEMOG, PT/AP, ICA #### [facility] [address] [place] [address] Glucose [Mass/Vol] 150 mg/dL High 70-100 [facility] Comment on above: Result Comment: Test performed by glucose meter. Results may be 10%-15% lower than serum/plasma values. (CLIA ID [id number]) Performed By: #### B MP3, MG3, PHOS3, ABG, HEMOG, PT/AP, ICA #### [facility] [address] [place] [address] Glucose [Mass/Vol] 148 mg/dL High [address] Comment on above: Result Comment: Test performed by glucose meter. Results may be 10%-15% lower than serum/plasma values. (CLIA ID [id number]) Performed By: #### B MP3, MG3, PHOS3, ABG, HEMOG, PT/AP, ICA #### [facility] [employer] [facility] [address] [place] [address] Glucose [Mass/Vol] 140 mg/dL High [address] Comment on above: Result Comment: Test performed by glucose meter. Results may be 10%-15% lower than serum/plasma values. (CLIA ID [id number]) Performed By: #### B MP3, MG3, PHOS3, ABG, HEMOG, PT/AP, ICA #### [facility] [address] [place] [address] Glucose [Mass/Vol] 159 mg/dL High 70[address] [place] [address] Comment on above: Result Comment: Test performed by glucose meter. Results may be 10%-15% lower than serum/plasma values. (CLIA ID [id number]) Performed By: #### B GLU #### [facility] [address], [place] Glucose [Mass/Vol] 202 mg/dL High 70-100 [facility] Comment on above: Result Comment: Test performed by glucose meter. Results may be 10%-15% lower than serum/plasma values. (CLIA ID [id number]) Performed By: #### B MP3, MG3, PHOS3, ABG, HEMOG, PT/AP, ICA #### [place] [address], [place] Glucose,BedsideOrdered By: Mohamud Lawler on 03-05-2021 Glucose [Mass/Vol] 125 mg/dL High 70-100 [facility] Work Phone: Comment on above: Test performed by gl ucose meter. Results may be 10%-15% lower than serum/plasma values. (CLIA ID [id number]) Result Comment: Test performed by glucose meter. Results may be 10%-15% lower than serum/plasma values. (CLIA ID [id number]) Performed By: #### B MP3, MG3, PHOS3, ABG, HEMOG, PT/AP, ICA #### [place] [address], [place] Hemogramon 03-05-2021 Erythrocyte distribution width (RBC) [Ratio] 12.5 % Normal 11.5-14.5 [facility] Comment on above: Performed By: #### B MP3, MG3, PHOS3, ABG, HEMOG, PT/AP, ICA #### [place] [address], [place] Hematocrit (Bld) [Volume fraction] 36.7 % Low 40.0-52.0 [facility] Comment on above: Performed By: #### B MP3, MG3, PHOS3, ABG, HEMOG, PT/AP, ICA #### [place] [address], [place] Hemoglobin (Bld) [Mass/Vol] 12.6 g/dL Low 13.0-18.0 [facility] Comment on above: Performed By: #### B MP3, MG3, PHOS3, ABG, HEMOG, PT/AP, ICA #### [address] MCH (RBC) [Entitic mass] 30.7 pg Normal 26.0-34.0 [facility] Comment on above: Performed By: #### B MP3, MG3, PHOS3, ABG, HEMOG, PT/AP, ICA #### [place] [address] [place], [place] MCHC 34.5 % Normal 32.0-36.0 [facility] Comment on above: Performed By: #### B MP3, MG3, PHOS3, ABG, HEMOG, PT/AP, ICA #### [address] MCV (RBC) [Entitic vol] 89.0 fL Normal 80.0-98.0 [facility] Comment on above: Performed By: #### B MP3, MG3, PHOS3, ABG, HEMOG, PT/AP, ICA #### [address] Platelet mean volume (Bld) [Entitic vol] 7.2 fL Low 7.4-10.4 [facility] Comment on above: Performed By: #### B MP3, MG3, PHOS3, ABG, HEMOG, PT/AP, ICA #### [address] Platelets (Bld) [#/Vol] 141 10*3/uL Normal 140-440 [facility] Comment on above: Performed By: #### B MP3, MG3, PHOS3, ABG, HEMOG, PT/AP, ICA #### [address] RBC (Bld) [#/Vol] 4.12 10*6/uL Low 4.40-5.90 [facility] Comment on above: Performed By: #### B MP3, MG3, PHOS3, ABG, HEMOG, PT/AP, ICA #### [facility] [address], [place] WBC (Bld) [#/Vol] 12.9 10*3/uL High 3.6-10.7 [facility] Comment on above: Performed By: #### B MP3, MG3, PHOS3, ABG, HEMOG, PT/AP, ICA #### [facility] [address] [place] [address] Magnesiumon 03-05-2021 Magnesium [Mass/Vol] 2.8 mg/dL High 1.6-2.3 [facility] Comment on above: Performed By: #### B MP3, MG3, PHOS3, ABG, HEMOG, PT/AP, ICA #### [facility] [address], [place] MagnesiumOrdered By: Jair morfin on 03-05-2021 Magnesium [Mass/Vol] 2.8 mg/dL High 1.6 - 2 .3 mg/dL [facility] Work Phone: No Panel InformationOrdered By: Jair Lawler on 03-05-2021 Interpretation and review of laboratory results Abnormal [facility] Work Phone: Test Performed by [address] [address] [facility] Work Phone: [facility] Work Phone: Test Performed by [facility], [address] [place] [address] [facility] Work Phone: [facility] Work Phone: OPERATIVE REPORTOrdered By: 3m Scanning on 03-05-2021 [facility] Work Phone: Op Noteon 03-05-2021 Op Note PATIENT: ALLEY COLEY ADMISSION DATE: 03/05/2021 SURGERY DATE: 03/05/2021 DATE OF : 1950 AGE: 70 ADMITTING PHYSICIAN: Jair Lawler MD ATTENDING PHYSICIAN: Jair Lawler MD DICTATING PHYSICIAN: Jair Lawler MD OPERATIVE RECORD PRIMARY CARE PHYSICIAN: Dr. Alexander Rollins Procedure: 1. CABG X3, KIM TO MID LAD, AORTA TO RAMUS INTERMEDIUS, OM1 SEQUENTIAL WITH REVERSED SAPHENOUS VEIN GRAFT. 2. LEFT LEG ENDOSCOPIC VEIN HARVEST. Preoperative Diagnosis: Coronary artery disease with unstable angina. Postoperative Diagnosis: Coronary artery disease with unstable angina. Anesthesia: General endotracheal. Complications: None. Body Work Auto Trimmer: Dr. Cruzito Torres in [place]. Findings: The RCA PDA was very small and diseased distally, evident by cath and certainly not graftable. Description of Procedure: The patient was positioned on the operating table in supine position and general endotracheal anesthesia was induced. A right IJ Cordis, Athol-Mukul catheter and radial arterial line were placed by the anesthesiologist. The patient had malignant hypertension on the table. The patient was fully prepped and draped in usual sterile fashion. The greater saphenous vein was harvested from the left lower leg using EVH. The vein was of good quality, although rather small in diameter. The leg incision was irrigated with antibiotic irrigation solution. Soft tissues were closed with Vicryl and the skin with Monocryl in a subcuticular fashion. Dermabond, Steri-Strips, dry dressing, and Trent wrap applied to the left leg. A median sternotomy was performed. The KIM was dissected as a pedicle graft from left anterior chest wall. The patient was systemically heparinized with 3.5 mg/kg intravenous heparin. After 4 minutes elapsed since heparinization and the ACT was verified, the patient was cannulated placed on cardiopulmonary bypass cooled to 34 degrees Celsius. Antegrade and retrograde blood cardioplegia were delivered per protocol using a warm induction, cold maintenance, and warm reperfusion algorithm. I used a single clamp technique on the aorta to perform distal and proximal anastomoses. Attention was initially directed to exploring the RCA PDA. This was a very small vessel and heavily calcified consistent with cath. Also certainly this was not graftable in the distal portion which would have been the area of benefit based on cath findings. Attention was redirected to the first obtuse marginal, which was measured about 1.5 to 2 mm in diameter. It was free of disease in the anastomotic area. Reverse saphenous vein to OM1 was done with the running 7-0 Prolene. Tcpe-nh-ksni sequential was done to a 1.5 to 2 mm. The ramus intermedius which was moderately atherosclerotic. This was done with a 7-0 Prolene and the proximal vein graft on the aorta with a running 6-0 Prolene, the vein graft and aorta were de-aired in the usual fashion. At this point, the patient was progressively warmed to 37.6 degrees Celsius and in the interim the KIM was brought through a hole in the anterolateral aspect of the pericardium for a more direct course to the mid LAD. At the junction of the middle and distal third of the LAD were accomplished. The graft and the LAD measured about 2 mm in diameter and was free of disease at the anastomotic site. The KIM was also of good quality. The KIM to LAD was done with the running 7-0 Prolene. Having completed the grafts, the hotshot cardioplegia dosage was delivered and the cross-clamp removed. Subsequently the lungs were reinflated. Ultimately, the patient regained a normal sinus rhythm. A temporary pacing wire was placed at the base of the right ventricle with the ground wire in the upper abdominal wall, the right pleural cavity was not entered, the left pleural cavity was widely opened. A 24-[place] Islander Ronadlo was placed in the left pleural cavity posteriorly along the diaphragm. An additional 24 and 19-[place] Islander Ronaldo drains were placed in the anterior mediastinum. After hemostasis, protamine was given to reverse the systemic effects of heparin the patient was decannulated. After hemostasis was assured, vancomycin paste was applied to the sternal edges. The sternum was closed with stainless steel wire in an interrupted fashion. The presternal fascia was closed with a running #1 PDS. Vicryl and Monocryl were used to close soft tissues and skin respectively in layers and a Dermabond dressing applied. The patient was transferred stable, intubated in normal sinus rhythm on nitroglycerin for hypertension. [employer] Job ID: [id number] Jair Lawler MD DOD:03/05/2021 12:09 P AGUSTINA/letitia DOT:03/05/2021 12:51 P Job Number: [id number] Document Number: [id number] cc: Jair Lawler MD [address] POCT GlucoseOrdered By: Alexandria Lawler on 03-05-2021 Glucose [Mass/Vol] 77 mg/dL 70 - 100 mg/dL [facility] Work Phone: [phone] Comment on above: Test performed by gl ucose meter. Results may be 10%-15% lower than serum/plasma values. (CLIA ID [id number]) Test Performed by [employer], [facility] [place] [address] [facility] Work Phone: [phone] [facility] Work Phone: [phone] Glucose [Mass/Vol] 82 mg/dL 70 - 100 mg/dL [facility] Work Phone: [phone] Comment on above: Test performed by gl ucose meter. Results may be 10%-15% lower than serum/plasma values. (CLIA ID [id number]) Test Performed by [employer], [facility] [place] [address] [facility] Work Phone: [phone] [facility] Work Phone: [phone] Glucose [Mass/Vol] 95 mg/dL 70 - 100 mg/dL [facility] Work Phone: [phone] Comment on above: Test performed by gl ucose meter. Results may be 10%-15% lower than serum/plasma values. (CLIA ID [id number]) Test Performed by [employer], [facility] [place] [address] [facility] Work Phone: [phone] [facility] Work Phone: [phone] Glucose [Mass/Vol] 104 mg/dL High 70 - 100 mg/dL [facility] Work Phone: [phone] Comment on above: Test performed by gl ucose meter. Results may be 10%-15% lower than serum/plasma values. (CLIA ID [id number]) Interpretation and review of laboratory results Abnormal [facility] Work Phone: [phone] Test Performed by [employer], [facility] [place] [address] [facility] Work Phone: [phone] [facility] Work Phone: [phone] Glucose [Mass/Vol] 125 mg/dL High 70 - 100 mg/dL [facility] Work Phone: [phone] Comment on above: Test performed by gl ucose meter. Results may be 10%-15% lower than serum/plasma values. (CLIA ID [id number]) Interpretation and review of laboratory results Abnormal [facility] Work Phone: [phone] Test Performed by [employer], [address] [place] [address] [facility] Work Phone: [phone] [facility] Work Phone: [phone] Interpretation and review of laboratory results Abnormal [facility] Work Phone: [phone] Test Performed by [employer], [facility] [place] [address] [facility] Work Phone: [phone] [facility] Work Phone: [phone] Glucose [Mass/Vol] 151 mg/dL High 70 - 100 mg/dL [facility] Work Phone: [phone] Comment on above: Test performed by gl ucose meter. Results may be 10%-15% lower than serum/plasma values. (CLIA ID [id number]) Interpretation and review of laboratory results Abnormal [facility] Work Phone: [phone] Test Performed by [employer], [facility] [place] [address] [facility] Work Phone: [phone] [facility] Work Phone: [phone] Glucose [Mass/Vol] 140 mg/dL High 70 - 100 mg/dL [facility] Work Phone: [phone] Comment on above: Test performed by gl ucose meter. Results may be 10%-15% lower than serum/plasma values. (CLIA ID [id number]) Interpretation and review of laboratory results Abnormal [facility] Work Phone: [phone] Test Performed by [employer], [address] [place] [address] [facility] Work Phone: [phone] [facility] Work Phone: [phone] Glucose [Mass/Vol] 150 mg/dL High 70 - 100 mg/dL [facility] Work Phone: [phone] Comment on above: Test performed by gl ucose meter. Results may be 10%-15% lower than serum/plasma values. (CLIA ID [id number]) Interpretation and review of laboratory results Abnormal [facility] Work Phone: [phone] Test Performed by [employer], [facility] [place] [address] [facility] Work Phone: [phone] [facility] Work Phone: [phone] Glucose [Mass/Vol] 148 mg/dL High 70 - 100 mg/dL [facility] Work Phone: [phone] Comment on above: Test performed by gl ucose meter. Results may be 10%-15% lower than serum/plasma values. (CLIA ID [id number]) Interpretation and review of laboratory results Abnormal [facility] Work Phone: [phone] Test Performed by [employer], [facility] [place] [address] [facility] Work Phone: [phone] [facility] Work Phone: [phone] Glucose [Mass/Vol] 140 mg/dL High 70 - 100 mg/dL [facility] Work Phone: [phone] Comment on above: Test performed by gl ucose meter. Results may be 10%-15% lower than serum/plasma values. (CLIA ID [id number]) Interpretation and review of laboratory results Abnormal [facility] Work Phone: [phone] Test Performed by [employer], [facility] [place] [address] [facility] Work Phone: [phone] [facility] Work Phone: [phone] Glucose [Mass/Vol] 159 mg/dL High 70 - 100 mg/dL [facility] Work Phone: [phone] Comment on above: Test performed by gl ucose meter. Results may be 10%-15% lower than serum/plasma values. (CLIA ID [id number]) Interpretation and review of laboratory results Abnormal [facility] Work Phone: [phone] Test Performed by [employer], [facility] [place] [address] [facility] Work Phone: [phone] [facility] Work Phone: [phone] Glucose [Mass/Vol] 202 mg/dL High 70 - 100 mg/dL [facility] Work Phone: Comment on above: Test performed by gl ucose meter. Results may be 10%-15% lower than serum/plasma values. (CLIA ID [id number]) Interpretation and review of laboratory results Abnormal [facility] Work Phone: Test Performed by [facility] [employer] [facility], [facility] [place] [address] [facility] Work Phone: [facility] Work Phone: Phosphoruson 03-05-2021 Phosphate [Mass/Vol] 1.9 mg/dL Low 2.5-4.5 [facility] [employer] Comment on above: Performed By: #### B MP3, MG3, PHOS3, ABG, HEMOG, PT/AP, ICA #### [facility] [employer] [address] [place] [phone] PhosphorusOrdered By: Jair Lawler on 03-05-2021 Phosphate [Mass/Vol] 1.9 mg/dL Low 2.5 - 4 .5 mg/dL [facility] Work Phone: Protime AND APTTon aPTT Coag (d) [Time] 29.6 s Normal 20.0-30.5 [facility] Comment on above: Result Comment: NOTE : The therapeutic time for Heparin anticoagulation, based on Xa activity inhibition, is an APTT of 46-80 seconds. Performed By: #### B MP3, MG3, PHOS3, ABG, HEMOG, PT/AP, ICA #### [facility] [employer] [address] [place] [phone] INR 1.2 High 0.9-1.1 [facility] Comment on above: Result Comment: Andrzej mmended Anticoagulant Therapy: SEE BELOW ----- INR of 2.0 - 3.0 : - Prophylaxis of Venous Thrombosis (high-risk surgery) - Treatment of Venous Thrombosis - Treatment of Pulmonary Embolism (Includes tissue heart valves, Acute Myocardial Infarction to prevent systemic embolism, Valvular Heart Disease, and Atrial Fibrillation) ----- INR of 2.5 - 3.5 : - Mechanical Prosthetic Valves (high risk) - If oral anticoagulant therapy is used to prevent Myocardial Infarction Performed By: #### B MP3, MG3, PHOS3, ABG, HEMOG, PT/AP, ICA #### [facility] [employer] [address] [phone] PT Coag (PPP) [Time] 12.5 s High 9.0-12.0 [facility] Comment on above: Result Comment: . Performed By: #### B MP3, MG3, PHOS3, ABG, HEMOG, PT/AP, ICA #### [facility] [employer] [facility] [address] [place] [address] Protime/INR & PTTOrdered By: Jair Lawler on 03-05-2021 aPTT Coag (Bld) [Time] 29.6 s 20.0 - 30.5 s [facility] Work Phone: Comment on above: NOTE: The therapeuti c time for Heparin anticoagulation, based on Xa activity inhibition, is an APTT of 46-80 seconds. INR Coag (Bld) [Relative time] 1.2 {INR} High [facility] Work Phone: Comment on above: Recommended Anticoag ulant Therapy: SEE BELOW ----- INR of 2.0 - 3.0 : - Prophylaxis of Venous Thrombosis (high-risk surgery) - Treatment of Venous Thrombosis - Treatment of Pulmonary Embolism (Includes tissue heart valves, Acute Myocardial Infarction to prevent systemic embolism, Valvular Heart Disease, and Atrial Fibrillation) ----- INR of 2.5 - 3.5 : - Mechanical Prosthetic Valves (high risk) - If oral anticoagulant therapy is used to prevent Myocardial Infarction Interpretation and review of laboratory results Abnormal [facility] Work Phone: PT Coag (PPP) [Time] 12.5 s High 9.0 - 12.0 s [employer] Work Phone: Comment on above: . Test Performed by [facility] [employer], [address] [place] [address] [facility] Work Phone: [employer] Work Phone: Staph Aureus Complete Nasalo n 03-05-2021 Staph Aureus Complete Nasal Staph Screen --> Status: F No S. aureus detected. Negative nasal MRSA PCR has a high negative predictive value for MRSA pneumonia. Consider stopping vancomycin if no other clinical indication. Contact Antimicrobial Stewardship for further recommendations. The analytical performance characteristics of this assay have been determined by [employer] in accordance with CLIA regulations. The modifications have not been cleared or approved by the U. S. Food and Drug Administration; however, the FDA has determined that such clearance or approval is not necessary. Negative nasal MRSA PCR has a high negative predictive value for MRSA pneumonia. Consider stopping vancomycin if no other clinical indication. Contact Antimicrobial Stewardship for further recommendations. The analytical performance characteristics of this assay have been determined by [employer] in accordance with CLIA regulations. The modifications have not been cleared or approved by the U. S. Food and Drug Administration; however, the FDA has determined that such clearance or approval is not necessary. Normal [facility] Comment on above: Performed By: #### C UA2 #### [facility] [employer] [address] [address] XR CHEST PORTABLEOrdered By: Jair Lawler on 03-05-2021 Patient Name: FANTASMA WATSON Diagnostic Radiology ACCESSION EXAM DATE/TIME PROCEDURE ORDERING PROVIDER [id number] 03/05/2021 12:15 EDT CR Chest Portable MD LAWLER KEVIN L. CPT code 53035 Reason For Exam (CR Chest Portable) ETT placement Report EXAMINATION: PORTABLE CHEST RADIOGRAPH CLINICAL INDICATION: ET tube placement TECHNIQUE: Portable AP COMPARISON: Chest radiograph from yesterday FINDINGS/IMPRESSION: Support lines and tubes: ET tube terminates 3.9 cm proximal to the tc. Right IJ Athol-Mukul terminates in the main pulmonary artery. Enteric tube courses below the diaphragm and outside the [id number]-ir-uaji. Heart/Mediastinum: Normal Lungs/Pleura: Left basilar opacity may represent pneumonia versus atelectasis. There is moderate pulmonary vascular congestion. Possible small left pleural effusion. No pneumothorax. Bones: No acute osseous abnormality. Report Dictated on --- Final --- Dictated: 03/05/2021 1:45 pm Dictating Physician: MD CRISTOFER, FERNY PATEL Signed Date and Time: 03/05/2021 1:47 pm Signed by: MD CLEVELAND WASSIM OSAMA Transcribed Date and Time: 03/05/2021 1:45 [facility] Work Phone: [facility], [facility] Incoming Radiology Results From [facility] - 03/05/2021 1:48 PM EDT Patient Name: FANTASMA COLEY Diagnostic Radiology ACCESSION EXAM DATE/TIME PROCEDURE ORDERING PROVIDER [id number] 03/05/2021 12:15 EDT CR Chest Portable MD BUCKY, JAIR Dumont CPT code 37909 Reason For Exam (CR Chest Portable) ETT placement Report EXAMINATION: PORTABLE CHEST RADIOGRAPH CLINICAL INDICATION: ET tube placement TECHNIQUE: Portable AP COMPARISON: Chest radiograph from yesterday FINDINGS/IMPRESSION: Support lines and tubes: ET tube terminates 3.9 cm proximal to the tc. Right IJ Athol-Mukul terminates in the main pulmonary artery. Enteric tube courses below the diaphragm and outside the pxlgg-oy-hsei. Heart/Mediastinum: Normal Lungs/Pleura: Left basilar opacity may represent pneumonia versus atelectasis. There is moderate pulmonary vascular congestion. Possible small left pleural effusion. No pneumothorax. Bones: No acute osseous abnormality. Report Dictated on --- Final --- Dictated: 03/05/2021 1:45 pm Dictating Physician: MD CLEVELAND WASSIM OSAMA Signed Date and Time: 03/05/2021 1:47 pm Signed by: MD CLEVELAND WASSIM OSAMA Transcribed Date and Time: 03/05/2021 1:45 [facility] Work Phone: [facility] Work Phone: CR Chest PA/LATon 03-04-2021 CR Chest PA/LAT Patient Name: FANTASMA WATSON Diagnostic Radiology ACCESSION EXAM DATE/TIME PROCEDURE ORDERING PROVIDER [id number] 03/04/2021 14:05 EDT CR Chest PA and LAT RUTH GLASGOW, OLGA Ochoa CPT code 25093 Reason For Exam (CR Chest PA and LAT) preoperative evaluation Report Chest: PA and lateral 03/04/2021. Clinical Information: Preop. Findings: PA and attempted lateral views of the chest reveal the trachea, heart and mediastinal structures to be unremarkable. No focal areas of consolidation or volume loss are seen. There are no pleural effusions. The pulmonary vasculature does not appear congested. The visualized bony structures are intact. Impression: No acute process. Report Dictated on Final Dictated: 03/04/2021 2:40 pm Dictating Physician: MD CHANDLER RISA Signed Date and Time: 03/04/2021 2:43 pm Signed by: MD CHANDLER RISA Transcribed Date and Time: 03/04/2021 2:40 Normal [facility] Comp Metabolic Panelon 03-04 ALT [Catalytic activity/Vol] 36 U/L Normal 0-49 [facility] Comment on above: Result Comment: The ALT test is performed by an updated assay method. Please note that the reference intervals have been changed and are now sex specific. Performed By: #### B GLU #### [facility] [address], [place] Calcium [Mass/Vol] 8.9 mg/dL Normal 8.4-10.4 [facility] Comment on above: Performed By: #### B GLU #### [facility] [address], [place] Glucose [Mass/Vol] 224 mg/dL High 70-100 [facility] Comment on above: Performed By: #### B GLU #### [facility] [address], [place] Urea nitrogen [Mass/Vol] 15 mg/dL Normal 7-17 [facility] Comment on above: Performed By: #### B GLU #### [facility] [address], [place] ALP [Catalytic activity/Vol] 84 U/L Normal 38-126 [facility] Comment on above: Performed By: #### B GLU #### [facility] [address], [place] Anion gap [Moles/Vol] 7 mmol/L Normal 3-13 [facility] Comment on above: Performed By: #### B GLU #### [facility] [address], [place] AST [Catalytic activity/Vol] 31 U/L Normal 15-46 [facility] Comment on above: Performed By: #### B GLU #### [facility] [address], [place] Bilirubin [Mass/Vol] 0.6 mg/dL Normal 0.2-1.3 [facility] Comment on above: Performed By: #### B GLU #### [facility] [address], [place] CO2 [Moles/Vol] 29 mmol/L Normal 22-30 [facility] Comment on above: Performed By: #### B GLU #### [facility] [address], [place] Creatinine [Mass/Vol] 0.67 mg/dL Normal 0.52-1.25 [facility] Comment on above: Performed By: #### B GLU #### [facility] [address], [place] eGFR OTHER > 90.0 Normal >60 [facility] Comment on above: Result Comment: KDIG O guidelines provide the following GFR categories: Stage GFR(ml/min/1.73 m2) Terms G1 >=90 Normal or high G2 60-89 Mildly decreased* G3a 45-59 Mildly to moderately decreased G3b 30-44 Moderately to severely decreased G4 15-29 Severely decreased G5 <15 Kidney failure *Relative to young adult level. In the absence of evidence of kidney damage, neither GFR category G1 nor G2 fulfill the criteria for CKD. The CKD-EPI equation is validated in individuals 18 years of age and older. Currently the best equation for estimating glomerular filtration rate (GFR) from serum creatinine in children is the Bedside Doyle equation. It is less accurate in patients with extremes of muscle mass, restriction of dietary protein, ingestion of creatine, extra-renal metabolism of creatinine, or treatment with medications that affect renal tubular creatinine secretion. Performed By: #### B GLU #### [facility] [address], [place] GFR/1.73 sq M.predicted among blacks MDRD (S/P/Bld) [Vol rate/Area] mL/min/{1.73_m2} Normal >60 [facility] Comment on above: Performed By: #### B GLU #### [place] [address], [place] Protein [Mass/Vol] 7.1 g/dL Normal 6.3-8.2 [facility] Comment on above: Performed By: #### B GLU #### [place] [address], [place] Chloride [Moles/Vol] 100 mmol/L Normal 98-107 [facility] Comment on above: Performed By: #### B GLU #### [place] [address], [place] Potassium [Moles/Vol] 4.2 mmol/L Normal 3.5-5.1 [facility] Comment on above: Performed By: #### B GLU #### [place] [address], [place] Sodium [Moles/Vol] 136 mmol/L Normal 135-145 [facility] Comment on above: Performed By: #### B GLU #### [place] [address], [place] Albumin [Mass/Vol] 4.2 g/dL Normal 3.5-5.0 [facility] Comment on above: Performed By: #### B GLU #### [place] [address], [place] Complete Urinalysison 2020 Appearance (U) Clear Normal Clear [facility] Comment on above: Result Comment: . Performed By: #### C UA2 #### [place] [address], [place] Bilirubin,Urine Negative Normal Negative [facility] Comment on above: Result Comment: . Performed By: #### C UA2 #### [place] [address], [place] Color (U) Light-Yellow Normal Lt. Yellow [facility] Comment on above: Result Comment: . Performed By: #### C UA2 #### [place] [address], [place] Glucose Ql (U) > 1,000 Abnormal Normal (<70) [facility] Comment on above: Result Comment: . Performed By: #### C UA2 #### [facility] [address], [place] Ketone,Urine Negative Normal Negative [facility] Comment on above: Result Comment: . Performed By: #### C UA2 #### [place] [address], [place] Leukocytes,Urine Negative Normal Negative [facility] Comment on above: Result Comment: . Performed By: #### C UA2 #### [place] [address], [place] Nitrites,Urine Negative Normal Negative [facility] Comment on above: Result Comment: . Performed By: #### C UA2 #### [place] [address], [place] Occult Blood,Urine Negative Normal Negative [facility] Comment on above: Result Comment: . Performed By: #### C UA2 #### [place] [address], [place] pH,Urine 5.5 Normal 5.0-8.0 [facility] Comment on above: Result Comment: . Performed By: #### C UA2 #### [place] [address], [place] Specific Trail,Urine 1.012 Normal 1.005 - 1.030 [facility] Comment on above: Result Comment: . Performed By: #### C UA2 #### [place] [address], [place] Total Protein,Urine Negative Normal Negative [facility] Comment on above: Result Comment: . Performed By: #### C UA2 #### [place] [address], [place] Urobilinogen,Urine Normal Normal Normal (0-1) [facility] Comment on above: Result Comment: . Performed By: #### C UA2 #### [place] [address], [place] Hemoglobin A1Con 03-04-2021 Glucose [Mass/Vol] 226 mg/dL Normal [facility] Comment on above: Performed By: #### B GLU #### [address] HbA1c (Bld) [Mass fraction] 9.5 % Abnormal [facility] Comment on above: Result Comment: Norm al less than 5.7% Prediabetes 5.7% to 6.4% Diabetes 6.5% or higher --HgbA1C levels may not be accurate in patients who have renal disease, received recent blood transfusions, are anemic, or who have dyshemoglobinemia. Performed By: #### B GLU #### [address] Hemogram w/ Autodiffon 03-04 Abs Baso Cnt 0.0 10*3/uL Normal 0.0-0.2 [facility] Comment on above: Performed By: #### B GLU #### [place] [address], [place] Abs Neutrophile Cnt 4.0 10*3/uL Normal 1.8-7.0 [facility] Comment on above: Performed By: #### B GLU #### [place] [address] [place], [place] Basophils/100 WBC (Bld) 0.3 % Normal 0.0-2.0 [facility] Comment on above: Performed By: #### B GLU #### [place] [address], [place] Eosinophils (Bld) [#/Vol] 0.1 10*3/uL Normal 0.0-0.5 [facility] Comment on above: Performed By: #### B GLU #### [address] Eosinophils/100 WBC (Bld) 2.5 % Normal 1.0-6.0 [facility] Comment on above: Performed By: #### B GLU #### [place] [address] [place], [place] Erythrocyte distribution width (RBC) [Ratio] 12.4 % Normal 11.5-14.5 [facility] Comment on above: Performed By: #### B GLU #### [place] [address], [place] Granulocytes/100 WBC (Bld) 68.5 % Normal 40.0-80.0 [facility] Comment on above: Performed By: #### B GLU #### [place] [address], [place] Hematocrit (Bld) [Volume fraction] 47.5 % Normal 40.0-52.0 [facility] Comment on above: Performed By: #### B GLU #### [place] [address], [place] Hemoglobin (Bld) [Mass/Vol] 15.8 g/dL Normal 13.0-18.0 [facility] Comment on above: Performed By: #### B GLU #### [place] [address], [place] Lymphocytes (Bld) [#/Vol] 1.2 10*3/uL Normal 1.0-4.3 [facility] Comment on above: Performed By: #### B GLU #### [place] [address], [place] Lymphocytes/100 WBC (Bld) 21.5 % Normal 20.0-40.0 [facility] Comment on above: Performed By: #### B GLU #### [place] [address], [place] MCH (RBC) [Entitic mass] 30.3 pg Normal 26.0-34.0 [facility] Comment on above: Performed By: #### B GLU #### [place] [address], [place] MCHC 33.3 % Normal 32.0-36.0 [facility] Comment on above: Performed By: #### B GLU #### [place] [address], [place] MCV (RBC) [Entitic vol] 91.1 fL Normal 80.0-98.0 [facility] Comment on above: Performed By: #### B GLU #### [facility] [address] [place] [address] Monocytes (Bld) [#/Vol] 0.4 10*3/uL Normal 0.0-0.8 [facility] Comment on above: Performed By: #### B GLU #### [facility] [address] [place] [address] Monocytes/100 WBC (Bld) 7.2 % Normal 2.0-10.0 [facility] Comment on above: Performed By: #### B GLU #### [facility] [address] [place] [address] Platelet mean volume (Bld) [Entitic vol] 7.8 fL Normal 7.4-10.4 [facility] Comment on above: Performed By: #### B GLU #### [facility] [address] [place] [address] Platelets (Bld) [#/Vol] 172 10*3/uL Normal 140-440 [facility] Comment on above: Performed By: #### B GLU #### [facility] [address] [place] [address] RBC (Bld) [#/Vol] 5.21 10*6/uL Normal 4.40-5.90 [facility] Comment on above: Performed By: #### B GLU #### [facility] [address] [place] [address] WBC (Bld) [#/Vol] 5.8 10*3/uL Normal 3.6-10.7 [facility] Comment on above: Performed By: #### B GLU #### [facility] [address] [place] [address] Magnesiumon 03-04-2021 Magnesium [Mass/Vol] 1.7 mg/dL Normal 1.6-2.3 [facility] Comment on above: Performed By: #### B GLU #### [facility] [address] [place] [address] TS GELon 03-04-2021 TS GEL ABO Group: O Rh, Gel: POS Antibody Screen Gel: NEG Normal [facility] Comment on above: Performed By: #### C UA2 #### [facility] [address] [place] [address] Vital Signs Date Time Vital Sign Value Performing Clinician Cherise buckley 01-16-2025 12:52-0400 Body height 177.[address] Alexander Rollins DO Work Phone: [facility] 01-16-2025 12:52-0400 Body mass index (BMI) [Ratio] 39.3 kg/m2 Dr. Alexander Rollins DO Work Phone: [facility] 01-16-2025 12:52-0400 Body temperature 97 [degF] Dr. Alexander Rollins DO Work Phone: [facility] 01-16-2025 12:52-0400 Body weight 124.[address] Alxeander Rollins DO Work Phone: [facility] 01-16-2025 12:52-0400 Diastolic blood pressure 62 mm[Hg] Dr. Alexander Rollins DO Work Phone: [facility] 01-16-2025 12:52-0400 Heart rate 73 /min Dr. Alexander Rollins DO Work Phone: [facility] 01-16-2025 12:52-0400 Respiratory rate 18 /min Dr. Alexander Rollins DO Work Phone: [facility] 01-16-2025 12:52-0400 SaO2% (BldA) [Mass fraction] 95 % Dr. Alexander Rollins DO Work Phone: [facility] 01-16-2025 12:52-0400 Systolic blood pressure 120 mm[Hg] Dr. Alexander Rollins DO Work Phone: [facility] 10-27-2024 08:03-0400 Body mass index (BMI) [Ratio] 39.9 kg/m2 Dr. Alexander Rollins DO Work Phone: [facility] 10-27-2024 08:03-0400 Body weight 126.[address] Alexander Rollins DO Work Phone: [facility] 10-27-2024 08:03-0400 Diastolic blood pressure 70 mm[Hg] Dr. Alexander Rollins DO Work Phone: [facility] 10-27-2024 08:03-0400 Heart rate 57 /min Dr. Alexander Rollins DO Work Phone: [facility] 10-27-2024 08:03-0400 SaO2% (BldA) [Mass fraction] 94 % Dr. Alexander Rollins DO Work Phone: [facility] 10-27-2024 08:03-0400 Systolic blood pressure 131 mm[Hg] Dr. Alexander Rollins DO Work Phone: [facility] 09-19-2024 15:29-0400 Diastolic blood pressure 68 mm[Hg] Dr. Alexander Rollins DO Work Phone: [facility] 09-19-2024 15:29-0400 Systolic blood pressure 136 mm[Hg] Dr. Alexander Rollins DO Work Phone: [facility] 09-19-2024 10:35-0400 Body mass index (BMI) [Ratio] 40.7 kg/m2 Dr. Alexander Rollins DO Work Phone: [facility] 09-19-2024 10:35-0400 Body weight 128.[address] Alexander Rollins DO Work Phone: [facility] 09-19-2024 10:35-0400 Heart rate 65 /min Dr. Alexander Rollins DO Work Phone: [facility] 09-19-2024 10:35-0400 Respiratory rate 18 /min Dr. Alexander Rollins DO Work Phone: [facility] 09-19-2024 10:35-0400 SaO2% (BldA) [Mass fraction] 98 % Dr. Alexander Rollins DO Work Phone: [facility] 10-18-2023 21:11-0400 Body temperature 97.5 [degF] Dr. Alexander Rollins Work Phone: [facility] 10-18-2023 21:11-0400 Diastolic blood pressure 58 mm[Hg] Dr. Alexander Rollins Work Phone: [facility] 10-18-2023 21:11-0400 Heart rate 68 /min Dr. Alexander Rollins Work Phone: [facility] 10-18-2023 21:11-0400 Respiratory rate 16 /min Dr. Alexander Rollins Work Phone: [facility] 10-18-2023 21:11-0400 SaO2% (BldA) [Mass fraction] 98 % Dr. Alexander Rollins Work Phone: [facility] 10-18-2023 21:11-0400 Systolic blood pressure 125 mm[Hg] Dr. Alexander Rollins Work Phone: [facility] 10-18-2023 19:36-0400 Body height 180.[address] Alexander Rollins Work Phone: [facility] 10-18-2023 19:36-0400 Body mass index (BMI) [Ratio] 38.2 kg/m2 Dr. Alexander Rollins Work Phone: [facility] 10-18-2023 19:36-0400 Body weight 124.[address] Alexander Rollins Work Phone: [facility] 08-13-2023 08:06-0500 Body mass index (BMI) [Ratio] 38.2 kg/m2 Dr. Alexander Rollins Work Phone: [facility] 08-13-2023 08:06-0500 Body temperature 98.7 [degF] Dr. Alexander Rollins Work Phone: [facility] 08-13-2023 08:06-0500 Body weight 126.[address] Alexander Rollins Work Phone: [facility] 08-13-2023 08:06-0500 Diastolic blood pressure 75 mm[Hg] Dr. Alexander Rollins Work Phone: [facility] 08-13-2023 08:06-0500 Heart rate 54 /min Dr. Alexander Rollins Work Phone: [facility] 08-13-2023 08:06-0500 Respiratory rate 18 /min Dr. Alexander Rollins Work Phone: [facility] 08-13-2023 08:06-0500 SaO2% (BldA) [Mass fraction] 95 % Dr. Alexander Rollins Work Phone: [facility] 08-13-2023 08:06-0500 Systolic blood pressure 131 mm[Hg] Dr. Alexander Rollins Work Phone: [facility] 08-06-2023 09:37-0500 Body mass index (BMI) [Ratio] 37.9 kg/m2 Dr. Alexander Rollins Work Phone: [facility] 08-06-2023 09:37-0500 Body weight 125.[address] Alexander Rollins Work Phone: [facility] 08-06-2023 09:37-0500 Diastolic blood pressure 56 mm[Hg] Dr. Alexander Rollins Work Phone: [facility] 08-06-2023 09:37-0500 Heart rate 60 /min Dr. Alexander Rollins Work Phone: [facility] 08-06-2023 09:37-0500 Respiratory rate 18 /min Dr. Alexander Rollins Work Phone: [facility] 08-06-2023 09:37-0500 SaO2% (BldA) [Mass fraction] 97 % Dr. Alexander Rollins Work Phone: [facility] 08-06-2023 09:37-0500 Systolic blood pressure 122 mm[Hg] Dr. Alexander Rollins Work Phone: [facility] 08-14-2022 13:13-0500 Body weight 123.[address] Alexander Rollins Work Phone: [facility] 08-14-2022 13:13-0500 Diastolic blood pressure 65 mm[Hg] Dr. Alexander Rollins Work Phone: [facility] 08-14-2022 13:13-0500 Heart rate 58 /min Dr. Alexander Rollins Work Phone: [facility] 08-14-2022 13:13-0500 Respiratory rate 16 /min Dr. Alexander Rollins Work Phone: [facility] 08-14-2022 13:13-0500 Systolic blood pressure 126 mm[Hg] Dr. Alexander Rollins Work Phone: [facility] 08-14-2022 10:42-0500 Body height 181.[address] Alexander Rollins Work Phone: [facility] 08-14-2022 10:42-0500 Body mass index (BMI) [Ratio] 37.5 kg/m2 Dr. Alexander Rollins Work Phone: [facility] 08-14-2022 10:42-0500 Body temperature 97 [degF] Dr. Alexander Rollins Work Phone: [facility] 08-14-2022 10:42-0500 Body weight 123.[address] Alexander Rollins Work Phone: [facility] 08-14-2022 10:42-0500 Diastolic blood pressure 88 mm[Hg] Dr. Alexander Rollins Work Phone: [facility] 08-14-2022 10:42-0500 Heart rate 52 /min Dr. Alexander Rollins Work Phone: [facility] 08-14-2022 10:42-0500 Respiratory rate 18 /min Dr. Alexander Rollins Work Phone: [facility] 08-14-2022 10:42-0500 SaO2% (BldA) [Mass fraction] 93 % Dr. Alexander Rollins Work Phone: [facility] 08-14-2022 10:42-0500 Systolic blood pressure 146 mm[Hg] Dr. Alexander Rollins Work Phone: [facility] 12-19-2021 08:13-0400 Body height 181.[address] Alexander Rollins Work Phone: [facility] Work Phone: 12-19-2021 08:13-0400 Body mass index (BMI) [Ratio] 35.8 kg/m2 Dr. Alexander Rollins Work Phone: [facility] Work Phone: 12-19-2021 08:13-0400 Body temperature 95.5 [degF] Dr. Alexander Rollins Work Phone: [facility] Work Phone: 12-19-2021 08:13-0400 Body weight 118.[address] Alexander Rollins Work Phone: [facility] Work Phone: 12-19-2021 08:13-0400 Diastolic blood pressure 60 mm[Hg] Dr. Alexander Rollins Work Phone: [facility] Work Phone: 12-19-2021 08:13-0400 Heart rate 57 /min Dr. Alexander Rollins Work Phone: [facility] Work Phone: 12-19-2021 08:13-0400 Respiratory rate 18 /min Dr. Alexander Rollins Work Phone: [facility] Work Phone: 12-19-2021 08:13-0400 Systolic blood pressure 124 mm[Hg] Dr. Alexander Rollins Work Phone: [facility] Work Phone: 09-24-2021 15:23-0400 Body mass index (BMI) [Ratio] 37.4 kg/m2 Dr. Alexander Rollins Work Phone: [facility] Work Phone: 09-24-2021 15:23-0400 Body weight 118.[address] Alexander Rollins Work Phone: [facility] Work Phone: 09-24-2021 15:23-0400 Diastolic blood pressure 75 mm[Hg] Dr. Alexander Rollins Work Phone: [facility] Work Phone: 09-24-2021 15:23-0400 Heart rate 66 /min Dr. Alexander Rollins Work Phone: [facility] Work Phone: 09-24-2021 15:23-0400 Respiratory rate 18 /min Dr. Alexander Rollins Work Phone: [facility] Work Phone: 09-24-2021 15:23-0400 SaO2% (BldA) [Mass fraction] 95 % Dr. Alexander Rollins Work Phone: [facility] Work Phone: 09-24-2021 15:23-0400 Systolic blood pressure 133 mm[Hg] Dr. Alexander Rollins Work Phone: [facility] Work Phone: 03-09-2021 12:00-0400 Body temperature 97.2 [degF] Jair Lawler MD Work Phone: [facility] Work Phone: 03-09-2021 12:00-0400 Diastolic blood pressure 82 mm[Hg] Jair Lawler MD Work Phone: [facility] Work Phone: 03-09-2021 12:00-0400 Heart rate 63 /min Jair Lawler MD Work Phone: [facility] Work Phone: 03-09-2021 12:00-0400 SaO2% (BldA) [Mass fraction] 97 % Jair Lawler MD Work Phone: [facility] Work Phone: 03-09-2021 12:00-0400 Systolic blood pressure 135 mm[Hg] Jair Lawler MD Work Phone: [facility] Work Phone: 03-09-2021 05:30-0400 Respiratory rate 15 /min Jair Lawler MD Work Phone: [facility] Work Phone: 03-08-2021 05:45-0400 Body mass index (BMI) [Ratio] 35.87 kg/m2 Jair Lawler MD Work Phone: [facility] Work Phone: 03-08-2021 05:45-0400 Body weight 116.67 kg Jair Lawler MD Work Phone: [facility] Work Phone: 03-06-2021 09:08-0400 Body height 180.3 cm Jair Lawler MD Work Phone: [facility] Work Phone: Encounters Encounter Date Encounter Type Care Provider Facility Start: 01-16-2025 End: 01-16-[address] Meme Valadez MD -[facility] Work Phone: Start: 01-16-2025 End: 01-16-[address] Meme Valadez MD [facility] Start: 01-16-2025 End: 01-16-[address] Alexander Rollins DO Work Phone: -[facility] Start: 01-16-2025 End: 01-16-2025 ambulatory Meme Valadez Facility:[facility] Start: 10-27-2024 End: 10-27-2024 Patient encounter procedure Marcelina PARISI -[facility] Work Phone: Start: 10-27-2024 End: 10-27-2024 ambulatory Alexander Rollins Facility:[facility] Start: 10-08-2024 End: 10-08-2024 Patient encounter procedure Fawadcarmine Gallardo PA -Laboratory Work Phone: Start: 10-08-2024 End: 10-08-2024 ambulatory Fawad Gallardo Facility:[facility] Start: 09-19-2024 End: 09-19-2024 Patient encounter procedure Fawadcarmine Gallardo PA -[facility] Work Phone: Start: 09-19-2024 End: 09-19-2024 ambulatory Fawad Gallardo Facility:[facility] Start: 08-15-2024 End: 08-15-2024 ambulatory [facility] Facility:[facility] Start: 03-21-2024 End: 03-21-2024 ambulatory Marcelina Mai Facility:[facility] Start: 02-16-2024 End: 02-16-2024 ambulatory [facility] Facility:[facility] Start: 10-18-2023 End: 10-18-2023 Emergency department patient visit Dr. Alexander Rollins Work Phone: [facility]Emergency Department Work Phone: Start: 08-13-2023 End: 08-13-[address] Alexander Rollins Work Phone: [facility] Work Phone: Start: 08-06-2023 End: 08-06-[address] Alexander Rollins Work Phone: [facility] Work Phone: Start: 08-14-2022 End: 08-14-[address] Alexander Rollins Work Phone: [facility] Work Phone: Start: 08-14-2022 End: 08-14-[address] Alexander Rollins Work Phone: [facility] Start: 08-14-2022 End: 08-14-[address] Alexander Rollins Work Phone: [facility] Start: 07-12-2022 End: 07-12-2022 ambulatory [facility] Work Phone: Start: 07-12-2022 End: 07-12-2022 Patient encounter procedure [facility] Start: 01-08-2022 End: 01-08-[address] Alexander Rollins Work Phone: [facility] Start: 12-19-2021 End: 12-19-[address] Alexander Rollins Work Phone: [facility] Start: 09-24-2021 End: 09-24-[address] Alexander Rollins Work Phone: [facility] Start: 03-05-2021 End: 03-09-2021 Evaluation and management of inpatient Jair Lawler MD Work Phone: [facility] Comment on above: S/P CABG (coronary a rtery bypass graft) (Primary Dx); Type 2 diabetes mellitus with hyperglycemia, with long-term current use of insulin (HCC) Procedures Date Procedure Procedure Detail Performing Clinician Start: 10-18-2023 CT of head without contrast Dr. Alexander Rollins Work Phone: Start: 03-09-2021 Gluc bld gluc mntr d ev cleared fda spec home use Jair Lawler MD Work Phone: Start: 03-09-2021 Radiologic exam ches t single view Avery Colindres ADVERTISING ACCOUNT MANAGER - [employer]iance [employer] Work Phone: Start: 03-09-2021 Gluc bld gluc mntr d ev cleared fda spec home use Jair Lawler MD Work Phone: Start: 03-09-2021 Basic metabolic pane l calcium total Tricia Ale Grubbs ADVERTISING ACCOUNT MANAGER - [employer] Work Phone: Start: 03-08-2021 Gluc bld gluc mntr d ev cleared fda spec home use Jair Lawler MD Work Phone: Start: 03-08-2021 Gluc bld gluc mntr d ev cleared fda spec home use Jair Lawler MD Work Phone: Start: 03-08-2021 Gluc bld gluc mntr d ev cleared fda spec home use Jair Lawler MD Work Phone: Start: 03-08-2021 Gluc bld gluc mntr d ev cleared fda spec home use Jair Lawler MD Work Phone: Start: 03-08-2021 Gluc bld gluc mntr d ev cleared fda spec home use Jair Lawler MD Work Phone: Start: 03-08-2021 Radiologic exam ches t single view Olga Kaurer ADVERTISING ACCOUNT MANAGER - [employer] Work Phone: Start: 03-08-2021 Basic metabolic pane l calcium total Tricia Grubbs ADVERTISING ACCOUNT MANAGER - [employer] Work Phone: Start: 03-07-2021 Gluc bld gluc mntr d ev cleared fda spec home use Jair Lawler MD Work Phone: Start: 03-07-2021 Gluc bld gluc mntr d ev cleared fda spec home use Jair Lawler MD Work Phone: Start: 03-07-2021 End: 03-07-2021 Gluc bld gluc mntr dev cleared fda spec home use Jair Lawler MD Work Phone: Start: 03-07-2021 Gluc bld gluc mntr d ev cleared fda spec home use Jair Lawler MD Work Phone: Start: 03-07-2021 End: 03-07-2021 Gluc bld gluc mntr dev cleared fda spec home use Jair Lawler MD Work Phone: Start: 03-07-2021 Gluc bld gluc mntr d ev cleared fda spec home use Jair Lawler MD Work Phone: Start: 03-07-2021 End: 03-07-2021 Gluc bld gluc mntr dev cleared fda spec home use Jair Lawler MD Work Phone: Start: 03-07-2021 End: 03-07-2021 Gluc bld gluc mntr dev cleared fda spec home use Jair Lawler MD Work Phone: Start: 03-07-2021 Radiologic exam ches t single view Avery Colindres ADVERTISING ACCOUNT MANAGER - [employer] Work Phone: Start: 03-07-2021 End: 03-07-2021 Basic metabolic panel calcium total Tricia Grubbs ADVERTISING ACCOUNT MANAGER - [facility] Work Phone: Start: 03-07-2021 Gluc bld gluc mntr d ev cleared fda spec home use Jair Lawler MD Work Phone: Start: 03-07-2021 Gluc bld gluc mntr d ev cleared fda spec home use Jair Lawler MD Work Phone: Start: 03-06-2021 Gluc bld gluc mntr d ev cleared fda spec home use Jair Lawler MD Work Phone: Start: 03-06-2021 End: 03-06-2021 Gluc bld gluc mntr dev cleared fda spec home use Jair Lawler MD Work Phone: Start: 03-06-2021 Gluc bld gluc mntr d ev cleared fda spec home use Jair Lawler MD Work Phone: Start: 03-06-2021 Gluc bld gluc mntr d ev cleared fda spec home use Jair Lawler MD Work Phone: Start: 03-06-2021 Gluc bld gluc mntr d ev cleared fda spec home use Jair Lawler MD Work Phone: Start: 03-06-2021 End: 03-06-2021 Gluc bld gluc mntr dev cleared fda spec home use Jair Lawler MD Work Phone: Start: 03-06-2021 Gluc bld gluc mntr d ev cleared fda spec home use Jair Lawler MD Work Phone: Start: 03-06-2021 Gluc bld gluc mntr d ev cleared fda spec home use Jair Lawler MD Work Phone: Start: 03-06-2021 Gluc bld gluc mntr d ev cleared fda spec home use Jair Lawler MD Work Phone: Start: 03-06-2021 End: 03-06-2021 Gluc bld gluc mntr dev cleared fda spec home use Jair Lawler MD Work Phone: Start: 03-06-2021 Gluc bld gluc mntr d ev cleared fda spec home use Jair Lawler MD Work Phone: Start: 03-06-2021 Radiologic exam ches t single view Olgabashir Glasgow ADVERTISING ACCOUNT MANAGER - [employer] Work Phone: Start: 03-06-2021 Gluc bld gluc mntr d ev cleared fda spec home use Jair Lawler MD Work Phone: Start: 03-06-2021 Gluc bld gluc mntr d ev cleared fda spec home use Jair Lawler MD Work Phone: Start: 03-06-2021 Ecg routine ecg w/le ast 12 lds w/i&r Tricia Grubbs ADVERTISING ACCOUNT MANAGER - [employer] Work Phone: Start: 03-06-2021 End: 03-06-2021 Gluc bld gluc mntr dev cleared fda spec home use Jair Lawler MD Work Phone: Start: 03-06-2021 End: 03-06-2021 Calcium ionized Jair Lawler MD Work Phone: Start: 03-06-2021 End: 03-06-2021 Basic metabolic panel calcium total Tricia Grubbs ADVERTISING ACCOUNT MANAGER - [employer] Work Phone: Start: 03-05-2021 End: 03-05-2021 Gluc bld gluc mntr dev cleared fda spec home use Jair Lawler MD Work Phone: Start: 03-05-2021 Gluc bld gluc mntr d ev cleared fda spec home use Jair Lawler MD Work Phone: Start: 03-05-2021 Gluc bld gluc mntr d ev cleared fda spec home use Jair Lawler MD Work Phone: Start: 03-05-2021 RESPIRATORY THERAPY COMMUNICATION ORDER Delano Davis MD Work Phone: Start: 03-05-2021 End: 03-05-2021 Gluc bld gluc mntr dev cleared fda spec home use Jair Lawler MD Work Phone: Start: 03-05-2021 History of coronary artery bypass grafting S/P CABG (coronary artery bypass graft) Jair Lawler MD Work Phone: Comment on above: CABG x 3: KIM-LAD, Sequential SVG-Ramus and OM1 03/05/21 Start: 03-05-2021 Gluc bld gluc mntr d ev cleared fda spec home use Jair Lawler MD Work Phone: Start: 03-05-2021 Gluc bld gluc mntr d ev cleared fda spec home use Jair Lawler MD Work Phone: Start: 03-05-2021 Ecg routine ecg w/le ast 12 lds w/i&r Tricia Grubbs ADVERTISING ACCOUNT MANAGER [employer] Work Phone: Start: 03-05-2021 Radiologic exam ches t single view Tricia Grubbs ADVERTISING ACCOUNT MANAGER [employer] Work Phone: Start: 03-05-2021 OPERATIVE REPORT 3m Sca nning Start: 03-05-2021 End: 03-05-2021 Basic metabolic panel calcium total Jair Lawler MD Work Phone: Start: 03-05-2021 BLOOD GAS, ARTERIAL Silvestre lori Lawler MD Work Phone: Start: 03-05-2021 PROTIME/INR & PTT Jair Lawler MD Work Phone: Start: 03-05-2021 Transesophageal echocardiography Jair Lawler MD Work Phone: Start: 03-05-2021 End: 03-05-2021 Gluc bld gluc mntr dev cleared fda spec home use Jair Lawler MD Work Phone: Start: 09-11-2015 History of placement of stent for coronary artery disease History of coronary artery stent placement Fawad Demiter PA Comment on above: GTR-GDC-VJDR w/ 2.5 x 8 mm Synergy 09/11/2015 Plan of Treatment Date Care Activity Detail Author Start: 01-16-2025 CBC W Auto Different ial panel - Blood [facility] Start: 01-16-2025 Comprehensive metabo lic 2000 panel - Serum or Plasma [facility] Start: 10-18-2023 [facility] Start: 03-09-2022 Creatinine measurement Creatinine mo nitoring [facility] Work Phone: Start: 03-09-2022 Potassium monitoring Potassium monit oring [facility] Work Phone: Start: 11-04-2021 Patient referral [facility] Work Phone: Start: 06-03-2021 Hemoglobin A1c measurement A1C test (Diabetic or Prediabetic) [facility] Work Phone: Start: 02-20-2021 Influenza vaccination Flu vaccine (# 1) [facility] Work Phone: Start: 02-14-2021 Annual Wellness Visi t (AWV) Annual Wellness Visit (AWV) [facility] Work Phone: Start: 2016 Pneumococcal 65+ yea rs Vaccine (1 of 1 - PPSV23) Pneumococcal 65+ years Vaccine (1 of 1 - PPSV23) [facility] Work Phone: Start: 06-22-2013 DTaP/Tdap/Td vaccine (2 - Tdap) DTaP/Tdap/Td vaccine (2 - Tdap) [facility] Work Phone: Start: 2001 Shingles Vaccine (1 of 2) Shingles V accine (1 of 2) [facility] Work Phone: Start: 1996 Screening for malign ant neoplasm of colon Colon cancer screen colonoscopy [facility] Work Phone: Start: 1969 Diabetic microalbumi mirian test Diabetic microalbuminuria test [facility] Work Phone: Start: 1961 Diabetic foot examination Diabetic f oot exam [facility] Work Phone: Start: 1961 Diabetic retinal exam Diabetic retin al exam [facility] Work Phone: Start: 1961 Lipid panel Lipid screen [facility] Work Phone: Start: 1951 Abdominal aortic ane urysm screening AAA screen [facility] Work Phone: Start: 1951 Hepatitis C screening Hepatitis C sc reen [facility] Work Phone: Alanine aminotransfe rase [Enzymatic activity/volume] in Serum or Plasma [facility] Albumin [Mass/volume ] in Serum or Plasma [facility] Alkaline phosphatase [Enzymatic activity/volume] in Serum or Plasma [facility] Anion gap in Serum o r Plasma [facility] Basic metabolic 2000 panel - Serum or Plasma Basic Metabolic Panel Lab Routine Daily until discontinued starting 03/05/2021, 4 completed [facility] Work Phone: Comment on above: Daily until disconti nued starting 03/05/2021, 4 completed Bilirubin, total measurement [facility] BUN/Creatinine ratio [facility] Calcium [Mass/volume ] in Serum or Plasma [facility] Calcium, Ionized Calcium, Ionize d Lab Routine As Needed until discontinued starting 03/05/2021 [facility] Work Phone: Comment on above: As Needed until disc ontinued starting 03/05/2021 Carbon dioxide, tota l [Moles/volume] in Central venous blood [facility] CBC panel - Blood by Automated count CBC Lab Routine Daily until discontinued starting 03/05/2021, 4 completed [facility] Work Phone: Comment on above: Daily until disconti nued starting 03/05/2021, 4 completed Creatinine [Mass/vol ume] in Serum or Plasma [facility] Erythrocyte mean corpuscular volume determination [facility] End: 03-07-2021 Glucose [Mass/volume] in Serum or Plasma POCT Glucose Point of Care Testing Timed Every Hour (Lab) for 2 Days starting 03/05/2021 until 03/07/2021 [facility]: Comment on above: Every Hour (Lab) for 2 Days starting 03/05/2021 until 03/07/2021 Glucose [Mass/volume ] in Serum or Plasma POCT Glucose Point of Care Testing STAT As Needed until discontinued starting 03/05/2021 [facility] Work Phone: Comment on above: As Needed until disc ontinued starting 03/05/2021 Glucose [Mass/volume ] in Serum or Plasma [facility] Hematocrit [Volume Fraction] of Blood [facility] Hemoglobin [Mass/vol ume] in Blood [facility] Hepatic function panel [facility] BIPAP or CPAP Home BIPAP or CPAP Respiratory Care Routine Daily until discontinued starting 03/05/2021 [facility] Work Phone: Comment on above: Daily until disconti nued starting 03/05/2021 Leukocytes [#/volume ] in Blood [facility] Lipid 1996 panel - S flex or Plasma [facility] Magnesium [Mass/volu me] in Serum or Plasma Magnesium Lab Routine Daily until discontinued starting 03/05/2021, 4 completed [facility] Work Phone: Comment on above: Daily until disconti nued starting 03/05/2021, 4 completed Mean corpuscular hemoglobin concentration determination [facility] Mean corpuscular hemoglobin determination [facility] Measurement of renal function [facility] Neutrophil count [facility] Neutrophil percent differential count [facility] Patient Education ED Dizziness, Uncertain Cause [facility] Work Phone: Patient referral [facility] Work Phone: Platelets [#/volume] in Blood [facility] Potassium measurement [facility] Red blood cell count [facility] Red cell distributio n width determination [facility] Serum chloride measurement [facility] Sodium measurement [facility] Total protein measurement [facility] Urea nitrogen [Mass/volume] in Serum or Plasma [facility] US Heart Transesophageal ECHO Tr ansesophageal Echocardiography Routine 03/05/2021 9:49 AM EDT [facility] Work Phone: XR CHEST PORTABLE XR CHEST SARAH BLE Imaging Routine Daily until discontinued starting 03/07/2021, 2 completed [facility] Work Phone: Comment on above: Daily until disconti nued starting 03/07/2021, 2 completed [facility] Immunizations Immunization Date Immunization Notes Care Provider Barbara sloan 09-18-2020 Covid (Pfizer) Dr. Alexander lr Work Phone: [facility] 08-28-2020 Covid (Pfizer) Dr. Alexander lr Work Phone: [facility] Payers Date Payer Category Payer Self-pay [id number] 2021 Private Health Insurance [id number] 2016 Medicare [id number] Unknown [id number] [id number] Unknown [id number] 2.16.8 [id number] Unknown [id number] 2.16.8 [id number] Unknown [id number] 2.16.8 [id number] Unknown [id number] [id number] [id number] Unknown [id number] 2.16.8 [id number] Unknown [id number] [id number] [id number] Unknown [id number] [id number] Social History Date Type Detail Facility Start: 03-06-2021 End: 09-19-2024 Tobacco smoking status NHIS Former smoker [facility] History of tobacco use Cigarette Smoker S [facility] Start: 03-06-2021 Cigarettes smoked current (pack per day) - Reported [facility] Work Phone: Start: 03-06-2021 Tobacco use and exposure Never used [facility] Start: 03-06-2021 Alcohol intake Ex-drinker (finding) [facility] Work Phone: Start: 03-04-2021 Tobacco Comment 2 PPD TIMES 32 YRS QUIT [facility] Start: 1950 Sex Assigned At Not on file S [facility] Work Phone: Exposure to SARS-CoV -2 (event) Not sure [facility] Start: 12-19-2021 End: 10-18-2023 Tobacco smoking status NHIS Unknown if ever smoked [facility] Start: 09-03-2015 None [facility] Start: 09-03-2015 Spouse/ Signif icant Other [facility] Start: 09-03-2015 Non-smoker [facility] Start: 1950 Sex Assigned At Male [facility] Medical Equipment Procedure Code Equipment Code Equipment Origin al Text Equipment Identifier Dates 1 strip by Other route 3 times daily (before meals) Test 3 times a day & as needed for symptoms of irregular blood glucose. [id number] Start: 03-09-2021 1 Product by Hammer s not apply route 4 times daily (after meals and at bedtime) MAY SUBSTITUTE BRAND PER PATIENTS INSURANCE COVERAGE [id number] Start: 03-09-2021 1 each by Does n ot apply route 3 times daily [id number] Start: 03-09-2021 1 strip by Other route 3 times daily (before meals) Test 3 times a day & as needed for symptoms of irregular blood glucose. [id number] Start: 03-09-2021 End: 03-09-2021 1 Product by Hammer s not apply route 4 times daily (after meals and at bedtime) MAY SUBSTITUTE BRAND PER PATIENTS INSURANCE COVERAGE [id number] Start: 03-09-2021 End: 03-09-2021 1 each by Does n ot apply route 4 times daily (after meals and at bedtime) [id number] Start: 03-09-2021 End: 03-09-2021 Mental Status Date Assessment Result Facility 10-18-2023 Cognitive function Level Of Cons ciousness Awake;Alert;Appropriate;Follow s Commands [facility] Work Phone: Clinical Notes 03-05-2021 to 10-27-2024 Note Date & Type Note Facility 10-27-2024 Evaluation note Diagnosis Onset Date Resolution Hyperlipidemia chronic October 27, 2 025 7:59am Hypertension chronic October 27 7:59am Obesity October 27, 2024 7:59am Type 2 diabetes mellitus without complications October 27, 2024 7:59am Health care maintenance acute January 16, 2025 12:46pm H/O coronary artery bypass surgery March 05, 2021 chronic January 16, 2025 12:46pm Hypertension chronic January 16, 2 025 12:46pm Obstructive sleep apnea of adult chronic January 16, 2025 12:46pm Osteoarthritis chronic January 16, 2025 12:46pm Type 2 diabetes mellitus without complications chronic January 16, 2025 12:46pm [facility] Work Phone: 1(362) 762-900803-31-2025 Evaluation note* Diagnosis Onset Date Resolution Status Admit Date Lower extremity edema acute Aug 2:28pm Atherosclerosis of coronary artery of [place] heart without angina pectoris chronic September 192024 2:28pm H/O coronary artery bypass surgery March 05, 2021 chronic September 19, 2024 2:28pm History of coronary artery stent placement September 11, 2015 chronic September 19 2:28pm Hyperlipidemia chronic August 2:28pm Hypertension chronic September 19, 2024 2:28pm Hyperlipidemia chronic October 27, 2 025 7:59am Hypertension chronic October 27 7:59am Obesity chronic October 27, 2024 7:59am Type 2 diabetes mellitus without complications October 27, 2 025 7:59am [facility] Work Phone: 1(894) 551-736904-28-2024 Discharge summary Author Abel Murillo [facility] October 18, 2023 9:08pm Note Date/Time October 18, 2023 8:0 0pm [facility] Medical Records Department [address] [place] [address] Emergency Department Summary 10/18/23 MR#: [id number] Acct: [id number] Name: FANTASMA COLEY Rep #:[id number] : 1950 73 From: Abel Murillo MD PCP: Dr. Alexander Rollins, DO Status:REG ER Location: ED HPI History of Present Illness Chief Complaint: Dizziness Detail of Chief Complaint: Patient complaint of digit Informant: patient and spouse/S.O. Onset/Context/Timing Onset: Today and Hours (3 to 4 hours prior to presentation) Context: Sudden Onset Timing: Continuous Quality: Describes a woozy sensation in the middle of his forehead lightheadedness Location: Middle of forehead Current Severity: Mild Maximum Severity: Mild Worsened by: Nothing Relieved by: Nothing Associated Symptoms Associated Symptoms: No other symptoms and detailed in the HPI Narrative Narrative: Patient is a 73-year-old male with history of hypertension, type 2 diabetes, coronary disease status post triple bypass surgery and stent placement as well as hyperlipidemia and obesity. He had recent eyelid surgery due to ptosis. This affected his vision. Patient states he was lying when he felt lightheaded/woozy. He describes it as a swirling sensation woozy sensation in his forehead. He denied double vision, blurred vision change in vision. He denies linn ears decreased hearing. He denies trouble with speech or swallowing. Denies slurring of his words or problems saying why he thinks. He denies chest pain, dyspnea or dyspnea on exertion. He denies nausea, vomiting or diarrhea. He denies abdominal pain. He denies headache. He denies neck pain or neck stiffness. He denies paresthesia, anesthesia or motor weakness upper or lower extremity. He denies decreased or increased urine output. Prior similar symptoms: No Recent Illness/Hospitalization: No PFSH PFS Medical History Atherosclerosis of coronary artery of [place] heart without angina pectoris Hyperlipidemia Obesity Obstructive sleep apnea of adult Type 2 diabetes mellitus without complications Home Medications dosafjhj-hud-edual acid 0.4 mg-lycopene 300 mcg-lutein 250 mcg tablet 1 ea PO DAILY 04/29/16 [History Last Taken Unknown] aspirin 81 mg tablet,delayed release 81 mg PO DAILY@0800 05/01/16 [History Last Taken 02/06/21] celecoxib 200 mg capsule 200 mg PO DAILY 03/28/21 [History Last Taken Unknown] 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 meter,continuous (Dexcom G6 Chairlift Operator) #1 ea 02/13/22 [Rx Last Taken Unknown] 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 sensor (Dexcom G6 Sensor device) #9 ea 02/13/22 [Rx Last Taken Unknown] 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 transmitter (Dexcom G6 Transmitter device) #1 ea 02/13/22 [Rx Last Taken Unknown] losartan 25 mg tablet 25 mg PO DAILY #90 tabs 01/26/23 [Rx Last Taken Unknown] clopidogrel 75 mg tablet (Plavix) 75 mg PO DAILY #90 tabs 04/13/23 [Rx Last Taken Unknown] insulin glargine 100 unit-lixisenatide 33 mcg/mL subcutaneous pen (Soliqua 100/33) 20 unit (0.2 mL) subcut QAM #6 mL 04/16/23 [Rx Last Taken Unknown] ezetimibe 10 mg tablet 10 mg PO DAILY #90 tabs 05/25/23 [Rx Last Taken Unknown] metoprolol succinate 25 mg tablet,extended release 24 hr See Rx Instructions .Route .COMPLEX #90 tabs 06/29/23 [Rx Last Taken Unknown] insulin lispro 100 unit/mL subcutaneous pen (Humalog KwikPen (U-100) Insulin) 18unit (0.18 mL) subcut TID #48.6 mL 08/13/23 [Rx Last Taken Unknown] Allergy/AdvReac Type Severity Reaction Status Date / Time pravastatin AdvReac Unknown Myalgia Verified 10/18/23 19:38 cinnamon AdvReac throat Verified 10/18/23 19:38 swelling Family History Brother CAD (coronary artery disease) CABG Mother CAD (coronary artery disease) CABG Brother CAD (coronary artery disease) CABG Brother CAD (coronary artery disease) Father CAD (coronary artery disease) CABG Surgical History H/O arthroscopy of right knee H/O coronary artery bypass surgery (03/05/21) History of carpal tunnel release History of coronary artery stent placement (09/11/15) History of left heart catheterization (02/06/21) History of toe surgery Social History (Updated 10/18/23 @ 19:[address] Abel Murillo MD) household members: spouse Smoking Status: Former smoker pack-years: 40 Tobacco: How many years used: 20 how long ago did patient quit smokin years alcohol intake: never caffeine: No ROS ROS ED Constitutional Constitutional ED: Denies chills, fever(s) or subjective Eyes Eyes: Denies blurry vision, change in vision or diplopia ENT ENT ED: Denies ear pain or sore throat Cardiovascular Cardiovascular: Denies chest pain or palpitations Respiratory/Chest Respiratory/Chest: Denies cough, dyspnea or dyspnea on exertion Gastrointestinal Gastrointestinal: Denies abdominal pain, diarrhea, nausea or vomiting Musculoskeletal Musculoskeletal: Denies arthralgias or myalgias Integumentary Denies rash Neurologic Neurologic: Denies headache(s), paresthesias or weakness Endocrine Endocrinology: Denies polydipsia or polyuria Hematologic/Lymphatic Hematologic/Lymphatic: Reports systems reviewed and no addt'l complaints, exceptas documented EXAM Physical Exam Const Vital Signs: 10/18/23 19:36 10/18/23 20:00 10/18/23 20:00 Temperature 97.9 F Temperature Source Temporal Pulse Rate 73 Pulse Rate [Lying] 69 Pulse Rate [Sitting (for 1 minute prior to obtaining)] 67 Pulse Rate [Standing (for 1 minute prior to obtaining)] 71 Respiratory Rate 18 Respiratory Effort Normal Non-Labored Respiratory Pattern Normal Blood Pressure 161/68 H Blood Pressure [Lying] 133/57 H Blood Pressure [Sitting (for 1 minute prior to obtaining)] 145/67 H Blood Pressure [Standing (for 1 minute prior to obtaining)] 151/76 H Blood Pressure Mean 99 Blood Pressure Mean [Lying] 82 Blood Pressure Mean [Sitting (for 1 minute prior to obtaining)] 93 Blood Pressure Mean [Standing (for 1 minute prior to obtaining)] 101 Pulse Ox 95 Oxygen Delivery Method Room Air Positive well nourished, well developed and obese Constitutional Narrative: Vital signs remarkable for mild elevation of blood pressure. This is insignificant. General Appearance ED: well developed and NAD; Negative for cyanotic, diaphoretic or pallor Nutritional Appearance: obese HEENT Reports moist mucous membranes HEENT Narrative: Uvula is midline. There is no deviation tongue with protrusion. Eyes PERRL and EOMs intact bilaterally Eyes Narrative: There is no nystagmus. There is no visual field cut. General Eye ED: Negative for pale conjunctiva or scleral icterus Neck no lymphadenopathy, supple and no JVD Resp normal respiratory effort and clear to auscultation bilaterally Cardio regular rate, regular rhythm, S1 normal heart sound, S2 normal heart sound and no murmurs GI normal to inspection, nondistended, normoactive bowel sounds, non-tender and non-distended; Negative for hepatosplenomegaly Back/Spine no CVA tenderness Extremity Extremity Narrative: Patient has thickened toenails which she attributes to prior injury. He states he has broken every toe in his right and left foot. He denies symptoms of claudication. Does have stigmata of peripheral arterial disease with thickened toenails and absence of hair on his toes DP pulses 1+ and symmetric. Neuro oriented x3, CN's II-XII intact bilaterally and no sensory deficits noted Neuro Narrative: There is no dysmetria. Romberg with eyes open and close is normal. The eye askew test is negative. The head test was negative. Wtzd-ic-yolb was performedadequately. Sensorium / Orientation: alert Motor Exam: strength 5/5 throughout Psych mental status grossly normal Skin no rashes or lesions noted, no wounds and skin turgor normal General Skin Exam: Negative for jaundice or pallor MDM MDM MDM Narrative Medical decision making narrative: Since patient describes orthostatic symptoms will obtain orthostatic vitals. This may represent autonomic dysfunction due to his diabetes. This may represent an inner ear process. This could represent an atypical neurologic event. To evaluate patient orthostatic vitals were obtained. Appropriate bloodwork to assess white count, rule out anemia, determine renal function, glucose anion gap and electrolytes. CAT scan to assess for any intracranial process. EKG and monitor to detect dysrhythmia. Lab Data Attestation: I reviewed the patient's lab results. Lab results narrative: CBC is normal. Comprehensive metabolic panel reveals elevated BUN/creatinine of26 and 1.5. This is an acute abnormality. Most recent BUN/creatinine was July 2023. Labs: Laboratory Results - last 24 hr 10/18/23 19:55 WBC 6.7 RBC 4.95 Hgb 14.9 Hct 43.3 MCV 87.5 MCH 30.1 MCHC 34.4 RDW Std Deviation 39.1 RDW Coeff of Donna 12.3 Plt Count 190 MPV 8.8 Immature Gran % (Auto) 0.400 Neut % (Auto) 64.1 Lymph % (Auto) 23.6 [place] % (Auto) 8.8 Eos % (Auto) 2.8 Baso % (Auto) 0.3 Absolute Neuts (auto) 4.3 Absolute Lymphs (auto) 1.58 Nucleated RBC % 0 Sodium 140 Potassium 3.7 Chloride 109 H Carbon Dioxide 25.0 Anion Gap 6 BUN 26 H Creatinine 1.50 H Estim Creat Clear Calc 59.78 Est GFR (MDRD) Af Amer 59 L Est GFR (MDRD) Non-Af 49 L BUN/Creatinine Ratio 17.3 Glucose 76 Calcium 9.0 Total Bilirubin 0.50 AST 49 H ALT 54 Alkaline Phosphatase 68 Total Protein 6.8 Albumin 3.7 Globulin 3.1 Albumin/Globulin Ratio 1.2 Radiography Diagnostic Testing: Clinical Impression(s) from Imaging Studies Brain CT 10/18/23 19:47 IMPRESSION: There are no acute findings. Electronically Signed: Amadeo Temple MD at 21:02 EDT Reading Location ID and State: [facility] / [place] , Service support , CT of the head without contrast reveals no intracranial bleed. There is a hypodense lesion right frontal region. There is atrophy noted. There is no evidence of mass effect or vasogenic edema. Awaiting formal read by radiologist. EKG Initial EKG: Attestation: I personally reviewed and interpreted this EKG as follows: Interpretation: Sinus Rhythm (Rate is 64. GA interval is 148 ms. Cures duration 96 ms. QT duration 118 ms. [place] is normal. There is no evidence of acute ischemic changes.) Treatment and Re-Evaluation :: Awaiting read from radiologist, 2104. Patient gait was observed. He does not have a foot drop. It is not broad-based. Patient able to walk on heels and toes. Tandem gait is normal as well. Patient presently has no symptoms. 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 See Rx Instructions .Route Qty: 1 0RF Rx Instructions: As directed (DME) Dexcom G6 Sensor Device See Rx Instructions .Route Qty: 9 1RF Rx Instructions: 1 sensor q 10 days (DME) Dexcom G6 Transmitter Device See Rx Instructions .Route Qty: 1 1RF Rx Instructions: 1 q 90 days Soliqua 100/33 100 unit-33 mcg/mL insulin pen 20 unit subcut QAM Qty: 6 5RF insulin lispro [Humalog KwikPen Insulin] 100 unit/mL insulin pen 18 unit subcut TID Qty: 48.6 1RF celecoxib 200 mg capsule 200 mg PO DAILY Patient Comments: ARTHRITIS WAS TOLD TO STOP FOR SURGERY zhdapvis-krw-BT-lycopen-lutein 1 EACH tablet 1 ea PO DAILY aspirin 81 MG tablet 81 mg PO DAILY@0800 Patient Comments: DR CARSON WANTS TO CONTINUE, DR PEREZ AWARE losartan 25 mg tablet 25 mg PO DAILY Qty: 90 3RF clopidogrel [Plavix] 75 mg tablet 75 mg PO DAILY Qty: 90 3RF ezetimibe 10 mg tablet 10 mg PO DAILY Qty: 90 3RF metoprolol succinate 25 mg tablet extended release 24 hr See Rx Instructions .ROUTE .COMPLEX Qty: 90 3RF Dose Instruction: TAKE 1 TABLET BY MOUTH DAILY Rx Instructions: TAKE 1 TABLET BY MOUTH DAILY Primary Care Provider: Alexander Rollins Referrals: Alexander Rollins DO [Primary Care Provider] - 3-5 Days Disposition Disposition: Home, Self Care What to do if you have Problems For any increased pain, shortness of breath, bleeding, nausea or vomiting, chestpain, or any unexpected problems, contact your Primary Care Provider. Call [facility] ([phone]) or report to the closest Emergency Room. Call 911 if necessary. 10/18/232107 <Electronically signed by Abel Murillo MD> Cosigner Signature (if applicable): CC: Dr. 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 Med rx's sent to [facility]. Side port and peripheral IV's removed. Pt assisted to dress. 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 Med rx's sent to [facility] pharmacy. Side port and peripheral IV's removed. Pt assisted to dress. To discharge area via wheel chair. * Glasgow Olga, ADVERTISING ACCOUNT MANAGER - FIBERGLASS BOAT FINISHER - 03/09/2021 10:38 AM EDT Images from the original note were not included. Discharge Summary: Cardiothoracic Surgery Fantasma Coley :1950 AGE: 70 y.o. ADMIT DATE: 03/05/2021 DISCHARGE DATE: 03/09/2021 DISCHARGING SURGEON: Jair Lawler MD, Office Number: [phone] PRIMARY CARE PHYSICIAN: ALEXANDER ROLLINS DO VISIT STATUS: Admission CODE STATUS: Full Code SURGERY: 03/05: CABGx3 (KIM to mid LAD, Ao to ramus to OM1 sequential with left leg [facility] COURSE: Fantasma Coley, 70 y.o., male referred from Dr Torres for MVCAD. He underwent CABGx3 (see operative report for full description). Post operative course uncomplicated. He was discharged on POD#4: home with home health. Short course of lasix was prescribed at discharge for post op fluid overload. Willfollow up with [facility] endocrinology for diabetic needs. DIAGNOSTICS: EF: final report for intra op LEDY pending at discharge; 02/08-60% from outside facility CONSULTS/TREATMENT TEAM: Primary care provider: ALEXANDER ROLLINS DO Critical Care Medicine Endocrinology: Dr. Mclaughlin Cardiology: Dr. Torres DISCHARGE DIAGNOSES: CAD s/p PCI (2016-) s/p CABGx3 HLP T2DM HTN Acute blood loss anemia Consumptive thrombocytopenia RAKEL compliant with CPAP OA Obesity DISCHARGE MEDICATIONS: Fantasma Coley "Kiera" Home Medication Instructions HARRIS:[id number] Printed on:03/09/21 1138 Medication Information albuterol sulfate (PROAIR RESPICLICK) 108 (90 Base) MCG/ACT aerosol powder inhalation Inhale into the lungs every 4 hours as needed for Wheezing or Shortness of Breath aspirin 81 MG EC tablet Take 81 mg by mouth daily blood glucose monitor kit and supplies 1 kit by Other route daily Per Patients insurance blood glucose monitor strips 1 strip by Other route 3 times daily (before meals) Test 3 times a day & as needed for symptomsof irregular blood glucose. celecoxib (CELEBREX) 200 MG capsule Take 200 mg by mouth 2 times daily clopidogrel (PLAVIX) 75 MG tablet Take 75 mg by mouth daily Pt last dose of plavix 02/06 furosemide (LASIX) 40 MG tablet Take 1 tablet by mouth daily for 5 days insulin glargine (LANTUS SOLOSTAR) 100 UNIT/ML injection pen Inject 20 Units into the skin daily insulin lispro, 1 Unit Dial, (HUMALOG KWIKPEN) 100 UNIT/ML SOPN Inject 5 Units into the skin 3 times daily (before meals) Insulin Pen Needle (PEN NEEDLES) 31G X 5 MM MISC 1 Product by Does not apply route 4 times daily (after meals and at bedtime) MAY SUBSTITUTE BRAND PER PATIENTS INSURANCE COVERAGE Lancets MISC 1 each by Does not apply route 3 times daily metoprolol tartrate (LOPRESSOR) 25 MG tablet Take 1 tablet by mouth 2 times daily [place] 3 1000 MG CAPS Take by mouth daily potassium chloride (KLOR-CON M) 20 MEQ TBCR extended release tablet Take 2 tablets by mouth daily (with breakfast) for 5 days traMADol (ULTRAM) 50 MG tablet Take 1 tablet by mouth every 6 hours as needed for Pain (acute post surgical pain) for up to 7 days. *The patient's OARRS report was obtained and reviewed.* I explained to Fantasma Coley that narcotic pain medications have addictive potential and should only be taken for acute post operative surgical pain. I also explained that narcotic/opioid medication should not be taken to help sleep as they are onlyintended to treat pain. In addition the patient needs to avoid driving or taking other narcotics, anxiolytics or consuming alcohol or using street drugs while they are taking the narcotic because serious side effects including can occur. I discussed the side effects that can occur when takinga narcotic alone including but not limited to: nausea, vomiting, constipation and drowsiness. I told the patient that if they have any reactions to the medication or any percieved problems withthe medication, they are to stop the medication and call me. DIET: Adult Oral Nutrition Supplement; Low Calorie/High Protein Oral Supplement ADULT DIET; Regular; 4 carb choices (60 gm/meal); Low Fat/Low Chol/High Fiber/MOI BMI CLASSIFICATION:Obese (BMI 30.0-39.9) ACTIVITY: activity as tolerated, strict post-sternotomy/post-thoracotomy sternal precautions as outlined in the home going instructions and no driving or operating heavy machinery until released by provider STRICT POST-STERNOTOMY/POST-THORACOTOMY PRECAUTIONS OUTLINED IN THE HOME GOING INSTRUCTIONS FOLLOW UP: Follow-up With Details Why Contact Info Alexander Rollins DO PCP-as needed for primary care needs [address] [place] [address] [facility] [address] Jair Lawler MD our office to call with appointment, Post op open heart follow up 75 [facility] [phone] Cruzito Torres MD Body Work Auto Trimmer- in 3-4 weeks hospital follow up [address] [facility] [address] [facility] [phone] Ramirez Mclaughlin MD Schedule an appointment as soon as possible for a visit Fighter Pilot [address] [place] [phone] CORE CARDIAC MEDICATIONS PRESCRIBED AT DISCHARGE: ASA, Plavix, Statin and BB no ACEi EF greater than 40% Post-operative Atrial Fibrillation: []Yes [x] No OAC: [] Yes [x] No Initial Post-op RBC transfusion date/reason: none noted during post-operative course Chronic Lung Disease: Unknown DISPOSITION: Home with Home Assist A copy of the discharge instructions which included the medications at the time of discharge, follow-up appointments, phone numbers to call with questions, activity, restrictions, and limitations wasprovided to the patient or their family. We greatly appreciate the opportunity to participate in the care of your patient. If you have any additional questions or concerns regarding any aspects of their care or management please do not hesitate to contact us. SIGNED: Olga Glasgow APRN - ANAYA 03/09/2021, 11:32 AM documented in this encounterSUMMA Work Phone: 1(989) 969-447609-18-2021 NoteDischarge Summary: Cardiothoracic Surgery Fantasma Coley :1950 AGE: 70 y.o. ADMIT DATE: 03/05/2021 DISCHARGE DATE: 03/09/2021 DISCHARGING SURGEON: Jair Lawler MD, Office Number: [phone] PRIMARY CARE PHYSICIAN: ALEXANDER ROLLINS DO VISIT STATUS: Admission CODE STATUS: Full Code SURGERY: 03/05: CABGx3 (KIM to mid LAD, Ao to ramus to OM1 sequential with left leg [facility] COURSE: Fantasma Coley, 70 y.o., male referred from Dr Torres for MVCAD. He underwent CABGx3 (see operative report for full description). Post operative course uncomplicated. He was discharged on POD#4: home with home health. Short course of lasix was prescribed at discharge for post op fluid overload. Will follow up with [facility] endocrinology for diabetic needs. DIAGNOSTICS: EF: final report for intra op LEDY pending at discharge; 02/08-60% from outside facility CONSULTS/TREATMENT TEAM: Primary care provider: ALEXANDER ROLLINS DO Critical Care Medicine Endocrinology: Dr. Mclaughlin Cardiology: Dr. Torres DISCHARGE DIAGNOSES: CAD s/p PCI (2016-RCA) s/p CABGx3 HLP T2DM HTN Acute blood loss anemia Consumptive thrombocytopenia RAKEL compliant with CPAP OA Obesity DISCHARGE MEDICATIONS: Fantasma Coley "Kiera" Home Medication Instructions HARRIS:[id number] Printed on:03/09/21 1132 Medication Information albuterol sulfate (PROAIR RESPICLICK) 108 (90 Base) MCG/ACT aerosol powder inhalation Inhale into the lungs every 4 hours as needed for Wheezing or Shortness of Breath aspirin 81 MG EC tablet Take 81 mg by mouth daily blood glucose monitor kit and supplies 1 kit by Other route daily Per Patients insurance blood glucose monitor strips 1 strip by Other route 3 times daily (before meals) Test 3 times a day & as needed for symptoms of irregular blood glucose. celecoxib (CELEBREX) 200 MG capsule Take 200 mg by mouth 2 times daily clopidogrel (PLAVIX) 75 MG tablet Take 75 mg by mouth daily Pt last dose of plavix 02/06 furosemide (LASIX) 40 MG tablet Take 1 tablet by mouth daily for 5 days insulin glargine (LANTUS SOLOSTAR) 100 UNIT/ML injection pen Inject 20 Units into the skin daily insulin lispro, 1 Unit Dial, (HUMALOG KWIKPEN) 100 UNIT/ML SOPN Inject 5 Units into the skin 3 times daily (before meals) Insulin Pen Needle (PEN NEEDLES) 31G X 5 MM MISC 1 Product by Does not apply route 4 times daily (after meals and at bedtime) MAY SUBSTITUTE BRAND PER PATIENTS INSURANCE COVERAGE Lancets MISC 1 each by Does not apply route 3 times daily metoprolol tartrate (LOPRESSOR) 25 MG tablet Take 1 tablet by mouth 2 times daily [place] 3 1000 MG CAPS Take by mouth daily potassium chloride (KLOR-CON M) 20 MEQ TBCR extended release tablet Take 2 tablets by mouth daily (with breakfast) for 5 days traMADol (ULTRAM) 50 MG tablet Take 1 tablet by mouth every 6 hours as needed for Pain (acute post surgical pain) for up to 7 days. *The patient's OARRS report was obtained and reviewed.* I explained to Fantasma Coley that narcotic pain medications have addictive potential and should only be taken for acute post operative surgical pain. I also explained that narcotic/opioid medication should not be taken to help sleep as they are only intended to treat pain. In addition the patient needs to avoid driving or taking other narcotics, anxiolytics or consuming alcohol or using street drugs while they are taking the narcotic because serious side effects including can occur. I discussed the side effects that can occur when taking a narcotic alone including but not limited to: nausea, vomiting, constipation and drowsiness. I told the patient that if they have any reactions to the medication or any percieved problems with the medication, they are to stop the medication and call me. DIET: Adult Oral Nutrition Supplement; Low Calorie/High Protein Oral Supplement ADULT DIET; Regular; 4 carb choices (60 gm/meal); Low Fat/Low Chol/High Fiber/MOI BMI CLASSIFICATION:Obese (BMI 30.0-39.9) ACTIVITY: activity as tolerated, strict post-sternotomy/post-thoracotomy sternal precautions as outlined in the home going instructions and no driving or operating heavy machinery until released by provider STRICT POST-STERNOTOMY/POST-THORACOTOMY PRECAUTIONS OUTLINED IN THE HOME GOING INSTRUCTIONS FOLLOW UP: Follow-up With Details Why Contact Info Alexander Rollins, PCP-as needed for primary care needs [address] [facility] [address] Jair Lawler MD our office to call with appointment, Post op open heart follow up 75 [facility] [address] Critical access hospital [address] Cruzito Torres MD Body Work Auto Trimmer- in 3-4 weeks hospital follow up [address] [facility] [address] [facility] [phone] Ramirez Mclaughlin MD Schedule an appointment as soon as possible for a visit Fighter Pilot [address] [facility] [phone] (more content not included)...[facility]09-18-2021 History of Present illness Narrative* Olga Glasgow APRN - CNP - 03/09/2021 9:23 AM EDT After rounds: remove CTs; discharge later today. Will need endo/assistant professor of psychology prior. * Olga Glasgow APRN - CNP - 03/09/2021 5:44 AM EDT Images from the original note were not included. Cardiothoracic Surgery Progress Note PATIENT NAME: Fantasma Coley TODAY'S DATE: 03/09/2021 Surgery/Procedure: 03/05: CABGx3 (KIM to mid LAD, Ao to ramus to OM1 sequential with left leg [facility] Interval History: POD#4: VSS; RA; pain controlled. Up to chair this am. Passing flatus no BM. Ready to go home. Hgb 9.9 Plt: 137 CTs: 70cc/24hrs Net IO Since Admission: 3,878.23 mL [03/09/21 0544] Recent Labs 03/07/21 0358 03/08/21 0314 03/09/21 0212 WBC 10.6 8.8 5.8 HGB 10.3* 10.4* 9.9* PLT 115* 139* 141 NA 137 136 137 K 3.6 3.9 3.5 CREATININE 0.80 0.79 0.73 Objective BP (!) 129/58 Pulse 75 Temp 98.2 F (36.8 C) (Oral) Resp 15 Ht 5' 11" (1.803 m) Wt 257 lb 3.2 oz (116.7 kg) SpO2 92% BMI 35.87 kg/m Physical Exam Cardiovascular: Rate and Rhythm: Normal rate and regular rhythm. Heart sounds: Normal heart sounds. No murmur heard. No friction rub. Pulmonary: Effort: Pulmonary effort is normal. Abdominal: Palpations: Abdomen is soft. Tenderness: There is no abdominal tenderness. Musculoskeletal: Right lower leg: No edema. Left lower leg: No edema. Skin: General: Skin is warm and dry. Capillary Refill: Capillary refill takes less than 2 seconds. Findings: Bruising present. Comments: Surgical Incisions: well approximated; clean dry with no drainage noted. Surrounding skin no redness, warmth, or signs of infection noted. Neurological: Mental Status: He is alert. Psychiatric: Behavior: Behavior normal. Behavior is cooperative. LDAs: Introducer 03/05/21 Internal jugular Right (Active) Number of days: 4 Pacing Wires (Active) Number of days: 4 ASSESSMENT: CAD s/p PCI (2016-RCA) s/p CABGx3 HLP T2DM HTN Acute blood loss anemia Consumptive thrombocytopenia RAKEL compliant with CPAP OA Obesity PLAN: Remove CTs and introducer; follow up morning CXR. Endo's recs for insulin at d/c; needs diabetic ed; will clarify with endo prior to d/c. Dispo planning Cardiac Core Medications: ASA and BB (statin-allergy) ACEi/ARB EF>40% EF: final report for intra op LEDY pending; 02/08-60% from outside facility Post-operative Atrial Fibrillation: []Yes [x] No Post operative Pulm Management: Normal Post-Operative Course Blood Conservation: None noted in postoperatively period. DVT prophylaxis: TEDs, SCDs and Lovenox Restraints: no PT recs: home with assist 03/08 Disposition: Remove CTs; discharge home today vs tomorrow Treatment Team: Primary Care Provider: ALEXANDER ROLLINS DO Cardiology: Dr. Torres Endocrine: Dr. Mclaughlin Disclaimer INFORMED CONSENT:The nature and purpose of the proposed treatment or procedure have been discussed.The risks and benefits of the proposed treatment or procedures have been reviewed. Alternatives have been reviewed in addition to the risks and benefits of not receiving treatments or undergoing procedures. Pursuant to this discussion, the patient agrees to undergo the proposed treatment or procedure. Captured images seen in this note from are not a substitute for a comprehensive interpretation of the entire data set as reflected by the interpreting physician with regard to radiology, echocardiography, and other diagnostic images. This note may have been dictated using The [employer] Practice Edition 2.6 and/or AddIn Social Voice Recognition Feature. The document was proofread, however unrecognized voice recognition hand brush filler errors may be present. * Nasra Castillo RD, LD - 03/08/2021 3:43 PM EDT Comprehensive Nutrition Assessment Type and Reason for Visit: Reassess Nutrition Recommendations/Plan: 1. Continue CHO Control, Cardiac diet as ordered 2. Continue ONS: Ensure HP BID 3. Provided review of DM diet recommendations and reference materials. Pt and spouse deny need for review of heart healthy diet, however were provided with related handout at initial assessment. RD contact information was provided. RD also added CHO Counting information to discharge instruction 4. RD will monitor and follow up weekly Nutrition Assessment: Pt with PMH including multivessel CAD, T2DM, HLP, Obesity, RAKEL on CPAP reported SOB with abnormal stress test, underwent Cath showing severe triple vessel disease. Admitted 03/05/2021 for surgery and underwent CABG x3. Extubated with diet ordered. Pt is up in chair, eating lunch, >50% consumed already. He reports this is his first meal since surgery, denies nausea. 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 Advised pt that RD will return prior to discharge to review diet education. Pt is up in chair, spouse at bedside. He reports good appetite, is eating well at three meals daily, and is drinking ONS. Regarding diet education, pt and spouse deny need for heart healthy diet ed, spouse states she is very familar with diet recommendations as her first was on a cradiac diet. Pt and spouse have many questions regarding DM diet however. RD reviewed basic recommendations for pt and provided examples. Plate method handout was also provided. All of pt and spouse's questions were answered. RD contact information was provided and pt was encouraged to follow up with an outpatient dietitian Malnutrition Assessment: Malnutrition Status: At risk for malnutrition (Comment) (s/p open heart surgery) Context: Acute Illness Estimated Daily Nutrient Needs: Energy (kcal): 7351-9166; Weight Used for Energy Requirements: [place] (25-28kcal/kg) Protein (g): 94-117; Weight Used for Protein Requirements: [place] (1.2-1.5g/kg) Fluid (ml/day): Per MD; Method Used for Fluid Requirements: (N/A) Nutrition Related Findings: +I&O. +1 BLE edema. Active bowel sounds. Donnie=19. Labs and meds reviewed. BMP: Recent Labs 03/06/21 0047 03/06/21 0232 03/07/21 0358 03/07/21 0600 03/08/21 0314 NA 138 -- 137 -- 136 K 4.1 -- 3.6 -- 3.9 CL 108* -- 107 -- 106 CO2 23 -- 25 -- 25 BUN 20* -- 29* -- 26* CREATININE 0.69 -- 0.80 -- 0.79 GLUCOSE 89 -- 73 -- 179* CALCIUM 7.8* -- 7.7* -- 7.9* IONCA -- 3.80* -- 4.30 4.20* MG 1.9 -- 2.0 -- 1.9 Wounds: Surgical Incision Current Nutrition Therapies: Adult Oral Nutrition Supplement; Low Calorie/High Protein Oral Supplement ADULT DIET; Regular; 4 carb choices (60 gm/meal); Low Fat/Low Chol/High Fiber/MOI Anthropometric Measures: Height: 5' 11" (180.3 cm) Current Body Weight: 257 lb 4.4 oz (116.7 kg) Admission Body Weight: 253 lb 15.5 oz (115.2 kg) (03/05) Usual Body Weight: 243 lb (110.2 kg) (02/14/21) [place] Body Weight: 172 lbs; % [place] Body Weight 147.7 % BMI: 35.9 Adjusted Body Weight: ; No Adjustment BMI Categories: Obese Class 2 (BMI 35.0 -39.9) Nutrition Diagnosis: Increased nutrient needs related to increase demand for energy/nutrients as evidenced by wounds (surgical) Altered nutrition-related lab values related to endocrine dysfuntion as evidenced by (A1C of 9.5% on 03/04) Nutrition Interventions: Food and/or Nutrient Delivery: Continue Current Diet, Continue Oral Nutrition Supplement Nutrition Education/Counseling: Education completed, Survival skills/brief education completed Coordination of Nutrition Care: Continue to monitor while inpatient Goals: Pt will consume >50% at meals and ONS. Pt will receive diet education as needed prior to discharge Nutrition Monitoring and Evaluation: Behavioral-Environmental Outcomes: Knowledge or Skill Food/Nutrient Intake Outcomes: Diet Advancement/Tolerance, Food and Nutrient Intake, Supplement Intake Physical Signs/Symptoms Outcomes: Biochemical Data, GI Status, Skin, Weight Discharge Planning: Recommend pursue outpatient diabetes education Contact: pager [phone] * Ivanna Hua, ADVERTISING ACCOUNT MANAGER - FIBERGLASS BOAT FINISHER - 03/08/2021 12:58 PM EDT Images from the original note were not included. Department of Internal Medicine Division of Endocrinology, Diabetes, & Metabolism Endocrinology Consult Note Patient Name: Fantasma Coley : 1950 AGE: 70 y.o. Admission Date: 03/05/2021 5:20 AM Date of Initial Consult: 03/05/21 Reason for Endocrine Consult: dm Provider/Team Requesting Consult: cardiothoracic surgery PCP: ALEXANDER ROLLINS DO Outpt Fighter Pilot: no ASSESSMENT: dm2 poor control S/p cabg obesity PLAN: lantus 20 units daily hlog 5/5/5/0 with SS AC meals Consult DM education for insulin pen teaching ANTICIPATED ENDOCRINE HOME GOING RECOMMENDATIONS: Optimized for Discharge from Endocrine standpoint: Yes Home Going Endocrine Rx Recommendations-- lantus and humalog at ordered doses Do not send home on prior regimen Outpt Follow Up Endocrine Testing-- [facility] Endocrinology Appointment request sent to Endo office Staff: No Endocrine Team Contact(s): Fighter Pilot On-Call: Lissette Preferred Method of Communication/Reaching: PerfectServe. The above physician should be paged w/ questions/concerns about items being managed by Endocrinology Team. We appreciate the opportunity to participate in this pt's ongoing medical care. SUBJECTIVE/HPI: CHIEF COMPLAINT: chest pain/sob The patient presented after an abnl stress test and is hospitalized 03/05/21 for cabg. Type of DM: 2 Onset of DM: unknown Results for FANTASMA COLEY "KIERA" ( ) as of 03/05/2021 13:33 Ref. Range 03/04/2021 13:33 Hemoglobin A1C Latest Units: % 9.5 (A) Home DM Medication Regimen (reported by pt): Metformin 500 mg daily semaglutide 0.5 mg every 7 days Cardiac Procedure: cabg X 3 Procedure Date: 03/05/21 Insulin Drip Rate: 5 Insulin Drip DC Date: NA up in chair POD# 3 BG levels 179 191 221 186 Eating well Feels good today at bedside, explained to and pt the importance of outpatient f/u with our practice for good BG stability Stated to them its too early to determine for sure- but it is appearing as of now that the pt will need insulin at home Review of Systems Constitutional: Negative for appetite change and fatigue. Gastrointestinal: Negative for nausea and vomiting (resolved). All other systems reviewed and are negative. OBJECTIVE: Vitals: 03/08/21 0416 03/08/21 0545 03/08/21 0807 03/08/21 1135 BP: 136/67 120/60 128/72 Pulse: 75 79 62 Resp: 16 16 Temp: 98.4 F (36.9 C) 98.2 F (36.8 C) TempSrc: Oral Oral SpO2: 96% 98% 97% Weight: 257 lb 3.2 oz (116.7 kg) Height: Physical Exam Vitals reviewed. Constitutional: General: He is not in acute distress. Appearance: He is obese. HENT: Head: Normocephalic and atraumatic. Eyes: General: No scleral icterus. Right eye: No discharge. Left eye: No discharge. Cardiovascular: Rate and Rhythm: Normal rate and regular rhythm. Heart sounds: No murmur heard. No friction rub. No gallop. Pulmonary: Breath sounds: Normal breath sounds. Abdominal: General: There is no distension. Palpations: There is no mass. Musculoskeletal: General: Swelling present. Cervical back: Normal range of motion and neck supple. No rigidity or tenderness. Right lower leg: Edema present. Left lower leg: Edema present. Skin: General: Skin is warm and dry. Coloration: Skin is not jaundiced or pale. 24 hour intake/output: Intake/Output Summary (Last 24 hours) at 03/08/2021 1259 Last data filed at 03/08/2021 1243 Gross per 24 hour Intake 2040.16 ml Output 2295 ml Net -254.84 ml Medications (as per EMR): HomeMeds: Prior to Admission medications Medication Sig Start Date End Date Taking? Authorizing Provider metFORMIN (GLUCOPHAGE-XR) 500 MG extended release tablet Take 500 mg by mouth daily (with breakfast) 2 tab BID Yes Historical Provider, mupirocin (BACTROBAN NASAL) 2 % nasal ointment Apply liberal amount on a q-tip and place in each nostril the night before surgery and then again the morning of surgery 02/15/21 Yes Olga Glasgow APRN- [employer] aspirin 81 MG EC tablet Take 81 mg by mouth daily Yes Historical Provider, losartan (COZAAR) 50 MG tablet Take 50 mg by mouth daily Yes Historical Provider, celecoxib (CELEBREX) 200 MG capsule Take 200 mg by mouth 2 times daily Historical Provider, nitroGLYCERIN (NITROSTAT) 0.[address] 0.4 mg under the tongue up to max of 3 total doses. If no relief after 1 dose, call 911. Historical Provider, [place] 3 1000 MG CAPS Take by mouth daily Historical Provider, empagliflozin (JARDIANCE) 10 MG tablet Take 10 mg by mouth daily Historical Provider, clopidogrel (PLAVIX) 75 MG tablet Take 75 mg by mouth daily Pt last dose of plavix 02/06 Historical Provider, Semaglutide-Weight Management (WEGOVY) 0.5 MG/0.5ML SOAJ SC injection Inject 0.5 mg into the skin every 7 days Historical Provider, albuterol sulfate (PROAIR RESPICLICK) 108 (90 Base) MCG/ACT aerosol powder inhalation Inhale into the lungs every 4 hours as needed for Wheezing or Shortness of Breath Historical Provider, Scheduled Meds: furosemide 80 mg Oral Daily ketorolac 15 mg IntraVENous Q6H [Held by provider] losartan 25 mg Oral Daily clopidogrel 75 mg Oral Daily aspirin 81 mg Oral Daily insulin glargine 20 Units SubCUTAneous Daily insulin lispro 0-6 Units SubCUTAneous TID WC insulin lispro 5 Units SubCUTAneous TID WC metoprolol tartrate 25 mg Oral BID enoxaparin 40 mg SubCUTAneous Daily pantoprazole 40 mg Oral QAM AC acetaminophen 1,000 mg Oral Q8H mupirocin Nasal BID polyethylene glycol 17 g Oral Daily sennosides-docusate sodium 2 tablet Oral Nightly sodium chloride flush 10 mL IntraCATHeter Q8H Continuous Infusions: dextrose PRN Meds:sodium chloride flush, ondansetron, potassium chloride, potassium chloride, magnesium sulfate, calcium gluconate, glucose, dextrose, glucagon (rDNA), dextrose, traMADol, insulin regular, oxyCODONE OR oxyCODONE, hydrALAZINE Diagnostic Workup: I reviewed Laboratory results, Radiographic results, Other Team Notes at the time oftoday's encounter. BMP: Recent Labs 03/06/21 0047 03/07/21 0358 03/08/21 0314 NA 138 137 136 K 4.1 3.6 3.9 CL 108* 107 106 CO2 23 25 25 BUN 20* 29* 26* CREATININE 0.69 0.80 0.79 GLUCOSE 89 73 179* Glucose: Recent Labs 03/07/21 1304 03/07/21 1408 03/07/21 1506 03/07/21 1645 03/07/21 2049 03/08/21 0649 03/08/21 0853 03/08/21 1119 POCGLU 128* 115* 101* 121* 289* 191* 221* 186* HgbA1C: No results for input(s): LABA1C in the last 72 hours. Hepatic: No results for input(s): ALKPHOS, ALT, AST, PROT, BILITOT, BILIDIR, LABALBU in the last 72 hours. Lipids: No results for input(s): CHOL, TRIG, HDL, LDLCALC in the last 72 hours. Invalid input(s): LDL Radiology reportsas per the Radiologist Radiology: No results found. History/Other: Past Medical History: Diagnosis Date Arthritis Atherosclerosis of coronary artery Hyperlipidemia Hypertension Obesity RAKEL on CPAP Type 2 diabetes mellitus (HCC) Past Surgical History: Procedure Laterality Date CARPAL TUNNEL RELEASE Bilateral BILATERAL TIMES 2 KNEE ARTHROSCOPY Right OTHER SURGICAL HISTORY Coronary Artery Stent Placement 2016 TOE SURGERY TOE SURGERY RIGHT GREAT TOE FUSED Current Medications: Current Facility-Administered Medications: furosemide (LASIX) tablet 80 mg, 80 mg, Oral, Daily ketorolac (TORADOL) injection 15 mg, 15 mg, IntraVENous, Q6H [Held by provider] losartan (COZAAR) tablet 25 mg, 25 mg, Oral, Daily clopidogrel (PLAVIX) tablet 75 mg, 75 mg, Oral, Daily aspirin EC tablet 81 mg, 81 mg, Oral, Daily insulin glargine (LANTUS) injection vial 20 Units, 20 Units, SubCUTAneous, Daily insulin lispro (HUMALOG) injection vial 0-6 Units, 0-6 Units, SubCUTAneous, TID WC insulin lispro (HUMALOG) injection vial 5 Units, 5 Units, SubCUTAneous, TID WC metoprolol tartrate (LOPRESSOR) tablet 25 mg, 25 mg, Oral, BID enoxaparin (LOVENOX) injection 40 mg, 40 mg, SubCUTAneous, Daily pantoprazole (PROTONIX) tablet 40 mg, 40 mg, Oral, QAM AC sodium chloride flush 0.9 % injection 10 mL, 10 mL, IntraVENous, PRN ondansetron (ZOFRAN) injection 4 mg, 4 mg, IntraVENous, Q8H PRN acetaminophen (TYLENOL) tablet 1,000 mg, 1,000 mg, Oral, Q8H mupirocin (BACTROBAN) 2 % ointment, , Nasal, BID potassium chloride (KLOR-CON M) extended release tablet 20 mEq, 20 mEq, Oral, PRN polyethylene glycol (GLYCOLAX) packet 17 g, 17 g, Oral, Daily sennosides-docusate sodium (SENOKOT-S) 8.6-50 MG tablet 2 tablet, 2 tablet, Oral, Nightly potassium chloride 20 mEq/50 mL IVPB (Central Line), 20 mEq, IntraVENous, PRN magnesium sulfate 2000 mg in 50 mL IVPB premix, 2,000 mg, IntraVENous, PRN calcium gluconate 2,000 mg in dextrose 5 % 100 mL IVPB, 2,000 mg, IntraVENous, PRN glucose (GLUTOSE) 40 % oral gel 15 g, 15 g, Oral, PRN dextrose 50 % IV solution, 12.5 g, IntraVENous, PRN glucagon (rDNA) injection 1 mg, 1 mg, IntraMUSCular, PRN dextrose 5 % solution, 100 mL/hr, IntraVENous, PRN traMADol (ULTRAM) tablet 50 mg, 50 mg, Oral, Q6H PRN insulin regular (HUMULIN R;NOVOLIN R) injection 4 Units, 4 Units, IntraVENous, PRN sodium chloride flush 0.9 % injection 10 mL, 10 mL, IntraCATHeter, Q8H oxyCODONE (ROXICODONE) immediate release tablet 5 mg, 5 mg, Oral, Q4H PRN OR oxyCODONE (ROXICODONE) immediate release tablet 10 mg, 10 mg, Oral, Q4H PRN hydrALAZINE (APRESOLINE) injection 10 mg, 10 mg, IntraVENous, Q6H PRN Allergy(ies): Allergies Allergen Reactions Atorvastatin Cinnamon Throat swelling Pravastatin Myalgia Family History: Problem Relation Age of Onset Coronary Art Dis Mother Coronary Art Dis Father Coronary Art Dis Brother Social History: Reviewed in EMR and H&P and updated if appropriate. Portions of the information within this encounter were entered using an electronic dictation system. Best attempts were made to edit/proofread the information prior to note completion. Despite the review of information, some errors may remain. If there are questions related to the information contained within the note please contact the signing physician directly. I spent 25 minutes with the pt which involved more than 51% of the time in coordination of care, medical evaluation, review of records, and/or counseling of the pt regarding her condition/disease state/prognosis on the date of this note. * Noemi Sanchez, LEAD QA ANALYST - 03/08/2021 10:36 AM EDT Physical Therapy Facility/Department: [facility] Daily Treatment Note NAME: Fantasma Coley : 1950 Date of Service: 03/08/2021 Discharge Recommendations: Home with assist PRN PT Equipment Recommendations Equipment Needed: No Assessment Body structures, Functions, Activity limitations: Decreased functional mobility ;Decreased strength;Decreased balance Assessment: Pt at supervision to SBA level for all mobility. No LOB noted. Pt is normally very active. Pt was able to ambulate around entire unit, complete 8 stairs, and complete P&C exercises without difficulty. Pt is compliant with sternal precautions. REQUIRES PT FOLLOW UP: Yes Activity Tolerance Activity Tolerance: Patient limited by endurance;Patient limited by fatigue Patient Diagnosis(es): There were no encounter diagnoses. has a past medical history of Arthritis, Atherosclerosis of coronary artery, Hyperlipidemia, Hypertension, Obesity, RAKEL on CPAP, and Type 2 diabetes mellitus (HCC). has a past surgical history that includes Knee arthroscopy (Right); Carpal tunnel release (Bilateral); other surgical history; Toe Surgery; and Toe Surgery. Restrictions Restrictions/Precautions Restrictions/Precautions: Fall Risk Required Braces or Orthoses?: No Position Activity Restriction Sternal Precautions: No Pushing, No Pulling, 10# Lifting Restrictions Other position/activity restrictions: Chest tube x 1,, tele Subjective General Chart Reviewed: Yes Additional Pertinent Hx: HTN, DM Family / Caregiver Present: No Subjective Subjective: Pt seated in chair upon entry. Pt cooperative and agreeable with PT. RN cleared pt for PT General Comment Comments: CABG x3 Pain Screening Patient Currently in Pain: Denies Vital Signs Patient Currently in Pain: Denies Orientation Orientation Overall Orientation Status: Within Normal Limits Cognition Cognition Overall Cognitive Status: WFL Objective Transfers Sit to Stand: Supervision Stand to sit: Supervision Ambulation Ambulation?: Yes Ambulation 1 Surface: level tile Device: No Device Assistance: Supervision Distance: 300 ft Stairs/Curb Stairs?: Yes Stairs # Steps : 8 Rails: None Device: No Device Assistance: Stand by assistance Exercises Upper Extremity: P&C exercises # 1-9 x 10 reps each with demo, booklet issued Comments: I.S. 1000 mL G-Code AM-PAC Score AM-PAC Inpatient Mobility Raw Score : 19 (03/08/21 1037) AM-PAC Inpatient T-Scale Score : 45.44 (03/08/21 1037) Mobility Inpatient CMS 0-100% Score: 41.77 (03/08/21 1037) Mobility Inpatient CMS G-Code Modifier : CK (03/08/21 1037) Goals Short term goals Time Frame for Short term goals: 2 weeks Short term goal 1: bed mobility independent- NOT ADDRESSED Short term goal 2: transfer independent- PROGRESSING Short term goal 3: ambulate 100ft with or without assistive device modified independent- PROGRESSING Short term goal 4: up/down 3 stairs with railing and supervision- PROGRESSING Short term goal 5: independent with P&C exercises, IS, secretion clearance, and understanding walking program- PROGRESSING Patient Goals Patient goals : would like to get up and moving Plan Plan Times per week: 5-7 Plan weeks: 2 weeks Current Treatment Recommendations: Strengthening, Endurance Training, Transfer Training, Gait Training, Balance Training, Functional Mobility Training, Stair training Plan Comment: chest PT Safety Devices Type of devices: Left in chair, Call light within reach, Nurse notified, All fall risk precautions in place Restraints Initially in place: No Therapy Time Individual Concurrent Group Co-treatment Time In 0950 Time Out 1015 Minutes 25 Timed Code Treatment Minutes: (GT, TP) *PPE per facility policy used during session* Pt wore mask while in veloz. Noemi Sanchez PTA * Ivanna Hua, ADVERTISING ACCOUNT MANAGER - [facility] - 03/07/2021 3:01 PM EDT Images from the original note were not included. Department of Internal Medicine Division of Endocrinology, Diabetes, & Metabolism Endocrinology Consult Note Patient Name: Fantasma Coley : 1950 AGE: 70 y.o. Admission Date: 03/05/2021 5:20 AM Date of Initial Consult: 03/05/21 Reason for Endocrine Consult: dm Provider/Team Requesting Consult: cardiothoracic surgery PCP: ALEXANDER ROLLINS DO Outpt Fighter Pilot: no ASSESSMENT: dm2 poor control S/p cabg obesity PLAN: Dc insulin gtt Start lantus 20 units daily ( first dose now/ turn insulin gtt off one hour later ) Start hlog 0 with SS AC meals ANTICIPATED ENDOCRINE HOME GOING RECOMMENDATIONS: Optimized for Discharge from Endocrine standpoint: No Home Going Endocrine Rx Recommendations-- tbd Outpt Follow Up Endocrine Testing-- tbd Appointment request sent to Endo office Staff: No Endocrine Team Contact(s): Fighter Pilot On-Call: Lissette Preferred Method of Communication/Reaching: PerfectServe. The above physician should be paged w/ questions/concerns about items being managed by Endocrinology Team. We appreciate the opportunity to participate in this pt's ongoing medical care. SUBJECTIVE/HPI: CHIEF COMPLAINT: chest pain/sob The patient presented after an abnl stress test and is hospitalized 03/05/21 for cabg. Type of DM: 2 Onset of DM: unknown Results for FANTASMA COLEY" ( ) as of 03/05/2021 13:33 Ref. Range 03/04/2021 13:33 Hemoglobin A1C Latest Units: % 9.5 (A) Home DM Medication Regimen (reported by pt): Metformin 500 mg daily semaglutide 0.5 mg every 7 days Cardiac Procedure: cabg X 3 Procedure Date: 03/05/21 Insulin Drip Rate: 5 Insulin Drip DC Date: NA Extubated/ up in chair POD# 2 BG levels on insulin gtt 87 73 188 115 Eating well Feels good today, states he's been walking unit Review of Systems Constitutional: Negative for appetite change and fatigue. Gastrointestinal: Negative for nausea and vomiting (resolved). All other systems reviewed and are negative. OBJECTIVE: Vitals: 03/07/21 0400 03/07/21 0500 03/07/21 0815 03/07/21 1201 BP: 117/64 126/63 (!) 100/53 Pulse: 60 69 77 Resp: 16 16 20 Temp: 97.6 F (36.4 C) 98.6 F (37 C) 98.3 F (36.8 C) TempSrc: Oral Oral Oral SpO2: 99% 95% 93% Weight: 256 lb 11.2 oz (116.4 kg) Height: Physical Exam Vitals reviewed. Constitutional: General: He is not in acute distress. Appearance: He is obese. HENT: Head: Normocephalic and atraumatic. Eyes: General: No scleral icterus. Right eye: No discharge. Left eye: No discharge. Cardiovascular: Rate and Rhythm: Normal rate and regular rhythm. Heart sounds: No murmur heard. No friction rub. No gallop. Pulmonary: Breath sounds: Normal breath sounds. Abdominal: General: There is no distension. Palpations: There is no mass. Musculoskeletal: General: Swelling present. Cervical back: Normal range of motion and neck supple. No rigidity or tenderness. Right lower leg: Edema present. Left lower leg: Edema present. Skin: General: Skin is warm and dry. Coloration: Skin is not jaundiced or pale. 24 hour intake/output: Intake/Output Summary (Last 24 hours) at 03/07/2021 1501 Last data filed at 03/07/2021 1325 Gross per 24 hour Intake 2517 ml Output 3122 ml Net -605 ml Medications (as per EMR): HomeMeds: Prior to Admission medications Medication Sig Start Date End Date Taking? Authorizing Provider metFORMIN (GLUCOPHAGE-XR) 500 MG extended release tablet Take 500 mg by mouth daily (with breakfast) 2 tab BID Yes Historical Provider, mupirocin (BACTROBAN NASAL) 2 % nasal ointment Apply liberal amount on a q-tip and place in each nostril the night before surgery and then again the morning of surgery 02/15/21 Yes Olga Glasgow, ADVERTISING ACCOUNT MANAGER- [employer] aspirin 81 MG EC tablet Take 81 mg by mouth daily Yes Historical Provider, losartan (COZAAR) 50 MG tablet Take 50 mg by mouth daily Yes Historical Provider, celecoxib (CELEBREX) 200 MG capsule Take 200 mg by mouth 2 times daily Historical Provider, nitroGLYCERIN (NITROSTAT) 0.[address] 0.4 mg under the tongue up to max of 3 total doses. If no relief after 1 dose, call 911. Historical Provider, [place] 3 1000 MG CAPS Take by mouth daily Historical Provider, empagliflozin (JARDIANCE) 10 MG tablet Take 10 mg by mouth daily Historical Provider, clopidogrel (PLAVIX) 75 MG tablet Take 75 mg by mouth daily Pt last dose of plavix 02/06 Historical Provider, Semaglutide-Weight Management (WEGOVY) 0.5 MG/0.5ML SOAJ SC injection Inject 0.5 mg into the skin every 7 days Historical Provider, albuterol sulfate (PROAIR RESPICLICK) 108 (90 Base) MCG/ACT aerosol powder inhalation Inhale into the lungs every 4 hours as needed for Wheezing or Shortness of Breath Historical Provider, Scheduled Meds: furosemide 20 mg IntraVENous BID ketorolac 15 mg IntraVENous Q6H losartan 25 mg Oral Daily clopidogrel 75 mg Oral Daily aspirin 81 mg Oral Daily insulin glargine 20 Units SubCUTAneous Daily insulin lispro 0-6 Units SubCUTAneous TID insulin lispro 5 Units SubCUTAneous TID metoprolol tartrate 25 mg Oral BID enoxaparin 40 mg SubCUTAneous Daily pantoprazole 40 mg Oral QAM AC acetaminophen 1,000 mg Oral Q8H mupirocin Nasal BID polyethylene glycol 17 g Oral Daily sennosides-docusate sodium 2 tablet Oral Nightly sodium chloride flush 10 mL IntraCATHeter Q8H Continuous Infusions: sodium chloride 20 mL/hr at 03/05/21 1200 sodium chloride dextrose PRN Meds:sodium chloride flush, sodium chloride, ondansetron, potassium chloride, potassium chloride, magnesium sulfate, calcium gluconate, glucose, dextrose, glucagon (rDNA), dextrose, traMADol, insulin regular, sodium chloride flush, oxyCODONE OR oxyCODONE, hydrALAZINE Diagnostic Workup: I reviewed Laboratory results, Radiographic results, Other Team Notes at the time oftoday's encounter. BMP: Recent Labs 03/05/21 1110 03/06/21 0047 03/07/21 0358 NA 137 138 137 K 4.6 4.1 3.6 CL 108* 108* 107 CO2 23 23 25 BUN 15 20* 29* CREATININE 0.60 0.69 0.80 GLUCOSE 144* 89 73 Glucose: Recent Labs 03/07/21 0705 03/07/21 0805 03/07/21 0900 03/07/21 1002 03/07/21 1105 03/07/21 1201 03/07/21 1304 03/07/21 1408 POCGLU 88 112* 151* 188* 163* 115* 128* 115* HgbA1C: No results for input(s): LABA1C in the last 72 hours. Hepatic: No results for input(s): ALKPHOS, ALT, AST, PROT, BILITOT, BILIDIR, LABALBU in the last 72 hours. Lipids: No results for input(s): CHOL, TRIG, HDL, LDLCALC in the last 72 hours. Invalid input(s): LDL Radiology reportsas per the Radiologist Radiology: No results found. History/Other: Past Medical History: Diagnosis Date Arthritis Atherosclerosis of coronary artery Hyperlipidemia Hypertension Obesity RAKEL on CPAP Type 2 diabetes mellitus (HCC) Past Surgical History: Procedure Laterality Date CARPAL TUNNEL RELEASE Bilateral BILATERAL TIMES 2 KNEE ARTHROSCOPY Right OTHER SURGICAL HISTORY Coronary Artery Stent Placement 2016 TOE SURGERY TOE SURGERY RIGHT GREAT TOE FUSED Current Medications: Current Facility-Administered Medications: furosemide (LASIX) injection 20 mg, 20 mg, IntraVENous, BID ketorolac (TORADOL) injection 15 mg, 15 mg, IntraVENous, Q6H losartan (COZAAR) tablet 25 mg, 25 mg, Oral, Daily clopidogrel (PLAVIX) tablet 75 mg, 75 mg, Oral, Daily aspirin EC tablet 81 mg, 81 mg, Oral, Daily insulin glargine (LANTUS) injection vial 20 Units, 20 Units, SubCUTAneous, Daily insulin lispro (HUMALOG) injection vial 0-6 Units, 0-6 Units, SubCUTAneous, TID WC insulin lispro (HUMALOG) injection vial 5 Units, 5 Units, SubCUTAneous, TID WC metoprolol tartrate (LOPRESSOR) tablet 25 mg, 25 mg, Oral, BID enoxaparin (LOVENOX) injection 40 mg, 40 mg, SubCUTAneous, Daily pantoprazole (PROTONIX) tablet 40 mg, 40 mg, Oral, QAM AC 0.45 % sodium chloride infusion, , IntraVENous, Continuous sodium chloride flush 0.9 % injection 10 mL, 10 mL, IntraVENous, PRN 0.9 % sodium chloride infusion, 25 mL, IntraVENous, PRN ondansetron (ZOFRAN) injection 4 mg, 4 mg, IntraVENous, Q8H PRN acetaminophen (TYLENOL) tablet 1,000 mg, 1,000 mg, Oral, Q8H mupirocin (BACTROBAN) 2 % ointment, , Nasal, BID potassium chloride (KLOR-CON M) extended release tablet 20 mEq, 20 mEq, Oral, PRN polyethylene glycol (GLYCOLAX) packet 17 g, 17 g, Oral, Daily sennosides-docusate sodium (SENOKOT-S) 8.6-50 MG tablet 2 tablet, 2 tablet, Oral, Nightly potassium chloride 20 mEq/50 mL IVPB (Central Line), 20 mEq, IntraVENous, PRN magnesium sulfate 2000 mg in 50 mL IVPB premix, 2,000 mg, IntraVENous, PRN calcium gluconate 2,000 mg in dextrose 5 % 100 mL IVPB, 2,000 mg, IntraVENous, PRN glucose (GLUTOSE) 40 % oral gel 15 g, 15 g, Oral, PRN dextrose 50 % IV solution, 12.5 g, IntraVENous, PRN glucagon (rDNA) injection 1 mg, 1 mg, IntraMUSCular, PRN dextrose 5 % solution, 100 mL/hr, IntraVENous, PRN traMADol (ULTRAM) tablet 50 mg, 50 mg, Oral, Q6H PRN insulin regular (HUMULIN R;NOVOLIN R) injection 4 Units, 4 Units, IntraVENous, PRN sodium chloride flush 0.9 % injection 10 mL, 10 mL, IntraCATHeter, Q8H sodium chloride flush 0.9 % injection 10 mL, 10 mL, IntraCATHeter, PRN oxyCODONE (ROXICODONE) immediate release tablet 5 mg, 5 mg, Oral, Q4H PRN OR oxyCODONE (ROXICODONE) immediate release tablet 10 mg, 10 mg, Oral, Q4H PRN hydrALAZINE (APRESOLINE) injection 10 mg, 10 mg, IntraVENous, Q6H PRN Allergy(ies): Allergies Allergen Reactions Atorvastatin Cinnamon Throat swelling Pravastatin Myalgia Family History: Problem Relation Age of Onset Coronary Art Dis Mother Coronary Art Dis Father Coronary Art Dis Brother Social History: Reviewed in EMR and H&P and updated if appropriate. Portions of the information within this encounter were entered using an electronic dictation system. Best attempts were made to edit/proofread the information prior to note completion. Despite the review of information, some errors may remain. If there are questions related to the information contained within the note please contact the signing physician directly. I spent 25 minutes with the pt which involved more than 51% of the time in coordination of care, medical evaluation, review of records, and/or counseling of the pt regarding her condition/disease state/prognosis on the date of this note. * Olga Glasgow APRN - CNP - 03/07/2021 4:40 AM EDT Images from the original note were not included. Cardiothoracic Surgery Progress Note PATIENT NAME: Fantasma Coley TODAY'S DATE: 03/07/2021 Surgery/Procedure: 03/05: CABGx3 (KIM to mid LAD, Ao to ramus to OM1 sequential with left leg EVH Interval History: POD#2: VSS; 3LNC during day; PAP at night. No acute issues overnight. Off cardene/nitro. Slept some. Tolerating diet. Pain controlled. UO tapering last few hours. Hgb 10.3 Plt: 115 UO: 1400cc/24hrs CT: 320cc Fluid balance: ~+4900cc Net IO Since Admission: 4,942.07 mL [03/07/21 0440] Recent Labs 03/04/21 1333 03/05/21 1110 03/06/21 0047 WBC 5.8 12.9* 12.7* HGB 15.8 12.6* 11.6* PLT 172 141 128* INR -- 1.2* -- NA 136 137 138 K 4.2 4.6 4.1 CREATININE 0.67 0.60 0.69 Objective BP (!) 107/59 Pulse 61 Temp 98.5 F (36.9 C) (Oral) Resp 16 Ht 5' 11" (1.803 m) Wt 253 lb 15.5 oz (115.2 kg) SpO2 95% BMI 35.42 kg/m Physical Exam Cardiovascular: Rate and Rhythm: Normal rate and regular rhythm. Heart sounds: Normal heart sounds. No murmur heard. No friction rub. Pulmonary: Effort: Pulmonary effort is normal. Breath sounds: Examination of the left-lower field reveals decreased breath sounds. Decreased breath sounds present. Abdominal: Palpations: Abdomen is soft. Tenderness: There is no abdominal tenderness. Skin: General: Skin is warm and dry. Capillary Refill: Capillary refill takes less than 2 seconds. Findings: Bruising present. Comments: Surgical Incisions: well approximated; clean dry with no drainage noted. Surrounding skin no redness, warmth, or signs of infection noted. Neurological: Mental Status: He is alert. Psychiatric: Behavior: Behavior normal. Behavior is cooperative. LDAs: Introducer 03/05/21 Internal jugular Right (Active) Number of days: 2 Pacing Wires (Active) Number of days: 2 Urethral Catheter (Active) Number of days: 2 ASSESSMENT: CAD s/p PCI (2015-RCA) s/p CABGx3 HLP T2DM HTN Acute blood loss anemia Consumptive thrombocytopenia RAKEL compliant with CPAP OA Obesity PLAN: Decrease ARB dose. Change ASA to 81 add plavix. Decrease lasix. Remove blankenship. PT/OT. Chest tube to waterseal. Continue toradol for one day. Insulin per Endo. Cardiac Core Medications: ASA, BB and ACEi/ARB (statin-allergy) EF: final report for intra op LEDY pending; 02/08-60% from outside facility Post-operative Atrial Fibrillation: []Yes [x] No Post operative Pulm Management: Normal Post-Operative Course Blood Conservation: None noted in postoperatively period. DVT prophylaxis: TEDs, SCDs and Lovenox Restraints: no PT recs: PT eval today Disposition: Home with home health PT 03/06 Treatment Team: Primary Care Provider: ALEXANDER ROLLINS DO Cardiology: Dr. Torres Endocrine: Dr. Mclaughlin Disclaimer INFORMED CONSENT:The nature and purpose of the proposed treatment or procedure have been discussed.The risks and benefits of the proposed treatment or procedures have been reviewed. Alternatives have been reviewed in addition to the risks and benefits of not receiving treatments or undergoing procedures. Pursuant to this discussion, the patient agrees to undergo the proposed treatment or procedure. Captured images seen in this note from are not a substitute for a comprehensive interpretation of the entire data set as reflected by the interpreting physician with regard to radiology, echocardiography, and other diagnostic images. This note may have been dictated using [employer] Edition 2.6 and/or [employer] Social Voice Recognition Feature. The document was proofread, however unrecognized voice recognition hand brush filler errors may be present. * Deuce Quintero - 03/06/2021 10:47 AM EDT Physical Therapy Facility/Department: [facility] Initial Assessment NAME: Fantasma Coley : 1950 Date of Service: 03/06/2021 Discharge Recommendations: Home with assist PRN, Home with Home health PT PT Equipment Recommendations Equipment Needed: No Assessment Body structures, Functions, Activity limitations: Decreased functional mobility ;Decreased strength;Decreased balance Assessment: Pt presents with decrease in functional mobility and activity tolerance secondary to decreased strength. Pt able to demonstrate transfers with min A and could maintain static standing balance with SBA for 1 min before feeling woozy. Unable to progress ambulation this date per RN not safe to do so. Pt able to maintain sternal precautions throughout visit. Pt lives at home with andhas support from adult son. Recommendation for home with home health PT and assist as needed following discharge from hospital. Treatment Diagnosis: weakness Prognosis: Good Decision Making: Medium Complexity PT Education: Plan of Care;Precautions;PT Role;Goals REQUIRES PT FOLLOW UP: Yes Activity Tolerance Activity Tolerance: Patient limited by endurance;Patient limited by fatigue Patient Diagnosis(es): There were no encounter diagnoses. has a past medical history of Arthritis, Atherosclerosis of coronary artery, Hyperlipidemia, Hypertension, Obesity, RAKEL on CPAP, and Type 2 diabetes mellitus (HCC). has a past surgical history that includes Knee arthroscopy (Right); Carpal tunnel release (Bilateral); other surgical history; Toe Surgery; and Toe Surgery. Restrictions Restrictions/Precautions Restrictions/Precautions: Fall Risk Required Braces or Orthoses?: No Position Activity Restriction Sternal Precautions: No Pushing, No Pulling, 10# Lifting Restrictions Other position/activity restrictions: Chest tube x1 suction, O2 2L NC Vision/Hearing Vision: Within Functional Limits Hearing: Within functional limits Subjective General Chart Reviewed: Yes Patient assessed for rehabilitation services?: Yes Additional Pertinent Hx: HTN, DM Family / Caregiver Present: No Diagnosis: Atherosclerosis heart disease of [place] coronary artery without angina pectoris Follows Commands: Within Functional Limits General Comment Comments: CABG x3 Subjective Subjective: Pt seated in chair upon entry. Pt cooperative and agreeable with PT. RN cleared pt for PT Pain Screening Patient Currently in Pain: Denies Vital Signs Patient Currently in Pain: Denies Orientation Orientation Overall Orientation Status: Within Normal Limits Social/Functional History Social/Functional History Lives With: Spouse Type of Home: House Home Layout: Two level, Bed/Bath upstairs Home Access: Stairs to enter with rails Entrance Stairs - Number of Steps: 2-3 Bathroom Shower/Tub: Tub/Shower unit Bathroom Toilet: Standard Bathroom Equipment: Shower chair Bathroom Accessibility: Accessible Receives Help From: Family (Son able to come help) ADL Assistance: Independent Homemaking Assistance: Independent Homemaking Responsibilities: Yes Ambulation Assistance: Independent Transfer Assistance: Independent Active Glue Maker: Yes Mode of Transportation: Car Occupation: Retired 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 & 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: 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 bicyclist Cognition Cognition Overall Cognitive Status: WFL Objective Observation/Palpation Posture: Good PROM RLE (degrees) RLE PROM: WFL AROM RLE (degrees) RLE AROM: WFL PROM LLE (degrees) LLE PROM: WFL AROM LLE (degrees) LLE AROM : WFL Strength RLE Strength RLE: Exception R Hip Flexion: 3+/5 R Knee Extension: 3+/5 Strength LLE Strength LLE: Exception L Hip Flexion: 3+/5 L Knee Extension: 3+/5 Tone RLE RLE Tone: Normotonic Tone LLE LLE Tone: Normotonic Motor Control Gross Motor?: WFL Sensation Overall Sensation Status: WFL Bed mobility Comment: NA, pt seated in chair upon entry Transfers Sit to Stand: Minimal Assistance Stand to sit: Minimal Assistance Comment: Min A for safe controlled guidance with transfers to maintain sternal precautions. Pt noted to feel light headed and "woozy" with stand Ambulation Ambulation?: No (NA at this date per RN not safe to ambulate) Balance Posture: Good Sitting - Static: Good Sitting - Dynamic: Good Standing - Static: Fair (min sway) Standing - Dynamic: (NA) Foam Surface Sway: Minimal Other exercises Other exercises?: Yes Other exercises 1: P&C exercises #1-9 [id number] each, IS x5 <750ml Plan Plan Times per week: 5-7 Plan weeks: 2 weeks Current Treatment Recommendations: Strengthening, Endurance Training, Transfer Training, Gait Training, Balance Training, Functional Mobility Training, Stair training Plan Comment: chest PT Safety Devices Type of devices: Left in chair, Call light within reach, Nurse notified, All fall risk precautions in place (PPE) Restraints Initially in place: No AM-PAC Score AM-[facility] Inpatient Mobility Raw Score : 14 (03/06/211046) AM-PAC Inpatient T-Scale Score : 38.1 (03/06/211046) Mobility Inpatient CMS 0-100% Score: 61.29 (03/06/211046) Mobility Inpatient CMS G-Code Modifier : CL (03/06/211046) Goals Short term goals Time Frame for Short term goals: 2 weeks Short term goal 1: bed mobility independent Short term goal 2: transfer independent Short term goal 3: ambulate 100ft with or without assistive device modified independent Short term goal 4: up/down 3 stairs with railing and supervision Short term goal 5: independent with P&C exercises, IS, secretion clearance, and understanding walking program Patient Goals Patient goals : would like to get up and moving Patient s Physical Therapy Plan of Care supervision is transferred to [facility] Rehab Department Physical Therapist. Therapy Time Individual Concurrent Group Co-treatment Time In 949 Time Out 1019 Minutes 29 Timed Code Treatment Minutes: 8 Minutes (TP) Deuce Quintero SPT * Ivanna Hua, ADVERTISING ACCOUNT MANAGER - [employer] - 03/06/2021 10:43 AM EDT Images from the original note were not included. Department of Internal Medicine Division of Endocrinology, Diabetes, & Metabolism Endocrinology Consult Note Patient Name: Fantasma Coley : 1950 AGE: 70 y.o. Admission Date: 03/05/2021 5:20 AM Date of Initial Consult: 03/05/21 Reason for Endocrine Consult: dm Provider/Team Requesting Consult: cardiothoracic surgery PCP: ALEXANDER ROLLINS DO Outpt Fighter Pilot: no ASSESSMENT: dm2 poor control S/p cabg obesity PLAN: Insulin drip for now Early involvement of dm education in case pt needs outpatient insulin ANTICIPATED ENDOCRINE HOME GOING RECOMMENDATIONS: Optimized for Discharge from Endocrine standpoint: No Home Going Endocrine Rx Recommendations-- tbd Outpt Follow Up Endocrine Testing-- tbd Appointment request sent to Endo office Staff: No Endocrine Team Contact(s): Fighter Pilot On-Call: Lissette Preferred Method of Communication/Reaching: PerfectServe. The above physician should be paged w/ questions/concerns about items being managed by Endocrinology Team. We appreciate the opportunity to participate in this pt's ongoing medical care. SUBJECTIVE/HPI: CHIEF COMPLAINT: chest pain/sob The patient presented after an abnl stress test and is hospitalized 03/05/21 for cabg. Type of DM: 2 Onset of DM: unknown Results for FANTASMA COLEY "KIERA" ( ) as of 03/05/2021 13:33 Ref. Range 03/04/2021 13:33 Hemoglobin A1C Latest Units: % 9.5 (A) Home DM Medication Regimen (reported by pt): Metformin 500 mg daily semaglutide 0.5 mg every 7 days Cardiac Procedure: cabg X 3 Procedure Date: 03/05/21 Insulin Drip Rate: 5 Insulin Drip DC Date: NA Extubated/ up in chair POD# 1 BG levels on insulin gtt 77 71 89 128 89 162 Review of Systems Constitutional: Negative for appetite change and fatigue. Gastrointestinal: Positive for vomiting (a little bit last night- but feels better now and kept food tray down). Negative for nausea. All other systems reviewed and are negative. OBJECTIVE: Vitals: 03/06/21 0745 03/06/21 0800 03/06/21 0815 03/06/21 0908 BP: Pulse: 61 62 61 Resp: 18 Temp: 98.7 F (37.1 C) TempSrc: Oral SpO2: 93% 93% 94% Weight: Height: 5' 11" (1.803 m) Physical Exam Vitals reviewed. Constitutional: General: He is not in acute distress. Appearance: He is obese. HENT: Head: Normocephalic and atraumatic. Eyes: General: No scleral icterus. Right eye: No discharge. Left eye: No discharge. Cardiovascular: Rate and Rhythm: Normal rate and regular rhythm. Heart sounds: No murmur heard. No friction rub. No gallop. Pulmonary: Breath sounds: Normal breath sounds. Abdominal: General: There is no distension. Palpations: There is no mass. Musculoskeletal: General: Swelling present. Cervical back: Normal range of motion and neck supple. No rigidity or tenderness. Right lower leg: Edema present. Left lower leg: Edema present. Skin: General: Skin is warm and dry. Coloration: Skin is not jaundiced or pale. 24 hour intake/output: Intake/Output Summary (Last 24 hours) at 03/06/2021 1043 Last data filed at 03/06/2021 0800 Gross per 24 hour Intake 6928.07 ml Output 2065 ml Net 4863.07 ml Medications (as per EMR): HomeMeds: Prior to Admission medications Medication Sig Start Date End Date Taking? Authorizing Provider metFORMIN (GLUCOPHAGE-XR) 500 MG extended release tablet Take 500 mg by mouth daily (with breakfast) 2 tab BID Yes Historical Provider, mupirocin (BACTROBAN NASAL) 2 % nasal ointment Apply liberal amount on a q-tip and place in each nostril the night before surgery and then again the morning of surgery 02/15/21 Yes Olga Glasgow APRN- [employer] aspirin 81 MG EC tablet Take 81 mg by mouth daily Yes Historical Provider, losartan (COZAAR) 50 MG tablet Take 50 mg by mouth daily Yes Historical Provider, celecoxib (CELEBREX) 200 MG capsule Take 200 mg by mouth 2 times daily Historical Provider, nitroGLYCERIN (NITROSTAT) 0.[address] 0.4 mg under the tongue up to max of 3 total doses. If no relief after 1 dose, call 911. Historical Provider, [place] 3 1000 MG CAPS Take by mouth daily Historical Provider, empagliflozin (JARDIANCE) 10 MG tablet Take 10 mg by mouth daily Historical Provider, clopidogrel (PLAVIX) 75 MG tablet Take 75 mg by mouth daily Pt last dose of plavix 02/06 Historical Provider, Semaglutide-Weight Management (WEGOVY) 0.5 MG/0.5ML SOAJ SC injection Inject 0.5 mg into the skin every 7 days Historical Provider, albuterol sulfate (PROAIR RESPICLICK) 108 (90 Base) MCG/ACT aerosol powder inhalation Inhale into the lungs every 4 hours as needed for Wheezing or Shortness of Breath Historical Provider, Scheduled Meds: aspirin 325 mg Oral Daily metoprolol tartrate 25 mg Oral BID enoxaparin 40 mg SubCUTAneous Daily ketorolac 15 mg IntraVENous Q6H furosemide 40 mg IntraVENous BID pantoprazole 40 mg Oral QAM AC acetaminophen 1,000 mg Oral Q8H mupirocin Nasal BID polyethylene glycol 17 g Oral Daily sennosides-docusate sodium 2 tablet Oral Nightly ceFAZolin (ANCEF) IVPB 2,000 mg IntraVENous Q8H sodium chloride flush 10 mL IntraCATHeter Q8H Continuous Infusions: sodium chloride 20 mL/hr at 03/05/21 1200 sodium chloride insulin 5 Units/hr (03/06/21 0952) dextrose niCARdipine 5 mg/hr (03/06/21 09) nitroGLYCERIN Stopped (03/06/21 0723) PRN Meds:sodium chloride flush, sodium chloride, ondansetron, potassium chloride, potassium chloride, magnesium sulfate, calcium gluconate, glucose, dextrose, glucagon (rDNA), dextrose, traMADol, insulin regular, sodium chloride flush, niCARdipine, nitroGLYCERIN, HYDROmorphone OR HYDROmorphone,oxyCODONE OR oxyCODONE, hydrALAZINE Diagnostic Workup: I reviewed Laboratory results, Radiographic results, Other Team Notes at the time oftoday's encounter. BMP: Recent Labs 03/04/21 1333 03/05/21 1110 03/06/21 0047 NA 136 137 138 K 4.2 4.6 4.1 CL 100 108* 108* CO2 29 23 23 BUN 15 15 20* CREATININE 0.67 0.60 0.69 GLUCOSE 224* 144* 89 Glucose: Recent Labs 03/06/21 0315 03/06/21 0424 03/06/21 0521 03/06/21 0608 03/06/21 0710 03/06/21 0817 03/06/21 0944 03/06/21 1030 POCGLU 83 97 102* 128* 139* 136* 106* 89 HgbA1C: Recent Labs 03/04/21 1333 LABA1C 9.5* Hepatic: Recent Labs 03/04/21 1333 ALKPHOS 84 ALT 36 AST 31 PROT 7.1 BILITOT 0.6 LABALBU 4.2 Lipids: No results for input(s): CHOL, TRIG, HDL, LDLCALC in the last 72 hours. Invalid input(s): LDL Radiology reportsas per the Radiologist Radiology: No results found. History/Other: Past Medical History: Diagnosis Date Arthritis Atherosclerosis of coronary artery Hyperlipidemia Hypertension Obesity RAKEL on CPAP Type 2 diabetes mellitus (HCC) Past Surgical History: Procedure Laterality Date CARPAL TUNNEL RELEASE Bilateral BILATERAL TIMES 2 KNEE ARTHROSCOPY Right OTHER SURGICAL HISTORY Coronary Artery Stent Placement 2016 TOE SURGERY TOE SURGERY RIGHT GREAT TOE FUSED Current Medications: Current Facility-Administered Medications: aspirin EC tablet 325 mg, 325 mg, Oral, Daily metoprolol tartrate (LOPRESSOR) tablet 25 mg, 25 mg, Oral, BID enoxaparin (LOVENOX) injection 40 mg, 40 mg, SubCUTAneous, Daily ketorolac (TORADOL) injection 15 mg, 15 mg, IntraVENous, Q6H furosemide (LASIX) injection 40 mg, 40 mg, IntraVENous, BID pantoprazole (PROTONIX) tablet 40 mg, 40 mg, Oral, QAM AC 0.45 % sodium chloride infusion, , IntraVENous, Continuous sodium chloride flush 0.9 % injection 10 mL, 10 mL, IntraVENous, PRN 0.9 % sodium chloride infusion, 25 mL, IntraVENous, PRN ondansetron (ZOFRAN) injection 4 mg, 4 mg, IntraVENous, Q8H PRN acetaminophen (TYLENOL) tablet 1,000 mg, 1,000 mg, Oral, Q8H mupirocin (BACTROBAN) 2 % ointment, , Nasal, BID potassium chloride (KLOR-CON M) extended release tablet 20 mEq, 20 mEq, Oral, PRN polyethylene glycol (GLYCOLAX) packet 17 g, 17 g, Oral, Daily sennosides-docusate sodium (SENOKOT-S) 8.6-50 MG tablet 2 tablet, 2 tablet, Oral, Nightly ceFAZolin (ANCEF) 2000 mg in dextrose 4 % 100 mL IVPB (premix), 2,000 mg, IntraVENous, Q8H potassium chloride 20 mEq/50 mL IVPB (Central Line), 20 mEq, IntraVENous, PRN magnesium sulfate 2000 mg in 50 mL IVPB premix, 2,000 mg, IntraVENous, PRN calcium gluconate 2,000 mg in dextrose 5 % 100 mL IVPB, 2,000 mg, IntraVENous, PRN insulin regular (MYXREDLIN) 100 units in sodium chloride 0.9 % 100 ml infusion, 1 Units/hr, IntraVENous, Continuous glucose (GLUTOSE) 40 % oral gel 15 g, 15 g, Oral, PRN dextrose 50 % IV solution, 12.5 g, IntraVENous, PRN glucagon (rDNA) injection 1 mg, 1 mg, IntraMUSCular, PRN dextrose 5 % solution, 100 mL/hr, IntraVENous, PRN traMADol (ULTRAM) tablet 50 mg, 50 mg, Oral, Q6H PRN insulin regular (HUMULIN R;NOVOLIN R) injection 4 Units, 4 Units, IntraVENous, PRN sodium chloride flush 0.9 % injection 10 mL, 10 mL, IntraCATHeter, Q8H sodium chloride flush 0.9 % injection 10 mL, 10 mL, IntraCATHeter, PRN niCARdipine (CARDENE) 25 mg in sodium chloride 0.9 % 250 mL infusion, 5 mg/hr, IntraVENous, Continuous PRN nitroGLYCERIN 50 mg in dextrose 5% 250 mL infusion, 5-300 mcg/min, IntraVENous, Continuous PRN HYDROmorphone (DILAUDID) injection 0.25 mg, 0.25 mg, IntraVENous, Q3H PRN OR HYDROmorphone (DILAUDID) injection 0.5 mg, 0.5 mg, IntraVENous, Q3H PRN oxyCODONE (ROXICODONE) immediate release tablet 5 mg, 5 mg, Oral, Q4H PRN OR oxyCODONE (ROXICODONE) immediate release tablet 10 mg, 10 mg, Oral, Q4H PRN hydrALAZINE (APRESOLINE) injection 10 mg, 10 mg, IntraVENous, Q6H PRN Allergy(ies): Allergies Allergen Reactions Atorvastatin Cinnamon Throat swelling Pravastatin Myalgia Family History: Problem Relation Age of Onset Coronary Art Dis Mother Coronary Art Dis Father Coronary Art Dis Brother Social History: Reviewed in EMR and H&P and updated if appropriate. Portions of the information within this encounter were entered using an electronic dictation system. Best attempts were made to edit/proofread the information prior to note completion. Despite the review of information, some errors may remain. If there are questions related to the information contained within the note please contact the signing physician directly. I spent 25 minutes with the pt which involved more than 51% of the time in coordination of care, medical evaluation, review of records, and/or counseling of the pt regarding her condition/disease state/prognosis on the date of this note. * Delano Davis MD - 03/06/2021 9:01 AM EDT Images from the original note were not included. ICU Progress Note Fantasma Coley : 1950(70 y.o.) Date: March 06, 2021 Team: ICU Attending: Dr. Garrett Chief Complaint: SUMMARY: 70/M with multivessel CAD, T2DM, HLP, Obesity, RAKEL on CPAP reported SOB with abnormal stress test, underwent Cath showing severe triple vessel disease. Admitted 03/05/2021 for CABG with temporary pacer placed and [place] mukul on R IJ, ICU consulted for post-op management. Extubated 03/05, on Nicardipinedrip for BP control Subjective: Overnight no acute events. Patient resting and without any complaints. Review of Systems Constitutional (-) fever, chills, malaise, weight loss/gain HEENT (-) BOV, sinus drainage, facial edema, ear pain, neck pain Cardiac (+) chest soreness (-) palpitations, PND, orthopnea Respiratory (-) cough, , SOB, wheezing, pleurisy Gastrointestinal (-) abdominal pain, nausea, vomiting, diarrhea, constipation Skin (-) rashes, pruritius, jaundice Musculoskeletal (-) joint pain/swelling, leg edema, deformity,muscle aches (-) dysuria, hematuria, LUTS Neurologic (-) headaches, AMS, seizures, unilateral weakness Psychiatric (-) mood changes, appetite changes Scheduled Meds: aspirin 325 mg Oral Daily metoprolol tartrate 25 mg Oral BID enoxaparin 40 mg SubCUTAneous Daily ketorolac 15 mg IntraVENous Q6H furosemide 40 mg IntraVENous BID pantoprazole 40 mg Oral QAM AC acetaminophen 1,000 mg Oral Q8H mupirocin Nasal BID polyethylene glycol 17 g Oral Daily sennosides-docusate sodium 2 tablet Oral Nightly ceFAZolin (ANCEF) IVPB 2,000 mg IntraVENous Q8H sodium chloride flush 10 mL IntraCATHeter Q8H Continuous Infusions: sodium chloride 20 mL/hr at 03/05/21 1200 sodium chloride insulin 6 Units/hr (03/06/21 0818) dextrose niCARdipine 12.5 mg/hr (03/06/21 0726) nitroGLYCERIN Stopped (03/06/21 07) PRN meds used in last 24hrs: Dilaudid and Oxycodone Objective: VITALS: BP (!) 138/48 Pulse 61 Temp 98.7 F (37.1 C) (Oral) Resp 18 Ht 5' 11" (1.803 m) Wt253 lb 15.5 oz (115.2 kg) SpO2 94% BMI 35.42 kg/m CURRENT PULSE OXIMETRY: SpO2: 94 % I/O: 03/05 0701 - 03/06 0700 In: 6928.1 [I.V.:6928.1] Out: 2039 [Urine:755] Ventilator Settings: Vent Mode: Tube Compensation Rate Set: 14 bmp Vt Ordered: 460 mL Pressure Support: 0 cmH20 PEEP/CPAP: 5 FiO2 : 40 % Oxygen Delivery - O2 Flow Rate (L/min): 3 L/min Invasive Lines and Dates: Chest Tube 03/05/2021 [place] Intubation Date: 03/05, extubated 03/05 General Appearance: []WDWN [x]Obese []Cachectic []Thin []ill Skin: Temperature [x]Warm []Cool Rash []Yes [x]No Tattoo(s) []Yes [x]No HEENT: Pupils round and react [x]Yes []No Sclera []Icteric []Non-Icteric Conjunctiva []Injected [x]Non-Injected Pinnae [x]Normal []Other Dentitian [x][place] Teeth []Dentures Oral Mucosa [x][place] []Moist []Dry Oral ETT []Present [x]Absent Neck: Trachea midline [x]Yes []No Thyromegaly []Yes [x]No Crepitus []Present [x]Absent Jvd []Present [x]Absent Lungs: [x]Clear []Crackles []Wheezes []Rhonchi Respiratory effort []Labored [x]Non-Labored Heart: Rate [x]Regular []Irregular []Tachycardia []Bradycardia Rhythm [x]Regular []Irregular Murmur []Present [x]Absent Peripheral Edema [x]Present []Absent Abdomen: []Soft Bowel Sounds []Present [x]Absent []Tender []Non-Tender []Distended [x]Non-distended Hernia []Present [x]Absent Organomegaly []Present []Absent []Scar Extremities: Cyanosis []Present []Absent HARMON ([x]RUE [x]RLE [x]LUE [x]LLE) Neurologic: ROSEBUD []Yes [x]No Corneal reflexes []Present []Absent Plantar reflexes []Up []Down []Absent Withdraws to tactile []Yes []No Follows Commands [x]Yes []No []Unresponsive to verbal [x]Cranial nerves grossly intact []Sensation grossly intact Psych: Alert [x]yes []no Oriented []x0 []x1 []x2 [x]x3 Affect []Normal []Flat []Agitated []Anxious []Calm []Sedated []NAD [facility] Labs within last 72 hours BMP: Recent Labs 03/04/21 1333 03/05/21 1110 03/06/21 0047 NA 136 137 138 K 4.2 4.6 4.1 CL 100 108* 108* CO2 29 23 23 BUN 15 15 20* CREATININE 0.67 0.60 0.69 CALCIUM 8.9 8.4 7.8* MG 1.7 2.8* 1.9 PHOS -- 1.9* -- LFTS: Recent Labs 03/04/21 1333 AST 31 ALT 36 PROT 7.1 LABALBU 4.2 BILITOT 0.6 ALKPHOS 84 Glucose: Recent Labs 03/04/21 1333 03/05/21 0557 03/05/21 1110 03/05/21 1139 03/06/21 0015 03/06/21 0047 03/06/21 0059 03/06/21 0225 03/06/21 0315 03/06/21 0424 03/06/21 0521 03/06/21 0608 03/06/21 0710 03/06/21 0817 GLUCOSE 224* -- 144* -- -- 89 -- -- -- -- -- -- -- -- POCGLU -- < > -- < > < > -- 91 71 83 97 102* 128* 139* 136* < > = values in this interval not displayed. CBC: Recent Labs 03/04/21 1333 03/05/21 1110 03/06/21 0047 WBC 5.8 12.9* 12.7* HGB 15.8 12.6* 11.6* HCT 47.5 36.7* 33.9* PLT 172 141 128* MCV 91.1 89.0 88.0 RDW 12.4 12.5 12.5 ABGs: Recent Labs 03/05/21 111 PHART 7.362 [id number] 44.1 PO2ART 296.0* SQT8OKO 24.5 H3SSVOBP 99.0 FIO2A No data Lactic Acid: No results for input(s): LACTA in the last 72 hours. INR: Recent Labs 03/05/21 111 INR 1.2* pro-BNP: No results for input(s): NTPROBNP in the last 72 hours. Cardiac Injury Profile: No results for input(s): CKTOTAL, CKMB, TROPONINI in the last 72 hours. Labs in Last 3 months: Lab Results Component Value Date INR 1.2 (H) 03/05/2021 LABA1C 9.5 (A) 03/04/2021 Imaging: CXR 03/06/21 Findings: A single AP portable view of the chest was obtained at 749 hours. Comparison was made to the prior study prior day. The endotracheal tube and nasogastric tube have been removed. The [place]-Mukul catheter has been removed as well. A right jugular introducer sheath is in place. No pneumothorax is identified. The basal chest tubes are unchanged. There is minimal atelectasis in both lung bases and small bilateral pleural effusions. No pulmonary vascular congestion or consolidation is otherwise identified. Cultures: None Assessment and Plan: Active Problems: CAD in [place] artery Resolved Problems: * No resolved hospital problems. 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 obesity BMI 30-39.9 Associated attestation - Greg Garrett MD - 03/06/2021 1:49 PM EDT I saw and examined the patient personally and independently. I reviewed the history, the documentedfindings, and performed a physical exam of the patient. I reviewed all the labs and imaging. I reviewed previous consultations. I discussed the case with nursing staff and RT. I agree with the resident's assessment, and we discussed the management of the patient. See orders. Extubated yesterday, did well over night. Weaning off Cardine gtt. Starting home meds and adding BBand Lasix. * Olga Glasgow APRN - [employer] - 03/06/2021 5:00 AM EDT Images from the original note were not included. Cardiothoracic Surgery Progress Note PATIENT NAME: Fantasma Coley TODAY'S DATE: 03/06/2021 Surgery/Procedure: 03/05: CABGx3 (KIM to mid LAD, Ao to ramus to OM1 sequential with left leg EVH Interval History: POD#1: extubated by CCM; on 2LNC; compliant with CPAP last night. Nitro/cardene for hypertension. CO/CI wnl. Lower SVR. Pain controlled but with slight MSI discomfort "feels heavy". Tolerating liquids stated he wants steak and eggs for breakfast. Calcium: 7.8 Ionize 3.8 Phosphorus: 1.9 Hgb stable 11.6 UO: 665cc/24hrs CT: 965cc Fluid balance: ~+2L A-line: ABP (Arterial line BP): 150/48 Hemodynamic Monitoring Hemodynamic Device: [place] Core (Body) Temperature: 98.8 F (37.1 C) PAP (s/d): 33/12 PAP (Mean): 20 mmHg CVP (Mean): 10 mmHg CO (l/min): 7.6 l/min CI (l/min/m2): 3.3 l/min/m2 SVR (dyne*sec)/cm5: 638 (dyne*sec)/cm5 Net IO Since Admission: 1,904.97 mL [03/06/21 0500] Recent Labs 03/04/21 1333 03/05/21 1110 03/06/21 0047 WBC 5.8 12.9* 12.7* HGB 15.8 12.6* 11.6* PLT 172 141 128* INR -- 1.2* -- NA 136 137 138 K 4.2 4.6 4.1 CREATININE 0.67 0.60 0.69 Objective BP (!) 138/48 Pulse 72 Temp 98.8 F (37.1 C) (Core) Resp 19 Ht 5' 11" (1.803 m) Wt 253 lb 15.5 oz (115.2 kg) SpO2 94% BMI 35.42 kg/m Physical Exam Cardiovascular: Rate and Rhythm: Normal rate and regular rhythm. Heart sounds: Normal heart sounds. No murmur heard. No friction rub. Pulmonary: Effort: Pulmonary effort is normal. Breath sounds: Examination of the left-lower field reveals decreased breath sounds. Decreased breath sounds present. Abdominal: Palpations: Abdomen is soft. Tenderness: There is no abdominal tenderness. Musculoskeletal: Right lower leg: Edema present. Left lower leg: Edema present. Skin: General: Skin is warm and dry. Capillary Refill: Capillary refill takes less than 2 seconds. Findings: Bruising present. Comments: Surgical Incisions: well approximated; clean dry with no drainage noted. Surrounding skin no redness, warmth, or signs of infection noted. Neurological: Mental Status: He is alert. Psychiatric: Behavior: Behavior normal. Behavior is cooperative. LDAs: Introducer 03/05/21 Internal jugular Right (Active) Number of days: 1 Arterial Line 03/05/21 Left Radial (Active) Number of days: 1 Pacing Wires (Active) Number of days: 1 Pulmonary Artery Cath 03/05/21 Right Internal jugular (Active) Number of days: 1 Urethral Catheter (Active) Number of days: 1 ASSESSMENT: CAD s/p PCI (2016-RCA) s/p CABGx3 HLP T2DM HTN Acute blood loss anemia Consumptive thrombocytopenia RAKEL compliant with CPAP OA Obesity PLAN: Remove swan; leave cullen; start ASA, BB, Toradol for one day. lovenox dvt prophy. Lasix BID for post op fluid overload. Wean nitro first; then cardene. Remove cullen once off nitro/cardene per hospital protocol. CT to waterseal once up in chair. PT/OT eval. Cardiac Core Medications: ASA and BB (statin-allergy) EF: final report for intra op LEDY pending; 02/08-60% from outside facility Post-operative Atrial Fibrillation: []Yes [x] No Post operative Pulm Management: Normal Post-Operative Course Blood Conservation: None noted in postoperatively period. DVT prophylaxis: TEDs, SCDs and Lovenox Restraints: no PT recs: PT eval today Disposition: Goal home with home health. TBD Treatment Team: Primary Care Provider: ALEXANDER ROLLINS DO Cardiology: Dr. Torres Endocrine: Dr. Mclaughlin Disclaimer INFORMED CONSENT:The nature and purpose of the proposed treatment or procedure have been discussed.The risks and benefits of the proposed treatment or procedures have been reviewed. Alternatives have been reviewed in addition to the risks and benefits of not receiving treatments or undergoing procedures. Pursuant to this discussion, the patient agrees to undergo the proposed treatment or procedure. Captured images seen in this note from are not a substitute for a comprehensive interpretation of the entire data set as reflected by the interpreting physician with regard to radiology, echocardiography, and other diagnostic images. This note may have been dictated using The [employer] Edition 2.6 and/or AddIn Social Voice Recognition Feature. The document was proofread, however unrecognized voice recognition hand brush filler errors may be present. * Bri Adamson RCP - 03/05/2021 3:54 PM EDT Pt extubated per order w/o complications. Placed on 3 liters nasal cannula. * Delano Davis MD - 03/05/2021 3:28 PM EDT Patient on SBT > 30 mins, passed. Patient awake, alert not in distress, HR 80s throughout SBT. Patient extubated at 3:55 Post extubation, patient had hoarse voice, no stridor, no wheezing, not in distress, good air entryand movement. * Bri Adamson RCP - 03/05/2021 3:17 PM EDT [facility] Respiratory Care Department Progress Note Spontaneous Breathing Trial (SBT) Start: 2-3 min to Stabilize After 15 min After 30 min HR 86 87 100 SpO2 (%) 99 98 98 RR 28 23 28 VT (L) 579 480 543 Total RSBI (RR/VT in Liters) 73 60 60 Pass SBT (RSBI must be?105 to pass) NA NA YES Comments (state reason if SBT failed): Additional data if requested: NIF = -40 VC = Name of physician results were reported to: Time results reported to physician: Thank you for involving Res[facility] in the care of this patient, documented in this [facility] Work Phone: [phone]) 131-554709-17-2021 Hospital Discharge instructions* Discharge Instr - Diet* Nasra Castillo RD, LD - 03/08/2021 3:40 PM EDT Good nutrition is important when healing from an illness, injury, or surgery. Follow any nutrition recommendations given to you during your hospital stay. If you were given an oral nutrition supplement while in the hospital, continue to take this supplement at home. You can take it with meals, in-between meals, and/or before bedtime. These supplements can be purchased at most local grocery stores, pharmacies, and chain super-stores. If you have any questions about your diet or nutrition, call the hospital and ask for the dietitian. Carbohydrate Counting for People with Diabetes Foods with carbohydrates make your blood glucose level go up. Learning how to count carbohydrates can help you control your blood glucose levels. First, identify the foods you eat that contain carbohydrates. Then, using the Foods with Carbohydrates chart, determine about how much carbohydrates are in your meals and snacks. Make sure you are eating foods with fiber, protein, and healthy fat along with your carbohydrate foods. Foods with Carbohydrates The following table shows carbohydrate foods that have about 15 grams of carbohydrate each. Using measuring cups, spoons, or a food scale when you first begin learning about carbohydrate counting canhelp you learn about the portion sizes you typically eat. The following foods have 15 grams carbohydrate each: Grains 1 slice bread (1 ounce) 1 small tortilla (6-inch size) large bagel (1 ounce) 1/3 cup pasta or rice (cooked) hamburger or hot dog bun ( ounce) cup cooked cereal to cup [id number] cereal 2 taco shells (5-inch size) Fruit 1 small fresh fruit ( to 1 cup) medium banana 17 small grapes (3 ounces) 1 cup melon or berries cup canned or frozen fruit 2 tablespoons dried fruit (blueberries, cherries, cranberries, raisins) cup unsweetened fruit juice Starchy Vegetables cup cooked beans, peas, corn, potatoes/sweet potatoes large baked potato (3 ounces) 1 cup acorn or butternut squash Snack Foods 3 to 6 crackers 8 potato chips or 13 tortilla chips ( ounce to 1 ounce) 3 cups popped popcorn Dairy 3/4 cup (6 ounces) nonfat plain yogurt, or yogurt with sugar-free sweetener 1 cup milk 1 cup plain rice, soy, coconut or flavored almond milk Sweets and Desserts cup ice cream or frozen yogurt 1 tablespoon jam, jelly, pancake syrup, table sugar, or honey 2 tablespoons light pancake syrup 1 inch square of frosted cake or 2 inch square of unfrosted cake 2 small cookies (2/3 ounce each) or large cookie Sometimes you ll have to estimate carbohydrate amounts if you don t know the exact recipe. One cup of mixed foods like soups can have 1 to 2 carbohydrate servings, while some casseroles might have 2 or more servings of carbohydrate. Foods that have less than 20 calories in each serving can be counted as free foods. Count 1 cup rawvegetables, or cup cooked non-starchy vegetables as free foods. If you eat 3 or more servings at one meal, then count them as 1 carbohydrate serving. Foods without Carbohydrates Not all foods contain carbohydrates. Meat, some dairy, fats, non-starchy vegetables, and many beverages don t contain carbohydrate. So when you count carbohydrates, you can generally exclude chicken,pork, beef, fish, seafood, eggs, tofu, cheese, butter, sour cream, avocado, nuts, seeds, olives, may onnaise, water, black coffee, unsweetened tea, and zero-calorie drinks. Vegetables with no or low carbohydrate include green beans, cauliflower, tomatoes, and onions. How much carbohydrate should I eat at each meal? Carbohydrate counting can help you plan your meals and manage your weight. Following are some starting points for carbohydrate intake at each meal. Work with your registered dietitian web master tofind the best range that works for your blood glucose and weight. 4 5 carb servings Try to stay around 4 serving or 60g/meal Checking your blood glucose after meals will help you know if you need to adjust the timing, type, or number of carbohydrate servings in your meal plan. Achieve and keep a healthy body weight by balancing your food intake and physical activity. Tips How should I plan my meals? Plan for half the food on your plate to include non-starchy vegetables, like salad greens, broccoli, or carrots. Try to eat 3 to 5 servings of non-starchy vegetables every day. Have a protein food ateach meal. Protein foods include chicken, fish, meat, eggs, or beans (note that beans contain carbohydrate). These two food groups (non-starchy vegetables and proteins) are low in carbohydrate. If you fill up your plate with these foods, you will eat less carbohydrate but still fill up your stomach. Try to limit your carbohydrate portion to of the plate. What fats are healthiest to eat? Diabetes increases risk for heart disease. To help protect your heart, eat more healthy fats, such as olive oil, nuts, and avocado. Eat less saturated fats like butter, cream, and high-fat meats, like rosa and sausage. Avoid trans fats, which are in all foods that list partially hydrogenated oil as an ingredient. What should I drink? Choose drinks that are not sweetened with sugar. The healthiest choices are water, carbonated or seltzer bergeron, and tea and coffee without added sugars. Sweet drinks will make your blood glucose go up very quickly. One serving of soda or energy drink is cup. It is best to drink these beverages only if your blood glucose is low. Artificially sweetened, or diet drinks, typically do not increase your blood glucose if they have zero calories in them. Read labels of beverages, as some diet drinks do have carbohydrate and will raise your blood glucose. Label Reading Tips Read Nutrition Facts labels to find out how many grams of carbohydrate are in a food you want to eat. Don t forget: sometimes serving sizes on the label aren t the same as how much food you are goingto eat, so you may need to calculate how much carbohydrate is in the food you are serving yourself. Carbohydrate Counting for People with Diabetes Sample 1-Day Menu Breakfast cup yogurt, low fat, low sugar (1 carbohydrate serving) cup cereal, [id number], unsweetened (1 carbohydrate serving) 1 cup strawberries (1 carbohydrate serving) cup almonds Lunch 1, 5 ounce can chunk light tuna 2 ounces cheese, low fat cheddar 6 whole wheat crackers (1 carbohydrate serving) 1 small apple (1 carbohydrate servings) cup carrots cup snap peas 1 cup 1% milk (1 carbohydrate serving) Evening Meal Stir artis made with: 3 ounces chicken 1 cup brown rice (3 carbohydrate servings) cup broccoli ( carbohydrate serving) cup green beans cup onions 1 tablespoon olive oil 2 tablespoons teriyaki sauce ( carbohydrate serving) Evening Snack 1 extra small banana (1 carbohydrate serving) 1 tablespoon peanut butter * Discharge Instr - Lab* Anastasia Lanier LPN - 03/08/2021 2:22 PM EDT Your physician has ordered skilled home care services for you. Your home care will be provided by: [facility] [phone] [facility] [phone] * Additional Instructions* Olga Glasgow, LAMAR - FIBERGLASS BOAT FINISHER - 03/09/2021 Images from the original note were not included. [facility]: Cardiothoracic Surgery [address] Critical access hospital #[phone] Notify us if the following occur - Increased tenderness, redness, or swelling of your incisions. - Any drainage from the chest incision (clear or pink drainage from the leg incision or chest tube site is common). - Angina symptoms like those you had before surgery - Sharp pain in chest, neck or shoulder that is worse when taking a deep breath - Persistent fever greater than 100 degrees F or 38 degrees C - Flu-like symptoms-chills, aches, fever, increased fatigue - Heart rate faster than 150 beats/minute with shortness of breath or new irregular heart rate. - Any unusual bleeding - Shortness of breath not relieved by rest - Weight gain of three pounds in one day or five pounds over one week Activity Instructions - Sternal Precautions for 6 weeks - Do not lift, push, or pull anything heavier than 10 pounds for 6 weeks (a gallon of milk weighs 8pounds). - Do not drive until you have been given permission by your surgeon/provider and until you are off narcotic/opioid pain medication - It is ok to sleep on your side if you prop pillows to support your back. Do not sleep on your stomach. - Walk at least 4 times a day, start with 5 minute intervals, increase minutes walked each day. Do not walk on a treadmill - Balance rest and activity during your recovery - Use the stairs, but go slowly, Use the handrail for balance but do not pull yourself up with yourarms. - Shower daily. Do not take your heart medication right before you shower. You could become lightheaded from your blood pressure and heart medication. Always have someone nearby to assist you. - Do not take a tub bath or use a hot tub until all incision are completely healed (no scab). - Put carlos hose on in AM and remove at bedtime. Elevate your feet above level of heart when you are sitting. - Cough and deep breathe and use incentive spirometer every hour (10x/hour while awake for two weeks. Other Instructions - Weigh yourself daily at the same time (after you urinate but before breakfast) - Keep a record of your daily weight, and bring to your first post op office visit - Take all medications as prescribed. Bring all your medication bottles to any follow up office visit Incision Care - Wash your sternal incision with anti-bacterial soap and warm water. Pat dry, and leave open to air. Do not use any lotions, or powders, or ointments. documented in this [facility] Work Phone: 1(364) 698-543109-14-2021 Evaluation note* Diagnosis Onset Date Resolution Status H/O coronary artery bypass surgery March 05 1 acute Atherosclerosis of coronary artery of [place] heart without angina pectoris chronic Hyperlipidemia chronic Obesity chronic Type 2 diabetes mellitus wit hout complications [facility] Work Phone: 1([phone]) 907-814309-14-2021 Evaluation note* Diagnosis Onset Date Resolution Status Obesity chronic Type 2 diabetes mellitus wit hout complications chronic H/O coronary artery bypass surgery March 05 1 acute Hyperlipidemia [facility] Work Phone: [phone]) 448-963909-14-2021 Evaluation note* Diagnosis Onset Date Resolution Status H/O coronary artery bypass surgery March 05 1 acute Hyperlipidemia chronic Hypertension chronic Hyperlipidemia chronic Hypertension chronic Obesity chronic Type 2 diabetes mellitus wit hout complications chronic Vitamin D deficiency [facility] Work Phone: Evaluation note* Diagnosis S/P CABG (coronary artery bypass graft)- Primary Postsurgical aortocoronary bypass status Type 2 diabetes mellitus with hyperglycemia, with long-term current use of insulin (HCC) CAD in [place] artery Coronary atherosclerosis of [place] coronary artery documented in this encounter [facility] Work Phone: Evaluation noteNo assessment information available [facility] Work Phone: [facility]: Reason for referral (narrative)No reason for referral [facility] Work [facility]: Advance Directives No Advanced Directives Records FoundLatest Code Status on File Code Status Date Activated Date Inactivated Comments Full Code 03/05/2021 11:44 AM Full Code 03/05/2021 5:46 AM 03/05/2021 11:42 AM Advance Directive Response Recorded Date/ Time Advance Directives No February 06, 2021 6:58am Living Will No April 11 9:28am Power of Director Embalmer No April 11, 2021 9:28am Advance Directive Response Recorded Date/ Time Advance Directives No February 06, 2021 5:58am Living Will No April 11 8:28am Power of Director Embalmer No April 11, 2021 8:28am Advance Directive Response Recorded Date/ Time Advance Directives No February 06, 2021 6:58am Living Will No October 18, 2023 7:59pm Power of Director Embalmer No October 17 7:59pm Advance Directive Response Recorded Date/ Time Living Will No April 11 9:28am Do you have a Healthcare Power of Director Embalmer? 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 LABS Reason for Visit H/O coronary artery bypass surgery Atherosclerosis of coronary artery of [place] heart without angina pectoris Hyperlipidemia Obesity Type 2 diabetes mellitus without complications Chief Complaint EORDER Chief Complaint EORDER 6 M FU 1 Y FU Reason for Visit Obesity Type 2 diabetes mellitus without complications H/O coronary artery bypass surgery Hyperlipidemia Chief Complaint 1 Y FU 4 M FU I FEELS NOT RIGHT, Reason for Visit H/O coronary artery bypass surgery Hyperlipidemia Hypertension Hyperlipidemia Hypertension Obesity Type 2 diabetes mellitus without complications Vitamin D deficiency Chief Complaint Admit Date 1 Y FU September 19, 2024 2:2 8pm 3 M FU October 27, 2024 7:59am 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 AND WHG PATIENT January 162024 12:46pm Reason for Visit Admit Date Lower extremity edema September 19, 2024 2 :28pm Atherosclerosis of coronary artery of [place] heart without angina pectoris September 19, 2024 2:28pm H/O coronary artery bypass surgery September 19, 2024 2:28pm History of coronary artery stent placeme nt September 19, 2024 2:28pm Hyperlipidemia September 19, 2024 2:2 8pm Hypertension September 19, 2024 2:2 8pm Hyperlipidemia October 27, 2024 7:59am Hypertension October 27, 2024 7:59am Obesity October 27, 2024 7:59am Type 2 diabetes mellitus without complic ations October 27, 2024 7:59am Chief Complaint Admit Date 3 M FU October 27, 2024 7:59am 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 AND WHG PATIENT January 162024 12:46pm Reason for Visit Admit Date Hyperlipidemia October 27, 2024 7:59am Hypertension October 27, 2024 7:59am Obesity October 27, 2024 7:59am Type 2 diabetes mellitus without complic ations October 27, 2024 7:59am Health care maintenance January 16, 2025 12:46pm H/O coronary artery bypass surgery January 16, 2025 12:46pm Hypertension January 16, 2025 12:4 6pm Obstructive sleep apnea of adult January 162024 12:46pm Osteoarthritis January 16, 2025 12:4 6pm Type 2 diabetes mellitus without complic ations January 16, 2025 12:46pm Additional Source Comments Reason for Visit (unrecogniz ed section and content) Reason Comments Ordered Prescriptions (unrec ognized section and content) Prescription Sig Dispensed Refills Start Date End Da te blood glucose monitor stripsIndications:Type 2 diabetes mellitus with hyperglycemia, with long-term current use of insulin (HCC) 1 strip by Other route 3 times daily (before meals) Test 3 times a day & as needed for symptoms of irregular blood glucose. 100 strip 0 03/09/2021 Lancets MISCIndications:Type 2 diabetes mellitus with hyperglycemia, with long-term current use of insulin (HCC) 1 each by Does not apply route 3 times daily 100 each 0 03/09/2021 Insulin Pen Needle (PEN NEEDLES) 31G X 5 MM MISCIndications:Type 2 diabetes mellitus with hyperglycemia, with long-term current use of insulin (HCC) 1 Product by Does not apply route 4 times daily (after meals and at bedtime) MAY SUBSTITUTE BRAND PER PATIENTS INSURANCE COVERAGE 100 each 0 03/09/2021 blood glucose monitor kit and suppliesIndications:Typ e 2 diabetes mellitus with hyperglycemia, with long-term current use of insulin (HCC) 1 kit by Other route daily Per Patients insurance 1 kit 0 03/09/2021 insulin lispro, 1 Unit Dial, (HUMALOG KWIKPEN) 100 UNIT/ML SOPN Inject 5 Units into the skin 3 times daily (before meals) 3 pen 0 03/09/2021 insulin glargine (LANTUS SOLOSTAR) 100 UNIT/ML injection pen Inject 20 Units into the skin daily 3 pen 0 03/09/2021 potassium chloride (KLOR-CON M) 20 MEQ TBCR extended release tablet Take 2 tablets by mouth daily (with breakfast) for 5 days 10 tablet 0 03/09/2021 03/14/2021 furosemide (LASIX) 40 MG tablet Take 1 tablet by mouth daily for 5 days 5 tablet 0 03/09/2021 03/14/2021 metoprolol tartrate (LOPRESSOR) 25 MG tablet Take 1 tablet by mouth 2 times daily 60 tablet 3 03/09/2021 traMADol (ULTRAM) 50 MG tabletIndications:S/P CABG (coronary artery bypass graft) Take 1 tablet by mouth every 6 hours as needed for Pain (acute post surgical pain) for up to 7 days. 28 tablet 0 03/09/2021 03/16/2021 Lancets MISC 1 each by Does not apply route 4 times daily (after meals and at bedtime) 100 each 0 03/09/2021 03/09/2021 blood glucose monitor strips 1 strip by Other route 3 times daily (before meals) Test 3 times a day & as needed for symptoms of irregular blood glucose. 100 strip 0 03/09/2021 03/09/2021 blood glucose monitor kit and supplies 1 kit by Other route daily Per Patients insurance 1 kit 0 03/09/2021 03/09/2021 Insulin Pen Needle (PEN NEEDLES) 31G X 5 MM MISC 1 Product by Does not apply route 4 times daily (after meals and at bedtime) MAY SUBSTITUTE BRAND PER PATIENTS INSURANCE COVERAGE 100 each 0 03/09/2021 03/09/2021 Scheduled Active and Recently Administ ered Medications (unrecognized section and content) Medication Order 03/07/2021 03/08/2021 03/09/2021 acetaminophen (TYLENOL) tablet 1,000 mg 1,000 mg, Oral, EVERY 8 HOURS, First dose on Thu03/05/21 at 1200, Maximum dose of acetaminophen is 4000 mg from all sources in 24 hours., Post-op 0413 (Not Given - Provider: Elsa Noel RN - Reason: Patient/family refused)1203 (Given - Provider: Madhuri Means RN)2026 (Not Given - Provider: Elsa Noel RN - Reason: Patient/family refused) 0553 (Given - Provider: Elsa Noel RN)1131 (Not Given - Provider: Iggy Weaver RN - Reason: Patient/family refused)1938 (Not Given - Provider: Kan Hill RN - Reason: Patient/family refused) 0227 (Not Given - Provider: Kan Hill RN - Reason: Patient/family refused)1200 (Due)2000 (Due) aspirin EC tablet 81 mg 81 mg, Oral, DAILY, First dose on Thu03/07/21 at 0900, Do not crush or break. 0855 (Given - Provider: Madhuri Means RN) 0839 (Given - Provider: Iggy Weaver, LELE) 0958 (Given - Provider: Kassandra García, LELE) ceFAZolin (ANCEF) 2000 mg in dextrose 4 % 100 mL IVPB (premix) (COMPLETED) 2,000 mg, IntraVENous, EVERY 8 HOURS, 5 doses, First dose on Thu03/05/21 at 1600, Last dose on Thu03/07/21 at 0000, Post-op 0008 (New Bag - Provider: Elsa Noel RN)0038 (Stopped - Provider: Elsa Noel RN) clopidogrel (PLAVIX) tablet 75 mg 75 mg, Oral, DAILY, First dose on Thu03/07/21 at 0900 0854 (Given - Provider: Madhuri Means RN) 0839 (Given - Provider: Iggy Weaver RN) 0958 (Given - Provider: Kassandra García, RN) enoxaparin (LOVENOX) injection 40 mg 40 mg, SubCUTAneous, DAILY, First dose on Thu03/06/21 at 0900 0855 (Given - Provider: Madhuri Means RN) 0905 (Given - Provider: Iggy Weaver RN) 0957 (Given - Provider: Kassandra García, RN) furosemide (LASIX) injection 20 mg (CANCELED) 20 mg, IntraVENous, 2 TIMES DAILY, First dose (after last modification) on Thu03/07/21 at 0900 0854 (Given - Provider: Madhuri Means RN)1733 (Given - Provider: Madhuri Means RN) furosemide (LASIX) tablet 80 mg 80 mg, Oral, DAILY, First dose (after last modification) on Thu03/08/21 at 0915 0906 (Given - Provider: Iggy Weaver RN) 0958 (Given - Provider: Kassandra García, LELE) insulin glargine (LANTUS) injection vial 20 Units 20 Units, SubCUTAneous, DAILY, First dose on Thu03/07/21 at 1515, Turn insulin gtt off one hour after giving lantus 1514 (Given - Provider: Madhuri Means RN) 0906 (Given - Provider: Iggy Weaver RN) 0957 (Given - Provider: Kassandra García, RN) insulin lispro (HUMALOG) injection vial 0-6 Units 0-6 Units, SubCUTAneous, 3 TIMES DAILY WITH MEALS, First dose on Thu03/07/21 at 1700, Corrective Low Dose Algorithm Glucose: Dose: 70-139 No Insulin 140-199 1 Unit 200-249 2 Units 250-299 3 Units 300-349 4 Units 350-399 5 Units Over 399 6 Units 1646 (Not Given - Provider: Madhuri Means RN - Reason: Order parameters not met) 0651 (Given - Provider: Elsa Noel RN)1129 (Given - Provider: Iggy Weaver RN)1659 (Given - Provider: Iggy Weaver RN) 0658 (Given - Provider: Kan Hill, RN)1159 (Given - Provider: Kassandra García, RN)1700 (Due) insulin lispro (HUMALOG) injection vial 5 Units 5 Units, SubCUTAneous, 3 TIMES DAILY WITH MEALS, First dose on Thu03/07/21 at 1700 1646 (Given - Provider: Madhuri Means RN) 0652 (Given - Provider: Elsa Noel RN)1129 (Given - Provider: Iggy Weaver, RN)1659 (Given - Provider: Iggy Weaver, RN) 0655 (Given - Provider: Kan Hill, RN)1157 (Given - Provider: Kassandra García, RN)1700 (Due) ketorolac (TORADOL) injection 15 mg (COMPLETED) 15 mg, IntraVENous, EVERY 6 HOURS, First dose on Thu03/06/21 at 0530, For 1 day 0005 (Given - Provider: Elsa Noel RN) ketorolac (TORADOL) injection 15 mg () 15 mg, IntraVENous, EVERY 6 HOURS, First dose (after last reorder) on Thu03/07/21 at 0630, For 1 day 0653 (Not Given - Provider: Elsa Noel RN - Reason: Patient/family refused)1205 (Given - Provider: Madhuri Means RN)1733 (Given - Provider: Madhuri Means RN) 0044 (Not Given - Provider: Elsa Noel RN - Reason: Patient/family refused) ketorolac (TORADOL) injection 15 mg (COMPLETED) 15 mg, IntraVENous, EVERY 6 HOURS, First dose (after last reorder) on Thu03/08/21 at 0915, For 1 day 0945 (Given - Provider: Iggy Weaver RN)1632 (Given - Provider: Iggy Weaver RN)1936 (Given - Provider: Kan Hill, LELE) 0234 (Given - Provider: Kan Hill, RN) losartan (COZAAR) tablet 25 mg (CANCELED) 25 mg, Oral, DAILY, First dose (after last modification) on Thu03/07/21 at 0900 0854 (Given - Provider: Madhuri Means RN) 0647 (Held by provider - Provider: LAMAR Green [facility] - Reason: Other)0900 (Automatically Held - Provider: Tricia Grubbs APRN [facility]) 0552 (Unheld by provider - Provider: Olga Glasgow [employer]OUNT [employer] [facility]) magnesium citrate solution 148 mL (COMPLETED) 148 mL, Oral, ONCE, On Thu03/09/21 at 1015, For 1 dose, Administer each dose with 8 oz (240 mL) of water. 1006 (Given - Provider: Kassandra García, LELE) metoprolol tartrate (LOPRESSOR) tablet 25 mg 25 mg, Oral, 2 TIMES DAILY, First dose on Thu03/06/21 at 0530, Hold for SBP less than 105 and/or MAPs less than 65 and/or HR less than 60 0854 (Given - Provider: Madhuri Means RN)2024 (Not Given - Provider: Elsa Noel RN - Reason: Order parameters not met) 0839 (Given - Provider: Iggy Weaver, RN)193 (Given - Provider: Kan Hill, LELE) 0958 (Given - Provider: Kassandra García, LELE)2100 (Due) mupirocin (BACTROBAN) 2 % ointment (CANCELED) Nasal, 2 TIMES DAILY, First dose on Thu03/05/21 at 1200, For 4 days, Post-op 0855 (Given - Provider: Madhuri Means RN)2025 (Given - Provider: Elsa Noel RN) 0839 (Given - Provider: Iggy Weaver RN)193 (Not Given - Provider: Kan Hill, LELE - Reason: Patient/family refused) pantoprazole (PROTONIX) tablet 40 mg 40 mg, Oral, DAILY BEFORE BREAKFAST, First dose on Thu03/06/21 at 0700, Do not crush or break. 0518 (Given - Provider: Elsa Noel RN) 0553 (Given - Provider: Elsa Noel RN) 0544 (Given - Provider: Kan Hill, LELE) polyethylene glycol (GLYCOLAX) packet 17 g 17 g, Oral, DAILY, First dose on Thu03/05/21 at 1200, Post-op 0855 (Given - Provider: Madhuri Means RN) 0839 (Given - Provider: Iggy Weaver, RN) 0958 (Given - Provider: Kassandra García, RN) sennosides-docusate sodium (SENOKOT-S) 8.6-50 MG tablet 2 tablet 2 tablet, Oral, NIGHTLY, First dose on Thu03/05/21 at 2100, Post-op 2024 (Given - Provider: Elsa Noel RN) 193 (Given - Provider: Kan Hill, RN) 2099 (Due) sodium chloride flush 0.9 % injection 10 mL 10 mL, IntraCATHeter, EVERY 8 HOURS, First dose on Thu03/05/21 at 1200, Flush each lumen when not in use. Line Care. Use 10 mL or larger syringe. 0413 (Not Given - Provider: Elsa Noel RN - Reason: IV Fluid Infusing)1206 (Given - Provider: Madhuri Means RN)2027 (Given - Provider: Elsa Noel RN) 0314 (Given - Provider: Elsa Noel RN)1247 (Given - Provider: Iggy Weaver, RN)193 (Given - Provider: Kan Hill, LELE) 0527 (Not Given - Provider: Kan Hill RN - Reason: IV Fluid Infusing)1200 (Not Given - Provider: Kassandra García, RN - Reason: Loss of IV access)1999 (Due) Continuous Medication Order 03/07/2021 03/08/2021 03/09/2021 insulin regular (MYXREDLIN) 100 units in sodium chloride 0.9 % 100 ml infusion (CANCELED) 1 Units/hr (1 mL/hr), IntraVENous, at 1 mL/hr, CONTINUOUS, Starting on Thu03/05/21 at 1200, Target glucose 90-120mg/dl; if glucose <40 or >500 draw confirmation and send to lab; While on insulin drip follow hypoglycemic orders as outlined below. o Blood Glucose Initial Administration Rate/Additional IV Insulin Bolus protocol " > 90-120mg/dl - 1 unit/hr " 121-150mg/dl - 2 units/hr " 150-180mg/dl - 2.5 units/hr " 181- 240mg/dl - 3.5 units/hr + 4 unit bolus " 241-300mg/dl - 5 units/hr + 6 unit bolus " 301-360mg/dl - 6.5 units/hr + 8 unit bolus " > 360mg/dl - 8 units/hr + 10 unit bolus o Glucose by finger stick 30 minutes after infusion has started, then per Floor Blood Glucose guidelines below o When BGT is between 90-120mg/dl with < 15mg/dl change and insulin rate remains unchanged x 3 hours, then may test every 2 hours. o Adjust insulin infusion rate in response to blood glucose levels as follows: o < 60mg/dl: BGT check in 30 minutes: 1. Stop infusion. 2. Give 25ml dextrose 50% IVP, recheck BG in 30 mins " When BG is > 80 and < 120mg/dl, restart drip at 50% of the previous rate, recheck in 30 minutes. " If BG > 120, restart drip at 75% of the previous rate, recheck in 30 minutes o 60-69mg/dl: BGT check in 30 minutes: 1. Stop infusion. " If previous BG > 100mg/dl give 25ml dextrose 50% IVP, recheck BG in 30 minutes. " When BG > 80 and < 120mg/dl, restart drip at 50% of previous rate, recheck BG in 30 minutes. " If BG > 120mg/dl or more restart drip at 75% of the previous rate, recheck BG in 30 minutes. o 70-89mg/dl: BGT check every 1 hour. " Has BG dropped > 10mg/dl from the last BG? Yes: Decrease rate by 50% " Has BG dropped from the last BG < 10mg/dl or = to 10mg/dl? Yes: decrease the rate by 0.5units/hr. " If BG greater than or equal to the last test, maintain same rate. o 90-120mg/dl: BGT check in 1 hour. TITRATE DRIP RATE TO MAINTAIN THIS RANGE " Has BG increased > 10mg/dl from the last BG? Yes: increase rate by 0.5units/hr. " Has BG dropped from the last BG by more than 10mg/dl? Yes: decrease the rate by 0.5 units/hr: No: Same rate. o 121-150mg/dl: BGT check in 1 hour " Has BG dropped 20-50mg/dl from last BG? Yes: Same rate. " Has BG increased from last BG by > 20mg/dl? Yes: increase rate by 1.5 units/hr. " Has BG dropped by more than 50mg/dl? Yes: decrease rate by 50%. " Is BG within 20mg/dl of the last test? Yes: increase rate by 1 unit/hr. o 151-180mg/dl: BGT check every 1 hour " Has BG dropped > 30mg/dl? Yes: same rate Has BG dropped from last BG by < 30 mg/dl OR is BG higher than the last test? Yes: increase rate by 1.5 units/hr. o 181-240mg/dl: BGT check in 1 hour " Is BG 50-100mg/dl lower from the last BG? Yes: continue at the same rate. " Is BG lower than the last BG by >100mg/dl? Yes: decrease rate by 25%. " Is BG lower than the last BG by < 50mg/dl OR higher than the last test? Yes: bolus with 4 units insulin IV and increase rate by 2 units/hr. " Note: If BG 181-240mg/dl and has not dropped after 3 consecutive increases in insulin, then bolus with 4 units and double the insulin rate. o > 240mg/dl: BGT check in 30 minutes " Has BG dropped > 100mg/dl from last BG? Yes: same rate " Is BG lower than the last test by < 100mg/dl OR higher than the last test? Yes: IV Bolus with regular insulin as per "IV infusion Bolus" dosage scale and double insulin drip rate. o > 300mg/dl: Continue to follow the appropriate interventions based on BGT and call the [employer]. o Maximum insulin infusion drip rate may not exceed 30 units/hr; Insulin drip may NOT be discontinued unless approved by [employer]. Discontinue all subcutaneous Insulin orders (if patient is on subcutaneous insulin)., Post-op 0402 (Rate/Dose Change - Provider: Elsa Noel RN)0506 (Rate/Dose Change - Provider: Elsa Noel RN)0725 (Handoff - Provider: Madhuri Means RN)0813 (Rate/Dose Change - Provider: Madhuri Means RN)0900 (Rate/Dose Change - Provider: Madhuri Means RN)1003 (Rate/Dose Change - Provider: Madhuri Means RN)1106 (Rate/Dose Change - Provider: Madhrui Means RN)1203 (Rate/Dose Change - Provider: Madhuri Means RN)1300 (Rate/Dose Change - Provider: Madhuri Means RN)1409 (Rate/Dose Change - Provider: Madhuri Means RN)1517 (Stopped - Provider: Madhuri Means RN) PRN Medication Order 03/07/2021 03/08/2021 03/09/2021 calcium gluconate 2,000 mg in dextrose 5 % 100 mL IVPB 2,000 mg, IntraVENous, at 50 mL/hr, Administer over 120 Minutes, PRN, iCa less than 4.3, Starting on Thu03/05/21 at 1143, Via central line. Infuse over 2 hours, Repeat serum ionized calcium 2 [address] infusion completed[address] Place order for recheck under surgeon, Post-op 0548 (New Bag - Provider: Elsa Noel RN)0832 (Stopped - Provider: Iggy Weaver RN - Comment: prior to shift assessment) dextrose 5 % solution 100 mL/hr, IntraVENous, at 100 mL/hr, PRN, Low blood sugar, Starting on Thu03/05/21 at 1143, Start infusion following administration of dextrose 50% or glucagon., Post-op dextrose 50 % IV solution 12.5 g, IntraVENous, PRN, Low blood sugar, Blood glucose less than 70 mg/dL and patient NOT ALERT or NPO., Starting on Thu03/05/21 at 1143, If patient does not respond within 5 minutes, repeat dose x1. Start D5W at 100 mL/hour until ordering provider can be reached. Repeat blood glucose in 15 minutes. If blood glucose is less than 70 mg/dL, repeat treatment and recheck blood glucose in 15 minutes x2. If using Glucostabilizer, dose as instructed per system., Post-op glucagon (rDNA) injection 1 mg 1 mg, IntraMUSCular, PRN, Low blood sugar, Blood glucose less than 70 mg/dL and patient NOT ALERT or NPO and does not have IV access., Starting on Thu03/05/21 at 1143, After administration, attempt intravenous access and start D5W at 100 mL/hr. Repeat blood glucose in 15 minutes x2 and notify provider. glucose (GLUTOSE) 40 % oral gel 15 g 15 g, Oral, PRN, Low blood sugar, Starting on Thu03/05/21 at 1143, If blood glucose less than 50 mg/dL and patient ALERT and TOLERATING PO, give 2 tubes glucose gel. If blood glucose less than 70 mg/dL and patient ALERT and TOLERATING PO, give 1 tube glucose gel. Repeat blood glucose in 15 minutes. If blood glucose is less than 70 mg/dL, repeat treatment and recheck blood glucose in 15 minutes x2 and notify provider., Post-op insulin regular (HUMULIN R;NOVOLIN R) injection 4 Units (CANCELED) 4 Units, IntraVENous, PRN, High Blood Sugar, Insulin Bolus per Post op Open Heart Insulin drip, Starting on Thu03/05/21 at 1143, Post Open Heart Insulin Drip To be used as outlined in protocol for Blood Sugar Range between 181-240: If patient's blood sugar is 50-100 mg/dl lower from previous blood sugar then continue same rate. If blood sugar is lower than last blood sugar by greater than 100 then decrease rate by 25%; if blood sugar is lower than previous blood sugar by less than 50 mg/dl or higher than last blood sugar then initiate PRN bolus and bolus with 4 units IV and increase rate by 2 units/hr. Intervention to be used only when patient is on insulin drip for post op open heart surgery. When insulin drip discontinued, order no longer valid. 1004 (Given - Provider: Madhuri Means RN) magnesium sulfate 2000 mg in 50 mL IVPB premix 2,000 mg, IntraVENous, at 25 mL/hr, Administer over 2 Hours, PRN, Other, hypomagnesemia, Starting on Thu03/05/21 at 1143, Via central line - If patient has acute/chronic renal failure do not initiate protocol, call MD for management. Mag level Dose Less than or equal to 1.0 Give 2 grams at 1 gm/hr. Call MD. Monitor BP and EKG. Repeat Magnesium level 60 minutes post infusion. 1.1 - 1.5 Give 2 grams at 1 gm/hr. Repeat Magnesium level 60 minutes post infusion 1.6 - 1.9 Give 2 grams at 1 gm/hr. Repeat Magnesium level 60 minutes post infusion Greater than 1.9 No coverage, Post-op 0528 (New Bag - Provider: Kan Hill, LELE)0913 (Stopped - Provider: Kassandra García, LELE) ondansetron (ZOFRAN) injection 4 mg 4 mg, IntraVENous, EVERY 8 HOURS PRN, Nausea, Starting on Thu03/05/21 at 1143, Post-op potassium chloride (KLOR-CON M) extended release tablet 20 mEq 20 mEq, Oral, PRN, hypokalemia, Starting on Thu03/05/21 at 1143, If patient is intubated or not tolerating PO use PRN IV replacement protocol Potassium level Dose < 3.0 = Give 20 mEq x 3 doses 3.0-3.6 = Give 20 mEq x 2 doses Recheck potassium level 2 hour after replacement given, place order for lab under [place] If potassium level < 3 after 1st replacement: Call surgeon. Do not crush or break., Post-op 0544 (Given - Provider: aKn Hill RN)0546 (Given - Provider: Kan Hill, LELE) potassium chloride 20 mEq/50 mL IVPB (Central Line) 20 mEq, IntraVENous, at 50 mL/hr, Administer over 60 Minutes, PRN, Other, hypokalemia, Starting on Thu03/05/21 at 1143, Via central line - do not use if urine output below 30 mL/hr or if patient is on total parental nutrition, peritoneal or hemodialysis. Potassium Level Dose: Less than or equal to 3.5-Give 20mEq x 2 doses. Less than or equal to 2-Call provider. Repeat potassium level 2 hour post-infusion and follow protocol as indicated., Post-op sodium chloride flush 0.9 % injection 10 mL 10 mL, IntraVENous, PRN, Line Care, Starting on Thu03/05/21 at 1143, After every IV line use, Post-op traMADol (ULTRAM) tablet 50 mg 50 mg, Oral, EVERY 6 HOURS PRN, Pain Moderate (4-6), 1st choice, Starting on Thu03/05/21 at 1143, Post-op 0518 (Given - Provider: Elsa Noel RN) (unrecognized sect ion and content) No Status Records FoundNo Status Records FoundNo Status Records Found INFORMATION SOURCE (unrecogn ized section and content) DATE CREATED AUTHOR 03/13/2021 [facility] DATE CREATED AUTHOR AUTHOR'S ORGANIZ ATION 04/03/2021 [facility] DATE CREATED AUTHOR AUTHOR'S ORGANIZ ATION 01/28/2025 [facility] Goals (unrecognized section and content) Goals may be documented in a n alternate sectionGoals may be documented in an alternate sectionGoals may be documented in an alternate sectionGoals may be documented in an alternate sectionGoals may be documented in an alternate sectionGoals may be documented in an alternate section Care Teams (unrecognized sec tion and content) Team Status: Active Member Role Status Dates Dr. Alexander Rollins DO Family Provider Active Dr. Alexander Rollins DO Primary Care Provider Active Team Status: Inactive Member Role Status Dates Dr. Alexander Rollins DO Primary Care Provider Active Quita HADDAD PA Attending Provider, Referr ing Provider Active Team Status: Inactive Member Role Status Dates Dr. Alexander Rollins DO Primary Care Provider, Referri ng Provider Active AILIN Joyce Attending Provider Active Team Status: Inactive Member Role Status Dates Dr. Alexander Rollins DO Primary Care Provider, Referri ng Provider Active Dr. Cruzito Torres MD Attending Provider Active Team Status: Inactive Member Role Status Dates Dr. Alexander Rollins DO Primary Care Provider Active AILIN Joyce Attending Provider, Referring Pr ovider Active Team Status: Inactive Member Role Status Dates Dr. Alexander Rollins DO Primary Care Provider, Referri ng Provider Active Quita HADDAD PA Attending Provider Active Team Status: Inactive Member Role Status Dates Dr. Alexander Rollins DO Primary Care Provider Active Dr. Abel Murillo MD Emergency Provider Active Team Status: Inactive Member Role Status Dates Dr. Alexander Rollins DO Primary Care Provider Active AILIN Joyce Attending Provider Active [place] HADDAD, [place] Referring Provider Active Team Status: Active Member Role/Relationship Status Dates Dr. Alexander Rollins DO Family Provider Active Dr. Meme Valadez MD Primary Care Provider Active Team Status: Inactive Member Role/Relationship Status Dates Dr. Alexander Rollins DO Primary Care Provider Active Start: September 19, 2024 End: September 19, 2024 Dr. Alexander Rollins DO Referring Provider Active Start: September 19, 2024 End: September 19, 2024 CATIE Mendieta Attending Provider Active St art: September 19, 2024 End: September 19, 2024 Team Status: Inactive Member Role/Relationship Status Dates Dr. Alexander Rollins DO Primary Care Provider Active Start: October 08, 2024 End: October 08, 2024 CATIE Mendieta Attending Provider Active St art: October 08, 2024 End: October 08, 2024 CATIE Mendieta Referring Provider Active St art: October 08, 2024 End: October 08, 2024 Team Status: Inactive Member Role/Relationship Status Dates Dr. Alexander Rollins DO Primary Care Provider Active Start: October 27, 2024 End: October 27, 2024 Dr. Alexander Rollins DO Referring Provider Active Start: October 27, 2024 End: October 27, 2024 AILIN Joyce Attending Provider Active Start: October 27, 2024 End: October 27, 2024 Team Status: Inactive Member Role/Relationship Status Dates Dr. Alexander Rollins DO Primary Care Provider Active Start: January 16, 2025 End: January 16, 2025 Dr. Alexander Rollins DO Referring Provider Active Start: January 16, 2025 End: January 16, 2025 Dr. Meme Valadez MD Attending Provider Active Start: January 16, 2025 End: January 16, 2025 Team Status: Active Member Role/Relationship Status Dates Dr. Meme Valadez MD Primary Care Provider Active Start: January 16, 2025 Dr. Meme Valadez MD Attending Provider Active Start: January 16, 2025 Dr. Meme Valadez MD Referring Provider Active Start: January 16, 2025 Team Status: Inactive Member Role/Relationship Status Dates Dr. Alexander Rollins DO Primary Care Provider Active Start: October 08, 2024 End: October 08, 2024 CATIE Mendieta Attending Provider Active St art: October 08, 2024 End: October 08, 2024 CATIE Mnedieta Referring Provider Active St art: October 08, 2024 End: October 08, 2024 Team Status: Inactive Member Role/Relationship Status Dates Dr. Alexander Rollins DO Primary Care Provider Active Start: October 27, 2024 End: October 27, 2024 Dr. Alexander Rollins DO Referring Provider Active Start: October 27, 2024 End: October 27, 2024 AILIN Joyce Attending Provider Active Start: October 27, 2024 End: October 27, 2024 Team Status: Inactive Member Role/Relationship Status Dates Dr. Alexander Rollins DO Primary Care Provider Active Start: January 16, 2025 End: January 16, 2025 Dr. Alexander Rollins DO Referring Provider Active Start: January 16, 2025 End: January 16, 2025 Dr. Meme Valadez MD Attending Provider Active Start: January 16, 2025 End: January 16, 2025 Team Status: Inactive Member Role/Relationship Status Dates Dr. Mmee Valadez MD Primary Care Provider Active Start: January 16, 2025 End: January 16, 2025 Dr. Meme Valadez MD Attending Provider Active Start: January 16, 2025 End: January 16, 2025 Dr. Meme Valadez MD Referring Provider Active Start: January 16, 2025 End: January 16, 2025 FOR RECORDS PERTAINING TO PATIENTS WHO ARE OR HAVE BEEN ENROLLED IN A CHEMICAL DEPENDENCY/SUBSTANCEABUSE PROGRAM, SOME INFORMATION MAY BE OMITTED. This clinical summary was aggregated from multiple sources. Caution should be exercised in using it in the provision of clinical care. This summary normalizes information from multiple sources, and as a consequence, information in this document may materially change the coding, format and clinical context of patient data. In addition, data may be omitted in some cases. CLINICAL DECISIONS SHOULD BE BASED ON THE PRIMARY CLINICAL RECORDS. [facility] [employer] provides no warranty or guarantee of the accuracy or completeness of information in this document.
[2025-03-11 08:51] LABS: Cholesterol 128 mg/dL (<=200); Low Density Lipoprotein Calc. 61 mg/dL; Triglycerides 143 mg/dL; Very Low Density Lipoprotein 29 mg/dL (5-40); cholesterol:hdl ratio screen 3.32
[2025-03-11 08:55] LABS: AST(SGOT) 28 U/L (<=37); Alanine Aminotransfer ALT/SGPT 31 U/L (<=46); Albumin, Serum 4.0 g/dL (3.4-4.8); Alkaline Phosphatase 66 U/L (40-129); Bilirubin, Direct 0.19 mg/dL (0.00-0.30); Globulin 2.4 g/dL (2.2-4.2)
== END | disposition home or self-care (01) ==
LOC: LAB 06:57
PROVIDERS: PCP Internal Medicine; Referring Provider Student in an Organized Health Care Education/Training Program; Visit Provider Student in an Organized Health Care Education/Training Program
DX: E78.00 Pure hypercholesterolemia, unspecified (principal)
CPT/HCPCS: 36415; 80061; 80076